=== PATIENT | male | born 1950 | race Caucasian/White ===

== ENCOUNTER → 2016-11-05 | Outpatient (CLI) | payer MEDICARE ==
[2016-11-05 09:48] LABS: Anion Gap 13 mmol/L; Blood Urea Nitrogen 26 mg/dL (9-20); Calcium 9.7 mg/dL (8.4-10.2); Carbon Dioxide 25 mmol/L (22-30); Chloride 103 mmol/L (98-107); Cholesterol 181 mg/dL (<200); Glucose 187 mg/dL (74-99); HDL Cholesterol 48 mg/dL (40-60); Non-African American GFR(MDRD) 51 (>60 ml/min/1.73 sqM); Potassium 5.1 mmol/L (3.5-5.1); Sodium 141 mmol/L (137-145); Triglycerides 317 mg/dL (<150)
[2016-11-05 10:09] LABS: Hemoglobin A1C 7.6 % (4.2-6.1)
== END | disposition home or self-care (01) ==
LOC: LABWHC1 08:25
PROVIDERS: ATTEND Internal Medicine
DX: E78.4 Other hyperlipidemia (principal); E87.8 Other disorders of electrolyte and fluid balance, not elsewhere classified
CPT/HCPCS: 36415; 80048; 80061; 83036

== ENCOUNTER 2016-12-02 13:14 | Observation (INO) | payer MEDICARE ==
[2016-12-02] MEDS ORDERED: ASPIRIN 81 MG CHEW PO STA (13:52)
[2016-12-02] MEDS ORDERED: NITROGLYCERIN OINT 1 INCH/GM PACKET TOPICAL STA (13:52)
--- NOTE | 2016-12-02 13:55 | ED ---
General Adult HPI - General Chief complaint: Chest Pain Stated complaint: Heavy Chest/SOB/Nausea Time Seen by Provider: 12/02/16 13:30 Source: patient, RN notes reviewed Mode of arrival: wheelchair Limitations: no limitations - History of Present Illness Initial comments: This is a 66-year-old male with past medical history significant for diabetes hypertension high cholesterol. Patient also has a strong family history for heart disease. Patient states about one hour ago he started having heaviness in the left side of his chest. Patient states the pain does not radiate anywhere. Patient states that she's got the oxygen the pain seems to have subsided a little. Patient denies any diaphoresis or nausea. Patient states she's mildly short of breath. Patient denies any headache patient denies numbness weakness. Patient denies any lightheadedness dizziness or near syncopal episode. Patient denies any abdominal pain patient denies any vomiting or diarrhea. Patient denies any recent fever but has had a cough for 7 days and just finished erythromycin this morning. - Related Data Home Medications Medication Instructions Recorded Confirmed Atenolol [Tenormin] 50 mg PO DAILY 06/17/14 12/02/16 Quinapril HCl [Accupril] 20 mg PO DAILY 06/17/14 12/02/16 Simvastatin [Zocor] 40 mg PO HS 06/17/14 12/02/16 glipiZIDE [Glucotrol] 10 tab PO BID 06/17/14 12/02/16 metFORMIN HCL [Glucophage] 850 tab PO BID@1200,2100 06/17/14 12/02/16 Liraglutide [Victoza 2-Misael] 1.2 mg SQ DAILY 12/02/16 12/02/16 Pioglitazone HCl [Actos] 30 mg PO DAILY 12/02/16 12/02/16 Allergies Allergy/AdvReac Type Severity Reaction Status Date / Time venom-honey bee Allergy Unknown Verified 12/02/16 14:39 aspirin AdvReac "gout Verified 12/02/16 14:39 flare up" codeine AdvReac "passed Verified 12/02/16 14:39 out" Penicillins AdvReac "passed Verified 12/02/16 14:39 out" Review of Systems ROS Statement: Those systems with pertinent positive or pertinent negative responses have been documented in the HPI. ROS Other: All systems not noted in ROS Statement are negative. Past Medical History Past Medical History: Diabetes Mellitus, Hypertension History of Any Multi-Drug Resistant Organisms: None Reported Past Surgical History: Orthopedic Surgery, Tonsillectomy Past Psychological History: No Psychological Hx Reported Smoking Status: Never smoker Past Alcohol Use History: None Reported Past Drug Use History: None Reported General Exam - General Exam Comments Initial Comments: GENERAL: Patient is well-developed and well-nourished. Patient is nontoxic and well- hydrated and is in mild distress. ENT: Neck is soft and supple. No significant lymphadenopathy is noted. Oropharynx is clear. Moist mucous membranes. Neck has full range of motion without eliciting any pain. EYES: The sclera were anicteric and conjunctiva were pink and moist. Extraocular movements were intact and pupils were equal round and reactive to light. Eyelids were unremarkable. PULMONARY: Unlabored respirations. Good breath sounds bilaterally. No audible rales rhonchi or wheezing was noted. CARDIOVASCULAR: There is a regular rate and rhythm without any murmurs gallops or rubs. ABDOMEN: Soft and nontender with normal bowel sounds. No palpable organomegaly was noted. There is no palpable pulsatile mass. SKIN: Skin is clear with no lesions or rashes and otherwise unremarkable. NEUROLOGIC: Patient is alert and oriented x3. Cranial nerves II through XII are grossly intact. Motor and sensory are also intact. Normal speech, volume and content. Symmetrical smile. MUSCULOSKELETAL: Normal extremities with adequate strength and full range of motion. No lower extremity swelling or edema. No calf tenderness. LYMPHATICS: No significant lymphadenopathy is noted PSYCHIATRIC: Normal psychiatric evaluation. Normal interpersonal interactions appears functionally intact in deals appropriately with others. No signs of depression. No signs of anxiety. Limitations: no limitations Course Vital Signs 12/02/16 12/02/16 12/02/16 13:27 13:38 14:00 Temperature 97.2 F L Pulse Rate 77 82 Respiratory 18 18 18 Rate Blood Pressure 150/75 124/76 O2 Sat by Pulse 100 99 Oximetry 12/02/16 15:00 Temperature Pulse Rate 80 Respiratory 18 Rate Blood Pressure 119/68 O2 Sat by Pulse 99 Oximetry Medical Decision Making - Medical Decision Making EKG shows a normal sinus rhythm at 77 bpm TN interval is 178 QRS is 94 QT interval 374 QTC is 423. Patient's EKG shows no ST segment elevation or depression or T-wave abnormalities are noted Chest x-ray shows no acute abnormality. Patient has no chest pain currently. Because of the patient's significant risk factors presentation family history I displaced the patient on heparin. I spoke with Dr. Lemon agreed to admit the patient about admitting orders I consult cardiology I continued the heparin Nitropaste aspirin on the floor. - Lab Data Result diagrams: 12/02/16 13:27 12/02/16 13:27 Lab Results 12/02/16 12/02/16 12/02/16 Range/Units 13:27 13:27 13:27 WBC 5.7 (3.8-10.6) k/uL RBC 4.48 (4.30-5.90) m/uL Hgb 13.7 (13.0-17.5) gm/dL Hct 40.5 (39.0-53.0) % MCV 90.5 (80.0-100.0) fL MCH 30.6 (25.0-35.0) pg MCHC 33.8 (31.0-37.0) g/dL RDW 13.1 (11.5-15.5) % Plt Count 237 (150-450) k/uL Neutrophils % 58 % Lymphocytes % 32 % Monocytes % 7 % Eosinophils % 1 % Basophils % 0 % Neutrophils # 3.3 (1.3-7.7) k/uL Lymphocytes # 1.8 (1.0-4.8) k/uL Monocytes # 0.4 (0-1.0) k/uL Eosinophils # 0.1 (0-0.7) k/uL Basophils # 0.0 (0-0.2) k/uL PT (9.0-12.0) sec INR (<1.1) APTT (22.0-30.0) sec Sodium 138 (137-145) mmol/L Potassium 5.2 H (3.5-5.1) mmol/L Chloride 102 (98-107) mmol/L Carbon Dioxide 22 (22-30) mmol/L Anion Gap 14 mmol/L BUN 25 H (9-20) mg/dL Creatinine 1.35 H (0.66-1.25) mg/dL Est GFR (MDRD) Af Amer >60 (>60 ml/min/1.73 sqM) Est GFR (MDRD) Non-Af 53 (>60 ml/min/1.73 sqM) Glucose 239 H (74-99) mg/dL Calcium 9.5 (8.4-10.2) mg/dL Magnesium 2.0 (1.6-2.3) mg/dL Total Bilirubin 1.2 (0.2-1.3) mg/dL AST 32 (17-59) U/L ALT 40 (21-72) U/L Alkaline Phosphatase 53 (38-126) U/L Total Creatine Kinase 152 (55-170) U/L CK-MB (CK-2) 0.7 (0.0-2.4) ng/mL CK-MB (CK-2) Rel Index 0.5 Troponin I <0.012 (0.000-0.034) ng/mL Total Protein 7.5 (6.3-8.2) g/dL Albumin 4.3 (3.5-5.0) g/dL 12/02/16 Range/Units 13:27 WBC (3.8-10.6) k/uL RBC (4.30-5.90) m/uL Hgb (13.0-17.5) gm/dL Hct (39.0-53.0) % MCV (80.0-100.0) fL MCH (25.0-35.0) pg MCHC (31.0-37.0) g/dL RDW (11.5-15.5) % Plt Count (150-450) k/uL Neutrophils % % Lymphocytes % % Monocytes % % Eosinophils % % Basophils % % Neutrophils # (1.3-7.7) k/uL Lymphocytes # (1.0-4.8) k/uL Monocytes # (0-1.0) k/uL Eosinophils # (0-0.7) k/uL Basophils # (0-0.2) k/uL PT 10.1 (9.0-12.0) sec INR 1.0 (<1.1) APTT 20.6 L (22.0-30.0) sec Sodium (137-145) mmol/L Potassium (3.5-5.1) mmol/L Chloride (98-107) mmol/L Carbon Dioxide (22-30) mmol/L Anion Gap mmol/L BUN (9-20) mg/dL Creatinine (0.66-1.25) mg/dL Est GFR (MDRD) Af Amer (>60 ml/min/1.73 sqM) Est GFR (MDRD) Non-Af (>60 ml/min/1.73 sqM) Glucose (74-99) mg/dL Calcium (8.4-10.2) mg/dL Magnesium (1.6-2.3) mg/dL Total Bilirubin (0.2-1.3) mg/dL AST (17-59) U/L ALT (21-72) U/L Alkaline Phosphatase (38-126) U/L Total Creatine Kinase (55-170) U/L CK-MB (CK-2) (0.0-2.4) ng/mL CK-MB (CK-2) Rel Index Troponin I (0.000-0.034) ng/mL Total Protein (6.3-8.2) g/dL Albumin (3.5-5.0) g/dL Critical Care Time Critical Care Time: Yes Total Critical Care Time: 35 Disposition Clinical Impression: Unstable angina pectoris Disposition: ADMITTED IP TO THIS [facility] Time of Disposition: 15:37
[2016-12-02 14:06] LABS: Basophils % (A) 0 %; CH 31.7; CHCM 35.2; Eosinophils # (A) 0.1 k/uL (0-0.7); Eosinophils % (A) 1 %; HCT 40.5 % (39.0-53.0); HDW 2.92; HGB 13.7 gm/dL (13.0-17.5); Luc # (Auto) 0.14; Luc % (Auto) 3; Lymphocytes # (A) 1.8 k/uL (1.0-4.8); Lymphocytes % (A) 32 %; MCH 30.6 pg (25.0-35.0); MCHC 33.8 g/dL (31.0-37.0); MCV 90.5 fL (80.0-100.0); Mean Platelet Volume 8.8; Monocytes # (A) 0.4 k/uL (0-1.0); Monocytes % (A) 7 %; Neutrophils # (A) 3.3 k/uL (1.3-7.7); Neutrophils % (A) 58 %; RBC 4.48 m/uL (4.30-5.90); RDW 13.1 % (11.5-15.5); WBC 5.7 k/uL (3.8-10.6)
[2016-12-02 14:20] LABS: ALT 40 U/L (21-72); AST 32 U/L (17-59); Alkaline Phosphatase 53 U/L (38-126); Anion Gap 14 mmol/L; Blood Urea Nitrogen 25 mg/dL (9-20); Calcium 9.5 mg/dL (8.4-10.2); Carbon Dioxide 22 mmol/L (22-30); Chloride 102 mmol/L (98-107); Glucose 239 mg/dL (74-99); Non-African American GFR(MDRD) 53 (>60 ml/min/1.73 sqM); Sodium 138 mmol/L (137-145); Total Bilirubin 1.2 mg/dL (0.2-1.3); Total Protein 7.5 g/dL (6.3-8.2)
[2016-12-02 14:26] LABS: Potassium 5.2 mmol/L (3.5-5.1)
[2016-12-02 14:29] LABS: Creatine Kinase 152 U/L (55-170)
[2016-12-02 14:41] LABS: Prothrombin Time 10.1 sec (9.0-12.0)
[2016-12-02 14:42] LABS: Creatine Kinase MB 0.7 ng/mL (0.0-2.4); Troponin I <0.012 ng/mL (0.000-0.034)
[2016-12-02 14:43] LABS: Partial Thromboplastin Time 20.6 sec (22.0-30.0)
--- NOTE | 2016-12-02 14:45 | XR ---
EXAMINATION TYPE: XR chest 2V DATE OF EXAM: 12/02/2016 2:27 PM HISTORY: Chest tightness. REFERENCE: NONE. FINDINGS: The lungs are clear. Pleural spaces are clear. Heart size is upper limits of normal. IMPRESSION: NO ACUTE INTRATHORACIC ABNORMALITY.
[2016-12-02] MEDS ORDERED: HEPARIN SODIUM,PORCINE 5,000 UNIT/ML 1 ML VIAL IV ONE (15:34)
[2016-12-02] MEDS ORDERED: NITROGLYCERIN SL TABS 0.4 MG TAB SUBLINGUAL PRN (15:37)
[2016-12-02] MEDS: HEPARIN SODIUM,PORCINE/D5W PMX 25,000 UNIT in DEXTROSE/WATER 1 500ML.BAG IV SCH (15:57)
--- NOTE | 2016-12-02 17:38 | P.HPIM ---
History of Present Illness Chief complaint: Chest pain History of present illness: The patient is a 66-year-old gentleman who earlier today was shopping with his . He developed a substernal chest pressure that did not radiate. 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 There when given oxygen and nitroglycerin there was improvement in his pain. Patient states he had some nausea associated with this and is somewhat short of breath. Apparently he has been recently getting over an upper respiratory infection for which she was on azithromycin. Past medical history: Patient does have underlying history of hypertension Hyperlipidemia Type 2 diabetes He is a former smoker. The patient also has history of colonic polyps along with history of renal stones. Also has stage III chronic kidney disease. Medications: Patient has had adverse reactions with passing out with codeine and penicillins. Apparently he has had a gout flareup while taking aspirin. And apparently has had reactions to bee stings. Home medications: Please refer to list but should include metformin 850 mg twice a day Actos 30 mg daily Victoza 1.2 mg subcu daily Glipizide 10 mg twice a day Zocor 40 mg at at bedtime Quinapril 20 mg daily Atenolol 50 mg daily. Previous surgeries include a tonsillectomy and left knee orthoscopic surgery. Review of systems: Basically is listed in the history of present illness. Patient denied any dizziness or headaches. No visual disturbances. States he did have some nausea. No fever or chills associated with his cough. No active phlegm production. No hemoptysis. No vomiting. No change in bowel movements. No hematochezia. Patient denies any urinary symptoms. No blood in his urine or dysuria. No unusual edema. No change in bowel movements. No blood in the stool. Family history: The patient apparently does have a strong family history of heart disease along with history of cirrhosis secondary to alcohol and prostate cancer. Social history: Patient is a former smoker. No history of any heavy alcohol usage. He does live locally in the area with his . He is retired. Physical examination: Patient is sitting up on the examination stretcher in the emergency room with his at his side. Does not appear to be in any acute distress and is alert and pleasant. Vital signs reveal temperature 90.8 with a pulse of 84 and respirations 18. Blood pressure is 108/67 and he is 98% saturated on 2 L nasal cannula. Chest wall does not reveal any tenderness. Head and neck exam unremarkable. No adenopathy or thyromegaly or carotid bruits detected. Lungs are clear to auscultation and percussion. Heart tones were regular without murmurs or rubs appreciated. Abdomen is mildly obese but soft and nontender without organomegaly or masses detected. Rectal and genitalia exam deferred. Extremities reveal no edema or calf tenderness. Neurologically he is intact and alert and oriented. Cranial nerves were intact. No focal weakness. Laboratory values: White count is 5.7 with a hemoglobin 11.7 and a platelet count of 237. INR is 1.0. Potassium mildly elevated at 5.2 with a normal sodium 138 and a CO2 content of 22. BUN is 25 with creatinine 1.35 given him a GFR of 53. Random blood sugar was 239. Liver function tests were unremarkable. Albumin 4.3. CK is 152. Troponin is less than 0.012. EKG reveals a normal sinus rhythm without acute ischemic changes noted. Some left axis is noted. Chest x-ray shows no acute abnormalities. Impressions: 1. Rather severe chest pain that lasted about an hour and finally relieved in the emergency room without change in and nitroglycerin. First set of enzymes were normal. No definite EKG changes. Further evaluation needed. Patient has multiple risk factors including strongly positive family history along with type 2 diabetes, hypertension, hyperlipidemia. 2. History of chronic kidney disease. Stage III. 3. History of colonic polyps. 4. History of renal stones. Plans: At this time patient has been started on heparin. We will hold his metformin. Glipizide also on hold for now. Continue with beta kaushik and DANN inhibitor. Further enzymes to be obtained. Consult cardiology and further workup as discussed with patient and at bedside in the emergency room.` Told patient he should not eat anything in the morning and be nothing by mouth in the morning until seen by cardiology. Past Medical History Past Medical History: Diabetes Mellitus, Hypertension History of Any Multi-Drug Resistant Organisms: None Reported Past Surgical History: Orthopedic Surgery, Tonsillectomy Past Psychological History: No Psychological Hx Reported Smoking Status: Never smoker Past Alcohol Use History: None Reported Past Drug Use History: None Reported Medications and Allergies Home Medications Medication Instructions Recorded Confirmed Type Atenolol [Tenormin] 50 mg PO DAILY 06/17/14 12/02/16 History Quinapril HCl [Accupril] 20 mg PO DAILY 06/17/14 12/02/16 History Simvastatin [Zocor] 40 mg PO HS 06/17/14 12/02/16 History glipiZIDE [Glucotrol] 10 tab PO BID 06/17/14 12/02/16 History metFORMIN HCL [Glucophage] 850 tab PO BID@1200,2100 06/17/14 12/02/16 History Liraglutide [Victoza 2-Misael] 1.2 mg SQ DAILY 12/02/16 12/02/16 History Pioglitazone HCl [Actos] 30 mg PO DAILY 12/02/16 12/02/16 History Allergies Allergy/AdvReac Type Severity Reaction Status Date / Time venom-honey bee Allergy Unknown Verified 12/02/16 14:39 aspirin AdvReac "gout Verified 12/02/16 14:39 flare up" codeine AdvReac "passed Verified 12/02/16 14:39 out" Penicillins AdvReac "passed Verified 12/02/16 14:39 out" Physical Exam Vitals: Vital Signs Temp Pulse Resp BP Pulse Ox 12/02/16 16:57 98.0 F 84 18 108/67 98 12/02/16 16:13 85 16 117/75 99 Results CBC & Chem 7: 12/02/16 13:27 12/02/16 13:27
[2016-12-02 17:55] LABS: Glucose,Whole Blood 210 mg/dL (75-99)
[2016-12-02 18:55] LABS: Hemoglobin A1C 8.3 % (4.2-6.1)
[2016-12-02] MEDS ORDERED: ACETAMINOPHEN TAB 325 MG TAB PO PRN (19:33)
[2016-12-02 20:22] LABS: Creatine Kinase 122 U/L (55-170)
[2016-12-02 20:34] LABS: Creatine Kinase MB 0.5 ng/mL (0.0-2.4); Troponin I <0.012 ng/mL (0.000-0.034)
[2016-12-02] MEDS: NITROGLYCERIN OINT 1 INCH/GM PACKET TOPICAL SCH (20:56)
[2016-12-02] MEDS ORDERED: ATORVASTATIN 20 MG TAB PO SCH (21:00)
[2016-12-02] MEDS: INSULIN LISPRO (humaLOG) 300 UNIT/3 ML VIAL SQ SCH (21:02)
[2016-12-02 21:03] LABS: Glucose,Whole Blood 145 mg/dL (75-99)
[2016-12-03] MEDS: NITROGLYCERIN OINT 1 INCH/GM PACKET TOPICAL SCH ×3 (00:12→14:36)
[2016-12-03 01:50] LABS: Creatine Kinase 126 U/L (55-170)
[2016-12-03] MEDS ORDERED: HEPARIN SODIUM,PORCINE 5,000 UNIT/ML 1 ML VIAL IV PRN (02:01)
[2016-12-03 02:03] LABS: Creatine Kinase MB 0.4 ng/mL (0.0-2.4); Troponin I <0.012 ng/mL (0.000-0.034)
[2016-12-03 07:03] LABS: Glucose,Whole Blood 165 mg/dL (75-99)
[2016-12-03] MEDS ORDERED: ALPRAZolam 0.25 MG TAB PO PRN (07:15)
[2016-12-03] MEDS ORDERED: ALPRAZolam 0.5 MG TAB PO PRN (07:15)
[2016-12-03] MEDS ORDERED: ASPIRIN 325 MG TAB PO STA (07:15)
[2016-12-03] MEDS ORDERED: ATORVASTATIN 80 MG TAB PO STA (07:15)
[2016-12-03] MEDS ORDERED: SODIUM CHLORIDE 0.9% 1,000 ML in EMPTY BAG 1 BAG IV ONE (07:15)
[2016-12-03] MEDS ORDERED: NITROGLYCERIN SL TABS 0.4 MG TAB SUBLINGUAL PRN ×2 (07:15→13:25)
--- NOTE | 2016-12-03 07:55 | CONS ---
DATE OF CONSULTATION: CHIEF COMPLAINT: Chest pain. Yazan is a 66-year-old gentleman with history of hypertension, dyslipidemia, and type 2 diabetes who presented to the hospital having had episodes of chest pain. He describes it as a substernal chest pressure that did not radiate anywhere, lasted for about half an hour. He went to our office and from there had apparently been sent to the emergency room. In the ER, he responded to sublingual nitroglycerin and oxygen and had remained chest pain-free. His chest pain was associated with some shortness of breath and nausea. EKG did not reveal significant changes. Patient had recently been diagnosed with upper respiratory tract infection but that has been getting better. Cardiac enzymes have been better. His BUN is 25. Creatinine is 1.35. Past medical history is significant for hypertension, diabetes, dyslipidemia. Medications include Glucophage 50 b.i.d., Actos 30 daily, Victoza, glipizide, Zocor, quinapril, atenolol. PATIENT IS ALLERGIC TO ASPIRIN, CODEINE AND PENICILLIN. FAMILY HISTORY: Significant for premature coronary artery disease. SOCIAL HISTORY: Negative for smoking, EtOH abuse, or drug abuse. REVIEW OF SYSTEMS: HEENT: Unremarkable. CARDIAC: As described above. RESPIRATORY: Negative. GI: Negative. GENITOURINARY: Negative. ALLERGY/IMMUNOLOGY: Negative. SKIN: Negative. MUSCULOSKELETAL: Negative. ENDOCRINE: Negative. DERMATOLOGY: Negative. CONSTITUTIONAL: Negative. ONCOLOGICAL: Negative. The rest of the system review is not relevant. On exam, heart rate is 80 beats per minute, blood pressure is 118/74, O2 sat is 97%. There is no jugular venous distention. Carotid upstroke is normal. There is no bruit. Chest exam reveals good air entry bilaterally. Heart exam reveals first and second heart sounds. No gallop. No murmur, no rub. Abdomen is soft, nontender. Exam of extremities did not reveal any edema. Peripheral pulses are felt. Labs show that tropes are negative. BUN is 25. Creatinine is 1.3. Potassium is 5.2. ASSESSMENT: 1. Unstable angina. 2. Hypertension. 3. Sxc-dbbzzwh-spizqzhki diabetes. 4. Chronic renal insufficiency. PLAN: I am concerned with patient's symptomatology. I think he will benefit from cardiac catheterization. There is a risk of contrast-induced nephropathy but I am going to hydrate him and he has elevated serum potassium, probably related to the DANN inhibitors. These should be held on discharge. He sees my associate, Dr. Hameed, and I am going to schedule it with him.
--- NOTE | 2016-12-03 08:13 | P.PN ---
Progress Note - Text The patient is a 66-year-old gentleman who presented last night with acute chest pain that was relieved in the emergency room with oxygen and nitroglycerin. Patient does have numerous risk factors including a positive family history, hypertension, hyperlipidemia, along with type 2 diabetes. Patient does have stage III chronic kidney disease. Patient denies any pain during the night. Vital signs reveal temperature 98.1 with a pulse of 83 and respirations 16. Blood pressure 118/74 and is 97% saturated on room air. Head and neck exam unremarkable. Lung and heart clear and regular. Abdomen nontender. No edema. No neurological changes. Patient's CK has remained low at 126 and troponins 2 less than 0.012. Glucose is 165. He is on heparin and PTT is 64. Impressions and plans: Patient has been seen by cardiology. Unstable angina. Anticipating likely catheterization later. This was discussed and explained to patient. He appears to understand reasons for further testing. Further recommendations pending those results and clinical response.
[2016-12-03 08:17] LABS: Cholesterol 144 mg/dL (<200); HDL Cholesterol 40 mg/dL (40-60); Triglycerides 254 mg/dL (<150)
[2016-12-03] MEDS ORDERED: ASPIRIN 325 MG TAB PO SCH (09:00)
[2016-12-03] MEDS ORDERED: NON-FORMULARY DRUG (Liraglutide [Victoza 2-Pak] 1.2 MG) SQ SCH (09:00)
--- NOTE | 2016-12-03 10:32 | ECHOF ---
Referral Reason:[place] MEASUREMENTS -------- HEIGHT: 177.8 cm WEIGHT: 95.7 kg BP: 118/74 RVIDd: 3.2 cm (< 3.3) IVSd: 1.2 cm (0.6 - 1.1) LVIDd: 4.4 cm (3.9 - 5.3) LVPWd: 1.2 cm (0.6 - 1.1) IVSs: 1.8 cm LVIDs: 3.0 cm LVPWs: 1.5 cm LA Diam: 3.6 cm (2.7 - 3.8) LAESV Index (A-L): 20.75 ml/m Ao Diam: 3.5 cm (2.0 - 3.7) AV Cusp: 2.2 cm (1.5 - 2.6) MV EXCURSION: 11.106 mm (> 18.000) MV EF SLOPE: 33 mm/s (70 - 150) EPSS: 0.8 cm MV E Eduardo: 0.88 m/s MV DecT: 302 ms MV A Eduardo: 1.02 m/s MV E/A Ratio: 0.86 FINDINGS -------- Sinus rhythm. This was a technically good study. The left ventricular size is normal. Left ventricular wall thickness is normal. Overall left ventricular systolic function is normal with, an EF between 60 - 65 %. The right ventricle is normal in size and function. Normal LA size by volume 22+/-6 ml/m2. The right atrium is normal in size. The aortic valve is trileaflet and appears structurally normal. Mild mitral annular calcification present. Trace tricuspid regurgitation present. Trace/mild (physiologic) pulmonic regurgitation. The aortic root size is normal. IVC Not well visulized. There is no pericardial effusion. CONCLUSIONS -------- 1. Sinus rhythm. 2. Mild mitral annular calcification present. 3. Trace tricuspid regurgitation present. 4. Trace/mild (physiologic) pulmonic regurgitation. 5. The aortic root size is normal. 6. IVC Not well visulized. 7. There is no pericardial effusion. 8. This was a technically good study. 9. The left ventricular size is normal. 10. Left ventricular wall thickness is normal. 11. Overall left ventricular systolic function is normal with, an EF between 60 - 65 %. 12. The right ventricle is normal in size and function. 13. Normal LA size by volume 22+/-6 ml/m2. 14. The right atrium is normal in size. 15. The aortic valve is trileaflet and appears structurally normal. INDUSTRIAL FURNACE FABRICATOR: Janice Beard RDCS
[2016-12-03] MEDS: INSULIN LISPRO (humaLOG) 300 UNIT/3 ML VIAL SQ SCH ×4 (10:44→21:16)
[2016-12-03] MEDS: LISINOPRIL 20 MG TAB PO SCH (10:46)
[2016-12-03] MEDS: PIOGLITAZONE 30 MG TAB PO SCH (10:46)
[2016-12-03] MEDS: ATENOLOL 50 MG TAB PO SCH (10:46)
[2016-12-03] MEDS ORDERED: SODIUM CHLORIDE 0.9% (PF) 10 ML VIAL ONE (11:57)
[2016-12-03] MEDS ORDERED: LIDOCAINE 2% INJ 20 MG/ML (20 ML MDV) ONE (11:57)
[2016-12-03] MEDS ORDERED: fentaNYL (PF) 50 MCG/ML 2 ML AMP ONE (11:58)
[2016-12-03] MEDS ORDERED: VERAPAMIL 2.5 MG/ML 2 ML AMP ONE (11:58)
[2016-12-03] MEDS ORDERED: IV FLUID CONTINUATION 600 ML IV ONE (12:15)
[2016-12-03] MEDS ORDERED: fentaNYL (PF) 50 MCG/ML 2 ML AMP IV ONE (12:30)
[2016-12-03] MEDS ORDERED: LIDOCAINE 2% INJ 20 MG/ML SQ ONE (12:32)
[2016-12-03] MEDS ORDERED: VERAPAMIL SYRINGE (5 MG/10 ML) INTRAARTER ONE (12:35)
[2016-12-03] MEDS ORDERED: ASPIRIN 325 MG TAB ONE (12:44)
[2016-12-03] MEDS ORDERED: PRASUGREL 10 MG TAB ONE (12:45)
[2016-12-03] MEDS ORDERED: ASPIRIN 325 MG TAB PO ONE (12:47)
[2016-12-03] MEDS ORDERED: BIVALIRUDIN BOLUS 250 MG/50 ML IV ONE (12:47)
[2016-12-03] MEDS ORDERED: PRASUGREL 10 MG TAB PO ONE (12:47)
[2016-12-03] MEDS ORDERED: BIVALIRUDIN 250 MG in SODIUM CHLORIDE 0.9% 50 ML IV ONE (12:48)
[2016-12-03] MEDS ORDERED: NITROGLYCERIN 1000MCG/10ML SYRINGE INTRACORON ONE (12:57)
[2016-12-03] MEDS ORDERED: IODIXANOL 320 MG/ML 100 ML INTRAARTER ONE (13:07)
[2016-12-03] MEDS ORDERED: ZOLPIDEM 5 MG TAB PO PRN (13:25)
[2016-12-03] MEDS ORDERED: RX INFO: IV CONTRAST WAS GIVEN 1 EACH MISC MISCELLANE PRN (13:25)
[2016-12-03] MEDS ORDERED: ATROPINE SULFATE 0.1 MG/ML 10ML SYRINGE IV PRN (13:25)
[2016-12-03] MEDS ORDERED: MAG HYDROX/AL HYDROX/SIMETH 30 ML CUP PO PRN (13:25)
[2016-12-03] MEDS ORDERED: SODIUM CHLORIDE 0.9% 1,000 ML IV SCH (13:30)
[2016-12-03] MEDS: HEPARIN SODIUM,PORCINE/D5W PMX 25,000 UNIT in DEXTROSE/WATER 1 500ML.BAG IV SCH (14:30)
[2016-12-03 17:37] LABS: Glucose,Whole Blood 116 mg/dL (75-99)
[2016-12-03] MEDS ORDERED: ATORVASTATIN 40 MG TAB PO SCH (21:00)
[2016-12-03 21:10] LABS: Glucose,Whole Blood 171 mg/dL (75-99)
--- NOTE | 2016-12-03 21:36 | CC ---
DATE OF SERVICE: Mr. Anne is a 66-year-old male with a known history of hypertension, hyperlipidemia who presented with new onset symptoms of chest discomfort without any enzymatic changes. He was evaluated by Dr. Chamorro and recommendation was made regarding cardiac catheterization. The procedure as well as the risks and complications were discussed with the patient who is in full understanding and agreement. PROCEDURE: Patient was brought to the laborer [place] in the fasting semisedated state after receiving fentanyl and Benadryl. He was draped and prepped in conventional fashion. Using Xylocaine anesthesia and Seldinger technique, a 6 Albanian sheath was introduced in right radial artery. Selective right and left coronary angiography were performed using 5 Albanian 3.5 bend right and left Leticia catheter. Multiple views of the coronary arteries including hemiaxial views were obtained. Following that, a 5 Albanian tight pigtail catheter was introduced into the left ventricle and pressures were calculated. Following that, catheter was removed. Images were reviewed. FINDINGS: Fluoroscopy: There is calcification involving the left main, and the proximal left anterior descending. LEFT MAIN: This is a short-sized vessel bifurcating into left circumflex, left anterior descending artery left main coronary artery has no evidence of high-grade stenosis. LEFT ANTERIOR DESCENDING: This is a large-size vessel reaching toward the apex with a wrap around the apex segment, giving rise to 2 small diagonal branches. The left anterior descending artery and its branches have no evidence of obstructive disease. LEFT CIRCUMFLEX: This is a large dominant vessel, giving rise to a very proximal obtuse marginal branch that has a 70% hazy plaque proximally and distally bifurcating into PDA and posterolateral segment and branches. The left circumflex distal to the first obtuse marginal branch has no evidence of high-grade stenosis. RIGHT CORONARY ARTERY: This is a small nondominant vessel that has no evidence of high-grade stenosis. LEFT VENTRICULOGRAM: Left ventriculogram was not performed. HEMODYNAMICS: There was no gradient across the aortic valve. The left ventricular end-diastolic was 12 mmHg. CONCLUSION: 1. Significant stenosis involving the first obtuse marginal branch. 2. Calcified left main and proximal left anterior descending coronary artery. RECOMMENDATION: In view of finding and anatomy, I have recommended proceeding with angioplasty and stenting of the first obtuse marginal branch. The procedure as well as the risks and complications were discussed with the patient, who is in full agreement to proceed.
--- NOTE | 2016-12-03 21:40 | PTCA ---
DATE OF SERVICE: Mr. Anne is a 66-year-old male with no prior documented history of coronary artery disease, who presented with symptoms of unstable angina, underwent cardiac catheterization, was found to have significant stenosis involving the first obtuse marginal branch. In view of that, recommendation made regarding coronary angioplasty and stenting. The procedure as well as risks and complications were discussed with the patient who is in full understanding and agreement. PROCEDURE: A 6 Belarusian 3-1/2 Bend left Leticai catheter was introduced into the system. It was unable to cannulate the left main. That catheter was removed and a 6 Belarusian 3.75 EBU guiding catheter was introduced into the system. After cannulating the left main, obtaining images a 0.014 balanced medium weight J-wire was advanced across the lesion, positioned distally. Then a 2.75 x 15 mm Xience Alpine stent was deployed and was dilated at 14 atmospheres. After the last inflation, after appropriate wait, the balloon and the guidewire were withdrawn back in the guiding catheter. Those images were obtained and repeated. Those images revealed stable successful stenting. At that point, the guiding catheter, the balloon and the guidewire were removed. The sheath was removed. Hemostasis was obtained with deployment of a TR band. There were no immediate complications. Patient is returned to his room in stable condition. Of note, the patient had no chest discomfort or significant EKG changes with the inflation. He received Angiomax per protocol as well as oral loading dose of Effient. He received intra-arterial verapamil at the start of the procedure. RESULT: Successful stenting of the first obtuse marginal branch with reduction in stenosis from 70% to 0%. RECOMMENDATION: Patient will be continued on aspirin, Effient and beta kaushik and statin. The importance of dual antiplatelet treatment was discussed with the patient and his family who is in full understanding and agreement.
--- NOTE | 2016-12-03 21:44 | LTR ---
December 03, 2016 RE: Omid Yazan Yudi Dear Dr. Lemon: I had the pleasure of performing cardiac catheterization and coronary angioplasty and stenting on Mr. Anne at [facility] on the november and a full copy of procedure note will be forwarded to you. In brief, he underwent successful stenting. He was found to have significant obstructive disease involving the first obtuse marginal branch and underwent successful stenting of that vessel. I am hopeful this procedure will stabilize his status. Thank you again for allowing me to participate in his care. Please feel to call for any questions. Sincerely yours, HOWARD FERRELL MD
[2016-12-04 04:15] VITALS: RESP 16
[2016-12-04] MEDS: INSULIN LISPRO (humaLOG) 300 UNIT/3 ML VIAL SQ SCH (06:46)
[2016-12-04 06:50] LABS: Glucose,Whole Blood 184 mg/dL (75-99)
[2016-12-04 07:02] LABS: Anion Gap 10 mmol/L; Blood Urea Nitrogen 17 mg/dL (9-20); Calcium 8.8 mg/dL (8.4-10.2); Carbon Dioxide 23 mmol/L (22-30); Chloride 107 mmol/L (98-107); Glucose 173 mg/dL (74-99); Non-African American GFR(MDRD) >60 (>60 ml/min/1.73 sqM); Potassium 4.4 mmol/L (3.5-5.1); Sodium 140 mmol/L (137-145)
[2016-12-04 07:51] VITALS: BP 111/68; PULSE 84; TEMP 97.5
[2016-12-04] MEDS: LISINOPRIL 20 MG TAB PO SCH (08:26)
[2016-12-04] MEDS: PIOGLITAZONE 30 MG TAB PO SCH (08:26)
[2016-12-04] MEDS: ATENOLOL 50 MG TAB PO SCH (08:26)
[2016-12-04] MEDS ORDERED: PRASUGREL 10 MG TAB PO SCH (09:00)
[2016-12-04] MEDS ORDERED: ASPIRIN 81 MG CHEW PO SCH (09:00)
--- NOTE | 2016-12-04 09:18 | PN ---
Mr. Anne is a 66-year-old man with known history of hypertension, hyperlipidemia, and diabetes mellitus, who presented with unstable angina, underwent cardiac catheterization, was found to have obstructive disease in the first obtuse marginal branch, underwent stenting of that vessel. He is doing well this morning, ambulating without difficulty. Denying any chest pain. No dizziness. No palpitation. No nausea. Continues to be on aspirin 81 mg daily, Effient 10 mg daily, Lipitor 40 mg daily, atenolol 50 mg daily, lisinopril 20 mg daily, Actos 30 mg daily in addition to metformin that has been on hold and insulin. PHYSICAL EXAMINATION: Blood pressure 111/60 with the heart rate in the 80s. LUNGS: Clear. HEART: Regular rate and rhythm. S1 and S2, no S3, no rub with systolic murmur. ABDOMEN: Soft, nontender. EXTREMITIES: No edema. Right radial pulse intact. EKG revealed no acute changes. Lab data revealed BUN, creatinine 17 and 1.12. Potassium 4.4. IMPRESSION: 1. Unstable angina and stenting of the first obtuse marginal branch. 2. Hypertension. 3. Hyperlipidemia. 4. Diabetes mellitus. RECOMMENDATIONS: Patient will be discharged home today and followed as an outpatient.
--- NOTE | 2016-12-04 10:02 | P.PN ---
Progress Note - Text The patient is a 66 gentleman who presented to the emergency room 2 nights ago with acute chest pain. Yesterday patient underwent cardiac catheterization and was found to have obstructive disease in the first obtuse marginal branch and underwent stenting by cardiology. This morning the patient is found up in bed. Alert and oriented. He denies any chest pain shortness of breath. He has been up ambulating without difficulty. Vital signs blood temperature 97.5 with a pulse of 84 and respirations 16. Blood pressure is 111/68 and he is 98% saturated on room air. Lungs and heart exam was clear and regular. No unusual edema. No neurological deficits. Laboratory values: Electrolytes were unremarkable with a potassium 4.4 and a sodium 140. His BUN is 17 with a creatinine 1.12 given him a GFR greater than 60. Blood sugar was 173 this morning. Impressions and plans: Patient has been seen by cardiology this morning and plans are for discharge to home. She has been placed on aspirin and will continue his diabetic medications at home along with his medication for cholesterol and blood pressure. Recommended follow-up with cardiology next week as family has plans for possibly traveling to [place] in one week. Gradual increase in activity was recommended but with no heavy lifting no is no shoveling. He is to call office if any concerns or problems and return to the emergency room if needed. Discussed with patient and at bedside.
--- NOTE | 2016-12-06 08:29 | P.DS ---
Providers Date of admission: 12/02/16 15:37 The patient is a 66-year-old gentleman who presented to the emergency room with acute chest pain and was eventually relieved with nitroglycerin and oxygen therapy in the emergency room. Please refer to history and physical. Patient did have multiple risk factors with history of hypertension, hyperlipidemia, type 2 diabetes, patient of former smoker. The patient was initially placed in observation and seen by cardiology. The patient did not have any subsequent chest pain. He was placed on heparin. Laboratory values revealed a total cholesterol 144 with an LDL cholesterol of 53 and an HDL cholesterol 40. Triglycerides were elevated to 54. Basic metabolic panel was unremarkable although blood sugars were in the 170 range. BUN was 17 with creatinine 1.12 given him a GFR greater than 60. Potassium is 4.4. Troponin values remain less than 0.012. EKG revealed a normal sinus rhythm with no acute changes. Chest x-ray did not show any acute disease. Echo Doppler revealed a ejection fraction of 60-65%. Normal left atrium and right atrium. Valvular structures appeared unremarkable. Patient underwent cardiac catheterization: There was significant stenosis involving the first obtuse marginal branch and some calcifications in the left main and proximal left anterior descending. Patient underwent angioplasty and stenting of the first obtuse marginal branch with a Xience Alpine stent. Home medications 1. Aspirin 81 mg daily 2. Atorvastatin 40 mg daily 3. Glycerin sublingual 0.4 mg when necessary chest pain 4. Effient 10 mg orally daily. 5. Metformin 850 mg twice a day. 6. Atenolol 50 mg daily 7. Victoza 1.2 mg subcu daily 8. Actos 30 mg daily 9. Accupril 20 mg daily 10. Glucotrol 10 mg twice daily Final discharge diagnoses 1. Unstable angina with first obtuse marginal branch blockage now status post angioplasty and stenting as described above. 2. Diabetes type 2 with lipidemia. 3. Hypertension 4. History of renal stones 5. Previous history of colonic polyps 6. Stage III chronic kidney disease Continue diabetic diet. Gradual increase in aerobic exercising. Follow-up with cardiology Dr. Hameed and myself over the next week. Call or return to ER if any recurrent chest pain. Attending physician: Rohit Lemon Consults: 12/03/16 13:25 Consult Physician Routine Consulting Provider: [facility] Consult Reason/Comments: Post Interventional patient Do you want consulting provider notified?: Already Contacted Primary care physician: Rohit Lemon Plan - Discharge Summary New Discharge Prescriptions: Atorvastatin [Lipitor] 40 mg PO HS #90 tab Nitroglycerin Sl Tabs [Nitrostat] 0.4 mg SUBLINGUAL Q5M PRN #25 tab PRN Reason: Chest Pain Prasugrel [Effient] 10 mg PO DAILY #90 tab Discharge Medication List Atenolol [Tenormin] 50 mg PO DAILY 06/17/14 [History] Quinapril HCl [Accupril] 20 mg PO DAILY 06/17/14 [History] glipiZIDE [Glucotrol] 10 tab PO BID 06/17/14 [History] Liraglutide [Victoza 2-Misael] 1.2 mg SQ DAILY 12/02/16 [History] Pioglitazone HCl [Actos] 30 mg PO DAILY 12/02/16 [History] Aspirin 81 mg PO DAILY chew 12/04/16 [Rx] Atorvastatin [Lipitor] 40 mg PO HS #90 tab 12/04/16 [Rx] Nitroglycerin Sl Tabs [Nitrostat] 0.4 mg SUBLINGUAL Q5M PRN #25 tab 12/04/16 [Rx ] Prasugrel [Effient] 10 mg PO DAILY #90 tab 12/04/16 [Rx] metFORMIN HCL [Glucophage] 850 tab PO BID@1200,2100 #0 12/04/16 [Rx] Follow up Appointment(s)/Referral(s): Katelyn Hameed MD [STAFF PHYSICIAN] - 1 Week (office will call on tuesday with follow up appointment) Rohit Lemon MD [Primary Care Provider] - 1-2 days (please call office when open to make follow up appointment) Patient Instructions/Handouts: After Heart Catheterization - [employer] Activity/Diet/Wound Care/Special Instructions: Hold metformin for 48 hours. Discharge Disposition: HOME SELF-CARE
== END 2016-12-04 11:22 | disposition home or self-care (01) ==
LOC: EC 13:14 → 3OBS 15:37 → 6SEL 12-03 13:29
PROVIDERS: ADMIT Internal Medicine; ATTEND Internal Medicine
DX: I25.110 Atherosclerotic heart disease of native coronary artery with unstable angina pectoris (principal); I25.84 Coronary atherosclerosis due to calcified coronary lesion; E11.22 Type 2 diabetes mellitus with diabetic chronic kidney disease; I12.9 Hypertensive chronic kidney disease with stage 1 through stage 4 chronic kidney disease, or unspecified chronic kidney disease; N18.3 Chronic kidney disease, stage 3 (moderate); E78.00 Pure hypercholesterolemia, unspecified; E78.5 Hyperlipidemia, unspecified; Z79.82 Long term (current) use of aspirin; Z87.891 Personal history of nicotine dependence; Z88.6 Allergy status to analgesic agent; Z88.5 Allergy status to narcotic agent; Z88.0 Allergy status to penicillin; Z79.899 Other long term (current) drug therapy; Z79.84 Long term (current) use of oral hypoglycemic drugs; J06.9 Acute upper respiratory infection, unspecified; R11.0 Nausea
CPT/HCPCS: 36415; 93005; 93306; 93458; 85347; 80061; 80053; 80048; 83036; 82550 ×2; 82553 ×2; 83735; 84484 ×2; 85025; 85610; 85730 ×2; 71020; 99291; 96365; 96376; G0378 ×3; C9600; C1769 ×2; C1887 ×2; C1894; C1874; J2001; J1644 ×3; Q9967; J3010; J0583

== ENCOUNTER → 2017-02-11 | Outpatient (CLI) | payer MEDICARE ==
[2017-02-11 09:37] LABS: CHCM 33.5; HCT 36.4 % (39.0-53.0); HDW 2.63; HGB 12.4 gm/dL (13.0-17.5); MCH 31.7 pg (25.0-35.0); MCV 93.2 fL (80.0-100.0); Mean Platelet Volume 8.1; RBC 3.91 m/uL (4.30-5.90); RDW 13.7 % (11.5-15.5); WBC 4.4 k/uL (3.8-10.6)
[2017-02-11 10:41] LABS: ALT 33 U/L (21-72); AST 25 U/L (17-59); Alkaline Phosphatase 51 U/L (38-126); Anion Gap 10 mmol/L; Blood Urea Nitrogen 24 mg/dL (9-20); Calcium 9.7 mg/dL (8.4-10.2); Carbon Dioxide 26 mmol/L (22-30); Chloride 104 mmol/L (98-107); Cholesterol 151 mg/dL (<200); Glucose 164 mg/dL (74-99); HDL Cholesterol 52 mg/dL (40-60); Non-African American GFR(MDRD) >60 (>60 ml/min/1.73 sqM); Potassium 4.3 mmol/L (3.5-5.1); Sodium 140 mmol/L (137-145); Total Bilirubin 1.6 mg/dL (0.2-1.3); Total Protein 7.2 g/dL (6.3-8.2); Triglycerides 190 mg/dL (<150)
[2017-02-11 11:10] LABS: Prostate Specific Antigen 0.46 ng/mL (0.00-4.00)
== END | disposition home or self-care (01) ==
LOC: LABWHC1 08:14
PROVIDERS: ATTEND Internal Medicine Interventional Cardiology
DX: E78.2 Mixed hyperlipidemia (principal); N40.0 Benign prostatic hyperplasia without lower urinary tract symptoms; R53.83 Other fatigue; E87.8 Other disorders of electrolyte and fluid balance, not elsewhere classified; E78.6 Lipoprotein deficiency
CPT/HCPCS: 36415; 80053; 80061; 83036; 84153; 85027

== ENCOUNTER → 2018-01-24 | Outpatient (CLI) | payer MEDICARE ==
[2018-01-24 11:05] LABS: Total Protein 7.2 g/dL (6.3-8.2)
[2018-01-24 18:58] LABS: Hemoglobin A1C 8.4 % (4.0-6.0)
== END | disposition home or self-care (01) ==
LOC: LABWHC1 09:15
PROVIDERS: ATTEND Internal Medicine Interventional Cardiology
DX: E78.2 Mixed hyperlipidemia (principal); E11.69 Type 2 diabetes mellitus with other specified complication; E87.8 Other disorders of electrolyte and fluid balance, not elsewhere classified
CPT/HCPCS: 36415; 80053; 80061; 83036

== ENCOUNTER → 2018-12-08 | Outpatient (CLI) | payer MEDICARE ==
[2018-12-08 10:31] LABS: HCT 42.5 % (39.0-53.0); HGB 13.9 gm/dL (13.0-17.5); MCH 30.3 pg (25.0-35.0); MCHC 32.6 g/dL (31.0-37.0); MCV 92.9 fL (80.0-100.0); Mean Platelet Volume 7.3; Platelet Count 227 k/uL (150-450); RBC 4.58 m/uL (4.30-5.90); RDW 13.3 % (11.5-15.5); WBC 5.1 k/uL (3.8-10.6)
[2018-12-08 17:36] LABS: Albumin 4.3 g/dL (3.80-4.90); Albumin/Globulin Ratio 1.87 (1.60-3.17); Anion Gap 11.4 mmol/L (4.00-12.00); Calcium 9.6 mg/dL (8.7-10.3); Carbon Dioxide 25.6 mmol/L (21.6-31.8); Globulin 2.3 g/dL (1.6-3.3); Potassium 5.2 mmol/L (3.5-5.5); Total Bilirubin 1.6 mg/dL (0.2-1.2); Total Protein 6.6 g/dL (6.2-8.2); Uric Acid 6.6 mg/dL (3.7-8.7)
[2018-12-08 18:07] LABS: Hemoglobin A1C 8.9 % (4.0-6.0)
== END | disposition home or self-care (01) ==
LOC: LABWHC1 09:20
PROVIDERS: ATTEND Internal Medicine Interventional Cardiology
DX: E78.2 Mixed hyperlipidemia (principal); E11.9 Type 2 diabetes mellitus without complications; M10.9 Gout, unspecified; E87.8 Other disorders of electrolyte and fluid balance, not elsewhere classified; N40.0 Benign prostatic hyperplasia without lower urinary tract symptoms
CPT/HCPCS: 36415; 80053; 80061; 82043; 82570; 83036; 84153; 84550; 85027

== ENCOUNTER → 2019-06-28 | Outpatient (CLI) | payer MEDICARE ==
[2019-06-28 10:10] LABS: HCT 44.2 % (39.0-53.0); HGB 14.3 gm/dL (13.0-17.5); MCH 29.7 pg (25.0-35.0); MCHC 32.3 g/dL (31.0-37.0); Mean Platelet Volume 7.8; Platelet Count 213 k/uL (150-450); RDW 13.6 % (11.5-15.5); WBC 5.3 k/uL (3.8-10.6)
[2019-06-28 10:26] LABS: Appearance,Urine Clear (Clear); Bilirubin,Urine Negative (Negative); Blood,Urine Negative (Negative); Color,Urine Light Yellow; Glucose,Urine (UA) 4+ (Negative); Ketones,Urine Negative (Negative); Leukocyte Esterase,Urine Negative (Negative); Nitrite,Urine Negative (Negative); Protein,Urine Negative (Negative); Specific Gravity,Urine 1.023 (1.001-1.035); Urobilinogen,Urine <2.0 mg/dL (<2.0)
[2019-06-28 16:43] LABS: African American GFR (CKD) 59.4 (60.0-200.0); Albumin 4.4 g/dL (3.80-4.90); Albumin/Globulin Ratio 2.32 (1.60-3.17); Anion Gap 8.8 mmol/L (4.00-12.00); BUN/Creat Ratio 16.43 Ratio (12.00-20.00); Calcium 9.5 mg/dL (8.7-10.3); Carbon Dioxide 26.2 mmol/L (21.6-31.8); Chol/HDL Ratio 3.22; Globulin 1.9 g/dL (1.6-3.3); LDL Cholesterol,Calculated 60.6 mg/dL (0.0-131.0); Potassium 5.1 mmol/L (3.5-5.5); Total Bilirubin 1.5 mg/dL (0.2-1.2); Total Protein 6.3 g/dL (6.2-8.2); VLDL Calculation 39.4 mg/dL (5.00-40.00)
== END | disposition home or self-care (01) ==
LOC: LABWHC1 09:22
PROVIDERS: ATTEND Nurse Practitioner Adult Health
DX: E78.2 Mixed hyperlipidemia (principal); E11.9 Type 2 diabetes mellitus without complications; I10 Essential (primary) hypertension; I25.10 Atherosclerotic heart disease of native coronary artery without angina pectoris; E55.9 Vitamin D deficiency, unspecified; Z12.5 Encounter for screening for malignant neoplasm of prostate; Z79.899 Other long term (current) drug therapy
CPT/HCPCS: 36415; 80053; 80061; 81003; 82306; 82550; 84153; 85027

== ENCOUNTER → 2019-08-03 | Outpatient (CLI) | payer MEDICARE ==
--- NOTE | 2019-08-03 12:09 | XR ---
EXAMINATION TYPE: XR cervical spine comp DATE OF EXAM: 08/03/2019 TECHNIQUE: Frontal, lateral, oblique, and open mouth view of the cervical spine are obtained. HISTORY: Neck pain M54.2 trauma injury last week. COMPARISON: None FINDINGS: The cervical spine is visualized in its entirety from C1 thru the top of T1 level, it is s atisfactory in alignment without evidence of acute fracture or dislocation. The pre-vertebral soft t issue appears within normal limits. The C1-C2 articulation is within normal limits on the open mouth view. Vertebral body heights are maintained. Mild disc space narrowing C6-C7 and C7-T1 levels. Mild anterior spurring. The oblique images are within normal limits. Overlying soft tissues are unremarka ble. IMPRESSION: As above.
== END | disposition home or self-care (01) ==
LOC: RADXRMAIN 11:37
PROVIDERS: ATTEND Family Medicine
DX: M99.71 Connective tissue and disc stenosis of intervertebral foramina of cervical region (principal)
CPT/HCPCS: 72050

== ENCOUNTER → 2019-11-01 | Outpatient (CLI) | payer MEDICARE ==
[2019-11-01 17:08] LABS: Anion Gap 11.4 mmol/L (4.00-12.00); BUN/Creat Ratio 17.69 Ratio (12.00-20.00); Calcium 10.2 mg/dL (8.7-10.3); Carbon Dioxide 25.6 mmol/L (21.6-31.8); Chol/HDL Ratio 3.13; LDL Cholesterol,Calculated 78.2 mg/dL (0.0-131.0); Non-African American GFR(CKD) 56.1 (60.0-200.0); Potassium 4.8 mmol/L (3.5-5.5); VLDL Calculation 32.8 mg/dL (5.00-40.00)
[2019-11-01 17:56] LABS: Urine Creatinine 78.3 mg/dL
[2019-11-01 18:37] LABS: Hemoglobin A1C 7.8 % (4.0-6.0)
== END ==
LOC: LABWHC1 10:02
PROVIDERS: ATTEND Nurse Practitioner Adult Health
DX: E11.65 Type 2 diabetes mellitus with hyperglycemia (principal); E78.2 Mixed hyperlipidemia
CPT/HCPCS: 36415; 80048; 80061; 82043; 82570; 83036; 84450; 84460

== ENCOUNTER → 2020-05-29 | Outpatient (CLI) | payer MEDICARE ==
[2020-05-29 17:15] LABS: Chol/HDL Ratio 3.27; LDL Cholesterol,Calculated 70.8 mg/dL (0.0-131.0); VLDL Calculation 40.2 mg/dL (5.00-40.00)
== END | disposition home or self-care (01) ==
LOC: LABWHC1 08:58
PROVIDERS: ATTEND Nurse Practitioner Adult Health
DX: E78.2 Mixed hyperlipidemia (principal)
CPT/HCPCS: 36415; 80061

== ENCOUNTER → 2020-08-20 | Outpatient (CLI) | payer MEDICARE ==
--- NOTE | 2020-08-20 21:37 | CT ---
EXAMINATION TYPE: CT abdomen pelvis wo con DATE OF EXAM: 08/20/2020 COMPARISON: 11/05/2013 INDICATION: Gross hematuria. DLP: 694.7 mGycm, Automated exposure control for dose reduction was used. CONTRAST: 0 mL of Isovue 300. Study performed without Oral Contrast TECHNIQUE: Axial images were obtained from above the diaphragm to the pubic rami in the axial plane a t 5 mm thick sections. Reconstructed images are reviewed on the computer in the coronal plane. FINDINGS: Limited CT sections are obtained the lung bases. The lung bases are clear. Coronary artery calcific ations present. CT ABDOMEN: Liver: Normal Spleen: Normal Pancreas: Normal Adrenal glands: The adrenal glands are normal. Gallbladder: Gallstones are present. Kidneys: No masses are evident. No hydronephrosis is present. No cysts are present. There is a 0.2 cm nonobstructing inferior left renal stone present. No additional renal stones are evident. Left u reter appears normal into the pelvis. Within the pelvis the ureter is dilated. The most dilated porti on there is a 0.7 cm calcification above the left ureterovesical junction. Note is made of phlebolith s more inferior within the pelvis Aorta: Normal Inferior vena cava: Normal. CT PELVIS: Loops of bowel within the abdomen and pelvis are normal. There are loops of bowel which are incom pletely distended or lack oral contrast limiting their evaluation. Appendix: Not visualized. No suspicious dilated tubular structures or inflammatory changes are eviden t. Urinary bladder: Normal. Genitourinary structures: Prostate is prominent. Osseous structures: No suspicious lytic or sclerotic lesions. IMPRESSIONS: 1. 0.7 cm distal left ureteral stone above the left ureterovesical junction with mild focal left ure teral dilatation at that level
== END | disposition home or self-care (01) ==
LOC: RADCTMAIN 17:10
PROVIDERS: ATTEND Urology
DX: N20.1 Calculus of ureter (principal); N28.82 Megaloureter; Z91.030 Bee allergy status
CPT/HCPCS: 74176

== ENCOUNTER → 2020-11-24 | Outpatient (CLI) | payer MEDICARE ==
[2020-11-24 15:42] LABS: African American GFR (CKD) 58.6 (60.0-200.0); Albumin 4.6 g/dL (3.80-4.90); Albumin/Globulin Ratio 2.56 (1.60-3.17); Anion Gap 7.8 mmol/L (4.00-12.00); BUN/Creat Ratio 20.71 Ratio (12.00-20.00); Calcium 9.6 mg/dL (8.7-10.3); Carbon Dioxide 26.2 mmol/L (21.6-31.8); Chol/HDL Ratio 3.16; Globulin 1.8 g/dL (1.6-3.3); LDL Cholesterol,Calculated 68.6 mg/dL (0.0-131.0); Non-African American GFR(CKD) 50.5 (60.0-200.0); Potassium 5.5 mmol/L (3.5-5.5); Total Bilirubin 1.6 mg/dL (0.2-1.2); Total Protein 6.4 g/dL (6.2-8.2); VLDL Calculation 41.4 mg/dL (5.00-40.00)
== END | disposition home or self-care (01) ==
LOC: LABWHC1 08:38
PROVIDERS: ATTEND Internal Medicine Interventional Cardiology
DX: E78.2 Mixed hyperlipidemia (principal)
CPT/HCPCS: 36415; 80053; 80061

== ENCOUNTER 2021-01-04 14:05 | Inpatient (IN) | payer MEDICARE ==
--- NOTE | 2021-01-04 14:47 | ED ---
SOB HPI - General Source: patient, family, RN notes reviewed Mode of arrival: wheelchair Limitations: no limitations - History of Present Illness MD Complaint: shortness of breath, cough -: days(s) (8) Improves With: nothing Worsens With: exertion, movement, coughing Known History Of: diabetes Context: recent illness (covid + 12/27, symptoms started 8 days ago) Associated Symptoms: fever, cough Treatments Prior to Arrival: none <Javi Laura - Last Filed: 01/04/21 18:10> <Artur Humphrey - Last Filed: 01/06/21 14:54> - General Chief Complaint: Shortness of Breath Stated Complaint: weakness, fever,COVID + Time Seen by Provider: 01/04/21 14:25 - History of Present Illness Initial Comments: 70-year-old white male patient in acute respiratory distress with oxygen saturations at 76% on room air, tachycardic at 123, respiratory rate of 30. Patient came to the emergency room with his both tested positive for Covid 19 on 313. States symptoms started 8 days ago with a dry cough shortness of breath patient denies nausea vomiting or diarrhea. Patient denies chest pain. States has had a decrease in appetite, has been trying to hydrate with water but states he still feels very dry with a dry sore throat. (Javi Laura) - Related Data Home Medications Medication Instructions Recorded Confirmed Quinapril HCl [Accupril] 20 mg PO DAILY 06/17/14 01/04/21 Liraglutide [Victoza 2-Misael] 1.8 mg SQ DAILY 12/02/16 01/04/21 Pioglitazone HCl [Actos] 30 mg PO DAILY 12/02/16 01/04/21 Ascorbic Acid [Vitamin C] 500 mg PO DAILY 01/04/21 01/04/21 Atorvastatin [Lipitor] 20 mg PO HS 01/04/21 01/04/21 Benzonatate [Tessalon Perles] 100 mg PO TID PRN 01/04/21 01/04/21 Cholecalciferol [Vitamin D3 (25 25 mcg PO DAILY 01/04/21 01/04/21 Mcg = 1000 Iu)] Empagliflozin [Jardiance] 25 mg PO DAILY 01/04/21 01/04/21 Insulin Glargine,Hum.rec.anlog 28 units SQ DAILY 01/04/21 01/04/21 [Touhussain Escoto Solostar] Metoprolol Tartrate [Lopressor] 25 mg PO BID 01/04/21 01/04/21 Sildenafil Citrate 50 mg PO DAILY PRN 01/04/21 01/04/21 Zinc 50 mg PO DAILY 01/04/21 01/04/21 metFORMIN HCL [Glucophage] 850 tab PO BID 01/04/21 01/04/21 Previous Rx's Medication Instructions Recorded Aspirin 81 mg PO DAILY chew 12/04/16 Nitroglycerin Sl Tabs [Nitrostat] 0.4 mg SUBLINGUAL Q5M PRN #25 tab 12/04/16 Allergies Allergy/AdvReac Type Severity Reaction Status Date / Time prasugrel [From Effient] Allergy Rash/Hives Verified 01/04/21 16:48 venom-honey bee Allergy Unknown Verified 01/04/21 16:48 aspirin AdvReac "gout Verified 01/04/21 16:48 flare up" codeine AdvReac "passed Verified 01/04/21 16:48 out" Penicillins AdvReac "passed Verified 01/04/21 16:48 out" Review of Systems ROS Other: All systems not noted in ROS Statement are negative. <Javi Laura - Last Filed: 01/04/21 18:10> ROS Other: All systems not noted in ROS Statement are negative. <Artur Humphrey - Last Filed: 01/06/21 14:54> ROS Statement: Those systems with pertinent positive or pertinent negative responses have been documented in the HPI. 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 Pt states that he has a mass on his left kidney. COVID History of Any Multi-Drug Resistant Organisms: None Reported Past Surgical History: Heart Catheterization, Orthopedic Surgery, Tonsillectomy Additional Past Surgical History / Comment(s): EGD/COLONOSCOPY, LT KNEE ARTHROSCOPY Past Anesthesia/Blood Transfusion Reactions: No Reported Reaction Past Psychological History: No Psychological Hx Reported Smoking Status: Never smoker Past Alcohol Use History: None Reported Past Drug Use History: None Reported - Past Family History Mother Family Medical History: Cancer, Myocardial Infarction ([place]) Additional Family Medical History / Comment(s): LYMPHOMA Father Family Medical History: Coronary Artery Disease (CAD) Additional Family Medical History / Comment(s): QUAD BYPASS, PROSTATE CANCER <Javi Laura - Last Filed: 01/04/21 18:10> General Exam Limitations: no limitations General appearance: alert, in no apparent distress, in distress Head exam: Present: atraumatic, normocephalic, normal inspection Eye exam: Present: normal appearance, PERRL, EOMI. Absent: scleral icterus, conjunctival injection, periorbital swelling Pupils: Absent: irregular, unequal ENT exam: Present: other (dry mucous membranes) Neck exam: Present: normal inspection, full ROM. Absent: tenderness, meningismus, lymphadenopathy Respiratory exam: Present: rales, decreased breath sounds (crackles b/l bases, diminished at apices) Cardiovascular Exam: Present: tachycardia (123), normal heart sounds. Absent: JVD GI/Abdominal exam: Present: soft, normal bowel sounds. Absent: distended, tenderness, guarding, rebound, rigid Neurological exam: Present: alert, oriented X3, CN II-XII intact Psychiatric exam: Present: normal affect, normal mood Skin exam: Present: warm, dry, intact, normal color. Absent: rash, cyanosis, diaphoretic, mottled <Javi Laura - Last Filed: 01/04/21 18:10> Course - Reevaluation(s) Time: 14:38 Time: 15:04 Time: 17:13 Time: 18:10 <Javi Laura - Last Filed: 01/04/21 18:10> Vital Signs 01/04/21 01/04/21 01/04/21 14:12 14:32 14:40 Temperature 98.4 F Pulse Rate 123 H 121 H 120 H Pulse Rate [ Screen Tender Helper ] Respiratory 26 H 50 H 39 H Rate Blood Pressure 156/87 163/89 Blood Pressure [Left Arm] O2 Sat by Pulse 82 L 77 L 86 L Oximetry 01/04/21 01/04/21 01/04/21 14:50 15:00 15:10 Temperature Pulse Rate 120 H 120 H 118 H Pulse Rate [ Screen Tender Helper ] Respiratory 39 H 43 H 31 H Rate Blood Pressure 163/89 163/89 163/89 Blood Pressure [Left Arm] O2 Sat by Pulse 90 L 85 L 88 L Oximetry 01/04/21 01/04/21 01/04/21 15:17 15:20 15:30 Temperature Pulse Rate 120 H 120 H 121 H Pulse Rate [ Screen Tender Helper ] Respiratory 24 42 H 42 H Rate Blood Pressure 133/84 133/80 133/80 Blood Pressure [Left Arm] O2 Sat by Pulse 88 L 90 L 91 L Oximetry 01/04/21 01/04/21 01/04/21 15:40 15:44 15:50 Temperature Pulse Rate 116 H 120 H 115 H Pulse Rate [ Screen Tender Helper ] Respiratory 30 H 24 51 H Rate Blood Pressure 133/80 133/80 Blood Pressure [Left Arm] O2 Sat by Pulse 92 L 94 L 94 L Oximetry 01/04/21 01/04/21 01/04/21 16:00 16:10 16:20 Temperature Pulse Rate 115 H 114 H 116 H Pulse Rate [ Screen Tender Helper ] Respiratory 35 H 44 H 27 H Rate Blood Pressure 133/80 Blood Pressure [Left Arm] O2 Sat by Pulse 93 L 93 L Oximetry 01/04/21 01/04/21 01/04/21 16:30 16:40 16:43 Temperature Pulse Rate 126 H 120 H 114 H Pulse Rate [ Screen Tender Helper ] Respiratory 40 H 52 H 32 H Rate Blood Pressure 161/87 Blood Pressure [Left Arm] O2 Sat by Pulse 85 L 93 L Oximetry 01/04/21 01/04/21 01/04/21 16:50 17:00 17:10 Temperature Pulse Rate 115 H 113 H 115 H Pulse Rate [ Screen Tender Helper ] Respiratory 53 H 40 H 30 H Rate Blood Pressure 161/87 161/87 134/77 Blood Pressure [Left Arm] O2 Sat by Pulse 80 L 84 L 89 L Oximetry 01/04/21 01/04/21 01/04/21 17:20 17:23 17:30 Temperature 98.2 F Pulse Rate 117 H 112 H Pulse Rate [ 95 Screen Tender Helper ] Respiratory 41 H 28 H 48 H Rate Blood Pressure 134/77 134/77 Blood Pressure 147/80 [Left Arm] O2 Sat by Pulse 83 L 97 87 L Oximetry 01/04/21 01/04/21 01/04/21 17:40 17:50 18:00 Temperature Pulse Rate 113 H 111 H 112 H Pulse Rate [ Screen Tender Helper ] Respiratory 57 H 20 20 Rate Blood Pressure 123/80 123/80 123/80 Blood Pressure [Left Arm] O2 Sat by Pulse 85 L 90 L 96 Oximetry 01/04/21 01/04/21 01/04/21 18:10 18:20 18:30 Temperature Pulse Rate 112 H 108 H 108 H Pulse Rate [ Screen Tender Helper ] Respiratory 20 33 H 39 H Rate Blood Pressure 137/90 137/90 137/90 Blood Pressure [Left Arm] O2 Sat by Pulse 96 95 95 Oximetry 01/04/21 01/04/21 01/04/21 18:40 18:45 18:50 Temperature Pulse Rate 105 H 105 H 103 H Pulse Rate [ Screen Tender Helper ] Respiratory 33 H 34 H 37 H Rate Blood Pressure 138/71 138/71 Blood Pressure [Left Arm] O2 Sat by Pulse 96 96 96 Oximetry 01/04/21 01/04/21 01/04/21 19:00 19:10 19:20 Temperature Pulse Rate 105 H 102 H 101 H Pulse Rate [ Screen Tender Helper ] Respiratory 10 L 37 H 39 H Rate Blood Pressure 138/71 130/83 130/83 Blood Pressure [Left Arm] O2 Sat by Pulse 94 L 94 L 94 L Oximetry 01/04/21 20:37 Temperature Pulse Rate 110 H Pulse Rate [ Screen Tender Helper ] Respiratory 32 H Rate Blood Pressure 137/88 Blood Pressure [Left Arm] O2 Sat by Pulse 96 Oximetry - Reevaluation(s) Reevaluation #1: 01/04/21 14:45 Dr. Avelar at bedside to evaluate patient. Patient placed on oxygen with minimal improvement only 82% on 2 L, patient placed on 6 L nasal cannula and will put on high flow oxygen and reassess (Javi Laura) Reevaluation #2: 01/04/21 15:04 Oxygen saturation 87% on high flow O2, patient in less respiratory distress (Javi Laura) Reevaluation #3: 01/04/21 17:13 RN states patient sats dropped back down to 82% on high flow, patient encouraged to set up a takes in deep breaths. We'll continue to monitor. (Javi Laura) Reevaluation #4: 01/04/21 17:56 Patient continues to be dyspneic, sats down to 85% on high flow, patient states feeling tired, he states he feels like he can't get the air out needing 3 exhalations to each inhalation. respiratory called Place patient on BiPAP and will reassess. (Javi Laura) Reevaluation #5: 01/04/21 18:10 Patient much improved with BiPAP, sats are up to 96% (Javi Laura) Medical Decision Making - Lab Data Result diagrams: 01/04/21 14:51 01/04/21 14:51 - EKG Data -: EKG Interpreted by Me Rate: tachycardia (Ventricular rate of 120, ND interval 0.14, QRS 0.88, QTc of 446,) <Javi Laura - Last Filed: 01/04/21 18:10> - Lab Data Result diagrams: 01/06/21 03:20 01/06/21 03:20 <Artur Humphrey - Last Filed: 01/06/21 14:54> - Medical Decision Making Case discussed with Dr. Humphrey. Patient heart rate of 123 respiratory rate 26 oxygen saturation of 76%, lactic acid 2.1 fluid bolus is initiated. Dr Humphrey states will contact ICU. CTA orderd for elevated d-dimer. . (Javi Laura) - Lab Data Lab Results 01/04/21 01/04/21 01/04/21 Range/Units 14:51 14:51 14:51 WBC 6.9 (3.8-10.6) k/uL RBC 5.34 (4.30-5.90) m/uL Hgb 16.5 (13.0-17.5) gm/dL Hct 47.5 (39.0-53.0) % MCV 88.9 (80.0-100.0) fL MCH 31.0 (25.0-35.0) pg MCHC 34.8 (31.0-37.0) g/dL RDW 13.2 (11.5-15.5) % Plt Count 141 L (150-450) k/uL MPV 9.0 Neutrophils % 86 % Lymphocytes % 8 % Monocytes % 5 % Eosinophils % 1 % Basophils % 0 % Neutrophils # 5.9 (1.3-7.7) k/uL Lymphocytes # 0.5 L (1.0-4.8) k/uL Monocytes # 0.3 (0-1.0) k/uL Eosinophils # 0.1 (0-0.7) k/uL Basophils # 0.0 (0-0.2) k/uL PT 10.4 (9.0-12.0) sec INR 1.0 (<1.2) APTT 24.6 (22.0-30.0) sec D-Dimer 1.17 H (<0.60) mg/L FEU Sample Site ABG pH (7.35-7.45) ABG pCO2 (35-45) mmHg ABG pO2 (83-108) mmHg ABG HCO3 (21-25) mmol/L ABG Total CO2 (19-24) mmol/L ABG O2 Saturation (94-97) % ABG Base Excess mmol/L Michael Test FiO2 % Sodium 130 L (137-145) mmol/L Potassium 4.6 (3.5-5.1) mmol/L Chloride 94 L (98-107) mmol/L Carbon Dioxide 18 L (22-30) mmol/L Anion Gap 18 mmol/L BUN 37 H (9-20) mg/dL Creatinine 1.75 H (0.66-1.25) mg/dL Est GFR (CKD-EPI)AfAm 45 (>60 ml/min/1.73 sqM) Est GFR (CKD-EPI)NonAf 39 (>60 ml/min/1.73 sqM) Glucose 208 H (74-99) mg/dL Lactic Ac Sepsis Rflx Plasma Lactic Acid Anderson (0.7-2.0) mmol/L Calcium 9.1 (8.4-10.2) mg/dL Magnesium 2.5 H (1.6-2.3) mg/dL Ferritin 1766.7 H (22.0-322.0) ng/mL Total Bilirubin 2.2 H (0.2-1.3) mg/dL AST 99 H (17-59) U/L ALT 45 (4-49) U/L Alkaline Phosphatase 72 (38-126) U/L Lactate Dehydrogenase 2287 H (313-618) U/L C-Reactive Protein 170.1 H (<10.0) mg/L Total Protein 7.3 (6.3-8.2) g/dL Albumin 4.2 (3.5-5.0) g/dL Procalcitonin (0.02-0.09) ng/mL 01/04/21 01/04/21 01/04/21 Range/Units 14:51 14:51 15:26 WBC (3.8-10.6) k/uL RBC (4.30-5.90) m/uL Hgb (13.0-17.5) gm/dL Hct (39.0-53.0) % MCV (80.0-100.0) fL MCH (25.0-35.0) pg MCHC (31.0-37.0) g/dL RDW (11.5-15.5) % Plt Count (150-450) k/uL MPV Neutrophils % % Lymphocytes % % Monocytes % % Eosinophils % % Basophils % % Neutrophils # (1.3-7.7) k/uL Lymphocytes # (1.0-4.8) k/uL Monocytes # (0-1.0) k/uL Eosinophils # (0-0.7) k/uL Basophils # (0-0.2) k/uL PT (9.0-12.0) sec INR (<1.2) APTT (22.0-30.0) sec D-Dimer (<0.60) mg/L FEU Sample Site ABG pH (7.35-7.45) ABG pCO2 (35-45) mmHg ABG pO2 (83-108) mmHg ABG HCO3 (21-25) mmol/L ABG Total CO2 (19-24) mmol/L ABG O2 Saturation (94-97) % ABG Base Excess mmol/L Michael Test FiO2 % Sodium (137-145) mmol/L Potassium (3.5-5.1) mmol/L Chloride (98-107) mmol/L Carbon Dioxide (22-30) mmol/L Anion Gap mmol/L BUN (9-20) mg/dL Creatinine (0.66-1.25) mg/dL Est GFR (CKD-EPI)AfAm (>60 ml/min/1.73 sqM) Est GFR (CKD-EPI)NonAf (>60 ml/min/1.73 sqM) Glucose (74-99) mg/dL Lactic Ac Sepsis Rflx Y Plasma Lactic Acid Anderson 2.4 H* (0.7-2.0) mmol/L Calcium (8.4-10.2) mg/dL Magnesium (1.6-2.3) mg/dL Ferritin (22.0-322.0) ng/mL Total Bilirubin (0.2-1.3) mg/dL AST (17-59) U/L ALT (4-49) U/L Alkaline Phosphatase (38-126) U/L Lactate Dehydrogenase (313-618) U/L C-Reactive Protein (<10.0) mg/L Total Protein (6.3-8.2) g/dL Albumin (3.5-5.0) g/dL Procalcitonin 0.30 H (0.02-0.09) ng/mL 01/04/21 Range/Units 16:00 WBC (3.8-10.6) k/uL RBC (4.30-5.90) m/uL Hgb (13.0-17.5) gm/dL Hct (39.0-53.0) % MCV (80.0-100.0) fL MCH (25.0-35.0) pg MCHC (31.0-37.0) g/dL RDW (11.5-15.5) % Plt Count (150-450) k/uL MPV Neutrophils % % Lymphocytes % % Monocytes % % Eosinophils % % Basophils % % Neutrophils # (1.3-7.7) k/uL Lymphocytes # (1.0-4.8) k/uL Monocytes # (0-1.0) k/uL Eosinophils # (0-0.7) k/uL Basophils # (0-0.2) k/uL PT (9.0-12.0) sec INR (<1.2) APTT (22.0-30.0) sec D-Dimer (<0.60) mg/L FEU Sample Site Right Radial ABG pH 7.40 (7.35-7.45) ABG pCO2 27 L (35-45) mmHg ABG pO2 62 L (83-108) mmHg ABG HCO3 17 L (21-25) mmol/L ABG Total CO2 17 L (19-24) mmol/L ABG O2 Saturation 91.1 L (94-97) % ABG Base Excess -8.4 mmol/L Michael Test Yes FiO2 100 % Sodium (137-145) mmol/L Potassium (3.5-5.1) mmol/L Chloride (98-107) mmol/L Carbon Dioxide (22-30) mmol/L Anion Gap mmol/L BUN (9-20) mg/dL Creatinine (0.66-1.25) mg/dL Est GFR (CKD-EPI)AfAm (>60 ml/min/1.73 sqM) Est GFR (CKD-EPI)NonAf (>60 ml/min/1.73 sqM) Glucose (74-99) mg/dL Lactic Ac Sepsis Rflx Plasma Lactic Acid Anderson (0.7-2.0) mmol/L Calcium (8.4-10.2) mg/dL Magnesium (1.6-2.3) mg/dL Ferritin (22.0-322.0) ng/mL Total Bilirubin (0.2-1.3) mg/dL AST (17-59) U/L ALT (4-49) U/L Alkaline Phosphatase (38-126) U/L Lactate Dehydrogenase (313-618) U/L C-Reactive Protein (<10.0) mg/L Total Protein (6.3-8.2) g/dL Albumin (3.5-5.0) g/dL Procalcitonin (0.02-0.09) ng/mL Critical Care Time Critical Care Time: Yes Total Critical Care Time: 45 <Artur Humphrey - Last Filed: 01/06/21 14:54> Critical Care Time: 45 minutes of critical care time were spent on this patient for respiratory failure. Time was spent obtaining history and examining the patient, ordering tests and lab work and following up on the results of those tests, reexamining the patient and intervene with multiple different therapies didn't improve his respiratory status and ultimately required BiPAP which had be managed as well. I spoke with consultants with regard the patient also the primary provider would be transitioning the patient's care to their service. (Artur Humphrey) Disposition <Javi Laura - Last Filed: 01/04/21 18:10> <Artur Humphrey - Last Filed: 01/06/21 14:54> Clinical Impression: Pneumonia due to COVID-19 virus Disposition: ADMITTED IP TO THIS HOSP Condition: Critical
--- NOTE | 2021-01-04 14:55 | XR ---
EXAMINATION TYPE: XR chest 1V portable DATE OF EXAM: 01/04/2021 COMPARISON: 12/02/2016 HISTORY: Fever and weakness. Short of breath. TECHNIQUE: Single view FINDINGS: There is diffuse interstitial infiltrates in both lungs. There is poor inspiration. There i s elevated right diaphragm. Heart size is normal. There are chest leads. IMPRESSION: There is new diffuse interstitial pulmonary infiltrates and atelectasis compared to old e xam.
[2021-01-04 15:00] LABS: Basophils % (A) 0 %; Eosinophils # (A) 0.1 k/uL (0-0.7); Eosinophils % (A) 1 %; HCT 47.5 % (39.0-53.0); HGB 16.5 gm/dL (13.0-17.5); Lymphocytes # (A) 0.5 k/uL (1.0-4.8); Lymphocytes % (A) 8 %; MCHC 34.8 g/dL (31.0-37.0); MCV 88.9 fL (80.0-100.0); Monocytes # (A) 0.3 k/uL (0-1.0); Monocytes % (A) 5 %; Neutrophils # (A) 5.9 k/uL (1.3-7.7); Neutrophils % (A) 86 %; Platelet Count 141 k/uL (150-450); RBC 5.34 m/uL (4.30-5.90); RDW 13.2 % (11.5-15.5); WBC 6.9 k/uL (3.8-10.6)
[2021-01-04 15:10] LABS: Albumin 4.2 g/dL (3.5-5.0); Calcium 9.1 mg/dL (8.4-10.2); Magnesium 2.5 mg/dL (1.6-2.3); Potassium 4.6 mmol/L (3.5-5.1); Total Bilirubin 2.2 mg/dL (0.2-1.3); Total Protein 7.3 g/dL (6.3-8.2)
[2021-01-04 15:15] LABS: Partial Thromboplastin Time 24.6 sec (22.0-30.0); Prothrombin Time 10.4 sec (9.0-12.0)
[2021-01-04 15:25] LABS: C Reactive Protein 170.1 mg/L (<10.0)
[2021-01-04] MEDS ORDERED: SODIUM CHLORIDE 0.9% 2,250 ML IV ONE (15:29)
[2021-01-04] MEDS ORDERED: DEXAMETHASONE SOD PHOSPHATE 10 MG/ML 1 ML VIAL IV STA (15:34)
[2021-01-04 15:47] LABS: D-Dimer 1.17 mg/L FEU (<0.60)
[2021-01-04] MEDS ORDERED: SODIUM CHLORIDE 0.9% 1,000 ML IV ONE (15:50)
[2021-01-04 16:06] LABS: ABG Base Excess -8.4 mmol/L; ABG HCO3 17 mmol/L (21-25); ABG Oxygen Saturation 91.1 % (94-97); ABG PCO2 27 mmHg (35-45); ABG PO2 62 mmHg (83-108); ABG TCO2 17 mmol/L (19-24); Allen Test Performed? Yes
[2021-01-04] MEDS ORDERED: NALOXONE 0.4 MG/ML 1 ML VIAL IV PRN (17:01)
[2021-01-04] MEDS ORDERED: ACETAMINOPHEN TAB 325 MG TAB PO PRN (17:01)
[2021-01-04] MEDS ORDERED: HYDROcodone/APAP 5-325MG 1 EACH TAB PO PRN (19:09)
[2021-01-04] MEDS ORDERED: ALBUTEROL HFA INHALER INHALATION PRN (19:09)
[2021-01-04] MEDS ORDERED: ONDANSETRON 4 MG/2 ML VIAL IVP PRN (19:09)
[2021-01-04] MEDS ORDERED: BENZONATATE 100 MG CAP PO PRN (19:15)
[2021-01-04] MEDS ORDERED: NITROGLYCERIN SL TABS 0.4 MG TAB SUBLINGUAL PRN (19:15)
--- NOTE | 2021-01-04 19:40 | P.HPIM ---
History of Present Illness H&P Date: 01/04/21 Chief Complaint: fatigue known COVID Patient is a 70 yo CM with a hx of DM2 well controlled on insulin and oral medications, HTN, HLD, and CAD with hx of PCI X 1 who presented to the ED due to extreme fatigue. He started having COVID symptoms of COVID 7 days ago and was tested and confirmed positive. On arrival to the ER he was profoundly hypoxic with room air pulse ox of 82%, pulse 123, respirations 26 with shallow breathing. He was initially started on high flow nasal cannula at 10 L and remained hypoxic. This was uptitrated to 15 L and he continued drain hypoxic at 88%. He was subsequently started on BiPAP with settings of 10/5 at 100%. Initial laboratory analysis showed a platelet count of 141, d-dimer 1.17, sodium 130, carbon dioxide 18, anion gap 18, BUN 37, creatinine 1.75 (baseline 1.4), glucose 208, lactic acid 2.4, total bilirubin 2.2, AST 99, LDH 2287, and CRP of 170. ABG demonstrated a pH of 7.4, pCO2 of 27, and PaO2 of 62 on 100%. Chest x-ray showed diffuse interstitial infiltrates. He was given a dose of 10 mg of Decadron IV and arrangements were made for admission. Dr. Mtz was contacted who agrees to admit the patient to the ICU. Patient seen and examined at bedside. He has a BiPAP in place. He is able to speak while on BiPAP. He reports that symptoms started approximately 7 days ago. He would not tested 3 days for his results. His also had symptoms that they have no known contact exposures outside her home. He reports that he started with body aches and feeling weak and tired everywhere. He reports that his that he has felt warm to the touch but he is unsure if he has had a fever. He states that he was significantly fatigued and unable to even do simple things like get up to forms of a cup of coffee. He reports decreased appetite, he has not lost his sense of taste or smell. He reports no significa nt cough, however his states he has been coughing significantly. He denies shortness of breath but says he appears very winded when up and walking. He denies any headache or nasal congestion. No nausea or vomiting. He was having some liquid stools earlier in the week which he attributed to not eating solids but those have resolved. Review of Systems Pertinent positives and negatives as discussed in HPI, a complete review of systems was performed and all other systems are negative. 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 Pt states that he has a mass on his left kidney. COVID History of Any Multi-Drug Resistant Organisms: None Reported Past Surgical History: Heart Catheterization, Orthopedic Surgery, Tonsillectomy Additional Past Surgical History / Comment(s): EGD/COLONOSCOPY, LT KNEE ARTHROSCOPY Past Anesthesia/Blood Transfusion Reactions: No Reported Reaction Past Psychological History: No Psychological Hx Reported Smoking Status: Never smoker Past Alcohol Use History: None Reported Past Drug Use History: None Reported - Past Family History Mother Family Medical History: Cancer, Myocardial Infarction ([place]) Additional Family Medical History / Comment(s): LYMPHOMA Father Family Medical History: Coronary Artery Disease (CAD) Additional Family Medical History / Comment(s): QUAD BYPASS, PROSTATE CANCER Medications and Allergies Home Medications Medication Instructions Recorded Confirmed Type Quinapril HCl [Accupril] 20 mg PO DAILY 06/17/14 01/04/21 History Liraglutide [Victoza 2-Misael] 1.8 mg SQ DAILY 12/02/16 01/04/21 History Pioglitazone HCl [Actos] 30 mg PO DAILY 12/02/16 01/04/21 History Aspirin 81 mg PO DAILY chew 12/04/16 01/04/21 Rx Nitroglycerin Sl Tabs [Nitrostat] 0.4 mg SUBLINGUAL Q5M PRN #25 tab 12/04/16 01/04/21 Rx Ascorbic Acid [Vitamin C] 500 mg PO DAILY 01/04/21 01/04/21 History Atorvastatin [Lipitor] 20 mg PO HS 01/04/21 01/04/21 History Benzonatate [Tessalon Perles] 100 mg PO TID PRN 01/04/21 01/04/21 History Cholecalciferol [Vitamin D3 (25 25 mcg PO DAILY 01/04/21 01/04/21 History Mcg = 1000 Iu)] Empagliflozin [Jardiance] 25 mg PO DAILY 01/04/21 01/04/21 History Insulin Glargine,Hum.rec.anlog 28 units SQ DAILY 01/04/21 01/04/21 History [Toujeo Max Solostar] Metoprolol Tartrate [Lopressor] 25 mg PO BID 01/04/21 01/04/21 History Sildenafil Citrate 50 mg PO DAILY PRN 01/04/21 01/04/21 History Zinc 50 mg PO DAILY 01/04/21 01/04/21 History metFORMIN HCL [Glucophage] 850 tab PO BID 01/04/21 01/04/21 History Allergies Allergy/AdvReac Type Severity Reaction Status Date / Time prasugrel [From Effient] Allergy Rash/Hives Verified 01/04/21 16:48 venom-honey bee Allergy Unknown Verified 01/04/21 16:48 aspirin AdvReac "gout Verified 01/04/21 16:48 flare up" codeine AdvReac "passed Verified 01/04/21 16:48 out" Penicillins AdvReac "passed Verified 01/04/21 16:48 out" Physical Exam Osteopathic Statement: *. No significant issues noted on an osteopathic structural exam other than those noted in the History and Physical/Consult. Vitals: Vital Signs Temp Pulse Resp BP Pulse Ox 01/04/21 18:45 105 H 34 H 96 01/04/21 17:40 113 H 32 H 121/83 86 L 01/04/21 16:43 114 H 32 H 161/87 93 L 01/04/21 15:44 120 H 24 94 L 01/04/21 15:17 120 H 24 133/84 88 L 01/04/21 14:12 98.4 F 123 H 26 H 156/87 82 L Intake and Output 01/04/21 01/04/21 01/04/21 06:59 14:59 22:59 Other: Weight 92.079 kg General: Ill appearing, moderate distress, appears at stated age, sunken and eyes Derm: warm, dry Head: atraumatic, normocephalic, symmetric Eyes: EOMI, no lid lag, anicteric sclera, pupils equal round reactive to light ENT: Nose and ears atraumatic, no thrush, no pharyngeal erythema Neck: No thyromegaly, no cervical lymphadenopathy, trachea midline, supple Mouth: no lip lesion, mucus membranes dry Cardiovascular: S1S2 tachycardic without murmur, positive posterior tibial pulse bilateral, no edema, capillary refill less than 2 seconds Lungs: Coarse and diminished breath sounds bilateral without significant w heezing, + sternal retractions, + increased respiratory rate, +5 word conversational dyspnea, on BiPAP Abdominal: soft, nontender to palpation, no guarding, no appreciable organomegaly, normal bowel sounds Ext: no gross muscle atrophy, muscle strength muscle strength 4 out of 5 in all 4 extremities, no contractures Neuro: CN II-XI grossly intact, light touch intact all 4 extremities, finger to nose within normal limits, Psych: Alert, oriented, appropriate affect Results CBC & Chem 7: 01/04/21 14:51 01/04/21 14:51 Labs: Abnormal Lab Results - Last 24 Hours (Table) 01/04/21 01/04/21 01/04/21 Range/Units 14:51 14:51 14:51 Plt Count 141 L (150-450) k/uL Lymphocytes # 0.5 L (1.0-4.8) k/uL D-Dimer 1.17 H (<0.60) mg/L FEU ABG pCO2 (35-45) mmHg ABG pO2 (83-108) mmHg ABG HCO3 (21-25) mmol/L ABG Total CO2 (19-24) mmol/L ABG O2 Saturation (94-97) % Sodium 130 L (137-145) mmol/L Chloride 94 L (98-107) mmol/L Carbon Dioxide 18 L (22-30) mmol/L BUN 37 H (9-20) mg/dL Creatinine 1.75 H (0.66-1.25) mg/dL Glucose 208 H (74-99) mg/dL Plasma Lactic Acid Anderson (0.7-2.0) mmol/L Magnesium 2.5 H (1.6-2.3) mg/dL Total Bilirubin 2.2 H (0.2-1.3) mg/dL AST 99 H (17-59) U/L Lactate Dehydrogenase 2287 H (313-618) U/L C-Reactive Protein 170.1 H (<10.0) mg/L 01/04/21 01/04/21 Range/Units 14:51 16:00 Plt Count (150-450) k/uL Lymphocytes # (1.0-4.8) k/uL D-Dimer (<0.60) mg/L FEU ABG pCO2 27 L (35-45) mmHg ABG pO2 62 L (83-108) mmHg ABG HCO3 17 L (21-25) mmol/L ABG Total CO2 17 L (19-24) mmol/L ABG O2 Saturation 91.1 L (94-97) % Sodium (137-145) mmol/L Chloride (98-107) mmol/L Carbon Dioxide (22-30) mmol/L BUN (9-20) mg/dL Creatinine (0.66-1.25) mg/dL Glucose (74-99) mg/dL Plasma Lactic Acid Anderson 2.4 H* (0.7-2.0) mmol/L Magnesium (1.6-2.3) mg/dL Total Bilirubin (0.2-1.3) mg/dL AST (17-59) U/L Lactate Dehydrogenase (313-618) U/L C-Reactive Protein (<10.0) mg/L Thrombosis Risk Factor Assmnt - DVT/VTE Prophylaxis DVT/VTE Prophylaxis: Pharmacologic Prophylaxis ordered Assessment and Plan Assessment: COVID 19 pneumonitis with acute hypoxic respiratory failure -Consult pulmonary: Discussed with Dr. Pinto and we'll initiate Remdesivir. Consider Toci in the morning if no improvement on steroids, agrees with admission to the intensive care unit -Decadron 6 mg IV push -BiPAP, wean O2 as able -Await pro-calcitonin -Zinc, vitamin C, vitamin D -Follow inflammatory markers Acute kidney injury on chronic kidney disease stage III, hyponatremia, metabolic acidosis, suspect secondary to dehydration -Hold DANN inhibitor -IV fluids -Avoid additional nephrotoxic agents -Consult nephrology if creatinine worsens in a.m. -Strict I's and O's -Insert Armando catheter -Check acetate level to ensure that patient does not have a component of euglycemic DKA secondary to SGLT 2 inhibitor DM 2, well controlled - hold oral medications - SSI, Levemir - Follow BS - Check A1C Hypertension, controlled -Continue with metoprolol -Follow blood pressures -DANN inhibitor on hold secondary to a cat I Dyslipidemia -Statin therapy GERD -H2 kaushik Lactic acidosis, resolved The patient is admitted with an anticipated greater than 2 midnight stay for evaluation of Covid 19 pneumonitis with acute hypoxic respiratory failure. Surrogate decision-maker: or eldest daughter Corie CODE STATUS:Full DVT prophylaxis: SCDs Discussed with: Patient, nursing, ED MANAGER PAYER, Dr. Pinto, Pharmacy (Toci in stock would qualify if no improvement in am after steroids) Anticipated discharge date: unknown Anticipated discharge place: unknown A total of 65 minutes was spent on the care of this complex patient more than 50% of the time was spent in counseling and care coordination.
[2021-01-04] MEDS ORDERED: REMDESIVIR 200 MG in SODIUM CHLORIDE 0.9% 250 ML IVPB ONE (20:00)
[2021-01-04] MEDS ORDERED: ALBUTEROL HFA INHALER INHALATION SCH (20:00)
--- NOTE | 2021-01-04 20:13 | P.PN ---
Progress Note - Text Progress Note Date: 01/04/21 Advanced Care Planning: Diagnoses: COVID 19 pneumonitis Discussion: Person(s) present and participating in discussion: patient, Summary: Patient has not previously discussed end of life care with family or spouse. He indicated that he would want CPR and Ventilation if there is a chance that he could recover and be able to return to his prior level of function. He understands that survival in COVID if placed on the ventilator is low. He would want everything done, but if no hope of meaningful recovery he would not want his suffering prolonged and he would not intermediate card tender vent support. was hospital in another room when we discussed this and she was made aware of his wishes and was in agreement. Both were assured that we would do our best to keep him off the vent and doing well. A total of 18 minutes of face to face time was spent discussing advanced care planning.
[2021-01-04] MEDS: SODIUM CHLORIDE 0.9% 1,000 ML IV SCH (20:36)
[2021-01-04] MEDS ORDERED: FAMOTIDINE 20 MG/2 ML VIAL IV SCH (21:00)
[2021-01-04] MEDS ORDERED: INSULIN DETEMIR (LEVEMIR) 100 UNIT/ML SYR SQ SCH (21:00)
[2021-01-04 21:20] LABS: Glucose,Whole Blood 251 mg/dL (75-99)
[2021-01-04] MEDS: ATORVASTATIN 20 MG TAB PO SCH (21:44)
[2021-01-04] MEDS: METOPROLOL TARTRATE 25 MG TAB PO SCH (21:44)
[2021-01-04] MEDS: INSULIN ASPART (NovoLOG) 100 UNIT/ML VIAL SQ SCH (21:45)
[2021-01-04 23:11] LABS: Ferritin 1766.7 ng/mL (22.0-322.0)
[2021-01-05 04:15] LABS: Basophils % (A) 0 %; Eosinophils % (A) 0 %; HCT 42.7 % (39.0-53.0); HGB 14.6 gm/dL (13.0-17.5); Lymphocytes # (A) 0.3 k/uL (1.0-4.8); Lymphocytes % (A) 7 %; MCH 30.4 pg (25.0-35.0); MCHC 34.1 g/dL (31.0-37.0); MCV 89.1 fL (80.0-100.0); Monocytes # (A) 0.2 k/uL (0-1.0); Monocytes % (A) 5 %; Neutrophils # (A) 3.9 k/uL (1.3-7.7); Neutrophils % (A) 88 %; Platelet Count 140 k/uL (150-450); RDW 13.1 % (11.5-15.5); WBC 4.5 k/uL (3.8-10.6)
[2021-01-05 04:38] LABS: Albumin 3.1 g/dL (3.5-5.0); Calcium 8.2 mg/dL (8.4-10.2); Magnesium 2.5 mg/dL (1.6-2.3); Total Bilirubin 1.1 mg/dL (0.2-1.3); Total Protein 5.8 g/dL (6.3-8.2)
[2021-01-05 05:05] LABS: C Reactive Protein 158.5 mg/L (<10.0)
[2021-01-05 06:59] LABS: Glucose,Whole Blood 164 mg/dL (75-99)
[2021-01-05] MEDS: INSULIN ASPART (NovoLOG) 100 UNIT/ML VIAL SQ SCH ×4 (07:01→21:28)
[2021-01-05] MEDS: ALBUTEROL HFA INHALER INHALATION SCH ×4 (07:35→20:47)
[2021-01-05] MEDS: ASCORBIC ACID 500 MG TAB PO SCH (08:06)
[2021-01-05] MEDS: CHOLECALCIFEROL 25 MCG (1000 IU) TABLET PO SCH (08:07)
[2021-01-05] MEDS: ASPIRIN 81 MG PO SCH (08:07)
[2021-01-05] MEDS: DEXAMETHASONE SOD PHOSPHATE 10 MG/ML 1 ML VIAL IV SCH (08:07)
[2021-01-05] MEDS: ZINC SULFATE 220 MG CAP PO SCH (08:07)
[2021-01-05] MEDS: ENOXAPARIN 40 MG/0.4 ML SYRINGE SQ SCH (08:07)
[2021-01-05] MEDS: METOPROLOL TARTRATE 25 MG TAB PO SCH ×2 (08:07→21:28)
[2021-01-05] MEDS ORDERED: BENZOCAINE/MENTHOL LOZENG 1 EACH LOZENGE MUCOUS MEM PRN (08:51)
--- NOTE | 2021-01-05 08:52 | P.CNPUL ---
History of Present Illness Consult date: 01/05/21 Reason for consult: pneumonia History of present illness: 70-year-old male patient, known history of diabetes mellitus maintained on insulin in addition to history of hypertension, hyperlipidemia, coronary artery disease and previous history of PCI, presented to the emergency department because of increased fatigue and tiredness. The patient was infected with Covid 19 and the testing by PCR came back positive. The patient started having symptoms of infection approximately 7 days ago and his tests confirmed positive. The test was positive on 12/27/2020. The patient's complaints were essentially those of body aches, feeling weak and tired and he was warm and he was probably having fevers. He was significantly fatigued and he was unable to do even simple stuff at home. He reported poor appetite. No loss in the taste or smell. He had no significant cough. He denies having any significant shortness of breath. No headaches. No nasal congestion. No nausea or vomiting. Upon arrival to the emergency department, the patient was profoundly hypoxic and the pulse ox was around 82% and the patient was also tachypneic and tachycardic. He was initially started on oxygen at 10 L per minute nasal cannula and subsequently the oxygen flow was brought up to 15 L and he continued to be hypoxic. At that point, the patient was switched to BiPAP at a pressure of 10/5 and FiO2 of 100%. The patient had further blood work that showed an LDH level of 2287, CRP of 170, lactic acid level of 2.4, serum bicarb of 18, the BUN was 37 with a creatinine of 1.7. The blood gas on 100% FiO2 showed a pH of 7.4 with a pCO2 of 27 and pO2 of 62. The chest x-ray showed diffuse but the pulmonary infiltrates. At that point, the patient was admitted to the intensive care unit and the patient was supported with BiPAP. The patient is currently on IV Decadron. The patient was also started on Remdesivir per protocol. The patient is on Lovenox 40 mg subcu every 24 hours for a d-dimer of 1.17 and the time of admission. The patient this morning was transitioned to oxygen at 15 L high flow and he is able to maintain a saturation above 90%. He remains in normal sinus rhythm. He is awake and alert. His chest x-ray showing bilateral pul monary infiltrates was in the lung bases bilaterally. He is off the BiPAP for now. D-dimer is at 1.88 from today. His LDH is down to 1952 and the pro- calcitonin level was 0.3, LFTs were minimally elevated secondary to Covid 19. CRP is down to 158. He is currently on the same treatment including Decadron and Remdesivir day #2 Review of Systems Constitutional: Reports fatigue, Reports lethargy, Reports poor appetite, Reports weakness Eyes: denies as per HPI, denies blurred vision, denies bulging eye, denies decreased vision, denies diplopia, denies discharge, denies dry eye, denies irritation, denies itching, denies pain, denies photophobia, denies loss of peripheral vision, denies loss of vision, denies tunnel vision/blind spots Ears: deny: decreased hearing, ear discharge, earache, tinnitus Ears, nose, mouth and throat: Reports as per HPI Breasts: absent: as per HPI, gynecomastia Cardiovascular: Reports dyspnea on exertion Respiratory: Reports dyspnea Gastrointestinal: Reports as per HPI, Reports loss of appetite Genitourinary: Reports as per HPI Musculoskeletal: Reports muscle weakness Musculoskeletal: absent: ankle pain, ankle stiffness, ankle swelling Integumentary: Reports as per HPI Neurological: Reports weakness Psychiatric: Reports as per HPI Endocrine: Reports as per HPI, Reports fatigue Hematologic/Lymphatic: Reports as per HPI Allergic/Immunologic: Reports as per HPI Past Medical History Past Medical History: Diabetes Mellitus, Hyperlipidemia, Hypertension, Osteoarthritis (OA) Additional Past Medical History / Comment(s): Hemorrhoids, cataracts, acid reflux, history of kidney stones, questionable mass in left kidney, skin cancer 2002 on the face, gout History of Any Multi-Drug Resistant Organisms: None Reported Past Surgical History: Heart Catheterization, Orthopedic Surgery, Tonsillectomy Additional Past Surgical History / Comment(s): EGD/COLONOSCOPY, LT KNEE ARTHROSCOPY Past Anesthesia/Blood Transfusion Reactions: No Reported Reaction Past Psychological History: No Psychological Hx Reported Smoking Status: Never smoker Past Alcohol Use History: None Reported Past Drug Use History: None Reported - Past Family History Mother Family Medical History: Cancer, Myocardial Infarction ([place]) Additional Family Medical History / Comment(s): LYMPHOMA Father Family Medical History: Coronary Artery Disease (CAD) Additional Family Medical History / Comment(s): QUAD BYPASS, PROSTATE CANCER Medications and Allergies Home Medications Medication Instructions Recorded Confirmed Type Quinapril HCl [Accupril] 20 mg PO DAILY 06/17/14 01/04/21 History Liraglutide [Victoza 2-Misael] 1.8 mg SQ DAILY 12/02/16 01/04/21 History Pioglitazone HCl [Actos] 30 mg PO DAILY 12/02/16 01/04/21 History Aspirin 81 mg PO DAILY chew 12/04/16 01/04/21 Rx Nitroglycerin Sl Tabs [Nitrostat] 0.4 mg SUBLINGUAL Q5M PRN #25 tab 12/04/16 01/04/21 Rx Ascorbic Acid [Vitamin C] 500 mg PO DAILY 01/04/21 01/04/21 History Atorvastatin [Lipitor] 20 mg PO HS 01/04/21 01/04/21 History Benzonatate [Tessalon Perles] 100 mg PO TID PRN 01/04/21 01/04/21 History Cholecalciferol [Vitamin D3 (25 25 mcg PO DAILY 01/04/21 01/04/21 History Mcg = 1000 Iu)] Empagliflozin [Jardiance] 25 mg PO DAILY 01/04/21 01/04/21 History Insulin Glargine,Hum.rec.anlog 28 units SQ DAILY 01/04/21 01/04/21 History [Bridgette Escoto Solostar] Metoprolol Tartrate [Lopressor] 25 mg PO BID 01/04/21 01/04/21 History Sildenafil Citrate 50 mg PO DAILY PRN 01/04/21 01/04/21 History Zinc 50 mg PO DAILY 01/04/21 01/04/21 History metFORMIN HCL [Glucophage] 850 tab PO BID 01/04/21 01/04/21 History Allergies Allergy/AdvReac Type Severity Reaction Status Date / Time prasugrel [From Effient] Allergy Rash/Hives Verified 01/04/21 16:48 venom-honey bee Allergy Unknown Verified 01/04/21 16:48 aspirin AdvReac "gout Verified 01/04/21 16:48 flare up" codeine AdvReac "passed Verified 01/04/21 16:48 out" Penicillins AdvReac "passed Verified 01/04/21 16:48 out" Physical Exam Vitals: Vital Signs Temp Pulse Pulse Resp BP BP Pulse Ox 01/05/21 07:00 92 26 H 143/90 90 L 01/05/21 06:00 85 28 H 132/93 93 L 01/05/21 05:00 83 13 126/78 92 L 01/05/21 04:00 98.5 F 78 24 130/84 90 L 01/05/21 03:00 77 20 129/80 99 01/05/21 02:00 76 26 H 95 01/05/21 01:00 84 26 H 105/70 95 01/05/21 00:00 79 29 H 126/87 90 L 01/04/21 23:05 98.2 F 85 31 H 147/80 96 01/04/21 21:07 98.4 F 110 H 32 H 137/88 96 01/04/21 20:37 110 H 32 H 137/88 96 01/04/21 19:20 101 H 39 H 130/83 94 L 01/04/21 19:10 102 H 37 H 130/83 94 L 01/04/21 19:00 105 H 10 L 138/71 94 L 01/04/21 18:50 103 H 37 H 138/71 96 01/04/21 18:45 105 H 34 H 96 01/04/21 18:40 105 H 33 H 138/71 96 01/04/21 18:30 108 H 39 H 137/90 95 01/04/21 18:20 108 H 33 H 137/90 95 01/04/21 18:10 112 H 20 137/90 96 01/04/21 18:00 112 H 20 123/80 96 01/04/21 17:50 111 H 20 123/80 90 L 01/04/21 17:40 113 H 57 H 123/80 85 L 01/04/21 17:30 112 H 48 H 134/77 87 L 01/04/21 17:23 98.2 F 95 28 H 147/80 97 01/04/21 17:20 117 H 41 H 134/77 83 L 01/04/21 17:10 115 H 30 H 134/77 89 L 01/04/21 17:00 113 H 40 H 161/87 84 L 01/04/21 16:50 115 H 53 H 161/87 80 L 01/04/21 16:43 114 H 32 H 161/87 93 L 01/04/21 16:40 120 H 52 H 85 L 01/04/21 16:30 126 H 40 H 01/04/21 16:20 116 H 27 H 01/04/21 16:10 114 H 44 H 93 L 01/04/21 16:00 115 H 35 H 133/80 93 L 01/04/21 15:50 115 H 51 H 133/80 94 L 01/04/21 15:44 120 H 24 94 L 01/04/21 15:40 116 H 30 H 133/80 92 L 01/04/21 15:30 121 H 42 H 133/80 91 L 01/04/21 15:20 120 H 42 H 133/80 90 L 01/04/21 15:17 120 H 24 133/84 88 L 01/04/21 15:10 118 H 31 H 163/89 88 L 01/04/21 15:00 120 H 43 H 163/89 85 L 01/04/21 14:50 120 H 39 H 163/89 90 L 01/04/21 14:40 120 H 39 H 163/89 86 L 01/04/21 14:32 121 H 50 H 77 L 01/04/21 14:12 98.4 F 123 H 26 H 156/87 82 L Intake and Output 01/04/21 01/05/21 01/05/21 22:59 06:59 14:59 Intake Total 120 1690 120 Output Total 1150 Balance 120 540 120 Intake: IV 120 1210 120 Remdesivir 200 mg In 250 Sodium Chloride 0.9% 250 ml @ 250 mls/hr IVPB ONCE ONE Rx#:[id number] Sodium Chloride 0.9% 1, 120 960 120 000 ml @ 120 mls/hr IV . [facility] Rx#:[id number] Oral 480 Output: Urine 1150 Other: Voiding Method Urinal # Voids 0 1 0 Weight 92.079 kg 89.2 kg General: Ill appearing, moderate distress, appears at stated age, sunken and eyes, the patient is currently on a BiPAP with an FiO2 of 70 patient is currently on BiPAP pressures of 10/5 cm of water. Utilizing a full face mask. Quite symptoms of the noninvasive positive pressure ventilator. Examination of the skin revealed no evidence of significant rashes, suspicious appearing nevi or other concerning lesions. Head: atraumatic, normocephalic, symmetric Eyes: EOMI, no lid lag, anicteric sclera, pupils equal round reactive to light ENT: Nose and ears atraumatic, no thrush, no pharyngeal erythema Neck: No thyromegaly, no cervical lymphadenopathy, trachea midline, supple Mouth: no lip lesion, mucus membranes dry Cardiovascular: S1S2 tachycardic without murmur, positive posterior tibial pulse bilateral, no edema, capillary refill less than 2 seconds Lungs: Coarse and diminished breath sounds bilateral without significant wheezing, + sternal retractions, + increased respiratory rate, +5 word conversational dyspnea, on BiPAP Abdominal: soft, nontender to palpation, no guarding, no appreciable organomegaly, normal bowel sounds Ext: no gross muscle atrophy, muscle strength muscle strength 4 out of 5 in all 4 extremities, no contractures Neuro: CN II-XI grossly intact, light touch intact all 4 extremities, finger to nose within normal limits, Psych: Alert, oriented, appropriate affect Results - Laboratory Findings CBC and BMP: 01/05/21 03:33 01/05/21 03:33 ABG ABG pH 7.40 (7.35-7.45) 01/04/21 16:00 ABG pCO2 27 mmHg (35-45) L 01/04/21 16:00 ABG pO2 62 mmHg (83-108) L 01/04/21 16:00 ABG O2 Saturation 91.1 % (94-97) L 01/04/21 16:00 PT/INR, D-dimer PT 10.4 sec (9.0-12.0) 01/04/21 14:51 INR 1.0 (<1.2) 01/04/21 14:51 D-Dimer 1.88 mg/L FEU (<0.60) H 01/05/21 03:33 Abnormal lab findings: Abnormal Labs 01/04/21 01/04/21 01/04/21 14:51 14:51 14:51 Plt Count 141 L Lymphocytes # 0.5 L D-Dimer 1.17 H ABG pCO2 ABG pO2 ABG HCO3 ABG Total CO2 ABG O2 Saturation Sodium 130 L Chloride 94 L Carbon Dioxide 18 L BUN 37 H Creatinine 1.75 H Glucose 208 H POC Glucose (mg/dL) Plasma Lactic Acid Anderson Calcium Magnesium 2.5 H Ferritin 1766.7 H Total Bilirubin 2.2 H AST 99 H Lactate Dehydrogenase 2287 H C-Reactive Protein 170.1 H Total Protein Albumin Procalcitonin 01/04/21 01/04/21 01/04/21 14:51 14:51 16:00 Plt Count Lymphocytes # D-Dimer ABG pCO2 27 L ABG pO2 62 L ABG HCO3 17 L ABG Total CO2 17 L ABG O2 Saturation 91.1 L Sodium Chloride Carbon Dioxide BUN Creatinine Glucose POC Glucose (mg/dL) Plasma Lactic Acid Anderson 2.4 H* Calcium Magnesium Ferritin Total Bilirubin AST Lactate Dehydrogenase C-Reactive Protein Total Protein Albumin Procalcitonin 0.30 H 01/04/21 01/05/21 01/05/21 21:19 03:33 03:33 Plt Count 140 L Lymphocytes # 0.3 L D-Dimer 1.88 H ABG pCO2 ABG pO2 ABG HCO3 ABG Total CO2 ABG O2 Saturation Sodium Chloride Carbon Dioxide BUN Creatinine Glucose POC Glucose (mg/dL) 251 H Plasma Lactic Acid Anderson Calcium Magnesium Ferritin Total Bilirubin AST Lactate Dehydrogenase C-Reactive Protein Total Protein Albumin Procalcitonin 01/05/21 01/05/21 03:33 06:58 Plt Count Lymphocytes # D-Dimer ABG pCO2 ABG pO2 ABG HCO3 ABG Total CO2 ABG O2 Saturation Sodium 133 L Chloride Carbon Dioxide 21 L BUN 39 H Creatinine Glucose 190 H POC Glucose (mg/dL) 164 H Plasma Lactic Acid Anderson Calcium 8.2 L Magnesium 2.5 H Ferritin Total Bilirubin AST 78 H Lactate Dehydrogenase 1952 H C-Reactive Protein 158.5 H Total Protein 5.8 L Albumin 3.1 L Procalcitonin - Diagnostic Findings Chest x-ray: image reviewed Assessment and Plan Plan: 1 acute hypoxic respiratory failure secondary to COVID 19 related pneumonia, currently the patient is a BiPAP at a pressure of 10/5 cm of water with an FiO2 of 100%. The patient has been transitioned to high flow oxygen at 15 liters per minute nasal cannula. 2 acute COVID 19 related pneumonia with secondary acute hypoxic respiratory failure. Symptoms started approximately a week ago prior to his hospital admission. The patient is currently being treated with a combination of Decadron and Remdesivir. Inflammatory markers remain quite elevated and the patient is also on Lovenox for DVT prophylaxis for a mildly elevated d-dimer. Patient is also receiving the various supplements utilized for the stop of infection including zinc and vitamin C and vitamin D. 3 acute kidney injury with underlying chronic stage III kidney disease, renal function improved and the creatinine was 1.7 and is down to 1.1. 4 diabetes mellitus type 2, maintained on Levemir insulin outpatient basis, then 20 units of Levemir on a daily basis plus a sliding scale coverage. 5 hypertension history of 6 hyperlipidemia 7 mild lactic acidosis 8 acid reflux 9 osteoarthritis 10 Gout 11 history of nephrolithiasis 12 generalized motor weakness and debility seconds above-mentioned infection. Plan Continue the same treatment of Decadron and Remdesivir day #2 Wean down the FiO2 currently on 15 L and discontinue the BiPAP Monitor inflammatory markers Lovenox 40 mg subcu for DVT prophylaxis Renal function is improving and the patient's creatinine is down to 1.1 and the patient is currently on IV fluids at the rate of 1 20 mL's an hour. Reduced IV fluids to 75 mL an hour Repeat chest x-ray in a.m. Provide the patient incentive spirometer Blood sugar management Keep in ICU for another 24 hours. Time with Patient: Greater than 30
[2021-01-05 11:55] LABS: Glucose,Whole Blood 219 mg/dL (75-99)
[2021-01-05] MEDS: SODIUM CHLORIDE 0.9% 1,000 ML IV SCH ×2 (11:58→17:36)
[2021-01-05] MEDS: MAG HYDROX/AL HYDROX/SIMETH 30 ML, diphenhydrAMINE ELIXIR 75 MG, LIDOCAINE VISCOUS 30 ML PO SCH ×9 (11:58→21:29)
[2021-01-05] MEDS: FAMOTIDINE 20 MG/2 ML VIAL IV SCH ×2 (11:59→21:29)
[2021-01-05 14:08] LABS: Hemoglobin A1C 7.8 % (4.0-6.0)
--- NOTE | 2021-01-05 15:22 | P.PN ---
Subjective Progress Note Date: 01/05/21 (delayed charting seen at 0945) Principal diagnosis: fatigue Patient is a 70 yo CM with a hx of DM2 well controlled on insulin and oral medications, HTN, HLD, and CAD with hx of PCI X 1 who presented to the ED due to extreme fatigue. He started having COVID symptoms of COVID 7 days ago and was tested and confirmed positive. On arrival to the ER he was profoundly hypoxic with room air pulse ox of 82%, pulse 123, respirations 26 with shallow breathing. He was initially started on high flow nasal cannula at 10 L and remained hypoxic. This was uptitrated to 15 L and he continued drain hypoxic at 88%. He was subsequently started on BiPAP with settings of 10/5 at 100%. Init ial laboratory analysis showed a platelet count of 141, d-dimer 1.17, sodium 130, carbon dioxide 18, anion gap 18, BUN 37, creatinine 1.75 (baseline 1.4), glucose 208, lactic acid 2.4, total bilirubin 2.2, AST 99, LDH 2287, and CRP of 170. ABG demonstrated a pH of 7.4, pCO2 of 27, and PaO2 of 62 on 100%. Chest x-ray showed diffuse interstitial infiltrates. He was given a dose of 10 mg of Decadron IV and arrangements were made for admission. Dr. Pinto was contacted who agreed to admit the patient to the ICU and start remdesivir. He was able to been weaned down to 15L NC by the morning of 01/05. Patient seen and examined at bedside. Feeling better today. No chest pain. Reports that he is still somewhat winded but much improved from yesterday. His appetite is slowly coming back. He feels as though he has more energy. He is asking about when he can be discharged home. General: Ill-appearing, no distress, appears at stated age Derm: warm, dry Head: atraumatic, normocephalic, symmetric Eyes: EOMI, no lid lag, anicteric sclera Mouth: no lip lesion, mucus membranes moist Cardiovascular: S1S2 reg, no murmur, positive posterior tibial pulse bilateral, Lungs: Rhonchi bilateral bases, no conversational dyspnea , no accessory muscle use Abdominal: soft, nontender to palpation, no guarding, no appreciable organomegaly Ext: no gross muscle atrophy, no edema, no contractures Neuro: CN II-XI grossly intact, no focal neuro deficits Psych: Alert, oriented, appropriate affect COVID 19 pneumonitis with acute hypoxic respiratory failure -Pulmonary recs: Remdesivir, Decadron - wean O2 as able -Zinc, vitamin C, vitamin D -Follow inflammatory markers Chronic kidney disease stage III, hyponatremia, metabolic acidosis, suspect secondary to dehydration -Hold DANN inhibitor -IV fluids -Avoid additional nephrotoxic agents -Strict I's and O's - Armando catheter DM 2, well controlled -Suspect mild euglycemic DKA secondary to SGLT 2 inhibitor as yesterday carbon dioxide was 18 with an anion gap of 18. Appears improved today with closed anion gap. - hold oral medications - SSI, Levemir - Follow BS - A1C 7.8 Hypertension, controlled -Continue with metoprolol -Follow blood pressures -DANN inhibitor on hold secondary to ISIDRO Dyslipidemia -Statin therapy GERD -H2 kaushik Lactic acidosis, resolved PK eyes, resolved DVT prophylaxis: Lovenox Discussed with: Patient, nursing, Anticipated discharge date: 3-[address]: home A total of 35 minutes was spent on the care of this complex patient more than 50% of the time was spent in counseling and care coordination. Objective - Vital Signs Vital signs: Vital Signs Temp 98.5 F 01/05/21 04:00 Pulse 98 01/05/21 12:00 Resp 14 01/05/21 12:00 BP 124/80 01/05/21 12:00 Pulse Ox 94 L 01/05/21 12:00 Intake & Output 01/04/21 01/05/21 01/05/21 18:59 06:59 18:59 Intake Total 1810 540 Output Total 1150 400 Balance 660 140 Weight 92.079 kg 89.2 kg Intake: IV 1330 540 Remdesivir 200 mg In 250 Sodium Chloride 0.9% 250 ml @ 250 mls/hr IVPB ONCE ONE Rx#:[id number] Sodium Chloride 0.9% 1, 1080 540 000 ml @ 75 mls/hr IV . [id number] [facility] Rx#:[id number] Oral 480 Output: Urine 1150 400 Other: Voiding Method Urinal Urinal # Voids 1 0 - Labs CBC & Chem 7: 01/05/21 03:33 01/05/21 03:33 Labs: Abnormal Lab Results - Last 24 Hours (Table) 01/04/21 01/04/21 01/04/21 Range/Units 14:51 14:51 14:51 Plt Count 141 L (150-450) k/uL Lymphocytes # 0.5 L (1.0-4.8) k/uL D-Dimer 1.17 H (<0.60) mg/L FEU ABG pCO2 (35-45) mmHg ABG pO2 (83-108) mmHg ABG HCO3 (21-25) mmol/L ABG Total CO2 (19-24) mmol/L ABG O2 Saturation (94-97) % Sodium 130 L (137-145) mmol/L Chloride 94 L (98-107) mmol/L Carbon Dioxide 18 L (22-30) mmol/L BUN 37 H (9-20) mg/dL Creatinine 1.75 H (0.66-1.25) mg/dL Glucose 208 H (74-99) mg/dL POC Glucose (mg/dL) (75-99) mg/dL Plasma Lactic Acid Anderson (0.7-2.0) mmol/L Calcium (8.4-10.2) mg/dL Magnesium 2.5 H (1.6-2.3) mg/dL Ferritin 1766.7 H (22.0-322.0) ng/mL Total Bilirubin 2.2 H (0.2-1.3) mg/dL AST 99 H (17-59) U/L Lactate Dehydrogenase 2287 H (313-618) U/L C-Reactive Protein 170.1 H (<10.0) mg/L Total Protein (6.3-8.2) g/dL Albumin (3.5-5.0) g/dL Procalcitonin (0.02-0.09) ng/mL 01/04/21 01/04/21 01/04/21 Range/Units 14:51 14:51 16:00 Plt Count (150-450) k/uL Lymphocytes # (1.0-4.8) k/uL D-Dimer (<0.60) mg/L FEU ABG pCO2 27 L (35-45) mmHg ABG pO2 62 L (83-108) mmHg ABG HCO3 17 L (21-25) mmol/L ABG Total CO2 17 L (19-24) mmol/L ABG O2 Saturation 91.1 L (94-97) % Sodium (137-145) mmol/L Chloride (98-107) mmol/L Carbon Dioxide (22-30) mmol/L BUN (9-20) mg/dL Creatinine (0.66-1.25) mg/dL Glucose (74-99) mg/dL POC Glucose (mg/dL) (75-99) mg/dL Plasma Lactic Acid Anderson 2.4 H* (0.7-2.0) mmol/L Calcium (8.4-10.2) mg/dL Magnesium (1.6-2.3) mg/dL Ferritin (22.0-322.0) ng/mL Total Bilirubin (0.2-1.3) mg/dL AST (17-59) U/L Lactate Dehydrogenase (313-618) U/L C-Reactive Protein (<10.0) mg/L Total Protein (6.3-8.2) g/dL Albumin (3.5-5.0) g/dL Procalcitonin 0.30 H (0.02-0.09) ng/mL 01/04/21 01/05/21 01/05/21 Range/Units 21:19 03:33 03:33 Plt Count 140 L (150-450) k/uL Lymphocytes # 0.3 L (1.0-4.8) k/uL D-Dimer 1.88 H (<0.60) mg/L FEU ABG pCO2 (35-45) mmHg ABG pO2 (83-108) mmHg ABG HCO3 (21-25) mmol/L ABG Total CO2 (19-24) mmol/L ABG O2 Saturation (94-97) % Sodium (137-145) mmol/L Chloride (98-107) mmol/L Carbon Dioxide (22-30) mmol/L BUN (9-20) mg/dL Creatinine (0.66-1.25) mg/dL Glucose (74-99) mg/dL POC Glucose (mg/dL) 251 H (75-99) mg/dL Plasma Lactic Acid Anderson (0.7-2.0) mmol/L Calcium (8.4-10.2) mg/dL Magnesium (1.6-2.3) mg/dL Ferritin (22.0-322.0) ng/mL Total Bilirubin (0.2-1.3) mg/dL AST (17-59) U/L Lactate Dehydrogenase (313-618) U/L C-Reactive Protein (<10.0) mg/L Total Protein (6.3-8.2) g/dL Albumin (3.5-5.0) g/dL Procalcitonin (0.02-0.09) ng/mL 01/05/21 01/05/21 01/05/21 Range/Units 03:33 06:58 11:54 Plt Count (150-450) k/uL Lymphocytes # (1.0-4.8) k/uL D-Dimer (<0.60) mg/L FEU ABG pCO2 (35-45) mmHg ABG pO2 (83-108) mmHg ABG HCO3 (21-25) mmol/L ABG Total CO2 (19-24) mmol/L ABG O2 Saturation (94-97) % Sodium 133 L (137-145) mmol/L Chloride (98-107) mmol/L Carbon Dioxide 21 L (22-30) mmol/L BUN 39 H (9-20) mg/dL Creatinine (0.66-1.25) mg/dL Glucose 190 H (74-99) mg/dL POC Glucose (mg/dL) 164 H 219 H (75-99) mg/dL Plasma Lactic Acid Anderson (0.7-2.0) mmol/L Calcium 8.2 L (8.4-10.2) mg/dL Magnesium 2.5 H (1.6-2.3) mg/dL Ferritin (22.0-322.0) ng/mL Total Bilirubin (0.2-1.3) mg/dL AST 78 H (17-59) U/L Lactate Dehydrogenase 1952 H (313-618) U/L C-Reactive Protein 158.5 H (<10.0) mg/L Total Protein 5.8 L (6.3-8.2) g/dL Albumin 3.1 L (3.5-5.0) g/dL Procalcitonin (0.02-0.09) ng/mL
[2021-01-05 16:52] LABS: Glucose,Whole Blood 213 mg/dL (75-99)
[2021-01-05 20:56] LABS: Glucose,Whole Blood 272 mg/dL (75-99)
[2021-01-05] MEDS: ATORVASTATIN 20 MG TAB PO SCH (21:28)
[2021-01-05] MEDS: REMDESIVIR 100 MG in SODIUM CHLORIDE 0.9% 250 ML IVPB SCH (21:28)
[2021-01-05] MEDS: INSULIN DETEMIR (LEVEMIR) 100 UNIT/ML SYR SQ SCH (21:28)
[2021-01-06 04:04] LABS: C Reactive Protein 69.9 mg/L (<10.0); Calcium 8.5 mg/dL (8.4-10.2); Magnesium 2.5 mg/dL (1.6-2.3); Potassium 4.3 mmol/L (3.5-5.1); Total Bilirubin 1.1 mg/dL (0.2-1.3); Total Protein 5.8 g/dL (6.3-8.2)
[2021-01-06 04:12] LABS: Basophils # (A) 0.1 k/uL (0-0.2); Basophils % (A) 1 %; Eosinophils % (A) 0 %; HCT 43.6 % (39.0-53.0); HGB 14.9 gm/dL (13.0-17.5); Lymphocytes # (A) 0.2 k/uL (1.0-4.8); Lymphocytes % (A) 2 %; MCH 30.4 pg (25.0-35.0); MCHC 34.2 g/dL (31.0-37.0); MCV 88.9 fL (80.0-100.0); Mean Platelet Volume 8.9; Monocytes # (A) 0.8 k/uL (0-1.0); Monocytes % (A) 7 %; Neutrophils # (A) 10.3 k/uL (1.3-7.7); Neutrophils % (A) 90 %; Platelet Count 220 k/uL (150-450); RDW 13.1 % (11.5-15.5); WBC 11.4 k/uL (3.8-10.6)
--- NOTE | 2021-01-06 06:40 | XR ---
EXAMINATION TYPE: XR chest 1V portable DATE OF EXAM: 01/06/2021 CLINICAL HISTORY: Difficulty breathing and covid progress study. TECHNIQUE: Single AP portable upright view of the chest is obtained. COMPARISON: Chest x-ray from 2 days earlier FINDINGS: Background low lung volumes and multifocal opacities redemonstrated. Cardiac silhouette si ze is stable and within normal limits. Retrocardiac consolidation with air bronchograms redemonstrate d. Osseous structures remain intact. Overlying EKG leads again seen. IMPRESSION: Low lung volumes with bilateral multifocal opacities consistent with covid-19 infection, no significant change from most recent x-ray.
[2021-01-06 07:03] LABS: Glucose,Whole Blood 195 mg/dL (75-99)
[2021-01-06] MEDS: INSULIN ASPART (NovoLOG) 100 UNIT/ML VIAL SQ SCH ×4 (07:10→20:22)
[2021-01-06] MEDS: SODIUM CHLORIDE 0.9% 1,000 ML IV SCH ×2 (07:51→11:50)
[2021-01-06] MEDS: ALBUTEROL HFA INHALER INHALATION SCH ×4 (08:00→20:54)
[2021-01-06] MEDS: ENOXAPARIN 40 MG/0.4 ML SYRINGE SQ SCH (08:10)
[2021-01-06] MEDS: DEXAMETHASONE SOD PHOSPHATE 10 MG/ML 1 ML VIAL IV SCH (08:10)
[2021-01-06] MEDS: CHOLECALCIFEROL 25 MCG (1000 IU) TABLET PO SCH (08:10)
[2021-01-06] MEDS: ASPIRIN 81 MG PO SCH (08:10)
[2021-01-06] MEDS: ASCORBIC ACID 500 MG TAB PO SCH (08:10)
[2021-01-06] MEDS: ZINC SULFATE 220 MG CAP PO SCH (08:11)
[2021-01-06] MEDS: METOPROLOL TARTRATE 25 MG TAB PO SCH ×2 (08:11→20:22)
[2021-01-06] MEDS: MAG HYDROX/AL HYDROX/SIMETH 30 ML, diphenhydrAMINE ELIXIR 75 MG, LIDOCAINE VISCOUS 30 ML PO SCH ×9 (08:11→20:24)
[2021-01-06] MEDS: FAMOTIDINE 20 MG/2 ML VIAL IV SCH ×2 (08:11→20:24)
--- NOTE | 2021-01-06 09:01 | P.PN ---
Subjective Progress Note Date: 01/06/21 70-year-old male patient, known history of diabetes mellitus maintained on ins ulin in addition to history of hypertension, hyperlipidemia, coronary artery disease and previous history of PCI, presented to the emergency department because of increased fatigue and tiredness. The patient was infected with Covid 19 and the testing by PCR came back positive. The patient started having symptoms of infection approximately 7 days ago and his tests confirmed positive. The test was positive on 12/27/2020. The patient's complaints were essentially those of body aches, feeling weak and tired and he was warm and he was probably having fevers. He was significantly fatigued and he was unable to do even simple stuff at home. He reported poor appetite. No loss in the taste or smell. He had no significant cough. He denies having any significant shortness of breath. No headaches. No nasal congestion. No nausea or vomiting. Upon arrival to the emergency department, the patient was profoundly hypoxic and the pulse ox was around 82% and the patient was also tachypneic and tachycardic. He was initially started on oxygen at 10 L per minute nasal cannula and subsequentl y the oxygen flow was brought up to 15 L and he continued to be hypoxic. At that point, the patient was switched to BiPAP at a pressure of 10/5 and FiO2 of 100%. The patient had further blood work that showed an LDH level of 2287, CRP of 170, lactic acid level of 2.4, serum bicarb of 18, the BUN was 37 with a creatinine of 1.7. The blood gas on 100% FiO2 showed a pH of 7.4 with a pCO2 of 27 and pO2 of 62. The chest x-ray showed diffuse but the pulmonary infiltrates. At that point, the patient was admitted to the intensive care unit and the patient was supported with BiPAP. The patient is currently on IV Decadron. The patient was also started on Remdesivir per protocol. The patient is on Lovenox 40 mg subcu every 24 hours for a d-dimer of 1.17 and the time of admission. The patient this morning was transitioned to oxygen at 15 L high flow and he is able to maintain a saturation above 90%. He remains in normal sinus rhythm. He is awake and alert. His chest x-ray showing bilateral pulmonary infiltrates was in the lung bases bilaterally. He is off the BiPAP for now. D-dimer is at 1.88 from today. His LDH is down to 1952 and the pro-calcitonin level was 0.3, LFTs were minimally elevated secondary to Covid 19. CRP is down to 158. He is currently on the same treatment including Decadron and Remdesivir day #2 On today's evaluation of 01/06/2021 the patient is being seen for a follow-up. Unfortunately, the patient is somewhat that he isn't encephalopathic and this is probably related to his underlying Covid 19 infection. His neurologic exam is nonfocal and there is no focal neurological deficit at this point in time. The patient is currently in the ICU and currently is on high flow oxygen at 60 L with an FiO2 of 80%. Pulse ox is around 96%. In terms of his treatment, the patient is receiving Remdesivir day 3 and Decadron 6 mg daily. The patient is also on Lovenox 40 mg daily basis. He is sitting up on a chair.. The patient has no significant agitation. LDH level is at 1778 and CRP level is down to 69. His d-dimer currently is at 2.2. Rest of the blood work shows a hemoglobin of 14.9 and white blood count of 11.4. The patient is very much comfortable and hypoactive.. Objective - Vital Signs Vital signs: Vital Signs Temp 98.2 F 01/06/21 04:00 Pulse 100 01/06/21 08:00 Resp 30 H 01/06/21 08:00 BP 147/91 01/06/21 08:00 Pulse Ox 96 01/06/21 08:00 Intake & Output 01/05/21 01/06/21 01/06/21 18:59 06:59 18:59 Intake Total 990 1555 150 Output Total 1000 1100 Balance -10 455 150 Weight 90.3 kg Intake: IV 990 1075 150 Remdesivir 100 mg In 250 Sodium Chloride 0.9% 250 ml @ 250 mls/hr IVPB DAILY@2000 [facility] Rx#: [id number] Sodium Chloride 0.9% 1, 990 825 150 000 ml @ 75 mls/hr IV . [id number] [facility] Rx#:[id number] Oral 480 Output: Urine 1000 1100 Other: Voiding Method Urinal Urinal # Voids 0 0 0 # Bowel Movements 1 1 - Exam General: Ill appearing, moderate distress, appears at stated age, sunken and eyes, she. At 60 L per minute nasal cannula, no signs of any respiratory distress or use of accessory muscles of breathing. Examination of the skin revealed no evidence of significant rashes, suspicious appearing nevi or other concerning lesions. Head: atraumatic, normocephalic, symmetric Eyes: EOMI, no lid lag, anicteric sclera, pupils equal round reactive to light ENT: Nose and ears atraumatic, no thrush, no pharyngeal erythema Neck: No thyromegaly, no cervical lymphadenopathy, trachea midline, supple Mouth: no lip lesion, mucus membranes dry Cardiovascular: S1S2 tachycardic without murmur, positive posterior tibial pulse bilateral, no edema, capillary refill less than 2 seconds Lungs: Coarse and diminished breath sounds bilateral without significant wheezing, + sternal retractions, + increased respiratory rate, +5 word conversational dyspnea, Abdominal: soft, nontender to palpation, no guarding, no appreciable organomegaly, normal bowel sounds Ext: no gross muscle atrophy, muscle strength muscle strength 4 out of 5 in all 4 extremities, no contractures Neuro: CN II-XI grossly intact, light touch intact all 4 extremities, finger to nose within normal limits, Psych: Alert, oriented, appropriate affect - Labs CBC & Chem 7: 01/06/21 03:20 01/06/21 03:20 Labs: Abnormal Lab Results - Last 24 Hours (Table) 01/05/21 01/05/21 01/05/21 Range/Units 03:33 11:54 16:50 WBC (3.8-10.6) k/uL Neutrophils # (1.3-7.7) k/uL Lymphocytes # (1.0-4.8) k/uL D-Dimer (<0.60) mg/L FEU Sodium (137-145) mmol/L Carbon Dioxide (22-30) mmol/L BUN (9-20) mg/dL Glucose (74-99) mg/dL POC Glucose (mg/dL) 219 H 213 H (75-99) mg/dL Hemoglobin A1c 7.8 H (4.0-6.0) % Magnesium (1.6-2.3) mg/dL AST (17-59) U/L Lactate Dehydrogenase (313-618) U/L C-Reactive Protein (<10.0) mg/L Total Protein (6.3-8.2) g/dL Albumin (3.5-5.0) g/dL 01/05/21 01/06/21 01/06/21 Range/Units 20:55 03:20 03:20 WBC 11.4 H (3.8-10.6) k/uL Neutrophils # 10.3 H (1.3-7.7) k/uL Lymphocytes # 0.2 L (1.0-4.8) k/uL D-Dimer 2.21 H (<0.60) mg/L FEU Sodium (137-145) mmol/L Carbon Dioxide (22-30) mmol/L BUN (9-20) mg/dL Glucose (74-99) mg/dL POC Glucose (mg/dL) 272 H (75-99) mg/dL Hemoglobin A1c (4.0-6.0) % Magnesium (1.6-2.3) mg/dL AST (17-59) U/L Lactate Dehydrogenase (313-618) U/L C-Reactive Protein (<10.0) mg/L Total Protein (6.3-8.2) g/dL Albumin (3.5-5.0) g/dL 01/06/21 01/06/21 Range/Units 03:20 07:01 WBC (3.8-10.6) k/uL Neutrophils # (1.3-7.7) k/uL Lymphocytes # (1.0-4.8) k/uL D-Dimer (<0.60) mg/L FEU Sodium 133 L (137-145) mmol/L Carbon Dioxide 20 L (22-30) mmol/L BUN 35 H (9-20) mg/dL Glucose 159 H (74-99) mg/dL POC Glucose (mg/dL) 195 H (75-99) mg/dL Hemoglobin A1c (4.0-6.0) % Magnesium 2.5 H (1.6-2.3) mg/dL AST 73 H (17-59) U/L Lactate Dehydrogenase 1778 H (313-618) U/L C-Reactive Protein 69.9 H (<10.0) mg/L Total Protein 5.8 L (6.3-8.2) g/dL Albumin 3.0 L (3.5-5.0) g/dL Microbiology - Last 24 Hours (Table) 01/04/21 16:15 Blood Culture - Preliminary Blood No Growth after 24 hours 01/04/21 16:08 Blood Culture - Preliminary Blood No Growth after 24 hours Assessment and Plan Plan: 1 acute hypoxic respiratory failure secondary to COVID 19 related pneumonia, currently on face. There are active by nasal cannula. Chest x-ray is stable with diffuse bilateral pulmonary infiltrates and the patient to telemetry markers have slightly improved compared to yesterday.. 2 acute COVID 19 related pneumonia with secondary acute hypoxic respiratory failure. Symptoms started approximately a week ago prior to his hospital admission. The patient is currently being treated with a combination of Decadr on and Remdesivir, day #3 . Inflammatory markers remain quite elevated and the patient is also on Lovenox for DVT prophylaxis for a mildly elevated d-dimer. Patient is also receiving the various supplements including zinc and vitamin C and vitamin D. 3 acute kidney injury with underlying chronic stage III kidney disease, renal function improved and the creatinine was 1.7 and is down to 1.1. 4 diabetes mellitus type 2, maintained on Levemir insulin outpatient basis, then 25 units of Levemir on a daily basis plus a sliding scale coverage. 5 hypertension history of 6 hyperlipidemia 7 mild lactic acidosis 8 acid reflux 9 osteoarthritis 10 Gout 11 history of nephrolithiasis 12 generalized motor weakness and debility seconds above-mentioned infection. Plan Continue the same treatment of Decadron and Remdesivir day #3 Wean down the FiO2 currently on 60 liters Monitor inflammatory markers Lovenox 40 mg subcu for DVT prophylaxis Renal function is improving and the patient's creatinine is down to 1.1 on IV fluids at the rate of 50 mL an hour Repeat chest x-ray in a.m. Provide the patient incentive spirometer Blood sugar management, currently on Levemir insulin 25 units along with a sliding scale coverage Keep in ICU for another 24 hours.
[2021-01-06 11:50] LABS: Glucose,Whole Blood 214 mg/dL (75-99)
--- NOTE | 2021-01-06 15:19 | P.PN ---
Subjective Progress Note Date: 01/06/21 Patient is awake and alert. He was eating lunch when I saw him. He denies any specific concerns or complaints. He appears confused and was planning that he saw his this morning when she was laying next to him in a separate bed. Nursing staff also noticed that patient was confused. He is currently on 15 L/80% FiO2 via Airvo device. Objective - Vital Signs Vital signs: Vital Signs Temp 98.2 F 01/06/21 04:00 Pulse 85 01/06/21 13:00 Resp 31 H 01/06/21 13:00 BP 140/82 01/06/21 13:00 Pulse Ox 94 L 01/06/21 13:00 Intake & Output 01/05/21 01/06/21 01/06/21 18:59 06:59 18:59 Intake Total 990 1555 200 Output Total 1000 1100 660 Balance -10 455 -460 Weight 90.3 kg Intake: IV 990 1075 200 Remdesivir 100 mg In 250 Sodium Chloride 0.9% 250 ml @ 250 mls/hr IVPB DAILY@2000 [facility] Rx#: [id number] Sodium Chloride 0.9% 1, 990 825 200 000 ml @ 75 mls/hr IV . [id number] [facility] Rx#:[id number] Oral 480 Output: Urine 1000 1100 660 Other: Voiding Method Urinal Urinal Urinal # Voids 0 0 0 # Bowel Movements 1 1 - Exam General: The patient is awake and alert, in no distress Eye: there is normal conjunctiva bilaterally. Neck: The neck is supple, there is no JVD. Cardiovascular: Normal S1-S2, no S3-S4, no murmurs. Respiratory: Lungs clear to auscultation bilaterally Gastrointestinal: Abdomen is soft, nontender Musculoskeletal: There is no pedal edema. Neurological:. Speech is normal. Skin: Skin is warm and dry - Labs CBC & Chem 7: 01/06/21 03:20 01/06/21 03:20 Labs: Abnormal Lab Results - Last 24 Hours (Table) 01/05/21 01/05/21 01/06/21 Range/Units 16:50 20:55 03:20 WBC 11.4 H (3.8-10.6) k/uL Neutrophils # 10.3 H (1.3-7.7) k/uL Lymphocytes # 0.2 L (1.0-4.8) k/uL D-Dimer (<0.60) mg/L FEU Sodium (137-145) mmol/L Carbon Dioxide (22-30) mmol/L BUN (9-20) mg/dL Glucose (74-99) mg/dL POC Glucose (mg/dL) 213 H 272 H (75-99) mg/dL Magnesium (1.6-2.3) mg/dL AST (17-59) U/L Lactate Dehydrogenase (313-618) U/L C-Reactive Protein (<10.0) mg/L Total Protein (6.3-8.2) g/dL Albumin (3.5-5.0) g/dL 01/06/21 01/06/21 01/06/21 Range/Units 03:20 03:20 07:01 WBC (3.8-10.6) k/uL Neutrophils # (1.3-7.7) k/uL Lymphocytes # (1.0-4.8) k/uL D-Dimer 2.21 H (<0.60) mg/L FEU Sodium 133 L (137-145) mmol/L Carbon Dioxide 20 L (22-30) mmol/L BUN 35 H (9-20) mg/dL Glucose 159 H (74-99) mg/dL POC Glucose (mg/dL) 195 H (75-99) mg/dL Magnesium 2.5 H (1.6-2.3) mg/dL AST 73 H (17-59) U/L Lactate Dehydrogenase 1778 H (313-618) U/L C-Reactive Protein 69.9 H (<10.0) mg/L Total Protein 5.8 L (6.3-8.2) g/dL Albumin 3.0 L (3.5-5.0) g/dL 01/06/21 Range/Units 11:48 WBC (3.8-10.6) k/uL Neutrophils # (1.3-7.7) k/uL Lymphocytes # (1.0-4.8) k/uL D-Dimer (<0.60) mg/L FEU Sodium (137-145) mmol/L Carbon Dioxide (22-30) mmol/L BUN (9-20) mg/dL Glucose (74-99) mg/dL POC Glucose (mg/dL) 214 H (75-99) mg/dL Magnesium (1.6-2.3) mg/dL AST (17-59) U/L Lactate Dehydrogenase (313-618) U/L C-Reactive Protein (<10.0) mg/L Total Protein (6.3-8.2) g/dL Albumin (3.5-5.0) g/dL Microbiology - Last 24 Hours (Table) 01/04/21 16:15 Blood Culture - Preliminary Blood No Growth after 24 hours 01/04/21 16:08 Blood Culture - Preliminary Blood No Growth after 24 hours Assessment and Plan Assessment: Patient is a 70 yo CM with a hx of DM2 well controlled on insulin and oral medications, HTN, HLD, and CAD with hx of PCI X 1 who presented to the ED due to extreme fatigue. He started having COVID symptoms of COVID 7 days ago and was tested and confirmed positive. Chest x-ray showed diffuse interstitial infiltrates. Patient was admitted to the hospital for the ongoing management of his medical problems noted below COVID 19 pneumonitis with acute hypoxic respiratory failure -Pulmonary recs: Remdesivir, Decadron day #3 - wean O2 as able -Zinc, vitamin C, vitamin D -Follow inflammatory markers Hospital-acquired delirium, probably steroid induced. We will continue reorientation Chronic kidney disease stage III, hyponatremia, metabolic acidosis, suspect secondary to dehydration -Resolved with IV fluid hydration. DM 2, well controlled - hold oral medications - SSI, Levemir - Follow BS - A1C 7.8 Hypertension, controlled -Continue with metoprolol -Follow blood pressures -DANN inhibitor will be resumed tomorrow Dyslipidemia -Statin therapy GERD -H2 kaushik Lactic acidosis, resolved PK eyes, resolved DVT prophylaxis: Lovenox Discussed with: Patient, nursing, Anticipated discharge date: 3-[address]: home A total of 35 minutes was spent on the care of this complex patient more than 50% of the time was spent in counseling and care coordination.
[2021-01-06 16:33] LABS: Glucose,Whole Blood 249 mg/dL (75-99)
[2021-01-06 20:07] LABS: Glucose,Whole Blood 209 mg/dL (75-99)
[2021-01-06] MEDS: REMDESIVIR 100 MG in SODIUM CHLORIDE 0.9% 250 ML IVPB SCH (20:20)
[2021-01-06] MEDS: QUEtiapine 25 MG TAB PO SCH (20:21)
[2021-01-06] MEDS: ATORVASTATIN 20 MG TAB PO SCH (20:22)
[2021-01-06] MEDS: INSULIN DETEMIR (LEVEMIR) 100 UNIT/ML SYR SQ SCH (20:22)
[2021-01-07 04:19] LABS: Basophils # (A) 0.1 k/uL (0-0.2); Basophils % (A) 1 %; Eosinophils % (A) 0 %; HCT 43.1 % (39.0-53.0); HGB 14.9 gm/dL (13.0-17.5); Lymphocytes # (A) 0.3 k/uL (1.0-4.8); Lymphocytes % (A) 3 %; MCH 30.5 pg (25.0-35.0); MCHC 34.6 g/dL (31.0-37.0); MCV 88.2 fL (80.0-100.0); Mean Platelet Volume 8.7; Monocytes # (A) 0.8 k/uL (0-1.0); Monocytes % (A) 7 %; Neutrophils # (A) 10.8 k/uL (1.3-7.7); Neutrophils % (A) 89 %; Platelet Count 267 k/uL (150-450); RBC 4.89 m/uL (4.30-5.90); RDW 13.1 % (11.5-15.5); WBC 12.2 k/uL (3.8-10.6)
[2021-01-07] MEDS ORDERED: HALOPERIDOL LACTATE 5 MG/ML 1 ML VIAL IVP PRN (04:36)
[2021-01-07 04:42] LABS: Albumin 3.1 g/dL (3.5-5.0); C Reactive Protein 50.1 mg/L (<10.0); Calcium 8.7 mg/dL (8.4-10.2); Magnesium 2.2 mg/dL (1.6-2.3); Potassium 4.3 mmol/L (3.5-5.1); Total Bilirubin 1.3 mg/dL (0.2-1.3); Total Protein 5.8 g/dL (6.3-8.2)
[2021-01-07] MEDS: HALOPERIDOL LACTATE 5 MG/ML 1 ML VIAL IVP PRN ×3 (06:33→09:15)
[2021-01-07 07:06] LABS: Glucose,Whole Blood 134 mg/dL (75-99)
--- NOTE | 2021-01-07 07:36 | XR ---
EXAMINATION TYPE: XR chest 1V portable DATE OF EXAM: 01/07/2021 HISTORY: Shortness of breath. COMPARISON: 01/06/2021 TECHNIQUE: Single view of the chest is submitted. FINDINGS: Demonstrated are scattered senescent parenchymal change. Patchy basilar infiltrates persist although there is interval improvement suggested. Continued follow -up advised. The heart is stable. Hilar and mediastinal structures are within normal limits. Degenerative changes are seen of the dorsal spine. IMPRESSION: 1. Patchy basilar infiltrates persist although there is interval improvement suggested. Continued fo llow-up advised.
[2021-01-07] MEDS: DEXMEDETOMIDINE/0.9% NACL(PMX) 400 MCG in EMPTY BAG 1 BAG IV SCH ×4 (08:02→21:48)
[2021-01-07] MEDS: SODIUM CHLORIDE 0.9% 1,000 ML IV SCH (08:03)
--- NOTE | 2021-01-07 08:03 | P.PN ---
Subjective Progress Note Date: 01/07/21 70-year-old male patient, known history of diabetes mellitus maintained on ins ulin in addition to history of hypertension, hyperlipidemia, coronary artery disease and previous history of PCI, presented to the emergency department because of increased fatigue and tiredness. The patient was infected with Covid 19 and the testing by PCR came back positive. The patient started having symptoms of infection approximately 7 days ago and his tests confirmed positive. The test was positive on 12/27/2020. The patient's complaints were essentially those of body aches, feeling weak and tired and he was warm and he was probably having fevers. He was significantly fatigued and he was unable to do even simple stuff at home. He reported poor appetite. No loss in the taste or smell. He had no significant cough. He denies having any significant shortness of breath. No headaches. No nasal congestion. No nausea or vomiting. Upon arrival to the emergency department, the patient was profoundly hypoxic and the pulse ox was around 82% and the patient was also tachypneic and tachycardic. He was initially started on oxygen at 10 L per minute nasal cannula and subsequentl y the oxygen flow was brought up to 15 L and he continued to be hypoxic. At that point, the patient was switched to BiPAP at a pressure of 10/5 and FiO2 of 100%. The patient had further blood work that showed an LDH level of 2287, CRP of 170, lactic acid level of 2.4, serum bicarb of 18, the BUN was 37 with a creatinine of 1.7. The blood gas on 100% FiO2 showed a pH of 7.4 with a pCO2 of 27 and pO2 of 62. The chest x-ray showed diffuse but the pulmonary infiltrates. At that point, the patient was admitted to the intensive care unit and the patient was supported with BiPAP. The patient is currently on IV Decadron. The patient was also started on Remdesivir per protocol. The patient is on Lovenox 40 mg subcu every 24 hours for a d-dimer of 1.17 and the time of admission. The patient this morning was transitioned to oxygen at 15 L high flow and he is able to maintain a saturation above 90%. He remains in normal sinus rhythm. He is awake and alert. His chest x-ray showing bilateral pulmonary infiltrates was in the lung bases bilaterally. He is off the BiPAP for now. D-dimer is at 1.88 from today. His LDH is down to 1952 and the pro-calcitonin level was 0.3, LFTs were minimally elevated secondary to Covid 19. CRP is down to 158. He is currently on the same treatment including Decadron and Remdesivir day #2 On today's evaluation of 01/06/2021 the patient is being seen for a follow-up. Unfortunately, the patient is somewhat that he isn't encephalopathic and this is probably related to his underlying Covid 19 infection. His neurologic exam is nonfocal and there is no focal neurological deficit at this point in time. The patient is currently in the ICU and currently is on high flow oxygen at 60 L with an FiO2 of 80%. Pulse ox is around 96%. In terms of his treatment, the patient is receiving Remdesivir day 3 and Decadron 6 mg daily. The patient is also on Lovenox 40 mg daily basis. He is sitting up on a chair.. The patient has no significant agitation. LDH level is at 1778 and CRP level is down to 69. His d-dimer currently is at 2.2. Rest of the blood work shows a hemoglobin of 14.9 and white blood count of 11.4. The patient is very much comfortable and hypoactive.. On 01/07/2021 the patient is being seen in follow-up. The patient over the past 24 hours. Progressively became more confused and altered and encephalopathic. At times he was getting more agitated. Earlier this morning, he started also having worsening shortness of breath, tachypnea and hypoxemia. He was on high flow oxygen at 6 L per minute with an FiO2 of 80%. Subsequently, he was placed on BiPAP and currently bicarb is running at a pressure of 12/5 cm of water with an FiO2 of 100%. His pulse ox is 86% on this ventilator setting. He is quite tachypneic. Is a fluoridated in the mid 40s. The patient's in generating a tidal volume of 800 and the patient's minute ventilation is in the high 20s low 30 range. The patient is sent and was quite agitated and restless and he was started on Precedex which is currently running at 25 mcg/kg per minute. He was also given a bolus of 0.5 mg IV.. The white cell count on today's 12.2 with a hemoglobin of 14.4. D-dimer is up to 8.6 from a baseline of 2.2. Electrolytes are within normal limits. Creatinine is at 1.27. LDH level is up to 2030. CRP level is 50.1. Chest x-ray from today showing diffuse breath and pulmonary infiltrates consistent with Covid 19 related pneumonia. The patient obviously is in acute hypoxic respiratory failure and he would need intubation mechanical ventilation. Family will be informed that we'll going to proceed with mechanical ventilation probably within next 20-30 minutes/especially if there is no stabilization or improvement while on the BiPAP. Objective - Vital Signs Vital signs: Vital Signs Temp 98.3 F 01/07/21 04:00 Pulse 117 H 01/07/21 07:00 Resp 34 H 01/07/21 07:00 BP 165/110 01/07/21 07:00 Pulse Ox 88 L 01/07/21 07:00 Intake & Output 01/06/21 01/07/21 01/07/21 18:59 06:59 18:59 Intake Total 230 730 Output Total 760 950 Balance -530 -220 Weight 91.1 kg Intake: IV 230 250 Remdesivir 100 mg In 250 Sodium Chloride 0.9% 250 ml @ 250 mls/hr IVPB DAILY@2000 [facility] Rx#: [id number] Sodium Chloride 0.9% 1, 230 000 ml @ 75 mls/hr IV . [id number] [facility] Rx#:[id number] Oral 480 Output: Urine 760 950 Other: Voiding Method Urinal Urinal # Voids 0 0 0 # Bowel Movements 1 - Exam General: Ill appearing, moderate distress, appears at stated age, sunken and eyes, the patient is utilizing extremities and muscles of breathing. The patient was quite. A BiPAP at a pressure of 12/7 cm of water with an FiO2 of 100%. Examination of the skin revealed no evidence of significant rashes, suspicious appearing nevi or other concerning lesions. Head: atraumatic, normocephalic, symmetric Eyes: EOMI, no lid lag, anicteric sclera, pupils equal round reactive to light ENT: Nose and ears atraumatic, no thrush, no pharyngeal erythema Neck: No thyromegaly, no cervical lymphadenopathy, trachea midline, supple Mouth: no lip lesion, mucus membranes dry Cardiovascular: S1S2 tachycardic without murmur, positive posterior tibial pulse bilateral, no edema, capillary refill less than 2 seconds Lungs: Coarse and diminished breath sounds bilateral without significant wheezing, + sternal retractions, she has diffuse crackles bilaterally. The patient using accessory muscles of breathing. The patient is sensitive. He is currently on a BiPAP with a full face mask. Abdominal: soft, nontender to palpation, no guarding, no appreciable organomegaly, normal bowel sounds Ext: no gross muscle atrophy, muscle strength muscle strength 4 out of 5 in all 4 extremities, no contractures Neuro: CN II-XI grossly intact, light touch intact all 4 extremities, finger to nose within normal limits, nevertheless the patient had to be sedated as the patient became progressively more encephalopathic and agitated. Currently the patient is running on Precedex at 0.5 mcg/kg per minute. - Labs CBC & Chem 7: 01/07/21 03:43 01/07/21 03:43 Labs: Abnormal Lab Results - Last 24 Hours (Table) 01/06/21 01/06/21 01/06/21 Range/Units 11:48 16:31 20:05 WBC (3.8-10.6) k/uL Neutrophils # (1.3-7.7) k/uL Lymphocytes # (1.0-4.8) k/uL D-Dimer (<0.60) mg/L FEU Sodium (137-145) mmol/L BUN (9-20) mg/dL Creatinine (0.66-1.25) mg/dL Glucose (74-99) mg/dL POC Glucose (mg/dL) 214 H 249 H 209 H (75-99) mg/dL AST (17-59) U/L Lactate Dehydrogenase (313-618) U/L C-Reactive Protein (<10.0) mg/L Total Protein (6.3-8.2) g/dL Albumin (3.5-5.0) g/dL 01/07/21 01/07/21 01/07/21 Range/Units 03:43 03:43 03:43 WBC 12.2 H (3.8-10.6) k/uL Neutrophils # 10.8 H (1.3-7.7) k/uL Lymphocytes # 0.3 L (1.0-4.8) k/uL D-Dimer 8.69 H (<0.60) mg/L FEU Sodium 136 L (137-145) mmol/L BUN 37 H (9-20) mg/dL Creatinine 1.27 H (0.66-1.25) mg/dL Glucose 141 H (74-99) mg/dL POC Glucose (mg/dL) (75-99) mg/dL AST 73 H (17-59) U/L Lactate Dehydrogenase 2031 H (313-618) U/L C-Reactive Protein 50.1 H (<10.0) mg/L Total Protein 5.8 L (6.3-8.2) g/dL Albumin 3.1 L (3.5-5.0) g/dL 01/07/21 Range/Units 07:05 WBC (3.8-10.6) k/uL Neutrophils # (1.3-7.7) k/uL Lymphocytes # (1.0-4.8) k/uL D-Dimer (<0.60) mg/L FEU Sodium (137-145) mmol/L BUN (9-20) mg/dL Creatinine (0.66-1.25) mg/dL Glucose (74-99) mg/dL POC Glucose (mg/dL) 134 H (75-99) mg/dL AST (17-59) U/L Lactate Dehydrogenase (313-618) U/L C-Reactive Protein (<10.0) mg/L Total Protein (6.3-8.2) g/dL Albumin (3.5-5.0) g/dL Microbiology - Last 24 Hours (Table) 01/04/21 16:15 Blood Culture - Preliminary Blood No Growth after 48 hours 01/04/21 16:08 Blood Culture - Preliminary Blood No Growth after 48 hours Assessment and Plan Plan: 1 acute hypoxic respiratory failure secondary to COVID 19 related pneumonia, , the patient developed hypoxic respiratory failure and the patient had progressive worsening in his oxygenation, he transitioned to high flow oxygen and currently is on a BiPAP and despite that the patient is still hypoxic and he is struggling with his breathing and using excessive muscle breathing and he has a very high minute ventilation. As such, the patient will require intubation mechanical ventilation. Family will be informed. I'm going to observe this patient for another 20-30 minutes and following that proceed with intubation mechanical ventilation no improvement or control of his symptoms while being on BiPAP. Blood gases is to follow. 2 acute COVID 19 related pneumonia with secondary acute hypoxic respiratory failure. Symptoms started approximately a week ago prior to his hospital admission. The patient is currently being treated with a combination of Decadron and Remdesivir, day #4 . Inflammatory markers remain quite elevated and the patient is also on Lovenox the dose will be adjusted to 45 grams subcutaneous every 12 hours, half a therapeutic dose based on the elevated d- dimer. Note that the d-dimer is significantly elevated at this point in time. 3 acute kidney injury with underlying chronic stage III kidney disease, renal function improved 4 diabetes mellitus type 2, maintained on Levemir insulin outpatient basis, then 25 units of Levemir on a daily basis plus a sliding scale coverage. 5 hypertension history of 6 hyperlipidemia 7 mild lactic acidosis 8 acid reflux 9 osteoarthritis 10 Gout 11 history of nephrolithiasis 12 generalized motor weakness and debility seconds above-mentioned infection. Plan Continue the same treatment of Decadron and Remdesivir day #4 She is a Decadron up to 20 mg IV every 24 hours Transitioned this patient to a BiPAP and likely would need intubation mechanical ventilation. I have decided to monitor him for another 30 minutes to an hour and if no progress, the patient will need intubation mechanical ventilation. Meanwhile we'll keep him on Precedex. We'll monitor the blood gases. The patient is currently on Precedex for agitation or restlessness. Will order Tocilizumab would proceed with treatment if the medication is available to us here in the hospital. Monitor inflammatory markers Lovenox 40 mg subcu for DVT prophylaxis Renal function is improving Repeat chest x-ray in a.m. Provide the patient incentive spirometer Blood sugar management, currently on Levemir insulin 25 units along with a sliding scale coverage Keep in ICU, critically care evaluation was done and more than 30 minutes. Time with Patient: Greater than 30
[2021-01-07] MEDS: INSULIN ASPART (NovoLOG) 100 UNIT/ML VIAL SQ SCH ×4 (08:05→20:39)
[2021-01-07] MEDS: ASPIRIN 81 MG PO SCH (08:05)
[2021-01-07] MEDS: ASCORBIC ACID 500 MG TAB PO SCH (08:05)
[2021-01-07] MEDS: CHOLECALCIFEROL 25 MCG (1000 IU) TABLET PO SCH (08:05)
[2021-01-07] MEDS: METOPROLOL TARTRATE 25 MG TAB PO SCH ×2 (08:06→20:13)
[2021-01-07] MEDS: lisinopriL 20 MG TAB PO SCH (08:06)
[2021-01-07] MEDS: ZINC SULFATE 220 MG CAP PO SCH (08:06)
[2021-01-07] MEDS: MAG HYDROX/AL HYDROX/SIMETH 30 ML, diphenhydrAMINE ELIXIR 75 MG, LIDOCAINE VISCOUS 30 ML PO SCH ×9 (08:06→20:13)
[2021-01-07] MEDS: FAMOTIDINE 20 MG/2 ML VIAL IV SCH ×2 (08:16→20:38)
[2021-01-07] MEDS: ENOXAPARIN 60 MG/0.6 ML SYRINGE SQ SCH ×2 (08:40→20:38)
[2021-01-07] MEDS ORDERED: ENOXAPARIN 40 MG/0.4 ML SYRINGE SQ SCH (09:00)
[2021-01-07] MEDS ORDERED: DEXAMETHASONE SOD PHOSPHATE 10 MG/ML 1 ML VIAL IV SCH (09:00)
[2021-01-07] MEDS ORDERED: TOCILIZUMAB 400 MG in SODIUM CHLORIDE 0.9% 80 ML IV ONE ×2 (09:00→21:00)
[2021-01-07] MEDS: DEXAMETHASONE SOD PHOSPHATE 20 MG in DEXTROSE 5% IN WATER 50 ML IV SCH ×2 (09:03)
[2021-01-07 09:07] LABS: ABG Base Excess -3.5 mmol/L; ABG HCO3 21 mmol/L (21-25); ABG Oxygen Saturation 93.6 % (94-97); ABG PCO2 34 mmHg (35-45); ABG PO2 69 mmHg (83-108); ABG TCO2 22 mmol/L (19-24)
--- NOTE | 2021-01-07 09:07 | P.PCN ---
Date of Procedure: 01/07/21 Preoperative Diagnosis: Acute hypoxic respiratory failure/pneumonia Postoperative Diagnosis: Acute hypoxic respiratory failure/pneumonia Procedure(s) Performed: Arterial line insertion Anesthesia: local Surgeon: Arnold Santacruz Estimated Blood Loss (ml): 0 Pathology: none sent Condition: critical Disposition: ICU Operative Findings: Indication: Hemodynamic monitoring. A time-out was completed verifying correct patient, procedure, site, positioning, and implant(s) or special equipment if applicable. Allens test was performed to ensure adequate perfusion. The patients right wrist groin was prepped and draped in sterile fashion. 1% Lidocaine was used to anesthetize the area. An 18G Arrow arterial line was introduced into the r adial artery. The catheter was threaded over the guide wire and the needle was removed with appropriate pulsatile blood return. Blood loss was minimal. The catheter was then sutured in place to the skin and a sterile dressing applied. Perfusion to the extremity distal to the point of catheter insertion was checked and found to be adequate. The patient tolerated the procedure well and there were no complications.
[2021-01-07] MEDS: ALBUTEROL HFA INHALER INHALATION SCH ×4 (09:21→19:18)
--- NOTE | 2021-01-07 11:09 | P.PN ---
Subjective Progress Note Date: 01/07/21 Patient's overall condition is been worsening over the last 24 hours. He was more confused and agitated. His O2 sats was dropping as well as blood pressure being elevated during agitation episodes. He eventually was started on Precedex and Haldol. He is currently on BiPAP with 100% FiO2. Sitter at bedside. Patient is resting. Objective - Vital Signs Vital signs: Vital Signs Temp 98.3 F 01/07/21 04:00 Pulse 81 01/07/21 10:00 Resp 27 H 01/07/21 10:00 BP 121/76 01/07/21 08:30 Pulse Ox 97 01/07/21 10:00 Intake & Output 01/06/21 01/07/21 01/07/21 18:59 06:59 18:59 Intake Total 230 730 162.278 Output Total 760 950 250 Balance -530 -220 -87.722 Weight 91.1 kg Intake: IV 230 250 160 Dexamethasone Sod 50 Phosphate 20 mg In Dextrose 5% in Water 50 ml @ 100 mls/hr IV DAILY [facility] Rx#:[id number] Remdesivir 100 mg In 250 Sodium Chloride 0.9% 250 ml @ 250 mls/hr IVPB DAILY@2000 [facility] Rx#: [id number] Sodium Chloride 0.9% 1, 30 000 ml @ 10 mls/hr IV . Q24H [facility] Rx#:[id number] Sodium Chloride 0.9% 1, 230 000 ml @ 75 mls/hr IV . [id number] [facility] Rx#:[id number] Tocilizumab 400 mg In 80 Sodium Chloride 0.9% 80 ml @ 100 mls/hr IV ONCE ONE Rx#:[id number] Intake, IV Titration 2.278 Amount Dexmedetomidine/0.9% NaCl 2.278 (Pmx) 400 mcg In Empty Bag 1 bag @ Titrate IV . Q0M [facility] Rx#:[id number] Oral 480 Output: Urine 760 950 250 Other: Voiding Method Urinal Urinal Indwelling Catheter # Voids 0 0 0 # Bowel Movements 1 ABP, PAP, CO, CI - Last Documented Arterial Blood Pressure 147/75 - Exam General: The patient is sedated. Eye: there is normal conjunctiva bilaterally. Neck: The neck is supple, there is no JVD. Cardiovascular: Normal S1-S2, no S3-S4, no murmurs. Respiratory: Lungs with BiPAP sounds to anterior chest auscultation Gastrointestinal: Abdomen is soft, nontender Musculoskeletal: There is no pedal edema. Skin: Skin is warm and dry - Labs CBC & Chem 7: 01/07/21 03:43 01/07/21 03:43 Labs: Abnormal Lab Results - Last 24 Hours (Table) 01/06/21 01/06/21 01/06/21 Range/Units 11:48 16:31 20:05 WBC (3.8-10.6) k/uL Neutrophils # (1.3-7.7) k/uL Lymphocytes # (1.0-4.8) k/uL D-Dimer (<0.60) mg/L FEU ABG pCO2 (35-45) mmHg ABG pO2 (83-108) mmHg ABG O2 Saturation (94-97) % Sodium (137-145) mmol/L BUN (9-20) mg/dL Creatinine (0.66-1.25) mg/dL Glucose (74-99) mg/dL POC Glucose (mg/dL) 214 H 249 H 209 H (75-99) mg/dL AST (17-59) U/L Lactate Dehydrogenase (313-618) U/L C-Reactive Protein (<10.0) mg/L Total Protein (6.3-8.2) g/dL Albumin (3.5-5.0) g/dL 01/07/21 01/07/21 01/07/21 Range/Units 03:43 03:43 03:43 WBC 12.2 H (3.8-10.6) k/uL Neutrophils # 10.8 H (1.3-7.7) k/uL Lymphocytes # 0.3 L (1.0-4.8) k/uL D-Dimer 8.69 H (<0.60) mg/L FEU ABG pCO2 (35-45) mmHg ABG pO2 (83-108) mmHg ABG O2 Saturation (94-97) % Sodium 136 L (137-145) mmol/L BUN 37 H (9-20) mg/dL Creatinine 1.27 H (0.66-1.25) mg/dL Glucose 141 H (74-99) mg/dL POC Glucose (mg/dL) (75-99) mg/dL AST 73 H (17-59) U/L Lactate Dehydrogenase 2031 H (313-618) U/L C-Reactive Protein 50.1 H (<10.0) mg/L Total Protein 5.8 L (6.3-8.2) g/dL Albumin 3.1 L (3.5-5.0) g/dL 01/07/21 01/07/21 Range/Units 07:05 09:02 WBC (3.8-10.6) k/uL Neutrophils # (1.3-7.7) k/uL Lymphocytes # (1.0-4.8) k/uL D-Dimer (<0.60) mg/L FEU ABG pCO2 34 L (35-45) mmHg ABG pO2 69 L (83-108) mmHg ABG O2 Saturation 93.6 L (94-97) % Sodium (137-145) mmol/L BUN (9-20) mg/dL Creatinine (0.66-1.25) mg/dL Glucose (74-99) mg/dL POC Glucose (mg/dL) 134 H (75-99) mg/dL AST (17-59) U/L Lactate Dehydrogenase (313-618) U/L C-Reactive Protein (<10.0) mg/L Total Protein (6.3-8.2) g/dL Albumin (3.5-5.0) g/dL Microbiology - Last 24 Hours (Table) 01/04/21 16:15 Blood Culture - Preliminary Blood No Growth after 48 hours 01/04/21 16:08 Blood Culture - Preliminary Blood No Growth after 48 hours Assessment and Plan Assessment: Patient is a 70 yo CM with a hx of DM2 well controlled on insulin and oral medications, HTN, HLD, and CAD with hx of PCI X 1 who presented to the ED due to extreme fatigue. He started having COVID symptoms of COVID 7 days ago and was tested and confirmed positive. Chest x-ray showed diffuse interstitial infiltrates. Patient was admitted to the hospital for the ongoing management of his medical problems noted below COVID 19 pneumonitis with acute hypoxic respiratory failure -Pulmonary recs: Remdesivir, Decadron day #4 dose increased to 20 mg daily on 01/07 by pulmonology - Actemra ordered today - Currently on BiPAP with 100% FiO2 -Zinc, vitamin C, vitamin D -Follow inflammatory markers Hospital-acquired delirium, probably steroid induced. We will continue reorientation. May use Advil as needed. Chronic kidney disease stage III, hyponatremia, metabolic acidosis, suspect secondary to dehydration -Resolved with IV fluid hydration. DM 2, well controlled - hold oral medications - SSI, Levemir - Follow BS - A1C 7.8 Hypertension, controlled -Continue with metoprolol -Follow blood pressures -DANN inhibitor will be resumed tomorrow Dyslipidemia -Statin therapy GERD -H2 kaushik Lactic acidosis, resolved PK eyes, resolved DVT prophylaxis: Lovenox Discussed with: Patient, nursing, Anticipated discharge date: 3-[address]: home A total of 35 minutes was spent on the care of this complex patient more than 50% of the time was spent in counseling and care coordination.
[2021-01-07 11:26] LABS: Glucose,Whole Blood 106 mg/dL (75-99)
[2021-01-07 16:47] LABS: Glucose,Whole Blood 222 mg/dL (75-99)
[2021-01-07] MEDS: QUEtiapine 25 MG TAB PO SCH (20:13)
[2021-01-07] MEDS: ATORVASTATIN 20 MG TAB PO SCH (20:14)
[2021-01-07 20:21] LABS: Glucose,Whole Blood 164 mg/dL (75-99)
[2021-01-07] MEDS: REMDESIVIR 100 MG in SODIUM CHLORIDE 0.9% 250 ML IVPB SCH (20:38)
[2021-01-07] MEDS: INSULIN DETEMIR (LEVEMIR) 100 UNIT/ML SYR SQ SCH (20:38)
[2021-01-08 04:42] LABS: Basophils % (A) 0 %; Eosinophils % (A) 0 %; HCT 41.9 % (39.0-53.0); HGB 13.9 gm/dL (13.0-17.5); Lymphocytes # (A) 0.3 k/uL (1.0-4.8); Lymphocytes % (A) 3 %; MCH 29.1 pg (25.0-35.0); MCHC 33.2 g/dL (31.0-37.0); MCV 87.6 fL (80.0-100.0); Mean Platelet Volume 8.1; Monocytes # (A) 0.4 k/uL (0-1.0); Monocytes % (A) 5 %; Neutrophils % (A) 90 %; Platelet Count 264 k/uL (150-450); RBC 4.79 m/uL (4.30-5.90); RDW 13.6 % (11.5-15.5); WBC 8.9 k/uL (3.8-10.6)
[2021-01-08 05:01] LABS: Albumin 2.5 g/dL (3.5-5.0); Calcium 8.5 mg/dL (8.4-10.2); Potassium 4.5 mmol/L (3.5-5.1); Total Bilirubin 1.1 mg/dL (0.2-1.3)
[2021-01-08] MEDS: INSULIN ASPART (NovoLOG) 100 UNIT/ML VIAL SQ SCH ×3 (05:31→17:27)
[2021-01-08] MEDS: DEXMEDETOMIDINE/0.9% NACL(PMX) 400 MCG in EMPTY BAG 1 BAG IV SCH ×3 (07:41→20:47)
[2021-01-08] MEDS: ALBUTEROL HFA INHALER INHALATION SCH ×4 (07:53→19:09)
--- NOTE | 2021-01-08 07:58 | XR ---
EXAMINATION TYPE: XR chest 1V portable DATE OF EXAM: 01/08/2021 COMPARISON: 01/07/2021 INDICATION: COVID Pneumonia TECHNIQUE: Single frontal view of the chest is obtained. FINDINGS: The heart size is normal. The pulmonary vasculature is normal. Scattered nonspecific infiltrates are present bilaterally. IMPRESSION: 1. Mild scattered subsegmental infiltrates are nonspecific. Correlate for atypical pneumonia
--- NOTE | 2021-01-08 08:30 | P.PN ---
Subjective Progress Note Date: 01/08/21 Principal diagnosis: CoVID 19 infection 70-year-old male patient, known history of diabetes mellitus maintained on insulin in addition to history of hypertension, hyperlipidemia, coronary artery disease and previous history of PCI, presented to the emergency department because of increased fatigue and tiredness. The patient was infected with Covid 19 and the testing by PCR came back positive. The patient started having symptoms of infection approximately 7 days ago and his tests confirmed positive. The test was positive on 12/27/2020. The patient's complaints were essentially those of body aches, feeling weak and tired and he was warm and he was probably having fevers. He was significantly fatigued and he was unable to do even simple stuff at home. He reported poor appetite. No loss in the taste or smell. He had no significant cough. He denies having any significant shortness of breath. No headaches. No nasal congestion. No nausea or vomiting. Upon ar rival to the emergency department, the patient was profoundly hypoxic and the pulse ox was around 82% and the patient was also tachypneic and tachycardic. He was initially started on oxygen at 10 L per minute nasal cannula and subsequently the oxygen flow was brought up to 15 L and he continued to be hypoxic. At that point, the patient was switched to BiPAP at a pressure of 10/5 and FiO2 of 100%. The patient had further blood work that showed an LDH level of 2287, CRP of 170, lactic acid level of 2.4, serum bicarb of 18, the BUN was 37 with a creatinine of 1.7. The blood gas on 100% FiO2 showed a pH of 7.4 with a pCO2 of 27 and pO2 of 62. The chest x-ray showed diffuse but the pulmonary infiltrates. At that point, the patient was admitted to the intensive care unit and the patient was supported with BiPAP. The patient is currently on IV Decadron. The patient was also started on Remdesivir per protocol. The patient is on Lovenox 40 mg subcu every 24 hours for a d-dimer of 1.17 and the time of admission. The patient this morning was transitioned to oxygen at 15 L high flow and he is able to maintain a saturation above 90%. He remains in normal sinus rhythm. He is awake and alert. His chest x-ray showing bilateral pulmonary infiltrates was in the lung bases bilaterally. He is off the BiPAP for now. D-dimer is at 1.88 from today. His LDH is down to 1952 and the pro- calcitonin level was 0.3, LFTs were minimally elevated secondary to Covid 19. CRP is down to 158. He is currently on the same treatment including Decadron and Remdesivir day #2 On today's evaluation of 01/06/2021 the patient is being seen for a follow-up. Unfortunately, the patient is somewhat that he isn't encephalopathic and this is probably related to his underlying Covid 19 infection. His neurologic exam is nonfocal and there is no focal neurological deficit at this point in time. The patient is currently in the ICU and currently is on high flow oxygen at 60 L with an FiO2 of 80%. Pulse ox is around 96%. In terms of his treatment, the patient is receiving Remdesivir day 3 and Decadron 6 mg daily. The patient is also on Lovenox 40 mg daily basis. He is sitting up on a chair.. The patient has no significant agitation. LDH level is at 1778 and CRP level is down to 69. His d-dimer currently is at 2.2. Rest of the blood work shows a hemoglobin of 14.9 and white blood count of 11.4. The patient is very much comfortable and hypoactive.. On 01/07/2021 the patient is being seen in follow-up. The patient over the past 24 hours. Progressively became more confused and altered and encephalopathic. At times he was getting more agitated. Earlier this morning, he started also having worsening shortness of breath, tachypnea and hypoxemia. He was on high flow oxygen at 6 L per minute with an FiO2 of 80%. Subsequently, he was placed on BiPAP and currently bicarb is running at a pressure of 12/5 cm of water with an FiO2 of 100%. His pulse ox is 86% on this ventilator setting. He is quite tachypneic. Is a fluoridated in the mid 40s. The patient's in generating a tidal volume of 800 and the patient's minute ventilation is in the high 20s low 30 range. The patient is sent and was quite agitated and restless and he was started on Precedex which is currently running at 25 mcg/kg per minute. He was also given a bolus of 0.5 mg IV.. The white cell count on today's 12.2 with a hemoglobin of 14.4. D-dimer is up to 8.6 from a baseline of 2.2. Electrolytes are within normal limits. Creatinine is at 1.27. LDH level is up to 2030. CRP level is 50.1. Chest x-ray from today showing diffuse breath and pulmonary infiltrates consistent with Covid 19 related pneumonia. The patient obviously is in acute hypoxic respiratory failure and he would need intubation mechanical ventilation. Family will be informed that we'll going to proceed with mechanical ventilation probably within next 20-30 minutes/especially if there is no stabilization or improvement while on the BiPAP. The patient is seen today 01/08/2021 in follow-up in the intensive care unit. Morenita cruz remains on BiPAP 09/22 and 65% FiO2 to maintain O2 saturation in the 90s. He is currently awake and alert. He is taking sips of water briefly. He is on Precedex at 0.06 grams per kilogram per hour. This is day #5 of Remdesivir. He did receive tocilizumab. He remains on Lovenox 45 mg subcutaneous twice a day. Dexamethasone at 20 mg IV daily. Vitamin supplements. Chest x-ray continues to show mild scattered subsegmental infiltrates bilaterally. Blood cultures reveal no growth. White count 8.9. Hemoglobin 13.9. Sodium 138. Potassium 4.5. Creatinine 1.07. Remains in a negative balance. Inflammatory markers pending. Objective - Vital Signs Vital signs: Vital Signs Temp 98.4 F 01/08/21 04:00 Pulse 67 01/08/21 07:00 Resp 24 01/08/21 07:00 BP 132/85 01/08/21 06:00 Pulse Ox 94 L 01/08/21 07:00 Intake & Output 01/07/21 01/08/21 01/08/21 18:59 06:59 18:59 Intake Total 353.465 800.720 44.352 Output Total 690 740 30 Balance -336.535 60.720 14.352 Weight 93.4 kg Intake: IV 220 640 40 Dexamethasone Sod 50 Phosphate 20 mg In Dextrose 5% in Water 50 ml @ 100 mls/hr IV DAILY [facility] Rx#:[id number] Remdesivir 100 mg In 250 Sodium Chloride 0.9% 250 ml @ 250 mls/hr IVPB DAILY@1999 [facility] Rx#: [id number] Sodium Chloride 0.9% 1, 90 310 40 000 ml @ 10 mls/hr IV . Q24H [facility] Rx#:[id number] Tocilizumab 400 mg In 80 80 Sodium Chloride 0.9% 80 ml @ 100 mls/hr IV ONCE ONE Rx#:[id number] Intake, IV Titration 133.465 160.720 4.352 Amount Dexmedetomidine/0.9% NaCl 133.465 160.720 4.352 (Pmx) 400 mcg In Empty Bag 1 bag @ Titrate IV . Q0M [facility] Rx#:[id number] Output: Urine 690 740 30 Other: Voiding Method Indwelling Catheter Indwelling Catheter # Voids 0 ABP, PAP, CO, CI - Last Documented Arterial Blood Pressure 166/75 - Exam General: Ill Pleasant 70-year-old gentleman, currently in mild respiratory distress. Maintaining O2 saturations in the 90s on 65% FiO2 on the BiPAP 09/22. Examination of the skin revealed no evidence of significant rashes, suspicious appearing nevi or other concerning lesions. Head: atraumatic, normocephalic, symmetric Eyes: EOMI, no lid lag, anicteric sclera, pupils equal round reactive to light ENT: Nose and ears atraumatic, no thrush, no pharyngeal erythema Neck: No thyromegaly, no cervical lymphadenopathy, trachea midline, supple Mouth: no lip lesion, mucus membranes dry Cardiovascular: S1S2 tachycardic without murmur, positive posterior tibial pulse bilateral, no edema, capillary refill less than 2 seconds Lungs: Coarse and diminished breath sounds bilateral without significant wheezing, + sternal retractions, he has diffuse crackles bilaterally. The patient using accessory muscles of breathing. He is currently on a BiPAP with a full face mask. Abdominal: soft, nontender to palpation, no guarding, no appreciable organ omegaly, normal bowel sounds Ext: no gross muscle atrophy, muscle strength muscle strength 4 out of 5 in all 4 extremities, no contractures Neuro: CN II-XI grossly intact, light touch intact all 4 extremities, finger to nose within normal limits, nevertheless the patient had to be sedated as the patient became progressively more encephalopathic and agitated. Currently the patient is running on Precedex at 0.6 mcg/kg per minute. - Labs CBC & Chem 7: 01/08/21 04:25 01/08/21 04:25 Labs: Abnormal Lab Results - Last 24 Hours (Table) 01/07/21 01/07/21 01/07/21 Range/Units 09:02 11:25 16:46 Neutrophils # (1.3-7.7) k/uL Lymphocytes # (1.0-4.8) k/uL ABG pCO2 34 L (35-45) mmHg ABG pO2 69 L (83-108) mmHg ABG O2 Saturation 93.6 L (94-97) % Chloride (98-107) mmol/L Carbon Dioxide (22-30) mmol/L BUN (9-20) mg/dL Glucose (74-99) mg/dL POC Glucose (mg/dL) 106 H 222 H (75-99) mg/dL Total Protein (6.3-8.2) g/dL Albumin (3.5-5.0) g/dL 01/07/21 01/08/21 01/08/21 Range/Units 20:20 04:25 04:25 Neutrophils # 8.0 H (1.3-7.7) k/uL Lymphocytes # 0.3 L (1.0-4.8) k/uL ABG pCO2 (35-45) mmHg ABG pO2 (83-108) mmHg ABG O2 Saturation (94-97) % Chloride 112 H (98-107) mmol/L Carbon Dioxide 21 L (22-30) mmol/L BUN 38 H (9-20) mg/dL Glucose 153 H (74-99) mg/dL POC Glucose (mg/dL) 164 H (75-99) mg/dL Total Protein 5.0 L (6.3-8.2) g/dL Albumin 2.5 L (3.5-5.0) g/dL Microbiology - Last 24 Hours (Table) 01/04/21 16:15 Blood Culture - Preliminary Blood No Growth after 72 hours 01/04/21 16:08 Blood Culture - Preliminary Blood No Growth after 72 hours Assessment and Plan Assessment: 1 acute hypoxic respiratory failure secondary to COVID 19 related pneumonia, , the patient developed hypoxic respiratory failure and the patient had progressive worsening in his oxygenation, he transitioned to high flow oxygen and currently is on a BiPAP and wean O2 saturations in the 90s on BiPAP 12/7 and 65% O2. 2 acute COVID 19 related pneumonia with secondary acute hypoxic respiratory failure. Symptoms started approximately a week ago prior to his hospital admission. The patient is currently being treated with a combination of Decadron and Remdesivir, day #5 . Inflammatory markers remain quite elevated and the patient is also on Lovenox is adjusted to 45 grams subcutaneous every 12 hours, half a therapeutic dose based on the elevated d-dimer. Note that the d- dimer is significantly elevated at this point in time. The patient did receive tocilizumab as well 3 acute kidney injury with underlying chronic stage III kidney disease, renal function improved 4 diabetes mellitus type 2, maintained on Levemir insulin outpatient basis, then 25 units of Levemir on a daily basis plus a sliding scale coverage. 5 hypertension history of 6 hyperlipidemia 7 mild lactic acidosis 8 acid reflux 9 osteoarthritis 10 Gout 11 history of nephrolithiasis 12 generalized motor weakness and debility seconds above-mentioned infection. Plan The patient was seen and evaluated by Dr. Santacruz Day #5 of Remdesivir. Continued on 20 mg of dexamethasone Continued on therapeutic doses of Lovenox Received Tocilizumab Currently maintaining O2 saturations in the 90s on BiPAP at 65% FiO2 We'll continue to monitor him closely here in the ICU Follow-up inflammatory markers are pending I, the cosigning physician, performed a history & physical examination of the patient. Lungs sounds with bibasilar crackles. Maintaining good O2 saturations in the 90s on BiPAP 12/7 is 65% FiO2. I discussed the assessment and plan of care with my nurse practitioner, Ruby Solis. I attest to the above note as dictated by her. Time with Patient: Greater than 30
[2021-01-08] MEDS: ASPIRIN 81 MG PO SCH (09:57)
[2021-01-08] MEDS: CHOLECALCIFEROL 25 MCG (1000 IU) TABLET PO SCH (09:57)
[2021-01-08] MEDS: METOPROLOL TARTRATE 25 MG TAB PO SCH ×2 (09:57→20:04)
[2021-01-08] MEDS: lisinopriL 20 MG TAB PO SCH (09:57)
[2021-01-08] MEDS: ASCORBIC ACID 500 MG TAB PO SCH (09:57)
[2021-01-08] MEDS: MAG HYDROX/AL HYDROX/SIMETH 30 ML, diphenhydrAMINE ELIXIR 75 MG, LIDOCAINE VISCOUS 30 ML PO SCH ×9 (09:58→20:55)
[2021-01-08] MEDS: ZINC SULFATE 220 MG CAP PO SCH (09:58)
[2021-01-08 09:59] LABS: Glucose,Whole Blood 128 mg/dL (75-99)
[2021-01-08] MEDS: ENOXAPARIN 60 MG/0.6 ML SYRINGE SQ SCH ×2 (10:00→20:47)
[2021-01-08] MEDS: DEXAMETHASONE SOD PHOSPHATE 20 MG in DEXTROSE 5% IN WATER 50 ML IV SCH ×2 (10:01)
[2021-01-08] MEDS: FAMOTIDINE 20 MG/2 ML VIAL IV SCH ×2 (10:01→20:04)
[2021-01-08 12:04] LABS: Glucose,Whole Blood 126 mg/dL (75-99)
[2021-01-08] MEDS: SODIUM CHLORIDE 0.9% 1,000 ML IV SCH (14:25)
--- NOTE | 2021-01-08 14:52 | P.PN ---
Subjective Progress Note Date: 01/08/21 Patient is still on BiPAP this morning when I saw him. He is awake and alert. He was answering some of my questions appropriately. His agitation is improved compared to yesterday. No acute events overnight reported by nursing staff. Objective - Vital Signs Vital signs: Vital Signs Temp 97.1 F L 01/08/21 10:00 Pulse 60 01/08/21 14:00 Resp 22 01/08/21 14:00 BP 151/88 01/08/21 14:00 Pulse Ox 92 L 01/08/21 14:00 Intake & Output 01/07/21 01/08/21 01/08/21 18:59 06:59 18:59 Intake Total 353.465 800.720 194.352 Output Total 690 740 280 Balance -336.535 60.720 -85.648 Weight 93.4 kg Intake: IV 220 640 190 Dexamethasone Sod 50 50 Phosphate 20 mg In Dextrose 5% in Water 50 ml @ 100 mls/hr IV DAILY [facility] Rx#:[id number] Remdesivir 100 mg In 250 Sodium Chloride 0.9% 250 ml @ 250 mls/hr IVPB DAILY@2000 [facility] Rx#: [id number] Sodium Chloride 0.9% 1, 90 310 140 000 ml @ 10 mls/hr IV . Q24H [facility] Rx#:[id number] Tocilizumab 400 mg In 80 80 Sodium Chloride 0.9% 80 ml @ 100 mls/hr IV ONCE ONE Rx#:[id number] Intake, IV Titration 133.465 160.720 4.352 Amount Dexmedetomidine/0.9% NaCl 133.465 160.720 4.352 (Pmx) 400 mcg In Empty Bag 1 bag @ Titrate IV . Q0M [facility] Rx#:[id number] Output: Urine 690 740 280 Other: Voiding Method Indwelling Catheter Indwelling Catheter Indwelling Catheter # Voids 0 ABP, PAP, CO, CI - Last Documented Arterial Blood Pressure 168/77 - Exam General: The patient is awake and alert. BiPAP in place. Eye: there is normal conjunctiva bilaterally. Neck: The neck is supple, there is no JVD. Cardiovascular: Normal S1-S2, no S3-S4, no murmurs. Respiratory: Lungs with BiPAP sounds to anterior chest auscultation Gastrointestinal: Abdomen is soft, nontender Musculoskeletal: There is no pedal edema. Skin: Skin is warm and dry - Labs CBC & Chem 7: 01/08/21 04:25 01/08/21 04:25 Labs: Abnormal Lab Results - Last 24 Hours (Table) 01/07/21 01/07/21 01/08/21 Range/Units 16:46 20:20 04:25 Neutrophils # 8.0 H (1.3-7.7) k/uL Lymphocytes # 0.3 L (1.0-4.8) k/uL Chloride (98-107) mmol/L Carbon Dioxide (22-30) mmol/L BUN (9-20) mg/dL Glucose (74-99) mg/dL POC Glucose (mg/dL) 222 H 164 H (75-99) mg/dL Total Protein (6.3-8.2) g/dL Albumin (3.5-5.0) g/dL 01/08/21 01/08/21 01/08/21 Range/Units 04:25 09:57 12:03 Neutrophils # (1.3-7.7) k/uL Lymphocytes # (1.0-4.8) k/uL Chloride 112 H (98-107) mmol/L Carbon Dioxide 21 L (22-30) mmol/L BUN 38 H (9-20) mg/dL Glucose 153 H (74-99) mg/dL POC Glucose (mg/dL) 128 H 126 H (75-99) mg/dL Total Protein 5.0 L (6.3-8.2) g/dL Albumin 2.5 L (3.5-5.0) g/dL Microbiology - Last 24 Hours (Table) 01/04/21 16:15 Blood Culture - Preliminary Blood No Growth after 72 hours 01/04/21 16:08 Blood Culture - Preliminary Blood No Growth after 72 hours Assessment and Plan Assessment: Patient is a 70 yo CM with a hx of DM2 well controlled on insulin and oral medications, HTN, HLD, and CAD with hx of PCI X 1 who presented to the ED due to extreme fatigue. He started having COVID symptoms of COVID 7 days ago and was tested and confirmed positive. Chest x-ray showed diffuse interstitial infiltr ates. Patient was admitted to the hospital for the ongoing management of his medical problems noted below COVID 19 pneumonitis with acute hypoxic respiratory failure -Pulmonary recs: Remdesivir, Decadron day #5 dose increased to 20 mg daily on 01/07 by pulmonology - Actemra ordered today - Currently on BiPAP with 100% FiO2 -Zinc, vitamin C, vitamin D -Follow inflammatory markers Hospital-acquired delirium, probably steroid induced. We will continue reorientation. May use Advil as needed. Chronic kidney disease stage III, hyponatremia, metabolic acidosis, suspect secondary to dehydration -Resolved with IV fluid hydration. DM 2, well controlled - hold oral medications - SSI, Levemir - Follow BS - A1C 7.8 Hypertension, controlled -Continue with metoprolol -Follow blood pressures -DANN inhibitor will be resumed tomorrow Dyslipidemia -Statin therapy GERD -H2 kaushik Lactic acidosis, resolved PK eyes, resolved DVT prophylaxis: Lovenox Discussed with: Patient, nursing, Anticipated discharge date: 3-[address]: home A total of 35 minutes was spent on the care of this complex patient more than 50% of the time was spent in counseling and care coordination.
--- NOTE | 2021-01-08 15:24 | CDI ---
Documentation Clarification Form Date: 01/08/2021 02:57:55 PM From: Dulce Maria Ceja RN CCDS Admit Date: 01/04/2021 05:06:00 PM Patient Name: Yazan Anne Visit Number: [id number] Discharge Date: ATTENTION: The Clinical Documentation Specialists (CDI) and [facility] Coding Staff appreciate your assistance in clarifying documentation. Please respond to the clarification below the line at the bottom and electronically sign. The CDI & [facility] Coding staff will review the response and follow-up if needed. Please note: Queries are made part of the Legal Health Record. If you have any questions, please contact the author of this message via ITS. Dr. Arnold Santacruz, Encephalopathic is documented in the Pulmonology progress note 01/07. History/Risk Factors: 70-year-old male presents to the ED with weakness and extreme fatigue, tested positive seven days prior with COVID 19. Medical History: DM; HLD; HTN. H&P 01/04. Clinical Indicators: The patient over the past 24 hours. Progressively became more confused and altered and encephalopathic. Pulmonary progress note 01/07. Respiratory VSS 01/07 00:00: B/P 135/77; HR 97; Temp 97.7 F Oral; RR 15; SpO2 81% High Flow FiO2 81 VSS 01/07 0600: B/P 163/104; HR 114; RR 38; SpO2 98% FiO2 BiPAP. Labs 01/07: Wbc 12.2; Neutrophils 10.8; D-dimer 8.69; LDH 2031; CRP 50.1. CXR 01/07: Patchy basilar infiltrates persist although there is interval improvement suggested. Treatment: 01/05 Ventolin Hfa Inhaler 2 puff Inhalation RT QID [facility] to current; 01/07 Dexamethasone 20mg IV Daily to current; 01/07 Haldol 1mg IVP Q30M PRN current; 01/07 Tocilizumab 400mg IV x1. 01/07 01:00 BiPAP to current. In your professional opinion, can you please clarify the specific type of Encephalopathy, if known? Metabolic Encephalopathy Other, please specify Unable to determine (Last Revision: January 2018) COVID related encephalopathy MTDD
[2021-01-08 17:05] LABS: Glucose,Whole Blood 154 mg/dL (75-99)
[2021-01-08] MEDS: hydrALAZINE HCL 20 MG/ML 1 ML VIAL IVP PRN (18:23)
[2021-01-08] MEDS: REMDESIVIR 100 MG in SODIUM CHLORIDE 0.9% 250 ML IVPB SCH (20:04)
[2021-01-08] MEDS: ATORVASTATIN 20 MG TAB PO SCH (20:04)
[2021-01-08] MEDS: INSULIN DETEMIR (LEVEMIR) 100 UNIT/ML SYR SQ SCH (20:46)
[2021-01-08] MEDS: QUEtiapine 25 MG TAB PO SCH (20:54)
[2021-01-09 05:37] LABS: Glucose,Whole Blood 123 mg/dL (75-99)
[2021-01-09 06:04] LABS: Glucose,Whole Blood 99 mg/dL (75-99)
[2021-01-09 06:04] LABS: Basophils % (A) 0 %; Eosinophils % (A) 0 %; HCT 37.7 % (39.0-53.0); HGB 12.8 gm/dL (13.0-17.5); Lymphocytes # (A) 0.3 k/uL (1.0-4.8); Lymphocytes % (A) 4 %; MCHC 33.8 g/dL (31.0-37.0); MCV 88.6 fL (80.0-100.0); Mean Platelet Volume 8.5; Monocytes # (A) 0.5 k/uL (0-1.0); Monocytes % (A) 7 %; Neutrophils # (A) 6.1 k/uL (1.3-7.7); Neutrophils % (A) 87 %; Platelet Count 269 k/uL (150-450); RBC 4.26 m/uL (4.30-5.90); RDW 13.7 % (11.5-15.5)
[2021-01-09 06:15] LABS: Albumin 2.6 g/dL (3.5-5.0); Calcium 8.4 mg/dL (8.4-10.2); Potassium 4.5 mmol/L (3.5-5.1); Total Bilirubin 1.3 mg/dL (0.2-1.3); Total Protein 5.1 g/dL (6.3-8.2)
[2021-01-09 06:17] LABS: C Reactive Protein 51.1 mg/L (<10.0)
[2021-01-09] MEDS: INSULIN ASPART (NovoLOG) 100 UNIT/ML VIAL SQ SCH ×4 (06:38→18:50)
[2021-01-09] MEDS: SODIUM CHLORIDE 0.9% 1,000 ML IV SCH (06:39)
[2021-01-09] MEDS: hydrALAZINE HCL 20 MG/ML 1 ML VIAL IVP PRN (06:54)
--- NOTE | 2021-01-09 07:55 | XR ---
EXAMINATION TYPE: XR chest 1V portable DATE OF EXAM: 01/09/2021 HISTORY: Shortness of breath. COMPARISON: 01/08/2021 TECHNIQUE: Single view of the chest is submitted. FINDINGS: Demonstrated are scattered senescent parenchymal change. Patchy basilar infiltrates persist without significant change. The heart is stable. Hilar and mediastinal structures are within normal limits. Degenerative changes are seen of the dorsal spine. IMPRESSION: 1. Patchy basilar infiltrates persist without significant change.
[2021-01-09] MEDS: ALBUTEROL HFA INHALER INHALATION SCH ×4 (08:01→20:16)
--- NOTE | 2021-01-09 08:17 | P.PN ---
<Ruby Solis - Last Filed: 01/09/21 08:08> Subjective Progress Note Date: 01/09/21 Principal diagnosis: CoVID 19 infection 70-year-old male patient, known history of diabetes mellitus maintained on insulin in addition to history of hypertension, hyperlipidemia, coronary artery disease and previous history of PCI, presented to the emergency department because of increased fatigue and tiredness. The patient was infected with Covid 19 and the testing by PCR came back positive. The patient started having symptoms of infection approximately 7 days ago and his tests confirmed positive. The test was positive on 12/27/2020. The patient's complaints were essentially those of body aches, feeling weak and tired and he was warm and he was probably having fevers. He was significantly fatigued and he was unable to do even simple stuff at home. He reported poor appetite. No loss in the taste or smell. He had no significant cough. He denies having any significant shortness of breath. No headaches. No nasal congestion. No nausea or vomiting. Upon arrival to the emergency department, the patient was profoundly hypoxic and the pulse ox was around 82% and the patient was also tachypneic and tachycardic. He was initially started on oxygen at 10 L per minute nasal cannula and subs equently the oxygen flow was brought up to 15 L and he continued to be hypoxic. At that point, the patient was switched to BiPAP at a pressure of 10/5 and FiO2 of 100%. The patient had further blood work that showed an LDH level of 2287, CRP of 170, lactic acid level of 2.4, serum bicarb of 18, the BUN was 37 with a creatinine of 1.7. The blood gas on 100% FiO2 showed a pH of 7.4 with a pCO2 of 27 and pO2 of 62. The chest x-ray showed diffuse but the pulmonary infiltrates. At that point, the patient was admitted to the intensive care unit and the patient was supported with BiPAP. The patient is currently on IV Decadron. The patient was also started on Remdesivir per protocol. The patient is on Lovenox 40 mg subcu every 24 hours for a d-dimer of 1.17 and the time of admission. The patient this morning was transitioned to oxygen at 15 L high flow and he is able to maintain a saturation above 90%. He remains in normal sinus rhythm. He is awake and alert. His chest x-ray showing bilateral pulmonary infiltrates was in the lung bases bilaterally. He is off the BiPAP for now. D-dimer is at 1.88 from today. His LDH is down to 1952 and the pro-calcitonin level was 0.3, LFTs were minimally elevated secondary to Covid 19. CRP is down to 158. He is currently on the same treatment including Decadron and Remdesivir day #2 On today's evaluation of 01/06/2021 the patient is being seen for a follow-up. Unfortunately, the patient is somewhat that he isn't encephalopathic and this is probably related to his underlying Covid 19 infection. His neurologic exam is nonfocal and there is no focal neurological deficit at this point in time. The patient is currently in the ICU and currently is on high flow oxygen at 60 L with an FiO2 of 80%. Pulse ox is around 96%. In terms of his treatment, the patient is receiving Remdesivir day 3 and Decadron 6 mg daily. The patient is also on Lovenox 40 mg daily basis. He is sitting up on a chair.. The patient has no significant agitation. LDH level is at 1778 and CRP level is down to 69. His d-dimer currently is at 2.2. Rest of the blood work shows a hemoglobin of 14.9 and white blood count of 11.4. The patient is very much comfortable and hypoactive.. On 01/07/2021 the patient is being seen in follow-up. The patient over the past 24 hours. Progressively became more confused and altered and encephalopathic. At times he was getting more agitated. Earlier this morning, he started also having worsening shortness of breath, tachypnea and hypoxemia. He was on high flow oxygen at 6 L per minute with an FiO2 of 80%. Subsequently, he was placed on BiPAP and currently bicarb is running at a pressure of 12/5 cm of water with an FiO2 of 100%. His pulse ox is 86% on this ventilator setting. He is quite tachypneic. Is a fluoridated in the mid 40s. The patient's in generating a tidal volume of 800 and the patient's minute ventilation is in the high 20s low 30 range. The patient is sent and was quite agitated and restless and he was started on Precedex which is currently running at 25 mcg/kg per minute. He was also given a bolus of 0.5 mg IV.. The white cell count on today's 12.2 with a hemoglobin of 14.4. D-dimer is up to 8.6 from a baseline of 2.2. Electrolytes are within normal limits. Creatinine is at 1.27. LDH level is up to 2030. CRP level is 50.1. Chest x-ray from today showing diffuse breath and pulmonary infiltrates consistent with Covid 19 related pneumonia. The patient obviously is in acute hypoxic respiratory failure and he would need intubation mechanical ventilation. Family will be informed that we'll going to proceed with mechanical ventilation probably within next 20-30 minutes/especially if there is no stabilization or improvement while on the BiPAP. The patient is seen today 01/08/2021 in follow-up in the intensive care unit. He remains on BiPAP 12/7 and 65% FiO2 to maintain O2 saturation in the 90s. He is currently awake and alert. He is taking sips of water briefly. He is on Precedex at 0.06 grams per kilogram per hour. This is day #5 of Remdesivir. He did receive tocilizumab. He remains on Lovenox 45 mg subcutaneous twice a day. Dexamethasone at 20 mg IV daily. Vitamin supplements. Chest x-ray continues to show mild scattered subsegmental infiltrates bilaterally. Blood cultures reveal no growth. White count 8.9. Hemoglobin 13.9. Sodium 138. Potassium 4.5. Creatinine 1.07. Remains in a negative balance. Inflammatory markers pending. The patient is seen today 01/09/2021 in follow-up in the intensive care unit. He continues to require BiPAP 12/7 and 65% FiO2 to maintain O2 saturations in the 90s. He has been quite BiPAP dependent. He remains on Precedex 0.6 mcg/kg/h. 0.9 normal saline at 40 ML's per hour. Sinus bradycardia in the 40s and 50s. Somewhat hypertensive requiring hydralazine. Chest x-ray continues to revealed patchy basilar infiltrates without any significant change. He completed his course of Remdesivir yesterday. white count 7.0. Hemoglobin 12.8. D-dimer 22.47. Sodium 141. Potassium 4.5. Creatinine 1.03. LDH 2001. C- reactive protein 51. He is currently on Lovenox at 45 mg subcutaneous twice missy ly. IV Pepcid. IV Decadron at 20 milligrams daily Objective - Vital Signs Vital signs: Vital Signs Temp 96.6 F L 01/09/21 04:00 Pulse 54 L 01/09/21 07:00 Resp 23 01/09/21 07:00 BP 162/88 01/09/21 07:00 Pulse Ox 93 L 01/09/21 07:00 Intake & Output 01/08/21 01/09/21 01/09/21 18:59 06:59 18:59 Intake Total 354.352 423.359 20 Output Total 880 805 100 Balance -525.648 -381.641 -80 Weight 89.1 kg Intake: IV 350 340 20 Dexamethasone Sod 50 Phosphate 20 mg In Dextrose 5% in Water 50 ml @ 100 mls/hr IV DAILY [facility] Rx#:[id number] Remdesivir 100 mg In 100 Sodium Chloride 0.9% 250 ml @ 250 mls/hr IVPB DAILY@2000 [facility] Rx#: [id number] Sodium Chloride 0.9% 1, 300 240 20 000 ml @ 10 mls/hr IV . Q24H [facility] Rx#:[id number] Intake, IV Titration 4.352 83.359 Amount Dexmedetomidine/0.9% NaCl 4.352 (Pmx) 400 mcg In Empty Bag 1 bag @ Titrate IV . Q0M [facility] Rx#:[id number] Dexmedetomidine/0.9% NaCl 83.359 (Pmx) 400 mcg In Empty Bag 1 bag @ Titrate IV . Q0M [facility] Rx#:[id number] Output: Urine 880 805 100 Other: Voiding Method Indwelling Catheter Indwelling Catheter ABP, PAP, CO, CI - Last Documented Arterial Blood Pressure 165/76 - Exam General: Pleasant 70-year-old gentleman, currently in mild respiratory distress. Maintaining O2 saturations in the 90s on 65% FiO2 on the BiPAP 09/22. Examination of the skin revealed no evidence of significant rashes, suspicious appearing nevi or other concerning lesions. Head: There is breakdown over the bridge of his nose secondary to the BiPAP mas k. Atraumatic, normocephalic, symmetric Eyes: EOMI, no lid lag, anicteric sclera, pupils equal round reactive to light ENT: Nose and ears atraumatic, no thrush, no pharyngeal erythema Neck: No thyromegaly, no cervical lymphadenopathy, trachea midline, supple Mouth: no lip lesion, mucus membranes dry Cardiovascular: S1S2 tachycardic without murmur, positive posterior tibial pulse bilateral, no edema, capillary refill less than 2 seconds Lungs: Coarse and diminished breath sounds bilateral without significant wheezing, + sternal retractions, he has diffuse crackles bilaterally. The patient using accessory muscles of breathing. He is currently on a BiPAP with a full face mask. Abdominal: soft, nontender to palpation, no guarding, no appreciable organomegaly, normal bowel sounds Ext: no gross muscle atrophy, muscle strength muscle strength 4 out of 5 in all 4 extremities, no contractures Neuro: CN II-XI grossly intact, light touch intact all 4 extremities, finger to nose within normal limits, nevertheless the patient had to be sedated as the patient became progressively more encephalopathic and agitated. Currently the patient is running on Precedex at 0.6 mcg/kg per minute. - Labs CBC & Chem 7: 01/09/21 04:35 01/09/21 04:35 Labs: Abnormal Lab Results - Last 24 Hours (Table) 01/08/21 01/08/21 01/08/21 Range/Units 09:57 12:03 17:04 RBC (4.30-5.90) m/uL Hgb (13.0-17.5) gm/dL Hct (39.0-53.0) % Lymphocytes # (1.0-4.8) k/uL D-Dimer (<0.60) mg/L FEU Chloride (98-107) mmol/L Carbon Dioxide (22-30) mmol/L BUN (9-20) mg/dL Glucose (74-99) mg/dL POC Glucose (mg/dL) 128 H 126 H 154 H (75-99) mg/dL AST (17-59) U/L Lactate Dehydrogenase (313-618) U/L C-Reactive Protein (<10.0) mg/L Total Protein (6.3-8.2) g/dL Albumin (3.5-5.0) g/dL 01/08/21 01/09/21 01/09/21 Range/Units 23:54 04:35 04:35 RBC (4.30-5.90) m/uL Hgb (13.0-17.5) gm/dL Hct (39.0-53.0) % Lymphocytes # (1.0-4.8) k/uL D-Dimer 22.47 H (<0.60) mg/L FEU Chloride (98-107) mmol/L Carbon Dioxide (22-30) mmol/L BUN (9-20) mg/dL Glucose (74-99) mg/dL POC Glucose (mg/dL) 123 H (75-99) mg/dL AST (17-59) U/L Lactate Dehydrogenase 2002 H (313-618) U/L C-Reactive Protein 51.1 H (<10.0) mg/L Total Protein (6.3-8.2) g/dL Albumin (3.5-5.0) g/dL 01/09/21 01/09/21 Range/Units 04:35 04:35 RBC 4.26 L (4.30-5.90) m/uL Hgb 12.8 L (13.0-17.5) gm/dL Hct 37.7 L (39.0-53.0) % Lymphocytes # 0.3 L (1.0-4.8) k/uL D-Dimer (<0.60) mg/L FEU Chloride 114 H (98-107) mmol/L Carbon Dioxide 21 L (22-30) mmol/L BUN 42 H (9-20) mg/dL Glucose 107 H (74-99) mg/dL POC Glucose (mg/dL) (75-99) mg/dL AST 63 H (17-59) U/L Lactate Dehydrogenase (313-618) U/L C-Reactive Protein (<10.0) mg/L Total Protein 5.1 L (6.3-8.2) g/dL Albumin 2.6 L (3.5-5.0) g/dL Microbiology - Last 24 Hours (Table) 01/04/21 16:15 Blood Culture - Preliminary Blood No Growth after 96 hours 01/04/21 16:08 Blood Culture - Preliminary Blood No Growth after 96 hours Assessment and Plan Assessment: 1 acute hypoxic respiratory failure secondary to COVID 19 related pneumonia, , the patient developed hypoxic respiratory failure and the patient had progressive worsening in his oxygenation, he transitioned to high flow oxygen and currently is on a BiPAP and wean O2 saturations in the 90s on BiPAP 12/7 and 65% O2. 2 acute COVID 19 related pneumonia with secondary acute hypoxic respiratory failure. Symptoms started approximately a week prior to his hospital admission. The patient is currently being treated with a combination of Decadron and completed Remdesivir. Inflammatory markers remain quite elevated and the patient is also on Lovenox is adjusted to 45 grams subcutaneous every 12 hours, half a therapeutic dose based on the elevated d-dimer. Note that the d-dimer is significantly elevated at this point in time. The patient did receive tocilizumab as well 3 acute kidney injury with underlying chronic stage III kidney disease, renal function improved 4 diabetes mellitus type 2, maintained on Levemir insulin outpatient basis, then 25 units of Levemir on a daily basis plus a sliding scale coverage. 5 hypertension history of 6 hyperlipidemia 7 mild lactic acidosis 8 acid reflux 9 osteoarthritis 10 Gout 11 history of nephrolithiasis 12 generalized motor weakness and debility seconds above-mentioned infection. Plan The patient was seen and evaluated by Dr. Santacruz Chest x-ray and labs reviewed Completed Remdesivir. Continued on 20 mg of dexamethasone Continued on therapeutic doses of Lovenox Received Tocilizumab Currently maintaining O2 saturations in the 90s on BiPAP at 65% FiO2 We'll continue to monitor him closely here in the ICU Prognosis remains guarded I, the cosigning physician, performed a history & physical examination of the patient. Lungs sounds with bibasilar crackles. Maintaining good O2 saturations in the 90s on BiPAP 12/7 is 65% FiO2. I discussed the assessment and plan of care with my nurse practitioner, Ruby Solis. I attest to the above note as dictated by her. <Arnold Santacruz - Last Filed: 01/09/21 09:10> Objective - Vital Signs Vital signs: Vital Signs Temp 96.6 F L 01/09/21 04:00 Pulse 78 01/09/21 08:00 Resp 26 H 01/09/21 08:00 BP 154/92 01/09/21 08:00 Pulse Ox 90 L 01/09/21 08:26 Intake & Output 01/08/21 01/09/21 01/09/21 18:59 06:59 18:59 Intake Total 354.352 423.359 20 Output Total 880 805 100 Balance -525.648 -381.641 -80 Weight 89.1 kg Intake: IV 350 340 20 Dexamethasone Sod 50 Phosphate 20 mg In Dextrose 5% in Water 50 ml @ 100 mls/hr IV DAILY [facility] Rx#:[id number] Remdesivir 100 mg In 100 Sodium Chloride 0.9% 250 ml @ 250 mls/hr IVPB DAILY@2000 [facility] Rx#: [id number] Sodium Chloride 0.9% 1, 300 240 20 000 ml @ 10 mls/hr IV . Q24H [facility] Rx#:[id number] Intake, IV Titration 4.352 83.359 Amount Dexmedetomidine/0.9% NaCl 4.352 (Pmx) 400 mcg In Empty Bag 1 bag @ Titrate IV . Q0M [facility] Rx#:[id number] Dexmedetomidine/0.9% NaCl 83.359 (Pmx) 400 mcg In Empty Bag 1 bag @ Titrate IV . Q0M [facility] Rx#:[id number] Output: Urine 880 805 100 Other: Voiding Method Indwelling Catheter Indwelling Catheter ABP, PAP, CO, CI - Last Documented Arterial Blood Pressure 165/76 - Labs CBC & Chem 7: 01/09/21 04:35 01/09/21 04:35 Labs: Abnormal Lab Results - Last 24 Hours (Table) 01/08/21 01/08/21 01/08/21 Range/Units 09:57 12:03 17:04 RBC (4.30-5.90) m/uL Hgb (13.0-17.5) gm/dL Hct (39.0-53.0) % Lymphocytes # (1.0-4.8) k/uL D-Dimer (<0.60) mg/L FEU Chloride (98-107) mmol/L Carbon Dioxide (22-30) mmol/L BUN (9-20) mg/dL Glucose (74-99) mg/dL POC Glucose (mg/dL) 128 H 126 H 154 H (75-99) mg/dL AST (17-59) U/L Lactate Dehydrogenase (313-618) U/L C-Reactive Protein (<10.0) mg/L Total Protein (6.3-8.2) g/dL Albumin (3.5-5.0) g/dL 01/08/21 01/09/21 01/09/21 Range/Units 23:54 04:35 04:35 RBC (4.30-5.90) m/uL Hgb (13.0-17.5) gm/dL Hct (39.0-53.0) % Lymphocytes # (1.0-4.8) k/uL D-Dimer 22.47 H (<0.60) mg/L FEU Chloride (98-107) mmol/L Carbon Dioxide (22-30) mmol/L BUN (9-20) mg/dL Glucose (74-99) mg/dL POC Glucose (mg/dL) 123 H (75-99) mg/dL AST (17-59) U/L Lactate Dehydrogenase 2002 H (313-618) U/L C-Reactive Protein 51.1 H (<10.0) mg/L Total Protein (6.3-8.2) g/dL Albumin (3.5-5.0) g/dL 01/09/21 01/09/21 Range/Units 04:35 04:35 RBC 4.26 L (4.30-5.90) m/uL Hgb 12.8 L (13.0-17.5) gm/dL Hct 37.7 L (39.0-53.0) % Lymphocytes # 0.3 L (1.0-4.8) k/uL D-Dimer (<0.60) mg/L FEU Chloride 114 H (98-107) mmol/L Carbon Dioxide 21 L (22-30) mmol/L BUN 42 H (9-20) mg/dL Glucose 107 H (74-99) mg/dL POC Glucose (mg/dL) (75-99) mg/dL AST 63 H (17-59) U/L Lactate Dehydrogenase (313-618) U/L C-Reactive Protein (<10.0) mg/L Total Protein 5.1 L (6.3-8.2) g/dL Albumin 2.6 L (3.5-5.0) g/dL Microbiology - Last 24 Hours (Table) 01/04/21 16:15 Blood Culture - Preliminary Blood No Growth after 96 hours 01/04/21 16:08 Blood Culture - Preliminary Blood No Growth after 96 hours Assessment and Plan Assessment: This is a joint evaluation that was done with nurse practitioner. The patient remains on Decadron high-dose. The patient completed form. The patient was on BiPAP and he was transitioned to high flow oxygen along with 100% nonrebreather facemask. Currently is on high flow oxygen 6 L with an FiO2 of 90%. Still struggling with his breathing. He is lacking behind on his condition. He is quite debilitated. He still having some encephalopathy and agitation and he is also on Precedex for now. Long-term prognosis poor. We'll continue to follow. Condition is critical. I contacted the daughter and informed her of the condition.
[2021-01-09] MEDS: CHOLECALCIFEROL 25 MCG (1000 IU) TABLET PO SCH (09:03)
[2021-01-09] MEDS: ASPIRIN 81 MG PO SCH (09:03)
[2021-01-09] MEDS: ASCORBIC ACID 500 MG TAB PO SCH (09:03)
[2021-01-09] MEDS: lisinopriL 20 MG TAB PO SCH (09:03)
[2021-01-09] MEDS: METOPROLOL TARTRATE 25 MG TAB PO SCH ×2 (09:04→20:40)
[2021-01-09] MEDS: ZINC SULFATE 220 MG CAP PO SCH (09:38)
[2021-01-09] MEDS: ENOXAPARIN 60 MG/0.6 ML SYRINGE SQ SCH ×2 (10:17→20:40)
[2021-01-09] MEDS: DEXAMETHASONE SOD PHOSPHATE 20 MG in DEXTROSE 5% IN WATER 50 ML IV SCH ×2 (10:17)
[2021-01-09] MEDS: MAG HYDROX/AL HYDROX/SIMETH 30 ML, diphenhydrAMINE ELIXIR 75 MG, LIDOCAINE VISCOUS 30 ML PO SCH ×3 (10:17)
[2021-01-09] MEDS: FAMOTIDINE 20 MG/2 ML VIAL IV SCH ×2 (10:19→20:40)
--- NOTE | 2021-01-09 11:44 | P.PN ---
Subjective Progress Note Date: 01/09/21 Patient remained on BiPAP today. Earlier today he was placed on a nonrebreather but was D satting at having difficulty breathing. He has been nothing by mouth for the last 2 days. He is awake and alert. Nursing staff informed me that he is having some nose of breakdown secondary to pressure from BiPAP mask. Blood pressure is been not well controlled as patient is unable to take his oral medications and required multiple doses of IV hydralazine. Objective - Vital Signs Vital signs: Vital Signs Temp 96.6 F L 01/09/21 04:00 Pulse 78 01/09/21 08:00 Resp 26 H 01/09/21 08:00 BP 154/92 01/09/21 08:00 Pulse Ox 90 L 01/09/21 08:26 Intake & Output 01/08/21 01/09/21 01/09/21 18:59 06:59 18:59 Intake Total 354.352 423.359 20 Output Total 880 805 100 Balance -525.648 -381.641 -80 Weight 89.1 kg 89.1 kg Intake: IV 350 340 20 Dexamethasone Sod 50 Phosphate 20 mg In Dextrose 5% in Water 50 ml @ 100 mls/hr IV DAILY [facility] Rx#:[id number] Remdesivir 100 mg In 100 Sodium Chloride 0.9% 250 ml @ 250 mls/hr IVPB DAILY@2000 [facility] Rx#: [id number] Sodium Chloride 0.9% 1, 300 240 20 000 ml @ 10 mls/hr IV . Q24H [facility] Rx#:[id number] Intake, IV Titration 4.352 83.359 Amount Dexmedetomidine/0.9% NaCl 4.352 (Pmx) 400 mcg In Empty Bag 1 bag @ Titrate IV . Q0M [facility] Rx#:[id number] Dexmedetomidine/0.9% NaCl 83.359 (Pmx) 400 mcg In Empty Bag 1 bag @ Titrate IV . Q0M [facility] Rx#:[id number] Output: Urine 880 805 100 Other: Voiding Method Indwelling Catheter Indwelling Catheter ABP, PAP, CO, CI - Last Documented Arterial Blood Pressure 165/76 - Exam General: The patient is awake and alert. BiPAP in place. Eye: there is normal conjunctiva bilaterally. Neck: The neck is supple, there is no JVD. Cardiovascular: Normal S1-S2, no S3-S4, no murmurs. Respiratory: Lungs with BiPAP sounds to anterior chest auscultation Gastrointestinal: Abdomen is soft, nontender Musculoskeletal: There is no pedal edema. Skin: Skin is warm and dry - Labs CBC & Chem 7: 01/09/21 04:35 01/09/21 04:35 Labs: Abnormal Lab Results - Last 24 Hours (Table) 01/08/21 01/08/21 01/08/21 Range/Units 12:03 17:04 23:54 RBC (4.30-5.90) m/uL Hgb (13.0-17.5) gm/dL Hct (39.0-53.0) % Lymphocytes # (1.0-4.8) k/uL D-Dimer (<0.60) mg/L FEU Chloride (98-107) mmol/L Carbon Dioxide (22-30) mmol/L BUN (9-20) mg/dL Glucose (74-99) mg/dL POC Glucose (mg/dL) 126 H 154 H 123 H (75-99) mg/dL AST (17-59) U/L Lactate Dehydrogenase (313-618) U/L C-Reactive Protein (<10.0) mg/L Total Protein (6.3-8.2) g/dL Albumin (3.5-5.0) g/dL 01/09/21 01/09/21 01/09/21 Range/Units 04:35 04:35 04:35 RBC 4.26 L (4.30-5.90) m/uL Hgb 12.8 L (13.0-17.5) gm/dL Hct 37.7 L (39.0-53.0) % Lymphocytes # 0.3 L (1.0-4.8) k/uL D-Dimer 22.47 H (<0.60) mg/L FEU Chloride (98-107) mmol/L Carbon Dioxide (22-30) mmol/L BUN (9-20) mg/dL Glucose (74-99) mg/dL POC Glucose (mg/dL) (75-99) mg/dL AST (17-59) U/L Lactate Dehydrogenase 2002 H (313-618) U/L C-Reactive Protein 51.1 H (<10.0) mg/L Total Protein (6.3-8.2) g/dL Albumin (3.5-5.0) g/dL 01/09/21 Range/Units 04:35 RBC (4.30-5.90) m/uL Hgb (13.0-17.5) gm/dL Hct (39.0-53.0) % Lymphocytes # (1.0-4.8) k/uL D-Dimer (<0.60) mg/L FEU Chloride 114 H (98-107) mmol/L Carbon Dioxide 21 L (22-30) mmol/L BUN 42 H (9-20) mg/dL Glucose 107 H (74-99) mg/dL POC Glucose (mg/dL) (75-99) mg/dL AST 63 H (17-59) U/L Lactate Dehydrogenase (313-618) U/L C-Reactive Protein (<10.0) mg/L Total Protein 5.1 L (6.3-8.2) g/dL Albumin 2.6 L (3.5-5.0) g/dL Microbiology - Last 24 Hours (Table) 01/04/21 16:15 Blood Culture - Preliminary Blood No Growth after 96 hours 01/04/21 16:08 Blood Culture - Preliminary Blood No Growth after 96 hours Assessment and Plan Assessment: Patient is a 70 yo CM with a hx of DM2 well controlled on insulin and oral medications, HTN, HLD, and CAD with hx of PCI X 1 who presented to the ED due to extreme fatigue. He started having COVID symptoms of COVID 7 days ago and was tested and confirmed positive. Chest x-ray showed diffuse interstitial infiltrates. Patient was admitted to the hospital for the ongoing management of his medical problems noted below COVID 19 pneumonitis with acute hypoxic respiratory failure -Pulmonary recs: Remdesivir, Decadron day #6 dose increased to 20 mg daily on 01/07 by pulmonology - Actemra ordered today - Currently on BiPAP with 100% FiO2 -Zinc, vitamin C, vitamin D -Follow inflammatory markers Hospital-acquired delirium, appears to be improving. probably steroid induced. We will continue reorientation. May use Haldol as needed. Chronic kidney disease stage III, hyponatremia, metabolic acidosis, suspect secondary to dehydration -Resolved with IV fluid hydration. DM 2, well controlled - hold oral medications - SSI, Levemir - Follow BS - A1C 7.8 Hypertension, controlled -Blood pressure not well controlled as patient has been unable to take his oral blood pressure medication currently on BiPAP -I would start the clonidine patch 0.1 mg daily and continue with IV hydralazine 5 mg every 6 hours as needed for uncontrolled blood pressure Dyslipidemia -Statin therapy GERD -H2 kaushik Lactic acidosis, resolved PK eyes, resolved DVT prophylaxis: Lovenox Discussed with: Patient, nursing, Anticipated discharge date: 3-[address]: home A total of 35 minutes was spent on the care of this complex patient more than 50% of the time was spent in counseling and care coordination.
[2021-01-09] MEDS ORDERED: DEXTROSE 5%-0.45% NACL 1,000 ML IV SCH (11:45)
[2021-01-09 11:52] LABS: Glucose,Whole Blood 117 mg/dL (75-99)
[2021-01-09] MEDS ORDERED: cloNIDine 0.1 MG/24HR PATCH TRANSDERM SCH (12:00)
[2021-01-09] MEDS ORDERED: propofoL 100 ML IV ONE (13:02)
[2021-01-09] MEDS ORDERED: CHLORHEXIDINE GLUCONATE 15 ML CUP MUCOUS MEM ONE (13:36)
[2021-01-09] MEDS ORDERED: HYDROmorphone 1 MG/ML 1 ML SYRINGE IVP STA (13:51)
--- NOTE | 2021-01-09 14:00 | XR ---
EXAMINATION TYPE: XR chest 1V portable DATE OF EXAM: 01/09/2021 HISTORY: Shortness of breath. COMPARISON: 01/09/2021 TECHNIQUE: Single view of the chest is submitted. FINDINGS: Endotracheal tube is 4.9 cm from the carly. NG tube is seen coursing into the stomach. Scattered in bilateral airspace and interstitial infiltrates persist with slight interval progression suggested. The heart is stable. Hilar and mediastinal structures are within normal limits. Degenerative changes are seen of the dorsal spine. IMPRESSION: 1. Indwelling tubes and catheters as noted. 2. Mildly progressive bilateral pneumonia.
[2021-01-09] MEDS ORDERED: SODIUM CHLORIDE 0.9% 2,000 ML IV ONE (14:05)
[2021-01-09] MEDS ORDERED: HYDROmorphone 2 MG/ML 1 ML SYRINGE IVP PRN (14:14)
--- NOTE | 2021-01-09 15:14 | XR ---
EXAMINATION TYPE: XR chest 1V portable DATE OF EXAM: 01/09/2021 COMPARISON: 01/09/2021 HISTORY: Line placement TECHNIQUE: Single frontal view of the chest is obtained. FINDINGS: Left-sided central line seen with tip overlying the SVC. Diffuse interstitial pattern with bilateral infiltrate and pleural effusion. No pneumothorax. Biapical pleural thickening. ET and NG t ube stable. Limited inspiration. IMPRESSION: 1. Diffuse bilateral infiltrates correlate for diffuse pneumonia, ARDS or pulmonary edema.
[2021-01-09] MEDS ORDERED: CISATRACURIUM 2 MG/ML 5 ML VIAL IV ONE ×2 (16:02→19:25)
--- NOTE | 2021-01-09 16:39 | XR ---
EXAMINATION TYPE: XR chest 1V portable DATE OF EXAM: 01/09/2021 COMPARISON: Earlier same day. HISTORY: Respiratory distress. TECHNIQUE: Single frontal view of the chest is obtained. FINDINGS: Stable lines and tubes. There are persistent mild to moderate left greater than right biba silar opacities. No significant pleural effusion or pneumothorax. The cardiac silhouette size is stab le. The osseous structures are intact. IMPRESSION: No significant interval change, given differences in technique.
[2021-01-09] MEDS: NOREPINEPHRINE 4 MG in SODIUM CHLORIDE 0.9% 250 ML IV SCH (17:15)
[2021-01-09] MEDS: fentaNYL (PF) 1,000 MCG in SODIUM CHLORIDE 0.9% 80 ML IV SCH (18:35)
[2021-01-09 18:55] LABS: Glucose,Whole Blood 176 mg/dL (75-99)
[2021-01-09 19:12] LABS: Ferritin 1311.7 ng/mL (22.0-322.0)
[2021-01-09] MEDS: CISATRACURIUM 200 MG in SODIUM CHLORIDE 0.9% 180 ML IV SCH (20:04)
[2021-01-09] MEDS: ARTIFICIAL TEARS-HYPROMELLOSE DROPS 15 ML BTL BOTH EYES SCH (20:39)
[2021-01-09] MEDS: CHLORHEXIDINE GLUCONATE 15 ML CUP MUCOUS MEM SCH (20:39)
[2021-01-09] MEDS: QUEtiapine 25 MG TAB PO SCH ×2 (20:40→20:47)
[2021-01-09] MEDS: INSULIN DETEMIR (LEVEMIR) 100 UNIT/ML SYR SQ SCH (20:40)
[2021-01-09] MEDS: ATORVASTATIN 20 MG TAB PO SCH (20:40)
[2021-01-09 21:39] LABS: Allen Test Performed? Yes
[2021-01-09 21:40] LABS: ABG HCO3 20 mmol/L (21-25); ABG Oxygen Saturation 86.2 % (94-97); ABG PCO2 51 mmHg (35-45); ABG PO2 67 mmHg (83-108); ABG TCO2 22 mmol/L (19-24)
[2021-01-09 21:49] LABS: Allen Test Performed? Yes
[2021-01-09 21:50] LABS: ABG Base Excess -4.6 mmol/L; ABG HCO3 21 mmol/L (21-25); ABG PCO2 36 mmHg (35-45); ABG PH 7.37 (7.35-7.45); ABG PO2 74 mmHg (83-108); ABG TCO2 22 mmol/L (19-24)
[2021-01-09 22:34] LABS: Allen Test Performed? Yes
[2021-01-09 22:35] LABS: ABG Base Excess -9.3 mmol/L; ABG HCO3 19 mmol/L (21-25); ABG PCO2 51 mmHg (35-45); ABG PH 7.18 (7.35-7.45); ABG PO2 86 mmHg (83-108); ABG TCO2 21 mmol/L (19-24)
[2021-01-10 00:12] LABS: Glucose,Whole Blood 187 mg/dL (75-99)
[2021-01-10] MEDS: ARTIFICIAL TEARS-HYPROMELLOSE DROPS 15 ML BTL BOTH EYES SCH ×6 (00:13→21:02)
[2021-01-10] MEDS: INSULIN ASPART (NovoLOG) 100 UNIT/ML VIAL SQ SCH ×4 (00:14→18:13)
[2021-01-10 04:29] LABS: Basophils % (A) 0 %; Eosinophils # (A) 0.1 k/uL (0-0.7); Eosinophils % (A) 1 %; HCT 46.3 % (39.0-53.0); HGB 15.3 gm/dL (13.0-17.5); Lymphocytes # (A) 0.4 k/uL (1.0-4.8); Lymphocytes % (A) 2 %; MCH 30.3 pg (25.0-35.0); MCHC 33.2 g/dL (31.0-37.0); MCV 91.4 fL (80.0-100.0); Mean Platelet Volume 7.7; Monocytes # (A) 0.5 k/uL (0-1.0); Monocytes % (A) 3 %; Neutrophils # (A) 14.2 k/uL (1.3-7.7); Neutrophils % (A) 93 %; Platelet Count 413 k/uL (150-450); RBC 5.06 m/uL (4.30-5.90); RDW 13.8 % (11.5-15.5); WBC 15.2 k/uL (3.8-10.6)
[2021-01-10 04:40] LABS: ALT 42 U/L (4-49); AST 55 U/L (17-59); African American GFR (CKD) >90 (>60 ml/min/1.73 sqM); Albumin 2.6 g/dL (3.5-5.0); Alkaline Phosphatase 73 U/L (38-126); Anion Gap 7 mmol/L; Blood Urea Nitrogen 41 mg/dL (9-20); C Reactive Protein 34.7 mg/L (<10.0); Calcium 8.4 mg/dL (8.4-10.2); Carbon Dioxide 21 mmol/L (22-30); Chloride 114 mmol/L (98-107); Creatine Kinase 39 U/L (55-170); Glucose 206 mg/dL (74-99); Non-African American GFR(CKD) 80 (>60 ml/min/1.73 sqM); Potassium 5.3 mmol/L (3.5-5.1); Sodium 142 mmol/L (137-145); Total Bilirubin 1.1 mg/dL (0.2-1.3); Total Protein 5.3 g/dL (6.3-8.2)
[2021-01-10 04:48] LABS: LDH 1985 U/L (313-618)
[2021-01-10 05:07] LABS: Allen Test Performed? Yes
[2021-01-10 05:09] LABS: ABG HCO3 22 mmol/L (21-25); ABG PCO2 58 mmHg (35-45); ABG PH 7.18 (7.35-7.45); ABG PO2 75 mmHg (83-108); ABG TCO2 24 mmol/L (19-24)
[2021-01-10 05:10] LABS: ABG Base Excess -6.6 mmol/L
[2021-01-10 05:25] LABS: Glucose,Whole Blood 247 mg/dL (75-99)
[2021-01-10] MEDS: NOREPINEPHRINE 4 MG in SODIUM CHLORIDE 0.9% 250 ML IV SCH ×2 (05:28→20:09)
[2021-01-10] MEDS: SODIUM CHLORIDE 0.9% 1,000 ML IV SCH (05:59)
--- NOTE | 2021-01-10 07:13 | XR ---
EXAMINATION TYPE: XR chest 1V portable DATE OF EXAM: 01/10/2021 COMPARISON: 01/09/2021 HISTORY: Shortness of breath TECHNIQUE: Single frontal view of the chest is obtained. FINDINGS: ET tube and NG tube are unchanged in position. There has been interval development of marked subcutan eous emphysema. The central venous catheter tip is in the SVC/RA junction. There is a partially consolidative opacity in the left lung base unchanged. Smaller partially consoli dative opacity is seen in the right infrahilar region. There is persistent prominence of the interstitial markings. There is interval development of a small right apical pneumothorax. IMPRESSION: 1. Development of a small right apical pneumothorax. 2. Development of marked subcutaneous emphysema. 3. No change in the by basilar lung infiltrates and prominent interstitial markings.
[2021-01-10] MEDS: ALBUTEROL HFA INHALER INHALATION SCH ×4 (08:26→19:50)
[2021-01-10] MEDS: CHOLECALCIFEROL 25 MCG (1000 IU) TABLET PO SCH (08:45)
[2021-01-10] MEDS: ENOXAPARIN 60 MG/0.6 ML SYRINGE SQ SCH ×2 (08:46→21:02)
[2021-01-10] MEDS: lisinopriL 20 MG TAB PO SCH (08:46)
[2021-01-10] MEDS: METOPROLOL TARTRATE 25 MG TAB PO SCH ×2 (08:46→21:02)
[2021-01-10] MEDS: CHLORHEXIDINE GLUCONATE 15 ML CUP MUCOUS MEM SCH ×2 (08:46→21:02)
[2021-01-10] MEDS: ASPIRIN 81 MG PO SCH (08:46)
[2021-01-10] MEDS: FAMOTIDINE 20 MG/2 ML VIAL IV SCH ×2 (08:46→21:02)
[2021-01-10] MEDS: ZINC SULFATE 220 MG CAP PO SCH (08:47)
[2021-01-10] MEDS: ASCORBIC ACID 500 MG TAB PO SCH (08:47)
[2021-01-10] MEDS: DEXAMETHASONE SOD PHOSPHATE 20 MG in DEXTROSE 5% IN WATER 50 ML IV SCH ×2 (08:51)
[2021-01-10 09:28] LABS: Ferritin 1215.9 ng/mL (22.0-322.0)
--- NOTE | 2021-01-10 09:42 | P.PN ---
Subjective Progress Note Date: 01/10/21 CoVID 19 infection 70-year-old male patient, known history of diabetes mellitus maintained on insulin in addition to history of hypertension, hyperlipidemia, coronary artery disease and previous history of PCI, presented to the emergency department because of increased fatigue and tiredness. The patient was infected with Covid 19 and the testing by PCR came back positive. The patient started having symptoms of infection approximately 7 days ago and his tests confirmed positive. The test was positive on 12/27/2020. The patient's complaints were essentially those of body aches, feeling weak and tired and he was warm and he was probably having fevers. He was significantly fatigued and he was unable to do even simple stuff at home. He reported poor appetite. No loss in the taste or smell. He had no significant cough. He denies having any significant shortness of breath. No headaches. No nasal congestion. No nausea or vomiting. Upon arrival to the emergency department, the patient was profoundly hypoxic and the pulse ox was around 82% and the patient was also tachypneic and tachycardic. He was initially started on oxygen at 10 L per minute nasal cannula and subsequently the oxygen flow was brought up to 15 L and he continued to be hypoxic. At that point, the patient was switched to BiPAP at a pressure of 10/5 and FiO2 of 100%. The patient had further blood work that showed an LDH level of 2287, CRP of 170, lactic acid level of 2.4, serum bicarb of 18, the BUN was 37 with a creatinine of 1.7. The blood gas on 100% FiO2 showed a pH of 7.4 with a pCO2 of 27 and pO2 of 62. The chest x-ray showed diffuse but the pulmonary infiltrates. At that point, the patient was admitted to the intensive care unit and the patient was supported with BiPAP. The patient is currently on IV Decadron. The patient was also started on Remdesivir per protocol. The patient is on Lovenox 40 mg subcu every 24 hours for a d-dimer of 1.17 and the time of admission. The patient this morning was transitioned to oxygen at 15 L high flow and he is able to maintain a saturation above 90%. He remains in normal sinus rhythm. He is awake and alert. His chest x-ray showing bilateral pu lmonary infiltrates was in the lung bases bilaterally. He is off the BiPAP for now. D-dimer is at 1.88 from today. His LDH is down to 1952 and the pro- calcitonin level was 0.3, LFTs were minimally elevated secondary to Covid 19. CRP is down to 158. He is currently on the same treatment including Decadron and Remdesivir day #2 On today's evaluation of 01/06/2021 the patient is being seen for a follow-up. Unfortunately, the patient is somewhat that he isn't encephalopathic and this is probably related to his underlying Covid 19 infection. His neurologic exam is nonfocal and there is no focal neurological deficit at this point in time. The patient is currently in the ICU and currently is on high flow oxygen at 60 L with an FiO2 of 80%. Pulse ox is around 96%. In terms of his treatment, the patient is receiving Remdesivir day 3 and Decadron 6 mg daily. The patient is also on Lovenox 40 mg daily basis. He is sitting up on a chair.. The patient has no significant agitation. LDH level is at 1778 and CRP level is down to 69. His d-dimer currently is at 2.2. Rest of the blood work shows a hemoglobin of 14.9 and white blood count of 11.4. The patient is very much comfortable and hypoactive.. On 01/07/2021 the patient is being seen in follow-up. The patient over the past 24 hours. Progressively became more confused and altered and encephalopathic. At times he was getting more agitated. Earlier this morning, he started also having worsening shortness of breath, tachypnea and hypoxemia. He was on high flow oxygen at 6 L per minute with an FiO2 of 80%. Subsequently, he was placed on BiPAP and currently bicarb is running at a pressure of 12/5 cm of water with an FiO2 of 100%. His pulse ox is 86% on this ventilator setting. He is quite tachypneic. Is a fluoridated in the mid 40s. The patient's in generating a tidal volume of 800 and the patient's minute ventilation is in the high 20s low 30 range. The patient is sent and was quite agitated and restless and he was started on Precedex which is currently running at 25 mcg/kg per minute. He was also given a bolus of 0.5 mg IV.. The white cell count on today's 12.2 with a hemoglobin of 14.4. D-dimer is up to 8.6 from a baseline of 2.2. Electrolytes are within normal limits. Creatinine is at 1.27. LDH level is up to 2030. CRP level is 50.1. Chest x-ray from today showing diffuse breath and pulmonary infiltrates consistent with Covid 19 related pneumonia. The patient obviously is in acute hypoxic respiratory failure and he would need intubation mechanical ventilation. Family will be informed that we'll going to proceed with mechanical ventilation probably within next 20-30 minutes/especially if there is no stabilization or improvement while on the BiPAP. The patient is seen today 01/08/2021 in follow-up in the intensive care unit. He remains on BiPAP 12/7 and 65% FiO2 to maintain O2 saturation in the 90s. He is currently awake and alert. He is taking sips of water briefly. He is on Precedex at 0.06 grams per kilogram per hour. This is day #5 of Remdesivir. He did receive tocilizumab. He remains on Lovenox 45 mg subcutaneous twice a day. Dexamethasone at 20 mg IV daily. Vitamin supplements. Chest x-ray continues to show mild scattered subsegmental infiltrates bilaterally. Blood cultures reveal no growth. White count 8.9. Hemoglobin 13.9. Sodium 138. Potassium 4.5. Creatinine 1.07. Remains in a negative balance. Inflammatory markers pending. The patient is seen today 01/09/2021 in follow-up in the intensive care unit. He continues to require BiPAP 12/7 and 65% FiO2 to maintain O2 saturations in the 90s. He has been quite BiPAP dependent. He remains on Precedex 0.6 mcg/kg/h. 0.9 normal saline at 40 ML's per hour. Sinus bradycardia in the 40s a nd 50s. Somewhat hypertensive requiring hydralazine. Chest x-ray continues to revealed patchy basilar infiltrates without any significant change. He completed his course of Remdesivir yesterday. white count 7.0. Hemoglobin 12.8. D-dimer 22.47. Sodium 141. Potassium 4.5. Creatinine 1.03. LDH 2002. C- reactive protein 51. He is currently on Lovenox at 45 mg subcutaneous twice daily. IV Pepcid. IV Decadron at 20 milligrams daily 01/10/2021, the patient is intubated. After keeping him on a BiPAP for quite some time, the patient failed and he desaturated and he became more progressively more hypoxic and at that point I intubated the patient here in the intensive care unit. Post intubation, the patient did well. Later on, there was some issues and not regarding his volumes and peak pressuring. He was paralyzed. I think he may have had some mucous plugs. A rapid bronchoscopy was done at the bedside and she was patent and a main bilateral stems bronchi were also patent. The patient was repositioned. There were pressures subsequently improved. On today's evaluation, he remains on a mechanical ventilator on assist control mode at the rate of 28 with a tidal volume of 400 and FiO2 of 80% with a PEEP of 10. His pH is at 7.18 with a pCO2 of 58 and pO2 of 75. His peak airway pressure currently is 30. The chest x-ray unfortunately shows a deep sulcus sign, right apical pneumothorax, he has developed pneumomediastinum and bilateral subcutaneous emphysema. The patient has inflammatory markers that are showing an LDH of 1985, CRP is at 34, he remains on Decadron 20 mg IV every 24 hours. He is on Lovenox 45 mg subcutaneous every 12 hours. He is also on Pepcid. He is on no pressors. He is sedated with propofol and fentanyl combination. Propofol is at 60 mcg/kg per minute and fentanyl is at 0.5 mcg/kg/h and he is also on the backside 0.7 mcg/kg per minute. Blood sugar control is with Levemir insulin 25 units along with a sliding scale coverage. He is receiving enteral feeding for nutritional support and currently is on 10 mL an hour of vital high protein. That is making all this adjustments. Determination, the patient has indeed developed extensive subcutaneous emphysema neck and chest bilaterally. The breath sounds are are equal and symmetrical.. The patient has a peak airway pressure of 30 and the plateau pressure is 24. Objective - Vital Signs Vital signs: Vital Signs Temp 97.6 F 01/10/21 08:00 Pulse 100 01/10/21 09:00 Resp 26 H 01/10/21 09:00 BP 122/70 01/10/21 09:00 Pulse Ox 95 01/10/21 09:00 Intake & Output 01/09/21 01/10/21 01/10/21 18:59 06:59 18:59 Intake Total 610.000 941.567 260 Output Total 985 905 400 Balance -375.000 36.567 -140 Weight 89.1 kg Intake: IV 510 480 120 Dexamethasone Sod 50 Phosphate 20 mg In Dextrose 5% in Water 50 ml @ 100 mls/hr IV DAILY [facility] Rx#:[id number] Sodium Chloride 0.9% 1, 460 480 120 000 ml @ 10 mls/hr IV . Q24H [facility] Rx#:[id number] Intake, IV Titration 100.000 331.567 100 Amount Cisatracurium 200 mg In 52.801 Sodium Chloride 0.9% 180 ml @ 1 MCG/KG/MIN 5.346 mls/hr IV .Q24H [facility] Rx#: [id number] Norepinephrine 4 mg In 44.581 Sodium Chloride 0.9% 250 ml @ 0.05 MCG/KG/MIN 16. 974 mls/hr IV .[id number] [facility] Rx#:[id number] propofoL 1,000 mg In 100.000 234.185 100 Empty Bag 1 bag @ Titrate IV .Q0M [facility] Rx#: [id number] Tube Feeding 70 40 Other 60 Output: Urine 985 905 400 Other: Voiding Method Indwelling Catheter Indwelling Catheter Indwelling Catheter ABP, PAP, CO, CI - Last Documented Arterial Blood Pressure 149/62 - Exam General: Ill appearing, sedated, paralyzed, subcutaneous emphysema involving the chest, neck, face, the orogastric and orotracheal tube are both in place. Examination of the skin revealed no evidence of significant rashes, suspicious appearing nevi or other concerning lesions. Head: atraumatic, normocephalic, symmetric Eyes: EOMI, no lid lag, anicteric sclera, pupils equal round reactive to light ENT: Nose and ears atraumatic, no thrush, no pharyngeal erythema Neck: No thyromegaly, no cervical lymphadenopathy, trachea midline, supple Mouth: no lip lesion, mucus membranes dry Cardiovascular: S1S2 tachycardic without murmur, positive posterior tibial pulse bilateral, no edema, capillary refill less than 2 seconds Lungs: Coarse and diminished breath sounds bilateral without significant wheezing, + sternal retractions, she has diffuse crackles bilaterally. Patient has subcutaneous emphysema bilaterally over the chest. Abdominal: soft, nontender to palpation, no guarding, no appreciable organomegaly, normal bowel sounds Examination of the extremities revealed easily palpable radial, femoral and pedal pulses. There was no cyanosis, clubbing or edema. Neuro: The patient is sedated and paralyzed for now. Motor function cannot be assessed. - Labs CBC & Chem 7: 01/10/21 04:25 01/10/21 04:25 Labs: Abnormal Lab Results - Last 24 Hours (Table) 01/09/21 01/09/21 01/09/21 Range/Units 04:35 11:51 14:17 WBC (3.8-10.6) k/uL Neutrophils # (1.3-7.7) k/uL Lymphocytes # (1.0-4.8) k/uL D-Dimer (<0.60) mg/L FEU ABG pH (7.35-7.45) ABG pCO2 (35-45) mmHg ABG pO2 74 L (83-108) mmHg ABG HCO3 (21-25) mmol/L ABG O2 Saturation 93.0 L (94-97) % Potassium (3.5-5.1) mmol/L Chloride (98-107) mmol/L Carbon Dioxide (22-30) mmol/L BUN (9-20) mg/dL Glucose (74-99) mg/dL POC Glucose (mg/dL) 117 H (75-99) mg/dL Ferritin 1311.7 H (22.0-322.0) ng/mL Lactate Dehydrogenase (313-618) U/L Creatine Kinase (55-170) U/L C-Reactive Protein (<10.0) mg/L Total Protein (6.3-8.2) g/dL Albumin (3.5-5.0) g/dL 01/09/21 01/09/21 01/09/21 Range/Units 17:27 18:53 22:04 WBC (3.8-10.6) k/uL Neutrophils # (1.3-7.7) k/uL Lymphocytes # (1.0-4.8) k/uL D-Dimer (<0.60) mg/L FEU ABG pH 7.20 L 7.18 L* (7.35-7.45) ABG pCO2 51 H 51 H (35-45) mmHg ABG pO2 67 L (83-108) mmHg ABG HCO3 20 L 19 L (21-25) mmol/L ABG O2 Saturation 86.2 L 93.0 L (94-97) % Potassium (3.5-5.1) mmol/L Chloride (98-107) mmol/L Carbon Dioxide (22-30) mmol/L BUN (9-20) mg/dL Glucose (74-99) mg/dL POC Glucose (mg/dL) 176 H (75-99) mg/dL Ferritin (22.0-322.0) ng/mL Lactate Dehydrogenase (313-618) U/L Creatine Kinase (55-170) U/L C-Reactive Protein (<10.0) mg/L Total Protein (6.3-8.2) g/dL Albumin (3.5-5.0) g/dL 01/10/21 01/10/21 01/10/21 Range/Units 00:10 04:25 04:25 WBC (3.8-10.6) k/uL Neutrophils # (1.3-7.7) k/uL Lymphocytes # (1.0-4.8) k/uL D-Dimer 14.74 H (<0.60) mg/L FEU ABG pH (7.35-7.45) ABG pCO2 (35-45) mmHg ABG pO2 (83-108) mmHg ABG HCO3 (21-25) mmol/L ABG O2 Saturation (94-97) % Potassium 5.3 H (3.5-5.1) mmol/L Chloride 114 H (98-107) mmol/L Carbon Dioxide 21 L (22-30) mmol/L BUN 41 H (9-20) mg/dL Glucose 206 H (74-99) mg/dL POC Glucose (mg/dL) 187 H (75-99) mg/dL Ferritin (22.0-322.0) ng/mL Lactate Dehydrogenase 1985 H (313-618) U/L Creatine Kinase 39 L (55-170) U/L C-Reactive Protein 34.7 H (<10.0) mg/L Total Protein 5.3 L (6.3-8.2) g/dL Albumin 2.6 L (3.5-5.0) g/dL 01/10/21 01/10/21 01/10/21 Range/Units 04:25 04:58 05:23 WBC 15.2 H (3.8-10.6) k/uL Neutrophils # 14.2 H (1.3-7.7) k/uL Lymphocytes # 0.4 L (1.0-4.8) k/uL D-Dimer (<0.60) mg/L FEU ABG pH 7.18 L* (7.35-7.45) ABG pCO2 58 H (35-45) mmHg ABG pO2 75 L (83-108) mmHg ABG HCO3 (21-25) mmol/L ABG O2 Saturation 92.0 L (94-97) % Potassium (3.5-5.1) mmol/L Chloride (98-107) mmol/L Carbon Dioxide (22-30) mmol/L BUN (9-20) mg/dL Glucose (74-99) mg/dL POC Glucose (mg/dL) 247 H (75-99) mg/dL Ferritin (22.0-322.0) ng/mL Lactate Dehydrogenase (313-618) U/L Creatine Kinase (55-170) U/L C-Reactive Protein (<10.0) mg/L Total Protein (6.3-8.2) g/dL Albumin (3.5-5.0) g/dL Microbiology - Last 24 Hours (Table) 01/09/21 15:45 Sputum Culture - Preliminary Sputum 01/04/21 16:15 Blood Culture - Preliminary Blood No Growth after 120 hours 01/04/21 16:08 Blood Culture - Preliminary Blood No Growth after 120 hours Assessment and Plan Plan: 1 acute hypoxic respiratory failure secondary to COVID 19 related pneumonia, /ARDS and the patient is currently intubated on a mechanical ventilator. Post intubation, the patient peak pressure extensively and the patient developed bilateral subcutaneous emphysema and pneumomediastinum and the patient also has a small right apical pneumothorax. Blood gas shows hypercapnic respiratory failure and some degree of respiratory acidosis. Oxidation is stable. Since yesterday, the peak and static pressures have dropped considerably. A chest tube will be needed regarding this right-sided pneumothorax. 2 acute COVID 19 related pneumonia with secondary acute hypoxic respiratory failure. Symptoms started approximately a week ago prior to his hospital admission. The patient is currently being treated with a combination of Decadron and Remdesivir, day #4 . Inflammatory markers remain quite elevated and the patient is also on Lovenox the dose will be adjusted to 45 grams subcutaneous every 12 hours, half a therapeutic dose based on the elevated d- dimer. Suggest stopping the Decadron putting the patient IV Solu-Medrol 60 mg every 6 hours. The patient was receiving 20 mg of IV Decadron 3 acute kidney injury with underlying chronic stage III kidney disease, renal function improved 4 diabetes mellitus type 2, maintained on Levemir insulin outpatient basis, then 25 units of Levemir on a daily basis plus a sliding scale coverage. 5 hypertension history of 6 hyperlipidemia 7 mild lactic acidosis 8 acid reflux 9 osteoarthritis 10 Gout 11 history of nephrolithiasis 12 acute small right-sided pneumothorax with development of bilateral subc utaneous emphysema most likely secondary to barotrauma induced by high airway pressure/mechanical ventilation in a patient with pneumonia/ARDS. Evidence of any tension. The patient is hemodynamically stable. Oxygenation is appropriate for now. Plan Continue the same treatment steroids and switch patient to IV solumedrol 60mg Q 6 and Remdesivir day #5 today continue vent support at the same vent setting and allow permissive hypercapnia. The airway pressures of dropped considerably Keep the patient sedated, paralyzed for now Will need a right-sided chest tube insertion Continue IV Solu-Medrol Tocilizumab was ordered and provided to this patient Monitor inflammatory markers Lovenox 45 mg subcu every 12 hours Renal function is stable Repeat chest x-ray in a.m. Enteral feeding for nutritional support Blood sugar management, currently on Levemir insulin 25 units along with a sliding scale coverage Keep in ICU, critically care evaluation was done and more than 30 minutes. Time with Patient: Greater than 30
[2021-01-10] MEDS: fentaNYL (PF) 1,000 MCG in SODIUM CHLORIDE 0.9% 80 ML IV SCH (10:50)
[2021-01-10 11:35] LABS: Glucose,Whole Blood 132 mg/dL (75-99)
--- NOTE | 2021-01-10 12:20 | XR ---
EXAMINATION TYPE: XR chest 1V portable DATE OF EXAM: 01/10/2021 COMPARISON: 01/10/2021 HISTORY: SOB, Follow Up FINDINGS: Persistent right apical pneumothorax unchanged in size. Previously noted tiny left apical pneumothora x is poorly demonstrated on today's study. NG tube is seen coursing into the stomach. Endotracheal tu be is unchanged in position. Left subclavian central venous line unchanged in position as well. There is increasing subcutaneous emphysema. Persistent scattered patchy airspace and interstitial infiltra katheryn are noted. Stable appearance of the cardio-mediastinal structures at this time. IMPRESSION: 1. Persistent right apical pneumothorax unchanged in size. Previously noted tiny left apical pneumot horax is poorly demonstrated on today's study. 2. Scattered infiltrates are unchanged.
--- NOTE | 2021-01-10 13:14 | P.PN ---
Subjective Progress Note Date: 01/10/21 Patient is sedated and intubated this morning. His respiratory status declined yesterday with worsening hypoxia and increased work of breathing requiring sedation and mechanical ventilation. Chest x-ray showed right apical pneumothorax. This is being monitored closely by pulmonology. Patient was started on tube feeds currently at 10 mL per hour. He remained hemodynamically stable. Actually blood pressure on the higher side. Objective - Vital Signs Vital signs: Vital Signs Temp 97.6 F 01/10/21 12:00 Pulse 90 01/10/21 13:00 Resp 26 H 01/10/21 13:00 BP 109/63 01/10/21 13:00 Pulse Ox 95 01/10/21 13:00 Intake & Output 01/09/21 01/10/21 01/10/21 18:59 06:59 18:59 Intake Total 610.000 941.567 509.439 Output Total 985 905 685 Balance -375.000 36.567 -175.561 Weight 89.1 kg Intake: IV 510 480 200 Dexamethasone Sod 50 Phosphate 20 mg In Dextrose 5% in Water 50 ml @ 100 mls/hr IV DAILY [facility] Rx#:[id number] Sodium Chloride 0.9% 1, 460 480 200 000 ml @ 10 mls/hr IV . Q24H [facility] Rx#:[id number] Intake, IV Titration 100.000 331.567 219.439 Amount Cisatracurium 200 mg In 52.801 Sodium Chloride 0.9% 180 ml @ 1 MCG/KG/MIN 5.346 mls/hr IV .Q24H [facility] Rx#: [id number] Norepinephrine 4 mg In 44.581 Sodium Chloride 0.9% 250 ml @ 0.05 MCG/KG/MIN 16. 974 mls/hr IV .[id number] [facility] Rx#:[id number] fentaNYL (PF) 1,000 mcg 72.394 In Sodium Chloride 0.9% 80 ml @ Per Protocol IV . Q0M [facility] Rx#:[id number] propofoL 1,000 mg In 100.000 234.185 147.045 Empty Bag 1 bag @ Titrate IV .Q0M [facility] Rx#: [id number] Tube Feeding 70 90 Other 60 Output: Urine 985 905 685 Other: Voiding Method Indwelling Catheter Indwelling Catheter Indwelling Catheter ABP, PAP, CO, CI - Last Documented Arterial Blood Pressure 151/60 - Exam General: The patient is sedated and intubated Eye: there is normal conjunctiva bilaterally. Neck: The neck is supple, there is no JVD. Cardiovascular: Normal S1-S2, no S3-S4, no murmurs. Respiratory: Lungs clear to auscultation bilaterally Gastrointestinal: Abdomen is soft, nontender Musculoskeletal: There is no pedal edema. Skin: Skin is warm and dry - Labs CBC & Chem 7: 01/10/21 04:25 01/10/21 04:25 Labs: Abnormal Lab Results - Last 24 Hours (Table) 01/09/21 01/09/21 01/09/21 Range/Units 04:35 14:17 17:27 WBC (3.8-10.6) k/uL Neutrophils # (1.3-7.7) k/uL Lymphocytes # (1.0-4.8) k/uL D-Dimer (<0.60) mg/L FEU ABG pH 7.20 L (7.35-7.45) ABG pCO2 51 H (35-45) mmHg ABG pO2 74 L 67 L (83-108) mmHg ABG HCO3 20 L (21-25) mmol/L ABG O2 Saturation 93.0 L 86.2 L (94-97) % Potassium (3.5-5.1) mmol/L Chloride (98-107) mmol/L Carbon Dioxide (22-30) mmol/L BUN (9-20) mg/dL Glucose (74-99) mg/dL POC Glucose (mg/dL) (75-99) mg/dL Ferritin 1311.7 H (22.0-322.0) ng/mL Lactate Dehydrogenase (313-618) U/L Creatine Kinase (55-170) U/L C-Reactive Protein (<10.0) mg/L Total Protein (6.3-8.2) g/dL Albumin (3.5-5.0) g/dL 01/09/21 01/09/21 01/10/21 Range/Units 18:53 22:04 00:10 WBC (3.8-10.6) k/uL Neutrophils # (1.3-7.7) k/uL Lymphocytes # (1.0-4.8) k/uL D-Dimer (<0.60) mg/L FEU ABG pH 7.18 L* (7.35-7.45) ABG pCO2 51 H (35-45) mmHg ABG pO2 (83-108) mmHg ABG HCO3 19 L (21-25) mmol/L ABG O2 Saturation 93.0 L (94-97) % Potassium (3.5-5.1) mmol/L Chloride (98-107) mmol/L Carbon Dioxide (22-30) mmol/L BUN (9-20) mg/dL Glucose (74-99) mg/dL POC Glucose (mg/dL) 176 H 187 H (75-99) mg/dL Ferritin (22.0-322.0) ng/mL Lactate Dehydrogenase (313-618) U/L Creatine Kinase (55-170) U/L C-Reactive Protein (<10.0) mg/L Total Protein (6.3-8.2) g/dL Albumin (3.5-5.0) g/dL 01/10/21 01/10/21 01/10/21 Range/Units 04:25 04:25 04:25 WBC 15.2 H (3.8-10.6) k/uL Neutrophils # 14.2 H (1.3-7.7) k/uL Lymphocytes # 0.4 L (1.0-4.8) k/uL D-Dimer 14.74 H (<0.60) mg/L FEU ABG pH (7.35-7.45) ABG pCO2 (35-45) mmHg ABG pO2 (83-108) mmHg ABG HCO3 (21-25) mmol/L ABG O2 Saturation (94-97) % Potassium 5.3 H (3.5-5.1) mmol/L Chloride 114 H (98-107) mmol/L Carbon Dioxide 21 L (22-30) mmol/L BUN 41 H (9-20) mg/dL Glucose 206 H (74-99) mg/dL POC Glucose (mg/dL) (75-99) mg/dL Ferritin 1215.9 H (22.0-322.0) ng/mL Lactate Dehydrogenase 1985 H (313-618) U/L Creatine Kinase 39 L (55-170) U/L C-Reactive Protein 34.7 H (<10.0) mg/L Total Protein 5.3 L (6.3-8.2) g/dL Albumin 2.6 L (3.5-5.0) g/dL 01/10/21 01/10/21 01/10/21 Range/Units 04:58 05:23 11:33 WBC (3.8-10.6) k/uL Neutrophils # (1.3-7.7) k/uL Lymphocytes # (1.0-4.8) k/uL D-Dimer (<0.60) mg/L FEU ABG pH 7.18 L* (7.35-7.45) ABG pCO2 58 H (35-45) mmHg ABG pO2 75 L (83-108) mmHg ABG HCO3 (21-25) mmol/L ABG O2 Saturation 92.0 L (94-97) % Potassium (3.5-5.1) mmol/L Chloride (98-107) mmol/L Carbon Dioxide (22-30) mmol/L BUN (9-20) mg/dL Glucose (74-99) mg/dL POC Glucose (mg/dL) 247 H 132 H (75-99) mg/dL Ferritin (22.0-322.0) ng/mL Lactate Dehydrogenase (313-618) U/L Creatine Kinase (55-170) U/L C-Reactive Protein (<10.0) mg/L Total Protein (6.3-8.2) g/dL Albumin (3.5-5.0) g/dL Microbiology - Last 24 Hours (Table) 01/09/21 15:45 Gram Stain - Preliminary Sputum Sputum Culture - Preliminary 01/04/21 16:15 Blood Culture - Preliminary Blood No Growth after 120 hours 01/04/21 16:08 Blood Culture - Preliminary Blood No Growth after 120 hours Assessment and Plan Assessment: Patient is a 70 yo CM with a hx of DM2 well controlled on insulin and oral medications, HTN, HLD, and CAD with hx of PCI X 1 who presented to the ED due to extreme fatigue. He started having COVID symptoms of COVID 7 days ago and was tested and confirmed positive. Chest x-ray on presentation showed diffuse interstitial infiltrates. Patient was admitted to the hospital for the ongoing management of his medical problems noted below COVID 19 pneumonitis with acute hypoxic respiratory failure -Pulmonary recs: Remdesivir, Decadron day #7 switched to IV Solu-Medrol by pulmonology - Actemra administered during this admission - Patient respiratory status declined and required intubation and mechanical intubation on 01/09. Vent management by ICU team. -Zinc, vitamin C, vitamin D -Follow inflammatory markers Right apical pneumothorax with some subcutaneous emphysema -Plan for chest tube insertion by pulmonology Acute kidney injury on Chronic kidney disease stage III, hyponatremia, metabolic acidosis, suspect secondary to dehydration -Resolved with IV fluid hydration. DM 2, well controlled - SSI, Levemir - A1C 7.8 Hypertension, controlled -Blood pressure not well controlled as patient has been unable to take his oral blood pressure medication while on BiPAP -I started clonidine patch 0.1 mg daily and continue with IV hydralazine 5 mg every 6 hours as needed for uncontrolled blood pressure Dyslipidemia -Statin therapy GERD -H2 kaushik Lactic acidosis, resolved PK eyes, resolved Today, I discussed nutrition with nursing staff. They advised increased tube feeding rate to 20 mL per hour awaiting registered dietitian evaluation Vent management and sedation management by ICU team repeat lab work in the morning Patient remained in critical condition Family members updated this morning DVT prophylaxis: Lovenox Discussed with: Patient, nursing, Anticipated discharge date: 3-[address]: To be determined A total of 35 minutes was spent on the care of this complex patient more than 50% of the time was spent in counseling and care coordination.
--- NOTE | 2021-01-10 16:57 | P.PCN ---
Date of Procedure: 01/10/21 Preoperative Diagnosis: Right pneumothorax, pneumomediastinum, subcutaneous emphysema Postoperative Diagnosis: same Procedure(s) Performed: chest tube insertion Anesthesia: local Surgeon: Arnold Santacruz Estimated Blood Loss (ml): 0 Pathology: other Condition: critical Disposition: ICU Indications for Procedure: Acute hypoxic respiratory failure, Covid 19 related pneumonia, pneumothorax, pneumomediastinum, subcutaneous emphysema Operative Findings: A time-out was completed verifying correct patient, procedure, site, positioning, and special equipment if applicable. The patient was positioned appropriately for chest tube placement. The patientright chest was prepped and draped in sterile fashion. 1% Lidocaine was used to anesthetize the surrounding skin area. A 2 cm skin incision was made in the mid-axillary line at the inframammarycrease. Utilizing blunt dissection a subcutaneous tunnel was created cephalad just adjacent to the superior rib. The pleural space was entered bluntly and gush of <air/blood> was observed. A finger was inserted into the pleural space to check for anatomy and guide tube insertion. A 28 F thoracostomy tube was inserted using a Sofia clamp and positioned appropriately. The chest tube was sutured securely to the skin and a sterile dressing applied. A pleurevac was attached to the chest tube and a chest x-ray obtained. I personally performed this procedure and I was was present for the entire procedure. Estimated Blood Loss: 0 The patient tolerated the procedure well and there were no complications.
[2021-01-10 17:25] LABS: Glucose,Whole Blood 189 mg/dL (75-99)
--- NOTE | 2021-01-10 17:41 | XR ---
EXAMINATION TYPE: XR chest 1V portable DATE OF EXAM: 01/10/2021 COMPARISON: Earlier same day. HISTORY: Follow-up pneumothorax. TECHNIQUE: Single frontal view of the chest is obtained. FINDINGS: There is interval placement of right lower chest tube. There is residual small right apica l pneumothorax. There is unchanged diffuse subcutaneous emphysema about the bilateral chest wall/neck . There is probable component of pneumomediastinum. The endotracheal tube, nasogastric tube and left IJ catheter remain in place. There is unchanged diffuse mild hazy opacities. IMPRESSION: Residual small right apical pneumothorax status post right chest tube. Chronic findings as above.
[2021-01-10] MEDS: methylPREDNISolone SOD SUCCI 125 MG/2 ML VIAL IV SCH (18:13)
[2021-01-10] MEDS: CISATRACURIUM 200 MG in SODIUM CHLORIDE 0.9% 180 ML IV SCH (20:07)
[2021-01-10] MEDS: ATORVASTATIN 20 MG TAB PO SCH (21:02)
[2021-01-10] MEDS: INSULIN DETEMIR (LEVEMIR) 100 UNIT/ML SYR SQ SCH (21:03)
[2021-01-10] MEDS: QUEtiapine 25 MG TAB PO SCH (21:04)
[2021-01-10 23:55] LABS: Glucose,Whole Blood 207 mg/dL (75-99)
[2021-01-11] MEDS: ARTIFICIAL TEARS-HYPROMELLOSE DROPS 15 ML BTL BOTH EYES SCH ×6 (00:09→20:29)
[2021-01-11] MEDS: methylPREDNISolone SOD SUCCI 125 MG/2 ML VIAL IV SCH ×4 (00:09→18:22)
[2021-01-11] MEDS: INSULIN ASPART (NovoLOG) 100 UNIT/ML VIAL SQ SCH ×4 (00:10→18:22)
[2021-01-11] MEDS: SODIUM CHLORIDE 0.9% 1,000 ML IV SCH (04:30)
[2021-01-11 04:39] LABS: Basophils % (A) 0 %; Eosinophils % (A) 0 %; HCT 34.6 % (39.0-53.0); Lymphocytes # (A) 0.1 k/uL (1.0-4.8); Lymphocytes % (A) 1 %; MCH 30.9 pg (25.0-35.0); MCHC 33.2 g/dL (31.0-37.0); MCV 93.1 fL (80.0-100.0); Mean Platelet Volume 7.9; Monocytes # (A) 0.9 k/uL (0-1.0); Monocytes % (A) 9 %; Neutrophils # (A) 8.1 k/uL (1.3-7.7); Neutrophils % (A) 89 %; Platelet Count 227 k/uL (150-450); RBC 3.72 m/uL (4.30-5.90); RDW 14.2 % (11.5-15.5); WBC 9.2 k/uL (3.8-10.6)
[2021-01-11 04:40] LABS: HGB 11.5 gm/dL (13.0-17.5)
[2021-01-11 05:35] LABS: Ionized Calcium 5.6 mg/dL (4.5-5.3)
[2021-01-11 05:40] LABS: ABG Base Excess -2.6 mmol/L; ABG HCO3 25 mmol/L (21-25); ABG PCO2 63 mmHg (35-45); ABG PH 7.21 (7.35-7.45); ABG PO2 82 mmHg (83-108); ABG TCO2 27 mmol/L (19-24); Allen Test Performed? Yes
[2021-01-11 05:48] LABS: Albumin 2.7 g/dL (3.5-5.0); C Reactive Protein 20.2 mg/L (<10.0); Calcium 8.8 mg/dL (8.4-10.2); Potassium 5.8 mmol/L (3.5-5.1); Total Bilirubin 0.7 mg/dL (0.2-1.3); Total Protein 5.4 g/dL (6.3-8.2)
[2021-01-11 05:52] LABS: Glucose,Whole Blood 226 mg/dL (75-99)
[2021-01-11] MEDS ORDERED: SODIUM POLYSTYRENE SULFONATE 15 GM/60 ML BOTTLE PO STA (07:22)
--- NOTE | 2021-01-11 07:33 | XR ---
EXAMINATION TYPE: XR chest 1V portable DATE OF EXAM: 01/11/2021 COMPARISON: 01/10/2021 HISTORY: SOB, Follow Up FINDINGS: Right basilar chest tube is unchanged in position. Left subclavian central venous line, endotracheal tube and NG tube are all unchanged as well. There is extensive subcutaneous emphysema throughout the chest and extending into the neck. This does limit evaluation for pneumothorax. Sizable pneumothorax however is not visualized. Scattered infiltr ates persist. Stable appearance of the cardio-mediastinal structures at this time. IMPRESSION: 1. Stable portable chest. Clinical correlation and follow up until resolution is recommended.
[2021-01-11] MEDS: CHOLECALCIFEROL 25 MCG (1000 IU) TABLET PO SCH (07:45)
[2021-01-11] MEDS: ASCORBIC ACID 500 MG TAB PO SCH (07:45)
[2021-01-11] MEDS: METOPROLOL TARTRATE 25 MG TAB PO SCH ×2 (07:45→20:28)
[2021-01-11] MEDS: ZINC SULFATE 220 MG CAP PO SCH (07:45)
[2021-01-11] MEDS: ASPIRIN 81 MG PO SCH (07:45)
[2021-01-11] MEDS: FAMOTIDINE 20 MG/2 ML VIAL IV SCH ×2 (07:46→20:28)
[2021-01-11] MEDS: ENOXAPARIN 60 MG/0.6 ML SYRINGE SQ SCH ×2 (07:46→20:29)
[2021-01-11] MEDS: CHLORHEXIDINE GLUCONATE 15 ML CUP MUCOUS MEM SCH ×2 (07:46→20:28)
[2021-01-11] MEDS: ALBUTEROL HFA INHALER INHALATION SCH ×4 (08:11→20:38)
[2021-01-11] MEDS: fentaNYL (PF) 1,000 MCG in SODIUM CHLORIDE 0.9% 80 ML IV SCH (08:15)
[2021-01-11] MEDS: CISATRACURIUM 200 MG in SODIUM CHLORIDE 0.9% 180 ML IV SCH (08:15)
[2021-01-11 09:17] LABS: Ferritin 1185.4 ng/mL (22.0-322.0)
--- NOTE | 2021-01-11 09:21 | P.PN ---
Subjective Progress Note Date: 01/11/21 CoVID 19 infection 70-year-old male patient, known history of diabetes mellitus maintained on insulin in addition to history of hypertension, hyperlipidemia, coronary artery disease and previous history of PCI, presented to the emergency department because of increased fatigue and tiredness. The patient was infected with Covid 19 and the testing by PCR came back positive. The patient started having symptoms of infection approximately 7 days ago and his tests confirmed positive. The test was positive on 12/27/2020. The patient's complaints were essentially those of body aches, feeling weak and tired and he was warm and he was probably having fevers. He was significantly fatigued and he was unable to do even simple stuff at home. He reported poor appetite. No loss in the taste or smell. He had no significant cough. He denies having any significant shortness of breath. No headaches. No nasal congestion. No nausea or vomiting. Upon arrival to the emergency department, the patient was profoundly hypoxic and the pulse ox was around 82% and the patient was also tachypneic and tachycardic. He was initially started on oxygen at 10 L per minute nasal cannula and subsequently the oxygen flow was brought up to 15 L and he continued to be hypoxic. At that point, the patient was switched to BiPAP at a pressure of 10/5 and FiO2 of 100%. The patient had further blood work that showed an LDH level of 2287, CRP of 170, lactic acid level of 2.4, serum bicarb of 18, the BUN was 37 with a creatinine of 1.7. The blood gas on 100% FiO2 showed a pH of 7.4 with a pCO2 of 27 and pO2 of 62. The chest x-ray showed diffuse but the pulmonary infiltrates. At that point, the patient was admitted to the intensive care unit and the patient was supported with BiPAP. The patient is currently on IV Decadron. The patient was also started on Remdesivir per protocol. The patient is on Lovenox 40 mg subcu every 24 hours for a d-dimer of 1.17 and the time of admission. The patient this morning was transitioned to oxygen at 15 L high flow and he is able to maintain a saturation above 90%. He remains in normal sinus rhythm. He is awake and alert. His chest x-ray showing bilateral pu lmonary infiltrates was in the lung bases bilaterally. He is off the BiPAP for now. D-dimer is at 1.88 from today. His LDH is down to 1952 and the pro- calcitonin level was 0.3, LFTs were minimally elevated secondary to Covid 19. CRP is down to 158. He is currently on the same treatment including Decadron and Remdesivir day #2 On today's evaluation of 01/06/2021 the patient is being seen for a follow-up. Unfortunately, the patient is somewhat that he isn't encephalopathic and this is probably related to his underlying Covid 19 infection. His neurologic exam is nonfocal and there is no focal neurological deficit at this point in time. The patient is currently in the ICU and currently is on high flow oxygen at 60 L with an FiO2 of 80%. Pulse ox is around 96%. In terms of his treatment, the patient is receiving Remdesivir day 3 and Decadron 6 mg daily. The patient is also on Lovenox 40 mg daily basis. He is sitting up on a chair.. The patient has no significant agitation. LDH level is at 1778 and CRP level is down to 69. His d-dimer currently is at 2.2. Rest of the blood work shows a hemoglobin of 14.9 and white blood count of 11.4. The patient is very much comfortable and hypoactive.. On 01/07/2021 the patient is being seen in follow-up. The patient over the past 24 hours. Progressively became more confused and altered and encephalopathic. At times he was getting more agitated. Earlier this morning, he started also having worsening shortness of breath, tachypnea and hypoxemia. He was on high flow oxygen at 6 L per minute with an FiO2 of 80%. Subsequently, he was placed on BiPAP and currently bicarb is running at a pressure of 12/5 cm of water with an FiO2 of 100%. His pulse ox is 86% on this ventilator setting. He is quite tachypneic. Is a fluoridated in the mid 40s. The patient's in generating a tidal volume of 800 and the patient's minute ventilation is in the high 20s low 30 range. The patient is sent and was quite agitated and restless and he was started on Precedex which is currently running at 25 mcg/kg per minute. He was also given a bolus of 0.5 mg IV.. The white cell count on today's 12.2 with a hemoglobin of 14.4. D-dimer is up to 8.6 from a baseline of 2.2. Electrolytes are within normal limits. Creatinine is at 1.27. LDH level is up to 2030. CRP level is 50.1. Chest x-ray from today showing diffuse breath and pulmonary infiltrates consistent with Covid 19 related pneumonia. The patient obviously is in acute hypoxic respiratory failure and he would need intubation mechanical ventilation. Family will be informed that we'll going to proceed with mechanical ventilation probably within next 20-30 minutes/especially if there is no stabilization or improvement while on the BiPAP. The patient is seen today 01/08/2021 in follow-up in the intensive care unit. He remains on BiPAP 12/7 and 65% FiO2 to maintain O2 saturation in the 90s. He is currently awake and alert. He is taking sips of water briefly. He is on Precedex at 0.06 grams per kilogram per hour. This is day #5 of Remdesivir. He did receive tocilizumab. He remains on Lovenox 45 mg subcutaneous twice a day. Dexamethasone at 20 mg IV daily. Vitamin supplements. Chest x-ray continues to show mild scattered subsegmental infiltrates bilaterally. Blood cultures reveal no growth. White count 8.9. Hemoglobin 13.9. Sodium 138. Potassium 4.5. Creatinine 1.07. Remains in a negative balance. Inflammatory markers pending. The patient is seen today 01/09/2021 in follow-up in the intensive care unit. He continues to require BiPAP 12/7 and 65% FiO2 to maintain O2 saturations in the 90s. He has been quite BiPAP dependent. He remains on Precedex 0.6 mcg/kg/h. 0.9 normal saline at 40 ML's per hour. Sinus bradycardia in the 40s a nd 50s. Somewhat hypertensive requiring hydralazine. Chest x-ray continues to revealed patchy basilar infiltrates without any significant change. He completed his course of Remdesivir yesterday. white count 7.0. Hemoglobin 12.8. D-dimer 22.47. Sodium 141. Potassium 4.5. Creatinine 1.03. LDH 2002. C- reactive protein 51. He is currently on Lovenox at 45 mg subcutaneous twice daily. IV Pepcid. IV Decadron at 20 milligrams daily 01/10/2021, the patient is intubated. After keeping him on a BiPAP for quite some time, the patient failed and he desaturated and he became more progressively more hypoxic and at that point I intubated the patient here in the intensive care unit. Post intubation, the patient did well. Later on, there was some issues and not regarding his volumes and peak pressuring. He was paralyzed. I think he may have had some mucous plugs. A rapid bronchoscopy was done at the bedside and she was patent and a main bilateral stems bronchi were also patent. The patient was repositioned. There were pressures subsequently improved. On today's evaluation, he remains on a mechanical ventilator on assist control mode at the rate of 28 with a tidal volume of 400 and FiO2 of 80% with a PEEP of 10. His pH is at 7.18 with a pCO2 of 58 and pO2 of 75. His peak airway pressure currently is 30. The chest x-ray unfortunately shows a deep sulcus sign, right apical pneumothorax, he has developed pneumomediastinum and bilateral subcutaneous emphysema. The patient has inflammatory markers that are showing an LDH of 1985, CRP is at 34, he remains on Decadron 20 mg IV every 24 hours. He is on Lovenox 45 mg subcutaneous every 12 hours. He is also on Pepcid. He is on no pressors. He is sedated with propofol and fentanyl combination. Propofol is at 60 mcg/kg per minute and fentanyl is at 0.5 mcg/kg/h and he is also on the backside 0.7 mcg/kg per minute. Blood sugar control is with Levemir insulin 25 units along with a sliding scale coverage. He is receiving enteral feeding for nutritional support and currently is on 10 mL an hour of vital high protein. That is making all this adjustments. Determination, the patient has indeed developed extensive subcutaneous emphysema neck and chest bilaterally. The breath sounds are are equal and symmetrical.. The patient has a peak airway pressure of 30 and the plateau pressure is 24. 01/11/2021 the patient is being seen in follow-up. The patient is currently intubated on a mechanical ventilator. The patient is a case of Covid associated pneumonia with secondary respiratory failure. Note that because of stiff lungs and elevated airway pressures, the patient developed barotrauma and subsequently he developed a small right-sided pneumothorax and he was developing extensive subcutaneous emphysema as the patient was developing increased swelling in his face neck and chest throughout the day yesterday. As such, I inserted a chest tube on him yesterday and a 28-[place] chest tube was inserted into the right lung without any complications. The patient's currently is sedated with propofol which is running at 35 mcg/kg per minute. The patient is also on Nimbex running at 0.8 mcg/kg per minute and the patient is also on fentanyl are running at 0.8 Arnie respiratory kilogram per hour. As such, the patient has been adequately sedated and adequately paralyzed and the patient is quite synchronous with the mechanical ventilator. The patient is currently on a assist-control mode of ventilation, volume cycle with a rate of 26 and a tidal volume of 400 and FiO2 of 80% with a PEEP of 8. The blood periods from today shows a pH of 7.21 with a pCO2 of 63 and pO2 of 82. The patient's peak airway pressure is 28 with a static pressure of 28. Overnight, his subcutaneous emphysema has gotten significantly worse. Nevertheless, he doesn't have any pneumothorax. The right-sided chest tube is still in place. The patient has developed extensive subcutaneous emphysema bilaterally extending to his neck and the face and upper extremities in the chest. Orotracheal tube is in a good location. NG tube is also in a good location. The patient is on IV Solu-Medrol at 60 mg every 6 hours. In terms of his Covid 19 related pneumonia, his air d- dimer is at 6.91, his LDH currently is down to 1434 and his CRP level is down to 20.2. Rest of the blood work and electrodes are all within normal limits. His white cell count currently is at 9.2 with hemoglobin of 11.5. The patient is receiving enteral feeding for nutritional support and is currently on vital high protein at 20 mL an hour and is able to tolerate the diet and he has had regular bowel movements. No abdominal distention. No emesis. No other significant events overnight. Active issues for now is unwilling respiratory failure and extensive subcutaneous emphysema that is involved as a complication of Covid 19 related pneumonia and respiratory failure. Objective - Vital Signs Vital signs: Vital Signs Temp 98.6 F 01/11/21 08:00 Pulse 95 01/11/21 08:00 Resp 26 H 01/11/21 08:00 BP 115/66 01/11/21 08:00 Pulse Ox 95 01/11/21 08:00 Intake & Output 01/10/21 01/11/21 01/11/21 18:59 06:59 18:59 Intake Total 949.715 897.401 166.025 Output Total 1605 1110 450 Balance -655.285 -212.599 -283.975 Weight 92.7 kg 93.2 kg Intake: IV 320 220 40 Sodium Chloride 0.9% 1, 320 220 40 000 ml @ 10 mls/hr IV . Q24H [facility] Rx#:[id number] Intake, IV Titration 449.715 437.401 36.025 Amount Cisatracurium 200 mg In 27.753 59.236 19.244 Sodium Chloride 0.9% 180 ml @ 1 MCG/KG/MIN 5.346 mls/hr IV .Q24H [facility] Rx#: [id number] Norepinephrine 4 mg In 69.140 Sodium Chloride 0.9% 250 ml @ 0.05 MCG/KG/MIN 16. 974 mls/hr IV .[id number] [facility] Rx#:[id number] fentaNYL (PF) 1,000 mcg 105.346 50.267 16.781 In Sodium Chloride 0.9% 80 ml @ Per Protocol IV . Q0M [facility] Rx#:[id number] propofoL 1,000 mg In 316.616 258.758 Empty Bag 1 bag @ Titrate IV .Q0M [facility] Rx#: [id number] Tube Feeding 180 180 60 Other 60 30 Output: Chest Tube Drainage 20 15 Chest Tube Right 20 15 Urine 1585 1095 450 Other: Voiding Method Indwelling Catheter Indwelling Catheter Indwelling Catheter ABP, PAP, CO, CI - Last Documented Arterial Blood Pressure 124/55 - Exam General: Ill appearing, sedated, paralyzed, subcutaneous emphysema involving the chest, neck, face, the orogastric and orotracheal tube are both in place. The emphysema is slightly getting worse in the patient's extending his subcutaneous emphysema to the face and the neck and the chest and arms. Remains intubated on mechanical ventilator. He remains paralyzed. The patient is a triple-lumen catheter in his left subclavian. Examination of the skin revealed no evidence of significant rashes, suspicious appearing nevi or other concerning lesions. Head: atraumatic, normocephalic, symmetric Eyes: EOMI, no lid lag, anicteric sclera, pupils equal round reactive to light ENT: Nose and ears atraumatic, no thrush, no pharyngeal erythema Neck: No thyromegaly, no cervical lymphadenopathy, trachea midline, supple Mouth: no lip lesion, mucus membranes dry Cardiovascular: S1S2 tachycardic without murmur, positive posterior tibial pulse bilateral, no edema, capillary refill less than 2 seconds Lungs: Coarse and diminished breath sounds bilateral without significant wheezing, + sternal retractions, she has diffuse crackles bilaterally. Patient has subcutaneous emphysema bilaterally over the chest. The patient also has a right-sided chest tube in place and exit site is dry clean and intact. Abdominal: soft, nontender to palpation, no guarding, no appreciable organomega ly, normal bowel sounds Examination of the extremities revealed easily palpable radial, femoral and pedal pulses. There was no cyanosis, clubbing or edema. Neuro: The patient is sedated and paralyzed for now. Motor function cannot be assessed. - Labs CBC & Chem 7: 01/11/21 04:05 01/11/21 05:07 Labs: Abnormal Lab Results - Last 24 Hours (Table) 01/10/21 01/10/21 01/10/21 Range/Units 04:25 11:33 17:23 RBC (4.30-5.90) m/uL Hgb (13.0-17.5) gm/dL Hct (39.0-53.0) % Neutrophils # (1.3-7.7) k/uL Lymphocytes # (1.0-4.8) k/uL D-Dimer (<0.60) mg/L FEU ABG pH (7.35-7.45) ABG pCO2 (35-45) mmHg ABG pO2 (83-108) mmHg ABG Total CO2 (19-24) mmol/L Potassium (3.5-5.1) mmol/L Chloride (98-107) mmol/L BUN (9-20) mg/dL Glucose (74-99) mg/dL POC Glucose (mg/dL) 132 H 189 H (75-99) mg/dL Ionized Calcium Trevor (4.5-5.3) mg/dL Ferritin 1215.9 H (22.0-322.0) ng/mL Lactate Dehydrogenase (313-618) U/L Creatine Kinase (55-170) U/L C-Reactive Protein (<10.0) mg/L Total Protein (6.3-8.2) g/dL Albumin (3.5-5.0) g/dL 01/10/21 01/11/21 01/11/21 Range/Units 23:53 04:05 04:05 RBC 3.72 L (4.30-5.90) m/uL Hgb 11.5 L D (13.0-17.5) gm/dL Hct 34.6 L (39.0-53.0) % Neutrophils # 8.1 H (1.3-7.7) k/uL Lymphocytes # 0.1 L (1.0-4.8) k/uL D-Dimer 6.91 H (<0.60) mg/L FEU ABG pH (7.35-7.45) ABG pCO2 (35-45) mmHg ABG pO2 (83-108) mmHg ABG Total CO2 (19-24) mmol/L Potassium (3.5-5.1) mmol/L Chloride (98-107) mmol/L BUN (9-20) mg/dL Glucose (74-99) mg/dL POC Glucose (mg/dL) 207 H (75-99) mg/dL Ionized Calcium Trevor (4.5-5.3) mg/dL Ferritin (22.0-322.0) ng/mL Lactate Dehydrogenase (313-618) U/L Creatine Kinase (55-170) U/L C-Reactive Protein (<10.0) mg/L Total Protein (6.3-8.2) g/dL Albumin (3.5-5.0) g/dL 01/11/21 01/11/21 01/11/21 Range/Units 05:07 05:29 05:51 RBC (4.30-5.90) m/uL Hgb (13.0-17.5) gm/dL Hct (39.0-53.0) % Neutrophils # (1.3-7.7) k/uL Lymphocytes # (1.0-4.8) k/uL D-Dimer (<0.60) mg/L FEU ABG pH 7.21 L (7.35-7.45) ABG pCO2 63 H (35-45) mmHg ABG pO2 82 L (83-108) mmHg ABG Total CO2 27 H (19-24) mmol/L Potassium 5.8 H (3.5-5.1) mmol/L Chloride 112 H (98-107) mmol/L BUN 47 H (9-20) mg/dL Glucose 264 H (74-99) mg/dL POC Glucose (mg/dL) 226 H (75-99) mg/dL Ionized Calcium Trevor 5.6 H (4.5-5.3) mg/dL Ferritin (22.0-322.0) ng/mL Lactate Dehydrogenase 1434 H (313-618) U/L Creatine Kinase 33 L (55-170) U/L C-Reactive Protein 20.2 H (<10.0) mg/L Total Protein 5.4 L (6.3-8.2) g/dL Albumin 2.7 L (3.5-5.0) g/dL Microbiology - Last 24 Hours (Table) 01/04/21 16:08 Blood Culture - Final Blood No Growth after 144 hours 01/04/21 16:15 Blood Culture - Final Blood No Growth after 144 hours 01/09/21 15:45 Gram Stain - Preliminary Sputum Sputum Culture - Preliminary Assessment and Plan Plan: 1 acute hypoxic respiratory failure secondary to COVID 19 related pneumonia, /ARDS and the patient is currently intubated on a mechanical ventilator. Post i ntubation, the patient peak pressure extensively and the patient developed bilateral subcutaneous emphysema and pneumomediastinum and the patient also has a small right apical pneumothorax. The patient was sedated. The patient was paralyzed. The right-sided chest tube was inserted. The air leak is intermittent in the right-sided chest tube. The patient developed subcutaneous emphysema which is quite extensive yet it has not affected hour ability to ventilate and oxygenate the patient. The patient on low tidal volume ventilation and we are allowing permissive hypercapnia and a pH of 7.21 with a pCO2 of 63. Airway pressures of improved considerably and the peak airway pressures around 28 with a static pressure of around 25 for now. 2 acute COVID 19 related pneumonia with secondary acute hypoxic respiratory failure. Symptoms started approximately a week ago prior to his hospital a dmission. The patient is currently being treated with a combination of Solu- Medrol and Remdesivir, day #5 and the patient also completed a course of Tocilizumab. Inflammatory markers remain quite elevated and the patient is also on Lovenox the dose will be adjusted to 45 grams subcutaneous every 12 hours 3 acute kidney injury with underlying chronic stage III kidney disease, renal function improved a renal function is improving and creatinine is down to 1.06 4 diabetes mellitus type 2, maintained on Levemir insulin outpatient basis, then 25 units of Levemir on a daily basis plus a sliding scale coverage. 5 hypertension history of 6 hyperlipidemia 7 mild lactic acidosis 8 acid reflux 9 osteoarthritis 10 Gout 11 history of nephrolithiasis 12 acute small right-sided pneumothorax with development of bilateral subcutaneous emphysema most likely secondary to barotrauma induced by high airway pressure/mechanical ventilation in a patient with pneumonia/ARDS. No Evidence of any tension. The patient is hemodynamically stable. Oxygenation is appropriate for now. There is extensive subcutaneous emphysema and intermittent air leak and the right-sided chest tube. No pneumothorax. Plan Keep sedation with a combination of propofol and fentanyl Attempt to wean off the paralytics and discontinue Wean down the FiO2 down to 60% and work the way down to maintain a saturation ab ove 90% Continue the same treatment steroids and switch patient to IV solumedrol 60mg Q 6 and Remdesivir has been completed continue vent support at the same vent setting and allow permissive hypercapnia. The airway pressures of dropped considerably Deep the right-sided chest tube Tocilizumab was also given regarding his acute hypoxic respiratory failure Monitor inflammatory markers Lovenox 45 mg subcu every 12 hours Renal function is stable Repeat chest x-ray in a.m. Enteral feeding for nutritional support Blood sugar management, currently on Levemir insulin 25 units along with a sliding scale coverage Keep in ICU, critically care evaluation was done and more than 30 minutes. Time with Patient: Greater than 30
[2021-01-11] MEDS: lisinopriL 20 MG TAB PO SCH (10:20)
--- NOTE | 2021-01-11 10:25 | P.PN ---
Subjective Progress Note Date: 01/11/21 Patient is sedated and intubated. He developed extensive subcutaneous emphysema extending from the right chest and shoulder to his face. Patient has a chest tube in place. ICU team following closely. Vent management ICU team. Nursing staff informed me that patient does not have the clonidine patch as ordered. Blood pressure within acceptable range. Objective - Vital Signs Vital signs: Vital Signs Temp 98.6 F 01/11/21 08:00 Pulse 89 01/11/21 10:00 Resp 26 H 01/11/21 10:00 BP 117/66 01/11/21 10:00 Pulse Ox 97 01/11/21 10:00 Intake & Output 01/10/21 01/11/21 01/11/21 18:59 06:59 18:59 Intake Total 949.715 897.401 166.025 Output Total 1605 1110 450 Balance -655.285 -212.599 -283.975 Weight 92.7 kg 93.2 kg Intake: IV 320 220 40 Sodium Chloride 0.9% 1, 320 220 40 000 ml @ 10 mls/hr IV . Q24H [facility] Rx#:[id number] Intake, IV Titration 449.715 437.401 36.025 Amount Cisatracurium 200 mg In 27.753 59.236 19.244 Sodium Chloride 0.9% 180 ml @ 1 MCG/KG/MIN 5.346 mls/hr IV .Q24H [facility] Rx#: [id number] Norepinephrine 4 mg In 69.140 Sodium Chloride 0.9% 250 ml @ 0.05 MCG/KG/MIN 16. 974 mls/hr IV .[id number] [facility] Rx#:[id number] fentaNYL (PF) 1,000 mcg 105.346 50.267 16.781 In Sodium Chloride 0.9% 80 ml @ Per Protocol IV . Q0M [facility] Rx#:[id number] propofoL 1,000 mg In 316.616 258.758 Empty Bag 1 bag @ Titrate IV .Q0M [facility] Rx#: [id number] Tube Feeding 180 180 60 Other 60 30 Output: Chest Tube Drainage 20 15 Chest Tube Right 20 15 Urine 1585 1095 450 Other: Voiding Method Indwelling Catheter Indwelling Catheter Indwelling Catheter ABP, PAP, CO, CI - Last Documented Arterial Blood Pressure 127/58 - Exam General: The patient is sedated and intubated. There is extensive subcutaneous emphysema extending from the right shoulder/chest up to the face and periorbital area Eye: there is normal conjunctiva bilaterally. Neck: The neck is supple, there is no JVD. Cardiovascular: Normal S1-S2, no S3-S4, no murmurs. Respiratory: Lungs with mechanical ventilator sounds Gastrointestinal: Abdomen is soft, nontender Musculoskeletal: There is no pedal edema. Skin: Skin is warm and dry - Labs CBC & Chem 7: 01/11/21 04:05 01/11/21 05:07 Labs: Abnormal Lab Results - Last 24 Hours (Table) 01/10/21 01/10/21 01/10/21 Range/Units 11:33 17:23 23:53 RBC (4.30-5.90) m/uL Hgb (13.0-17.5) gm/dL Hct (39.0-53.0) % Neutrophils # (1.3-7.7) k/uL Lymphocytes # (1.0-4.8) k/uL D-Dimer (<0.60) mg/L FEU ABG pH (7.35-7.45) ABG pCO2 (35-45) mmHg ABG pO2 (83-108) mmHg ABG Total CO2 (19-24) mmol/L Potassium (3.5-5.1) mmol/L Chloride (98-107) mmol/L BUN (9-20) mg/dL Glucose (74-99) mg/dL POC Glucose (mg/dL) 132 H 189 H 207 H (75-99) mg/dL Ionized Calcium Trevor (4.5-5.3) mg/dL Ferritin (22.0-322.0) ng/mL Lactate Dehydrogenase (313-618) U/L Creatine Kinase (55-170) U/L C-Reactive Protein (<10.0) mg/L Total Protein (6.3-8.2) g/dL Albumin (3.5-5.0) g/dL 01/11/21 01/11/21 01/11/21 Range/Units 04:05 04:05 05:07 RBC 3.72 L (4.30-5.90) m/uL Hgb 11.5 L D (13.0-17.5) gm/dL Hct 34.6 L (39.0-53.0) % Neutrophils # 8.1 H (1.3-7.7) k/uL Lymphocytes # 0.1 L (1.0-4.8) k/uL D-Dimer 6.91 H (<0.60) mg/L FEU ABG pH (7.35-7.45) ABG pCO2 (35-45) mmHg ABG pO2 (83-108) mmHg ABG Total CO2 (19-24) mmol/L Potassium 5.8 H (3.5-5.1) mmol/L Chloride 112 H (98-107) mmol/L BUN 47 H (9-20) mg/dL Glucose 264 H (74-99) mg/dL POC Glucose (mg/dL) (75-99) mg/dL Ionized Calcium Trevor 5.6 H (4.5-5.3) mg/dL Ferritin 1185.4 H (22.0-322.0) ng/mL Lactate Dehydrogenase 1434 H (313-618) U/L Creatine Kinase 33 L (55-170) U/L C-Reactive Protein 20.2 H (<10.0) mg/L Total Protein 5.4 L (6.3-8.2) g/dL Albumin 2.7 L (3.5-5.0) g/dL 01/11/21 01/11/21 Range/Units 05:29 05:51 RBC (4.30-5.90) m/uL Hgb (13.0-17.5) gm/dL Hct (39.0-53.0) % Neutrophils # (1.3-7.7) k/uL Lymphocytes # (1.0-4.8) k/uL D-Dimer (<0.60) mg/L FEU ABG pH 7.21 L (7.35-7.45) ABG pCO2 63 H (35-45) mmHg ABG pO2 82 L (83-108) mmHg ABG Total CO2 27 H (19-24) mmol/L Potassium (3.5-5.1) mmol/L Chloride (98-107) mmol/L BUN (9-20) mg/dL Glucose (74-99) mg/dL POC Glucose (mg/dL) 226 H (75-99) mg/dL Ionized Calcium Trevor (4.5-5.3) mg/dL Ferritin (22.0-322.0) ng/mL Lactate Dehydrogenase (313-618) U/L Creatine Kinase (55-170) U/L C-Reactive Protein (<10.0) mg/L Total Protein (6.3-8.2) g/dL Albumin (3.5-5.0) g/dL Microbiology - Last 24 Hours (Table) 01/04/21 16:08 Blood Culture - Final Blood No Growth after 144 hours 01/04/21 16:15 Blood Culture - Final Blood No Growth after 144 hours 01/09/21 15:45 Gram Stain - Preliminary Sputum Sputum Culture - Preliminary Assessment and Plan Assessment: Patient is a 70 yo CM with a hx of DM2 well controlled on insulin and oral medications, HTN, HLD, and CAD with hx of PCI X 1 who presented to the ED due to extreme fatigue. He started having COVID symptoms of COVID 7 days ago and was tested and confirmed positive. Chest x-ray on presentation showed diffuse interstitial infiltrates. Patient was admitted to the hospital for the ongoing management of his medical problems noted below COVID 19 pneumonitis with acute hypoxic respiratory failure -Pulmonary recs: Remdesivir, Decadron day #7 switched to IV Solu-Medrol by pulmonology - Actemra administered during this admission - Patient respiratory status declined and required intubation and mechanical intubation on 01/09. Vent management by ICU team. -Zinc, vitamin C, vitamin D -Follow inflammatory markers Right apical pneumothorax with extensive subcutaneous emphysema -Status post chest tube insertion. Managed by ICU team Acute kidney injury on Chronic kidney disease stage III, hyponatremia, metabolic acidosis, suspect secondary to dehydration -Resolved with IV fluid hydration. DM 2, well controlled - SSI, Levemir - A1C 7.8 Hypertension, controlled -Blood pressure within acceptable range Hyperkalemia -Kayexalate ordered Dyslipidemia -Statin therapy GERD -H2 kaushik Lactic acidosis, resolved PK eyes, resolved Today, I reviewed his medication list and lab work results Vent and chest tube management and sedation management by ICU team Increased tube feeding rate 10 mL per hour every 6 hours for a goal of 40 mL per hour repeat lab work in the morning Patient remained in critical condition Family members updated on a regular basis DVT prophylaxis: Lovenox Discussed with: Patient, nursing, Anticipated discharge date: Pending clinical course Anticipated discharge place: To be determined A total of 35 minutes was spent on the care of this complex patient more than 50% of the time was spent in counseling and care coordination.
[2021-01-11] MEDS: NOREPINEPHRINE 4 MG in SODIUM CHLORIDE 0.9% 250 ML IV SCH (11:18)
[2021-01-11 12:21] LABS: Glucose,Whole Blood 231 mg/dL (75-99)
[2021-01-11 17:16] LABS: Glucose,Whole Blood 241 mg/dL (75-99)
[2021-01-11] MEDS: ATORVASTATIN 20 MG TAB PO SCH (20:28)
[2021-01-11] MEDS: INSULIN DETEMIR (LEVEMIR) 100 UNIT/ML SYR SQ SCH (20:32)
[2021-01-11 23:50] LABS: Glucose,Whole Blood 292 mg/dL (75-99)
[2021-01-12] MEDS: INSULIN ASPART (NovoLOG) 100 UNIT/ML VIAL SQ SCH ×4 (00:08→18:16)
[2021-01-12] MEDS: methylPREDNISolone SOD SUCCI 125 MG/2 ML VIAL IV SCH ×4 (00:08→18:16)
[2021-01-12] MEDS: ARTIFICIAL TEARS-HYPROMELLOSE DROPS 15 ML BTL BOTH EYES SCH ×6 (00:08→20:20)
[2021-01-12] MEDS: fentaNYL (PF) 1,000 MCG in SODIUM CHLORIDE 0.9% 80 ML IV SCH (02:37)
[2021-01-12 04:00] LABS: ABG PCO2 51 mmHg (35-45); ABG PH 7.34 (7.35-7.45); Allen Test Performed? Yes
[2021-01-12 04:01] LABS: ABG HCO3 28 mmol/L (21-25); ABG PO2 59 mmHg (83-108); ABG TCO2 29 mmol/L (19-24); Basophils % (A) 0 %; Eosinophils # (A) 0.1 k/uL (0-0.7); Eosinophils % (A) 1 %; HCT 44.8 % (39.0-53.0); Lymphocytes # (A) 0.2 k/uL (1.0-4.8); Lymphocytes % (A) 3 %; MCH 30.6 pg (25.0-35.0); MCHC 33.3 g/dL (31.0-37.0); MCV 91.9 fL (80.0-100.0); Mean Platelet Volume 7.6; Monocytes # (A) 0.2 k/uL (0-1.0); Monocytes % (A) 3 %; Neutrophils # (A) 5.7 k/uL (1.3-7.7); Neutrophils % (A) 93 %; Platelet Count 296 k/uL (150-450); RBC 4.87 m/uL (4.30-5.90); RDW 13.9 % (11.5-15.5); WBC 6.2 k/uL (3.8-10.6)
[2021-01-12 04:02] LABS: ABG Base Excess 1.9 mmol/L
[2021-01-12 04:18] LABS: Albumin 2.5 g/dL (3.5-5.0); C Reactive Protein 11.3 mg/L (<10.0); Calcium 8.9 mg/dL (8.4-10.2); Potassium 5.3 mmol/L (3.5-5.1); Total Bilirubin 0.7 mg/dL (0.2-1.3)
[2021-01-12] MEDS: NOREPINEPHRINE 4 MG in SODIUM CHLORIDE 0.9% 250 ML IV SCH ×2 (04:24→19:57)
[2021-01-12 04:30] LABS: HGB 14.9 gm/dL (13.0-17.5)
[2021-01-12 05:47] LABS: Glucose,Whole Blood 246 mg/dL (75-99)
[2021-01-12] MEDS: SODIUM CHLORIDE 0.9% 1,000 ML IV SCH (05:50)
[2021-01-12] MEDS: ALBUTEROL HFA INHALER INHALATION SCH ×4 (07:06→21:40)
[2021-01-12] MEDS: HYDROmorphone 1 MG/ML 1 ML SYRINGE IVP PRN (08:00)
--- NOTE | 2021-01-12 08:23 | XR ---
EXAMINATION TYPE: XR chest 1V portable DATE OF EXAM: 01/12/2021 COMPARISON: 01/11/2021 HISTORY: SOB, Follow Up FINDINGS: Indwelling tubes and catheters are unchanged. Right basilar chest tube is in place. Suspect tiny right apical pneumothorax. Extensive subcutaneous emphysema noted unchanged from prior study. Stable appearance of the cardio-mediastinal structures at this time. Pleural effusion unchanged. IMPRESSION: 1. Stable portable chest. Clinical correlation and follow up until resolution is recommended.
[2021-01-12] MEDS: CHLORHEXIDINE GLUCONATE 15 ML CUP MUCOUS MEM SCH ×2 (09:08→19:55)
[2021-01-12] MEDS: lisinopriL 20 MG TAB PO SCH (09:35)
[2021-01-12] MEDS: FAMOTIDINE 20 MG/2 ML VIAL IV SCH ×2 (09:35→19:55)
[2021-01-12] MEDS: ASCORBIC ACID 500 MG TAB PO SCH (09:36)
[2021-01-12] MEDS: CHOLECALCIFEROL 25 MCG (1000 IU) TABLET PO SCH (09:36)
[2021-01-12] MEDS: METOPROLOL TARTRATE 25 MG TAB PO SCH ×2 (09:36→19:55)
[2021-01-12] MEDS: ZINC SULFATE 220 MG CAP PO SCH (09:36)
[2021-01-12] MEDS: ENOXAPARIN 60 MG/0.6 ML SYRINGE SQ SCH ×2 (09:37→19:55)
[2021-01-12] MEDS: ASPIRIN 81 MG PO SCH (09:39)
[2021-01-12 10:01] LABS: Ferritin 1101.8 ng/mL (22.0-322.0)
--- NOTE | 2021-01-12 11:28 | P.PN ---
Subjective Progress Note Date: 01/12/21 Principal diagnosis: Acute hypoxic respiratory failure secondary to acute covid 19 pneumonitis. 70-year-old male patient, known history of diabetes mellitus maintained on insulin in addition to history of hypertension, hyperlipidemia, coronary artery disease and previous history of PCI, presented to the emergency department because of increased fatigue and tiredness. The patient was infected with Covid 19 and the testing by PCR came back positive. The patient started having symptoms of infection approximately 7 days ago and his tests confirmed positive. The test was positive on 12/27/2020. The patient's complaints were essentially those of body aches, feeling weak and tired and he was warm and he was probably having fevers. He was significantly fatigued and he was unable to do even simple stuff at home. He reported poor appetite. No loss in the taste or smell . He had no significant cough. He denies having any significant shortness of breath. No headaches. No nasal congestion. No nausea or vomiting. Upon arrival to the emergency department, the patient was profoundly hypoxic and the pulse ox was around 82% and the patient was also tachypneic and tachycardic. He was initially started on oxygen at 10 L per minute nasal cannula and subsequently the oxygen flow was brought up to 15 L and he continued to be hypoxic. At that point, the patient was switched to BiPAP at a pressure of 10/5 and FiO2 of 100%. The patient had further blood work that showed an LDH level of 2287, CRP of 170, lactic acid level of 2.4, serum bicarb of 18, the BUN was 37 with a creatinine of 1.7. The blood gas on 100% FiO2 showed a pH of 7.4 with a pCO2 of 27 and pO2 of 62. The chest x-ray showed diffuse but the pulmonary infiltrates. At that point, the patient was admitted to the intensive care unit and the patient was supported with BiPAP. The patient is currently on IV Decadron. The patient was also started on Remdesivir per protocol. The patient is on Lovenox 40 mg subcu every 24 hours for a d-dimer of 1.17 and the time of admission. The patient this morning was transitioned to oxygen at 15 L high flow and he is able to maintain a saturation above 90%. He remains in normal sinus rhythm. He is awake and alert. His chest x-ray showing bilateral pulmonary infiltrates was in the lung bases bilaterally. He is off the BiPAP for now. D-dimer is at 1.88 from today. His LDH is down to 1952 and the pro- calcitonin level was 0.3, LFTs were minimally elevated secondary to Covid 19. CRP is down to 158. He is currently on the same treatment including Decadron and Remdesivir day #2 01/11/2021 the patient is being seen in follow-up. The patient is currently intubated on a mechanical ventilator. The patient is a case of Covid associated pneumonia with secondary respiratory failure. Note that because of stiff lungs and elevated airway pressures, the patient developed barotrauma and subsequently he developed a small right-sided pneumothorax and he was developing extensive subcutaneous emphysema as the patient was developing increased swelling in his face neck and chest throughout the day yesterday. As such, I inserted a chest tube on him yesterday and a 28-Maltese chest tube was inserted into the right lung without any complications. The patient's currently is sedated with propofol which is running at 35 mcg/kg per minute. The patient is also on Nimbex running at 0.8 mcg/kg per minute and the patient is also on fentanyl are running at 0.8 Arnie respiratory kilogram per hour. As such, the patient has been adequately sedated and adequately paralyzed and the patient is quite synchronous with the mechanical ventilator. The patient is currently on a assist-control mode of ventilation, volume cycle with a rate of 26 and a tidal volume of 400 and FiO2 of 80% with a PEEP of 8. The blood periods from today shows a pH of 7.21 with a pCO2 of 63 and pO2 of 82. The patient's peak airway pressure is 28 with a static pressure of 28. Overnight, his subcutaneous emphysema has gotten significantly worse. Nevertheless, he doesn't have any pneumothorax. The right-sided chest tube is still in place. The patient has developed extensive subcutaneous emphysema bilaterally extending to his neck and the face and upper extremities in the chest. Orotracheal tube is in a good location. NG tube is also in a good location. The patient is on IV Solu-Medrol at 60 mg every 6 hours. In terms of his Covid 19 related pneumonia, his air d- dimer is at 6.91, his LDH currently is down to 1434 and his CRP level is down to 20.2. Rest of the blood work and electrodes are all within normal limits. His white cell count currently is at 9.2 with hemoglobin of 11.5. The patient is receiving enteral feeding for nutritional support and is currently on vital high protein at 20 mL an hour and is able to tolerate the diet and he has had regular bowel movements. No abdominal distention. No emesis. No other significant events overnight. Active issues for now is unwilling respiratory failure and extensive subcutaneous emphysema that is involved as a complication of Covid 19 related pneumonia and respiratory failure. Reevaluated today on 01/12/2021, patient remains in the ICU, patient is on mechanical ventilation, assist control rate of 26, tidal volume is 400, FiO2 is 70%, and PEEP is 10. Patient is on propofol at 20 mcg/kg/m, norepinephrine at 0.02 mcg/kg/m. On Nimbex at 0.2 mcg/kg/m. And he is also on fentanyl. FiO2 w as decreased down to 65%, chest x-ray showed bilateral infiltrates cannot significant subcutaneous emphysema. Right-sided chest tube is noted to have some air leak, remains on suction. Very minimal right apical pneumothorax suspected, however chest tube remains in place. The cecum and is 6.2 hemoglobin 14.9. ABG today showed a pO2 of 59 pCO2 of 51 pH of 7.34 d-dimer is 3.51 BUN is 57 creatinine 1.14. LDH is 1158 and C-reactive protein is 11.3. Patient is on enteral feeding. Remains on Solu-Medrol 60 mg IV push every 6 hours. Objective - Vital Signs Vital signs: Vital Signs Temp 97.1 F L 01/12/21 08:00 Pulse 81 01/12/21 11:00 Resp 26 H 01/12/21 11:00 BP 94/57 01/12/21 11:00 Pulse Ox 93 L 01/12/21 11:00 Intake & Output 01/11/21 01/12/21 01/12/21 18:59 06:59 18:59 Intake Total 0605.980 5958.641 428.625 Output Total 1700 850 365 Balance -557.819 157.641 63.625 Weight 93.2 kg Intake: IV 442 220 80 Sodium Chloride 0.9% 1, 442 220 80 000 ml @ 10 mls/hr IV . Q24H ON LICENSE OF [facility] Rx#:[id number] Intake, IV Titration 350.181 317.641 118.625 Amount Cisatracurium 200 mg In 45.260 9.143 9.799 Sodium Chloride 0.9% 180 ml @ 1 MCG/KG/MIN 5.346 mls/hr IV .Q24H [facility] Rx#: [id number] Norepinephrine 4 mg In 8.826 Sodium Chloride 0.9% 250 ml @ 0.05 MCG/KG/MIN 16. 974 mls/hr IV .[id number] [facility] Rx#:[id number] fentaNYL (PF) 1,000 mcg 36.974 30.16 In Sodium Chloride 0.9% 80 ml @ Per Protocol IV . Q0M [facility] Rx#:[id number] propofoL 1,000 mg In 267.947 278.338 100.000 Empty Bag 1 bag @ Titrate IV .Q0M [facility] Rx#: [id number] Tube Feeding 320 380 200 Other 30 90 30 Output: Chest Tube Drainage 25 Chest Tube Right 25 Urine 1700 825 365 Other: Voiding Method Indwelling Catheter Indwelling Catheter ABP, PAP, CO, CI - Last Documented Arterial Blood Pressure 103/53 - Exam General: Revealed a 70-year-old white male on mechanical ventilation, on multiple drips as noted above. Patient is noted to have subcutaneous emphysema in the chest wall area and in the neck area. Head: atraumatic, normocephalic, symmetric Eyes: EOMI, anicteric sclera, pupils equal round reactive to light and orogastric tube and endotracheal tube are intact. ENT: Nose and ears atraumatic, no thrush, no pharyngeal erythema Neck: No neck masses no JVD no stridor but there is evidence of subcutaneous e mphysema Mouth: Moist mucous membranes. Cardiovascular: Normal S1 and S2, no S3 gallop. Lungs: Fine crackles at the bases bilaterally, subcutaneous emphysema is palpable. And crepitation noted. Abdominal: Soft nontender no megaly no rebound. extremities no clubbing edema or cyanosis. Neuro: Cannot fully assess patient is sedated and paralyzed Psychiatric: Could not assess - Labs CBC & Chem 7: 01/12/21 03:50 01/12/21 03:50 Labs: Abnormal Lab Results - Last 24 Hours (Table) 01/11/21 01/11/21 01/11/21 Range/Units 12:20 17:15 23:49 Lymphocytes # (1.0-4.8) k/uL D-Dimer (<0.60) mg/L FEU ABG pH (7.35-7.45) ABG pCO2 (35-45) mmHg ABG pO2 (83-108) mmHg ABG HCO3 (21-25) mmol/L ABG Total CO2 (19-24) mmol/L ABG O2 Saturation (94-97) % Potassium (3.5-5.1) mmol/L Chloride (98-107) mmol/L BUN (9-20) mg/dL Glucose (74-99) mg/dL POC Glucose (mg/dL) 231 H 241 H 292 H (75-99) mg/dL Ferritin (22.0-322.0) ng/mL Lactate Dehydrogenase (313-618) U/L C-Reactive Protein (<10.0) mg/L Total Protein (6.3-8.2) g/dL Albumin (3.5-5.0) g/dL 01/12/21 01/12/21 01/12/21 Range/Units 03:50 03:50 03:50 Lymphocytes # 0.2 L (1.0-4.8) k/uL D-Dimer (<0.60) mg/L FEU ABG pH 7.34 L (7.35-7.45) ABG pCO2 51 H (35-45) mmHg ABG pO2 59 L* (83-108) mmHg ABG HCO3 28 H (21-25) mmol/L ABG Total CO2 29 H (19-24) mmol/L ABG O2 Saturation 90.0 L (94-97) % Potassium 5.3 H (3.5-5.1) mmol/L Chloride 111 H (98-107) mmol/L BUN 57 H (9-20) mg/dL Glucose 276 H (74-99) mg/dL POC Glucose (mg/dL) (75-99) mg/dL Ferritin 1101.8 H (22.0-322.0) ng/mL Lactate Dehydrogenase 1158 H (313-618) U/L C-Reactive Protein 11.3 H (<10.0) mg/L Total Protein 5.0 L (6.3-8.2) g/dL Albumin 2.5 L (3.5-5.0) g/dL 03/29/21 03/29/21 Range/Units 03:50 05:45 Lymphocytes # (1.0-4.8) k/uL D-Dimer 3.51 H (<0.60) mg/L FEU ABG pH (7.35-7.45) ABG pCO2 (35-45) mmHg ABG pO2 (83-108) mmHg ABG HCO3 (21-25) mmol/L ABG Total CO2 (19-24) mmol/L ABG O2 Saturation (94-97) % Potassium (3.5-5.1) mmol/L Chloride (98-107) mmol/L BUN (9-20) mg/dL Glucose (74-99) mg/dL POC Glucose (mg/dL) 246 H (75-99) mg/dL Ferritin (22.0-322.0) ng/mL Lactate Dehydrogenase (313-618) U/L C-Reactive Protein (<10.0) mg/L Total Protein (6.3-8.2) g/dL Albumin (3.5-5.0) g/dL Microbiology - Last 24 Hours (Table) 01/09/21 15:45 Gram Stain - Final Sputum Sputum Culture - Preliminary Assessment and Plan Assessment: Impression: Acute hypoxic respiratory failure with ARDS secondary to acute covid 19 pneumonitis. Remains intubated and mechanically ventilated. Acute right sided pneumothorax, most likely secondary to barotrauma secondary to mechanical ventilation. Required the right-sided chest tube placement, continues to have some pneumothorax and air leak. Acute kidney injury with history of chronic kidney disease stage III, improving. Type 2 diabetes on insulin Benign essential hypertension. Dyslipidemia. Degenerative joint disease. Degenerative joint disease. Recommendation: Continue ventilatory support. Continue sedation, keep off paralytics if possible. Continue enteral feeding. Continue chest tube to suction. Received actemra Continue Lovenox 45 mg subcu every 12 hours. Monitor daily x-rays of the chest. Continue GI and DVT prophylaxis. Continue to monitor sugars and treat accordingly. No plans to address weaning at this point since the patient remains quite ill and requiring significant FiO2 based on the ventilator settings and ABG at present. Prognosis remains extremely poor and guarded, Critical care time is over 30 minutes. Time with Patient: Greater than 30
[2021-01-12 11:56] LABS: Glucose,Whole Blood 258 mg/dL (75-99)
--- NOTE | 2021-01-12 15:03 | P.PN ---
Subjective Progress Note Date: 01/12/21 Patient is sedated and intubated. Patient has a chest tube in place. ICU team following closely. Vent management ICU team. Blood glucose not well controlled. Objective - Vital Signs Vital signs: Vital Signs Temp 98.3 F 01/12/21 12:00 Pulse 86 01/12/21 14:00 Resp 30 H 01/12/21 14:00 BP 116/73 01/12/21 14:00 Pulse Ox 93 L 01/12/21 14:00 Intake & Output 01/11/21 01/12/21 01/12/21 18:59 06:59 18:59 Intake Total 6469.001 2238.641 786.521 Output Total 1700 850 586 Balance -557.819 157.641 200.521 Weight 93.2 kg Intake: IV 442 220 110 Sodium Chloride 0.9% 1, 442 220 110 000 ml @ 10 mls/hr IV . Q24H [facility] Rx#:[id number] Intake, IV Titration 350.181 317.641 296.521 Amount Cisatracurium 200 mg In 45.260 9.143 16.009 Sodium Chloride 0.9% 180 ml @ 1 MCG/KG/MIN 5.346 mls/hr IV .Q24H [facility] Rx#: [id number] Norepinephrine 4 mg In 80.512 Sodium Chloride 0.9% 250 ml @ 0.05 MCG/KG/MIN 16. 974 mls/hr IV .[id number] [facility] Rx#:[id number] fentaNYL (PF) 1,000 mcg 36.974 30.16 In Sodium Chloride 0.9% 80 ml @ Per Protocol IV . Q0M [facility] Rx#:[id number] propofoL 1,000 mg In 267.947 278.338 200.000 Empty Bag 1 bag @ Titrate IV .Q0M [facility] Rx#: [id number] Tube Feeding 320 380 320 Other 30 90 60 Output: Chest Tube Drainage 25 51 Chest Tube Right 25 51 Urine 1700 825 535 Other: Voiding Method Indwelling Catheter Indwelling Catheter Indwelling Catheter ABP, PAP, CO, CI - Last Documented Arterial Blood Pressure 122/59 - Exam General: The patient is sedated and intubated. There is extensive subcutaneous emphysema extending from the right shoulder/chest up to the face and periorbital area Eye: there is normal conjunctiva bilaterally. Neck: The neck is supple, there is no JVD. Cardiovascular: Normal S1-S2, no S3-S4, no murmurs. Respiratory: Lungs with mechanical ventilator sounds Gastrointestinal: Abdomen is soft, nontender Musculoskeletal: There is no pedal edema. Skin: Skin is warm and dry - Labs CBC & Chem 7: 01/12/21 03:50 01/12/21 03:50 Labs: Abnormal Lab Results - Last 24 Hours (Table) 01/11/21 01/11/21 01/12/21 Range/Units 17:15 23:49 03:50 Lymphocytes # 0.2 L (1.0-4.8) k/uL D-Dimer (<0.60) mg/L FEU ABG pH (7.35-7.45) ABG pCO2 (35-45) mmHg ABG pO2 (83-108) mmHg ABG HCO3 (21-25) mmol/L ABG Total CO2 (19-24) mmol/L ABG O2 Saturation (94-97) % Potassium (3.5-5.1) mmol/L Chloride (98-107) mmol/L BUN (9-20) mg/dL Glucose (74-99) mg/dL POC Glucose (mg/dL) 241 H 292 H (75-99) mg/dL Ferritin (22.0-322.0) ng/mL Lactate Dehydrogenase (313-618) U/L C-Reactive Protein (<10.0) mg/L Total Protein (6.3-8.2) g/dL Albumin (3.5-5.0) g/dL 01/12/21 01/12/21 01/12/21 Range/Units 03:50 03:50 03:50 Lymphocytes # (1.0-4.8) k/uL D-Dimer 3.51 H (<0.60) mg/L FEU ABG pH 7.34 L (7.35-7.45) ABG pCO2 51 H (35-45) mmHg ABG pO2 59 L* (83-108) mmHg ABG HCO3 28 H (21-25) mmol/L ABG Total CO2 29 H (19-24) mmol/L ABG O2 Saturation 90.0 L (94-97) % Potassium 5.3 H (3.5-5.1) mmol/L Chloride 111 H (98-107) mmol/L BUN 57 H (9-20) mg/dL Glucose 276 H (74-99) mg/dL POC Glucose (mg/dL) (75-99) mg/dL Ferritin 1101.8 H (22.0-322.0) ng/mL Lactate Dehydrogenase 1158 H (313-618) U/L C-Reactive Protein 11.3 H (<10.0) mg/L Total Protein 5.0 L (6.3-8.2) g/dL Albumin 2.5 L (3.5-5.0) g/dL 01/12/21 01/12/21 Range/Units 05:45 11:55 Lymphocytes # (1.0-4.8) k/uL D-Dimer (<0.60) mg/L FEU ABG pH (7.35-7.45) ABG pCO2 (35-45) mmHg ABG pO2 (83-108) mmHg ABG HCO3 (21-25) mmol/L ABG Total CO2 (19-24) mmol/L ABG O2 Saturation (94-97) % Potassium (3.5-5.1) mmol/L Chloride (98-107) mmol/L BUN (9-20) mg/dL Glucose (74-99) mg/dL POC Glucose (mg/dL) 246 H 258 H (75-99) mg/dL Ferritin (22.0-322.0) ng/mL Lactate Dehydrogenase (313-618) U/L C-Reactive Protein (<10.0) mg/L Total Protein (6.3-8.2) g/dL Albumin (3.5-5.0) g/dL Microbiology - Last 24 Hours (Table) 01/09/21 15:45 Gram Stain - Final Sputum Sputum Culture - Preliminary Assessment and Plan Assessment: Patient is a 70 yo CM with a hx of DM2 well controlled on insulin and oral medications, HTN, HLD, and CAD with hx of PCI X 1 who presented to the ED due to extreme fatigue. He started having COVID symptoms of COVID 7 days ago and was tested and confirmed positive. Chest x-ray on presentation showed diffuse interstitial infiltrates. Patient was admitted to the hospital for the ongoing management of his medical problems noted below COVID 19 pneumonitis with acute hypoxic respiratory failure -Requiring intubation and mechanical ventilation -Pulmonary recs: Remdesivir, started on Decadron then switched to IV Solu-Medrol by pulmonology - Actemra administered during this admission - Patient respiratory status declined and required intubation and mechanical i ntubation on 01/09. Vent management by ICU team. -Zinc, vitamin C, vitamin D -Follow inflammatory markers Right apical pneumothorax with extensive subcutaneous emphysema -Status post chest tube insertion. Managed by ICU team Acute kidney injury on Chronic kidney disease stage III, hyponatremia, metabolic acidosis, suspect secondary to dehydration -Resolved with IV fluid hydration. DM 2, well controlled - SSI, Levemir dose adjusted - A1C 7.8 Hypertension, controlled -Blood pressure within acceptable range Hyperkalemia -Kayexalate ordered Dyslipidemia -Statin therapy GERD -H2 kaushik Lactic acidosis, resolved PK eyes, resolved Today, I reviewed his medication list and lab work results Vent and chest tube management and sedation management by ICU team Tube feeding rates managed by registered dietitian Patient remained in critical condition Family members updated on a regular basis DVT prophylaxis: Lovenox Discussed with: Patient, nursing, Anticipated discharge date: Pending clinical course Anticipated discharge place: To be determined A total of 35 minutes was spent on the care of this complex patient more than 50% of the time was spent in counseling and care coordination.
[2021-01-12 17:31] LABS: Glucose,Whole Blood 295 mg/dL (75-99)
[2021-01-12] MEDS: ATORVASTATIN 20 MG TAB PO SCH (19:55)
[2021-01-12] MEDS: INSULIN DETEMIR (LEVEMIR) 100 UNIT/ML SYR SQ SCH (19:57)
[2021-01-12] MEDS: CISATRACURIUM 200 MG in SODIUM CHLORIDE 0.9% 180 ML IV SCH (19:57)
[2021-01-12 23:58] LABS: Glucose,Whole Blood 308 mg/dL (75-99)
[2021-01-13] MEDS: ARTIFICIAL TEARS-HYPROMELLOSE DROPS 15 ML BTL BOTH EYES SCH ×7 (00:06→23:39)
[2021-01-13] MEDS: methylPREDNISolone SOD SUCCI 125 MG/2 ML VIAL IV SCH ×5 (00:06→23:38)
[2021-01-13] MEDS ORDERED: INSULIN ASPART (NovoLOG) 100 UNIT/ML VIAL SQ ONE (00:08)
[2021-01-13] MEDS: INSULIN ASPART (NovoLOG) 100 UNIT/ML VIAL SQ SCH (00:12)
[2021-01-13] MEDS: SODIUM CHLORIDE 0.9% 1,000 ML IV SCH (03:49)
[2021-01-13 04:37] LABS: Basophils % (A) 0 %; Eosinophils % (A) 0 %; HCT 48.8 % (39.0-53.0); HGB 15.1 gm/dL (13.0-17.5); Lymphocytes # (A) 0.4 k/uL (1.0-4.8); Lymphocytes % (A) 6 %; MCH 29.1 pg (25.0-35.0); MCHC 30.9 g/dL (31.0-37.0); MCV 94.3 fL (80.0-100.0); Mean Platelet Volume 8.1; Monocytes # (A) 0.4 k/uL (0-1.0); Monocytes % (A) 6 %; Neutrophils # (A) 5.4 k/uL (1.3-7.7); Neutrophils % (A) 86 %; Platelet Count 289 k/uL (150-450); RBC 5.17 m/uL (4.30-5.90); RDW 14.3 % (11.5-15.5); WBC 6.3 k/uL (3.8-10.6)
[2021-01-13 05:05] LABS: Albumin 2.7 g/dL (3.5-5.0); C Reactive Protein 7.6 mg/L (<10.0); Calcium 8.9 mg/dL (8.4-10.2); Total Bilirubin 0.7 mg/dL (0.2-1.3); Total Protein 5.2 g/dL (6.3-8.2)
[2021-01-13 05:27] LABS: ABG HCO3 29 mmol/L (21-25); ABG PCO2 70 mmHg (35-45); ABG PH 7.23 (7.35-7.45); ABG PO2 88 mmHg (83-108); ABG TCO2 32 mmol/L (19-24); Allen Test Performed? Yes
[2021-01-13 05:28] LABS: ABG Base Excess 1.7 mmol/L
[2021-01-13 05:48] LABS: Potassium 6.1 mmol/L (3.5-5.1)
[2021-01-13] MEDS ORDERED: SODIUM BICARB 8.4% 50 ML SYR (1 MEQ/ML) IV STA (05:57)
[2021-01-13] MEDS ORDERED: SODIUM POLYSTYRENE SULFONATE 15 GM/60 ML BOTTLE PO STA (05:57)
[2021-01-13] MEDS ORDERED: INSULIN REGULAR 100 UNIT/ML VIAL SQ ONE (05:58)
[2021-01-13] MEDS ORDERED: DEXTROSE 50% SYRINGE 50 ML IVP STA (06:00)
[2021-01-13] MEDS ORDERED: CALCIUM GLUCONATE 1 GM in SODIUM CHLORIDE 0.9% 100 ML IVPB ONE (06:00)
[2021-01-13 06:10] LABS: Glucose,Whole Blood 283 mg/dL (75-99)
[2021-01-13] MEDS ORDERED: INSULIN REGULAR 100 UNIT/ML VIAL IV ONE (06:10)
[2021-01-13 06:42] LABS: Glucose,Whole Blood 310 mg/dL (75-99)
[2021-01-13 06:47] LABS: Glucose,Whole Blood 297 mg/dL (75-99)
[2021-01-13] MEDS ORDERED: INSULIN DETEMIR (LEVEMIR) 100 UNIT/ML SYR SQ SCH (07:00)
[2021-01-13] MEDS ORDERED: INSULIN REGULAR BOLUS (FROM DRIP BAG) IV PRN (07:04)
[2021-01-13] MEDS: ALBUTEROL HFA INHALER INHALATION SCH ×4 (07:40→20:08)
[2021-01-13] MEDS: INSULIN REGULAR 100 UNIT in SODIUM CHLORIDE 0.9% 100 ML IV SCH ×2 (07:57→17:36)
[2021-01-13] MEDS: NOREPINEPHRINE 4 MG in SODIUM CHLORIDE 0.9% 250 ML IV SCH ×2 (08:14→10:09)
--- NOTE | 2021-01-13 08:46 | XR ---
EXAMINATION TYPE: XR chest 1V portable DATE OF EXAM: 01/13/2021 COMPARISON: 01/12/2021 INDICATION: Intubated TECHNIQUE: Single frontal view of the chest is obtained. FINDINGS: The heart size is normal. The pulmonary vasculature is normal. There appears to be a large right-sided pneumothorax. This is difficult to delineate given significan t subcutaneous emphysema present. This appears to been interval change. Report was called to the ICU, Dr. Petty by Dr. Gamez by telephone , 0840 hours at the time of interpretation. The case was discu ssed. Lung markings could be related to anatomy. Subcutaneous emphysema may confound interpretation. Right-sided chest tube is at the right lung base. Patient has a nasogastric tube tip within the epiga stric region. Endotracheal tube tip is above the carly. Left-sided central venous catheter tip is in the region of the superior vena cava. IMPRESSION: 1. Possible Interval development of a large right-sided pneumothorax. Correlate with the patient cond ition. 2. Lines and catheters discussed above.
[2021-01-13] MEDS: METOPROLOL TARTRATE 25 MG TAB PO SCH ×2 (08:54→20:37)
[2021-01-13] MEDS: ASPIRIN 81 MG PO SCH (08:54)
[2021-01-13] MEDS: FAMOTIDINE 20 MG/2 ML VIAL IV SCH ×2 (08:54→20:37)
[2021-01-13] MEDS: CHOLECALCIFEROL 25 MCG (1000 IU) TABLET PO SCH (08:54)
[2021-01-13] MEDS: ASCORBIC ACID 500 MG TAB PO SCH (08:54)
[2021-01-13] MEDS: ZINC SULFATE 220 MG CAP PO SCH (08:55)
[2021-01-13] MEDS: CHLORHEXIDINE GLUCONATE 15 ML CUP MUCOUS MEM SCH ×2 (08:55→20:36)
[2021-01-13] MEDS: lisinopriL 20 MG TAB PO SCH (08:55)
[2021-01-13] MEDS: ENOXAPARIN 60 MG/0.6 ML SYRINGE SQ SCH ×2 (08:55→20:37)
[2021-01-13 09:06] LABS: Glucose,Whole Blood 289 mg/dL (75-99)
--- NOTE | 2021-01-13 09:47 | P.GSCN ---
<Tanvi Arenas - Last Filed: 01/13/21 09:33> History of Present Illness Consult date: 01/13/21 Reason for Consult: Extensive subcutaneous emphysema status post chest tube placement Requesting physician: Elvin Kamara History of present illness: This is a 7-year-old gentleman who follows on an outpatient basis with Dr. Hook for primary care. He has a previous medical history of CAD with stent placement, hypertension, hyperlipidemia, diabetes, osteoarthritis, never smoker. He presented to [facility] emergency room on January 04 with symptoms consistent with Covid 19 infection. He was hypoxic and placed on BiPAP. All Covid markers were elevated, and his Covid PCR was positive. He was admitted for evaluation treatment which included Remdesivir, zinc, vitamin C, and IV steroids. On January 09 he required intubation. On January 10 a right-sided chest tube was placed by Dr. Santacruz for pneumothorax. Subsequently the patient dev eloped significant subcutaneous emphysema and Dr. Little from cardiothoracic surgery was consulted for recommendations for treatment. Review of Systems Review of systems was obtained from the chart as the patient is currently intubated, sedated, with paralytic infusing - Constitutional Reports as per HPI, Reports chills, Reports fatigue, Reports fever, Reports malaise, Reports weakness Past Medical History Past Medical History: Coronary Artery Disease (CAD), Diabetes Mellitus, Hyperlipidemia, Hypertension, Osteoarthritis (OA) Additional Past Medical History / Comment(s): Hemorrhoids, cataracts, acid reflux, history of kidney stones, questionable mass in left kidney, skin cancer 2002 on the face, gout History of Any Multi-Drug Resistant Organisms: None Reported Past Surgical History: Heart Catheterization, Orthopedic Surgery, Tonsillectomy Additional Past Surgical History / Comment(s): EGD/COLONOSCOPY, LT KNEE ARTHROSCOPY Past Anesthesia/Blood Transfusion Reactions: No Reported Reaction Past Psychological History: No Psychological Hx Reported Smoking Status: Never smoker Past Alcohol Use History: None Reported Past Drug Use History: None Reported - Past Family History Mother Family Medical History: Cancer, Myocardial Infarction (PR) Additional Family Medical History / Comment(s): LYMPHOMA Father Family Medical History: Coronary Artery Disease (CAD) Additional Family Medical History / Comment(s): QUAD BYPASS, PROSTATE CANCER Medications and Allergies Home Medications Medication Instructions Recorded Confirmed Type Quinapril HCl [Accupril] 20 mg PO DAILY 06/17/14 01/04/21 History Liraglutide [Victoza 2-Misael] 1.8 mg SQ DAILY 12/02/16 01/04/21 History Pioglitazone HCl [Actos] 30 mg PO DAILY 12/02/16 01/04/21 History Aspirin 81 mg PO DAILY chew 12/04/16 01/04/21 Rx Nitroglycerin Sl Tabs [Nitrostat] 0.4 mg SUBLINGUAL Q5M PRN #25 tab 12/04/16 01/04/21 Rx Ascorbic Acid [Vitamin C] 500 mg PO DAILY 01/04/21 01/04/21 History Atorvastatin [Lipitor] 20 mg PO HS 01/04/21 01/04/21 History Benzonatate [Tessalon Perles] 100 mg PO TID PRN 01/04/21 01/04/21 History Cholecalciferol [Vitamin D3 (25 25 mcg PO DAILY 01/04/21 01/04/21 History Mcg = 1000 Iu)] Empagliflozin [Jardiance] 25 mg PO DAILY 01/04/21 01/04/21 History Insulin Glargine,Hum.rec.anlog 28 units SQ DAILY 01/04/21 01/04/21 History [Toujeo Max Solostar] Metoprolol Tartrate [Lopressor] 25 mg PO BID 01/04/21 01/04/21 History Sildenafil Citrate 50 mg PO DAILY PRN 01/04/21 01/04/21 History Zinc 50 mg PO DAILY 01/04/21 01/04/21 History metFORMIN HCL [Glucophage] 850 tab PO BID 01/04/21 01/04/21 History Allergies Allergy/AdvReac Type Severity Reaction Status Date / Time prasugrel [From Effient] Allergy Rash/Hives Verified 01/04/21 16:48 venom-honey bee Allergy Unknown Verified 01/04/21 16:48 aspirin AdvReac "gout Verified 01/04/21 16:48 flare up" codeine AdvReac "passed Verified 01/04/21 16:48 out" Penicillins AdvReac "passed Verified 01/04/21 16:48 out" Surgical - Exam Vital Signs Temp Pulse Resp BP Pulse Ox 98.4 F 123 H 26 H 156/87 82 L 01/04/21 14:12 01/04/21 14:12 01/04/21 14:12 01/04/21 14:12 01/04/21 14:12 CONSTITUTIONAL: Obese, mechanically ventilated with sedation and paralytic EYES: Pupils equal, round, reactive to light, normal ocular movement ENT: Moist mucous membranes without oral lesions present NECK: No masses, no bruits, trachea midline RESPIRATORY: Lungs sounds diminished and course to auscultation bilaterally. Respirations even, nonlabored on mechanical ventilation. Currently ventilator settings assist control mode, FiO2 65%, tidal volume 400, respiratory rate 26, PEEP 10. 8.0 ET tube present, 24 the lip. Right-sided pleural chest tube present to continuous wall suction, 300 mL bloody drainage present, no visible air leak at this time. Subcutaneous air present to face, neck, chest, upper extremities CARDIOVASCULAR: S1, S2 present. Tachycardic but regular rate and rhythm, sinus tach on telemetry. Palpable peripheral pulses bilaterally. Generalized edema present. SCDs present GASTROINTESTINAL: Abdomen soft, nontender, nondistended without masses or organomegaly noted. Active bowel sounds present 4 quadrants. Tube feeds infusing a 40 mL per hour GENITOURINARY: Armando present during clear, yellow urine INTEGUMENTARY: Skin is warm and dry NEUROLOGIC: Unable to be assessed as patient is sedated and paralyzed on mechanical ventilation Results - Labs 01/13/21 04:00 01/13/21 04:00 Abnormal Lab Results - Last 24 Hours (Table) 01/12/21 01/12/21 01/12/21 Range/Units 03:50 11:55 17:29 MCHC (31.0-37.0) g/dL Lymphocytes # (1.0-4.8) k/uL D-Dimer (<0.60) mg/L FEU ABG pH (7.35-7.45) ABG pCO2 (35-45) mmHg ABG HCO3 (21-25) mmol/L ABG Total CO2 (19-24) mmol/L Potassium (3.5-5.1) mmol/L Chloride (98-107) mmol/L BUN (9-20) mg/dL Creatinine (0.66-1.25) mg/dL Glucose (74-99) mg/dL POC Glucose (mg/dL) 258 H 295 H (75-99) mg/dL Ferritin 1101.8 H (22.0-322.0) ng/mL ALT (4-49) U/L Lactate Dehydrogenase (313-618) U/L Total Protein (6.3-8.2) g/dL Albumin (3.5-5.0) g/dL 01/12/21 01/13/21 01/13/21 Range/Units 23:57 04:00 04:00 MCHC 30.9 L (31.0-37.0) g/dL Lymphocytes # 0.4 L (1.0-4.8) k/uL D-Dimer (<0.60) mg/L FEU ABG pH (7.35-7.45) ABG pCO2 (35-45) mmHg ABG HCO3 (21-25) mmol/L ABG Total CO2 (19-24) mmol/L Potassium 6.1 H* (3.5-5.1) mmol/L Chloride 109 H (98-107) mmol/L BUN 80 H (9-20) mg/dL Creatinine 1.47 H (0.66-1.25) mg/dL Glucose 360 H (74-99) mg/dL POC Glucose (mg/dL) 308 H (75-99) mg/dL Ferritin (22.0-322.0) ng/mL ALT 56 H (4-49) U/L Lactate Dehydrogenase 1151 H (313-618) U/L Total Protein 5.2 L (6.3-8.2) g/dL Albumin 2.7 L (3.5-5.0) g/dL 01/13/21 01/13/21 01/13/21 Range/Units 04:35 05:18 06:08 MCHC (31.0-37.0) g/dL Lymphocytes # (1.0-4.8) k/uL D-Dimer 2.42 H (<0.60) mg/L FEU ABG pH 7.23 L (7.35-7.45) ABG pCO2 70 H (35-45) mmHg ABG HCO3 29 H (21-25) mmol/L ABG Total CO2 32 H (19-24) mmol/L Potassium (3.5-5.1) mmol/L Chloride (98-107) mmol/L BUN (9-20) mg/dL Creatinine (0.66-1.25) mg/dL Glucose (74-99) mg/dL POC Glucose (mg/dL) 283 H (75-99) mg/dL Ferritin (22.0-322.0) ng/mL ALT (4-49) U/L Lactate Dehydrogenase (313-618) U/L Total Protein (6.3-8.2) g/dL Albumin (3.5-5.0) g/dL 01/13/21 01/13/21 01/13/21 Range/Units 06:40 06:45 09:05 MCHC (31.0-37.0) g/dL Lymphocytes # (1.0-4.8) k/uL D-Dimer (<0.60) mg/L FEU ABG pH (7.35-7.45) ABG pCO2 (35-45) mmHg ABG HCO3 (21-25) mmol/L ABG Total CO2 (19-24) mmol/L Potassium (3.5-5.1) mmol/L Chloride (98-107) mmol/L BUN (9-20) mg/dL Creatinine (0.66-1.25) mg/dL Glucose (74-99) mg/dL POC Glucose (mg/dL) 310 H 297 H 289 H (75-99) mg/dL Ferritin (22.0-322.0) ng/mL ALT (4-49) U/L Lactate Dehydrogenase (313-618) U/L Total Protein (6.3-8.2) g/dL Albumin (3.5-5.0) g/dL Microbiology - Last 24 Hours (Table) 01/09/21 15:45 Gram Stain - Final Sputum Sputum Culture - Preliminary Diabetes panel 01/13/21 Range/Units 04:00 Sodium 143 (137-145) mmol/L Potassium 6.1 H* (3.5-5.1) mmol/L Chloride 109 H (98-107) mmol/L Carbon Dioxide 29 (22-30) mmol/L BUN 80 H (9-20) mg/dL Creatinine 1.47 H (0.66-1.25) mg/dL Glucose 360 H (74-99) mg/dL Calcium 8.9 (8.4-10.2) mg/dL AST 59 (17-59) U/L ALT 56 H (4-49) U/L Alkaline Phosphatase 69 (38-126) U/L Total Protein 5.2 L (6.3-8.2) g/dL Albumin 2.7 L (3.5-5.0) g/dL Calcium panel 01/13/21 Range/Units 04:00 Calcium 8.9 (8.4-10.2) mg/dL Albumin 2.7 L (3.5-5.0) g/dL Pituitary panel 01/13/21 Range/Units 04:00 Sodium 143 (137-145) mmol/L Potassium 6.1 H* (3.5-5.1) mmol/L Chloride 109 H (98-107) mmol/L Carbon Dioxide 29 (22-30) mmol/L BUN 80 H (9-20) mg/dL Creatinine 1.47 H (0.66-1.25) mg/dL Glucose 360 H (74-99) mg/dL Calcium 8.9 (8.4-10.2) mg/dL Adrenal panel 01/13/21 Range/Units 04:00 Sodium 143 (137-145) mmol/L Potassium 6.1 H* (3.5-5.1) mmol/L Chloride 109 H (98-107) mmol/L Carbon Dioxide 29 (22-30) mmol/L BUN 80 H (9-20) mg/dL Creatinine 1.47 H (0.66-1.25) mg/dL Glucose 360 H (74-99) mg/dL Calcium 8.9 (8.4-10.2) mg/dL Total Bilirubin 0.7 (0.2-1.3) mg/dL AST 59 (17-59) U/L ALT 56 H (4-49) U/L Alkaline Phosphatase 69 (38-126) U/L Total Protein 5.2 L (6.3-8.2) g/dL Albumin 2.7 L (3.5-5.0) g/dL - Imaging Chest x-ray: report reviewed, image reviewed Assessment and Plan Assessment: 1. Covid 19 infection 2. Acute hypoxic respiratory failure, ARDS requiring chemical ventilation, secondary to above 3. Right-sided small pneumothorax, status post placement of a pleural chest tube with subsequent extensive subcutaneous emphysema 4. Acute kidney injury 5. History of CAD with stent placement 6. History of hypertension, currently hypotensive on levo 7. History of hyperlipidemia 8. History of diabetes 9. Never smoker Plan: The patient was seen and examined at the bedside. Chart/diagnostics were reviewed. The case was discussed with Dr. Little. We recommend decreasing PEEP to 8. Vaseline dressing removed, chest tube covered with nonocclusive dressing taped on 3 sides. No other surgical management necessary at this time. 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 We will continue to follow and make further recommendations. Thank you Dr. Kamara for this consult Time with Patient: Greater than 30 <Justin Little - Last Filed: 01/13/21 11:00> Surgical - Exam Vital Signs Temp Pulse Resp BP Pulse Ox 98.4 F 123 H 26 H 156/87 82 L 01/04/21 14:12 01/04/21 14:12 01/04/21 14:12 01/04/21 14:12 01/04/21 14:12 Results - Labs 01/13/21 04:00 01/13/21 04:00 Abnormal Lab Results - Last 24 Hours (Table) 01/12/21 01/12/21 01/12/21 Range/Units 11:55 17:29 23:57 MCHC (31.0-37.0) g/dL Lymphocytes # (1.0-4.8) k/uL D-Dimer (<0.60) mg/L FEU ABG pH (7.35-7.45) ABG pCO2 (35-45) mmHg ABG HCO3 (21-25) mmol/L ABG Total CO2 (19-24) mmol/L Potassium (3.5-5.1) mmol/L Chloride (98-107) mmol/L BUN (9-20) mg/dL Creatinine (0.66-1.25) mg/dL Glucose (74-99) mg/dL POC Glucose (mg/dL) 258 H 295 H 308 H (75-99) mg/dL Ferritin (22.0-322.0) ng/mL ALT (4-49) U/L Lactate Dehydrogenase (313-618) U/L Total Protein (6.3-8.2) g/dL Albumin (3.5-5.0) g/dL 01/13/21 01/13/21 01/13/21 Range/Units 04:00 04:00 04:35 MCHC 30.9 L (31.0-37.0) g/dL Lymphocytes # 0.4 L (1.0-4.8) k/uL D-Dimer 2.42 H (<0.60) mg/L FEU ABG pH (7.35-7.45) ABG pCO2 (35-45) mmHg ABG HCO3 (21-25) mmol/L ABG Total CO2 (19-24) mmol/L Potassium 6.1 H* (3.5-5.1) mmol/L Chloride 109 H (98-107) mmol/L BUN 80 H (9-20) mg/dL Creatinine 1.47 H (0.66-1.25) mg/dL Glucose 360 H (74-99) mg/dL POC Glucose (mg/dL) (75-99) mg/dL Ferritin 1153.0 H (22.0-322.0) ng/mL ALT 56 H (4-49) U/L Lactate Dehydrogenase 1151 H (313-618) U/L Total Protein 5.2 L (6.3-8.2) g/dL Albumin 2.7 L (3.5-5.0) g/dL 01/13/21 01/13/21 01/13/21 Range/Units 05:18 06:08 06:40 MCHC (31.0-37.0) g/dL Lymphocytes # (1.0-4.8) k/uL D-Dimer (<0.60) mg/L FEU ABG pH 7.23 L (7.35-7.45) ABG pCO2 70 H (35-45) mmHg ABG HCO3 29 H (21-25) mmol/L ABG Total CO2 32 H (19-24) mmol/L Potassium (3.5-5.1) mmol/L Chloride (98-107) mmol/L BUN (9-20) mg/dL Creatinine (0.66-1.25) mg/dL Glucose (74-99) mg/dL POC Glucose (mg/dL) 283 H 310 H (75-99) mg/dL Ferritin (22.0-322.0) ng/mL ALT (4-49) U/L Lactate Dehydrogenase (313-618) U/L Total Protein (6.3-8.2) g/dL Albumin (3.5-5.0) g/dL 01/13/21 01/13/21 01/13/21 Range/Units 06:45 09:05 09:59 MCHC (31.0-37.0) g/dL Lymphocytes # (1.0-4.8) k/uL D-Dimer (<0.60) mg/L FEU ABG pH (7.35-7.45) ABG pCO2 (35-45) mmHg ABG HCO3 (21-25) mmol/L ABG Total CO2 (19-24) mmol/L Potassium (3.5-5.1) mmol/L Chloride (98-107) mmol/L BUN (9-20) mg/dL Creatinine (0.66-1.25) mg/dL Glucose (74-99) mg/dL POC Glucose (mg/dL) 297 H 289 H 184 H (75-99) mg/dL Ferritin (22.0-322.0) ng/mL ALT (4-49) U/L Lactate Dehydrogenase (313-618) U/L Total Protein (6.3-8.2) g/dL Albumin (3.5-5.0) g/dL 01/13/21 Range/Units 10:53 MCHC (31.0-37.0) g/dL Lymphocytes # (1.0-4.8) k/uL D-Dimer (<0.60) mg/L FEU ABG pH (7.35-7.45) ABG pCO2 (35-45) mmHg ABG HCO3 (21-25) mmol/L ABG Total CO2 (19-24) mmol/L Potassium (3.5-5.1) mmol/L Chloride (98-107) mmol/L BUN (9-20) mg/dL Creatinine (0.66-1.25) mg/dL Glucose (74-99) mg/dL POC Glucose (mg/dL) 205 H (75-99) mg/dL Ferritin (22.0-322.0) ng/mL ALT (4-49) U/L Lactate Dehydrogenase (313-618) U/L Total Protein (6.3-8.2) g/dL Albumin (3.5-5.0) g/dL Microbiology - Last 24 Hours (Table) 01/09/21 15:45 Gram Stain - Final Sputum Sputum Culture - Preliminary Diabetes panel 01/13/21 Range/Units 04:00 Sodium 143 (137-145) mmol/L Potassium 6.1 H* (3.5-5.1) mmol/L Chloride 109 H (98-107) mmol/L Carbon Dioxide 29 (22-30) mmol/L BUN 80 H (9-20) mg/dL Creatinine 1.47 H (0.66-1.25) mg/dL Glucose 360 H (74-99) mg/dL Calcium 8.9 (8.4-10.2) mg/dL AST 59 (17-59) U/L ALT 56 H (4-49) U/L Alkaline Phosphatase 69 (38-126) U/L Total Protein 5.2 L (6.3-8.2) g/dL Albumin 2.7 L (3.5-5.0) g/dL Calcium panel 01/13/21 Range/Units 04:00 Calcium 8.9 (8.4-10.2) mg/dL Albumin 2.7 L (3.5-5.0) g/dL Pituitary panel 01/13/21 Range/Units 04:00 Sodium 143 (137-145) mmol/L Potassium 6.1 H* (3.5-5.1) mmol/L Chloride 109 H (98-107) mmol/L Carbon Dioxide 29 (22-30) mmol/L BUN 80 H (9-20) mg/dL Creatinine 1.47 H (0.66-1.25) mg/dL Glucose 360 H (74-99) mg/dL Calcium 8.9 (8.4-10.2) mg/dL Adrenal panel 01/13/21 Range/Units 04:00 Sodium 143 (137-145) mmol/L Potassium 6.1 H* (3.5-5.1) mmol/L Chloride 109 H (98-107) mmol/L Carbon Dioxide 29 (22-30) mmol/L BUN 80 H (9-20) mg/dL Creatinine 1.47 H (0.66-1.25) mg/dL Glucose 360 H (74-99) mg/dL Calcium 8.9 (8.4-10.2) mg/dL Total Bilirubin 0.7 (0.2-1.3) mg/dL AST 59 (17-59) U/L ALT 56 H (4-49) U/L Alkaline Phosphatase 69 (38-126) U/L Total Protein 5.2 L (6.3-8.2) g/dL Albumin 2.7 L (3.5-5.0) g/dL Assessment and Plan Assessment: Subq emphysema is extensive but not clinically relevant in intubated patient. Plan: Conservative management. Noocclusive dressing on CT site to allow venting of subq emphysema. Wean PEEP.
[2021-01-13 10:00] LABS: Glucose,Whole Blood 184 mg/dL (75-99)
[2021-01-13] MEDS: fentaNYL (PF) 1,000 MCG in SODIUM CHLORIDE 0.9% 80 ML IV SCH (10:29)
[2021-01-13 10:54] LABS: Glucose,Whole Blood 205 mg/dL (75-99)
[2021-01-13 11:44] LABS: Glucose,Whole Blood 243 mg/dL (75-99)
--- NOTE | 2021-01-13 11:49 | P.PN ---
Subjective Progress Note Date: 01/13/21 Principal diagnosis: Acute hypoxic respiratory failure secondary to acute covid 19 pneumonitis. 70-year-old male patient, known history of diabetes mellitus maintained on insulin in addition to history of hypertension, hyperlipidemia, coronary artery disease and previous history of PCI, presented to the emergency department because of increased fatigue and tiredness. The patient was infected with Covid 19 and the testing by PCR came back positive. The patient started having symptoms of infection approximately 7 days ago and his tests confirmed positive. The test was positive on 12/27/2020. The patient's complaints were essentially those of body aches, feeling weak and tired and he was warm and he was probably having fevers. He was significantly fatigued and he was unable to do even simple stuff at home. He reported poor appetite. No loss in the taste or smell . He had no significant cough. He denies having any significant shortness of breath. No headaches. No nasal congestion. No nausea or vomiting. Upon arrival to the emergency department, the patient was profoundly hypoxic and the pulse ox was around 82% and the patient was also tachypneic and tachycardic. He was initially started on oxygen at 10 L per minute nasal cannula and subsequently the oxygen flow was brought up to 15 L and he continued to be hypoxic. At that point, the patient was switched to BiPAP at a pressure of 10/5 and FiO2 of 100%. The patient had further blood work that showed an LDH level of 2287, CRP of 170, lactic acid level of 2.4, serum bicarb of 18, the BUN was 37 with a creatinine of 1.7. The blood gas on 100% FiO2 showed a pH of 7.4 with a pCO2 of 27 and pO2 of 62. The chest x-ray showed diffuse but the pulmonary infiltrates. At that point, the patient was admitted to the intensive care unit and the patient was supported with BiPAP. The patient is currently on IV Decadron. The patient was also started on Remdesivir per protocol. The patient is on Lovenox 40 mg subcu every 24 hours for a d-dimer of 1.17 and the time of admission. The patient this morning was transitioned to oxygen at 15 L high flow and he is able to maintain a saturation above 90%. He remains in normal sinus rhythm. He is awake and alert. His chest x-ray showing bilateral pulmonary infiltrates was in the lung bases bilaterally. He is off the BiPAP for now. D-dimer is at 1.88 from today. His LDH is down to 1952 and the pro- calcitonin level was 0.3, LFTs were minimally elevated secondary to Covid 19. CRP is down to 158. He is currently on the same treatment including Decadron and Remdesivir day #2 01/11/2021 the patient is being seen in follow-up. The patient is currently intubated on a mechanical ventilator. The patient is a case of Covid associated pneumonia with secondary respiratory failure. Note that because of stiff lungs and elevated airway pressures, the patient developed barotrauma and subsequently he developed a small right-sided pneumothorax and he was developing extensive subcutaneous emphysema as the patient was developing increased swelling in his face neck and chest throughout the day yesterday. As such, I inserted a chest tube on him yesterday and a 28-Irish chest tube was inserted into the right lung without any complications. The patient's currently is sedated with propofol which is running at 35 mcg/kg per minute. The patient is also on Nimbex running at 0.8 mcg/kg per minute and the patient is also on fentanyl are running at 0.8 Arnie respiratory kilogram per hour. As such, the patient has been adequately sedated and adequately paralyzed and the patient is quite synchronous with the mechanical ventilator. The patient is currently on a assist-control mode of ventilation, volume cycle with a rate of 26 and a tidal volume of 400 and FiO2 of 80% with a PEEP of 8. The blood periods from today shows a pH of 7.21 with a pCO2 of 63 and pO2 of 82. The patient's peak airway pressure is 28 with a static pressure of 28. Overnight, his subcutaneous emphysema has gotten significantly worse. Nevertheless, he doesn't have any pneumothorax. The right-sided chest tube is still in place. The patient has developed extensive subcutaneous emphysema bilaterally extending to his neck and the face and upper extremities in the chest. Orotracheal tube is in a good location. NG tube is also in a good location. The patient is on IV Solu-Medrol at 60 mg every 6 hours. In terms of his Covid 19 related pneumonia, his air d- dimer is at 6.91, his LDH currently is down to 1434 and his CRP level is down to 20.2. Rest of the blood work and electrodes are all within normal limits. His white cell count currently is at 9.2 with hemoglobin of 11.5. The patient is receiving enteral feeding for nutritional support and is currently on vital high protein at 20 mL an hour and is able to tolerate the diet and he has had regular bowel movements. No abdominal distention. No emesis. No other significant events overnight. Active issues for now is unwilling respiratory failure and extensive subcutaneous emphysema that is involved as a complication of Covid 19 related pneumonia and respiratory failure. Reevaluated today on 01/12/2021, patient remains in the ICU, patient is on mechanical ventilation, assist control rate of 26, tidal volume is 400, FiO2 is 70%, and PEEP is 10. Patient is on propofol at 20 mcg/kg/m, norepinephrine at 0.02 mcg/kg/m. On Nimbex at 0.2 mcg/kg/m. And he is also on fentanyl. FiO2 w as decreased down to 65%, chest x-ray showed bilateral infiltrates cannot significant subcutaneous emphysema. Right-sided chest tube is noted to have some air leak, remains on suction. Very minimal right apical pneumothorax suspected, however chest tube remains in place. The cecum and is 6.2 hemoglobin 14.9. ABG today showed a pO2 of 59 pCO2 of 51 pH of 7.34 d-dimer is 3.51 BUN is 57 creatinine 1.14. LDH is 1158 and C-reactive protein is 11.3. Patient is on enteral feeding. Remains on Solu-Medrol 60 mg IV push every 6 hours. Reevaluated today on 01/13/2021, patient remains in the ICU, remains on mechanical ventilation, his chest x-ray is showing significant subcutaneous emphysema, and small right-sided pneumothorax in spite of the chest tube in place. Hence thoracic surgery was consulted, and at this point not planning any chest tube placement or any surgical intervention. Patient remains on assist control rate of 26 tidal volume is 400 FiO2 of 65% on a cardiac down to 60 PEEP is at 10 I cut it down to 8. ABG showed a pO2 of 88 pCO2 of 70 pH of 7.23. Patient remains on Nimbex, insulin drip, propofol, and fentanyl. He remains off norepinephrine. Nephrology was consulted to the patient regarding his worsening renal status, BUN is 80 creatinine is 1.47. Patient remains on enteral feeding. He remains on Solu-Medrol. I will go ahead and cut down the dose of Solu-Medr ol. Patient did receive actemra and remdesivir Objective - Vital Signs Vital signs: Vital Signs Temp 98 F 01/13/21 08:00 Pulse 94 01/13/21 11:00 Resp 26 H 01/13/21 11:00 BP 101/63 01/13/21 11:00 Pulse Ox 92 L 01/13/21 11:00 Intake & Output 01/12/21 01/13/21 01/13/21 18:59 06:59 18:59 Intake Total 0537.744 4872.271 306.430 Output Total 938 1236 305 Balance 174.907 -177.729 1.430 Weight 93.2 kg Intake: IV 150 120 50 Sodium Chloride 0.9% 1, 150 120 50 000 ml @ 10 mls/hr IV . Q24H [facility] Rx#:[id number] Intake, IV Titration 392.907 368.271 216.430 Amount Cisatracurium 200 mg In 16.009 30.561 Sodium Chloride 0.9% 180 ml @ 1 MCG/KG/MIN 5.346 mls/hr IV .Q24H [facility] Rx#: [id number] Insulin Regular 100 unit 28.987 In Sodium Chloride 0.9% 100 ml @ Per Protocol IV .Q0M [facility] Rx#:[id number] Norepinephrine 4 mg In 82.719 2.263 Sodium Chloride 0.9% 250 ml @ 0.05 MCG/KG/MIN 16. 974 mls/hr IV .[id number] [facility] Rx#:[id number] fentaNYL (PF) 1,000 mcg 85.18 In Sodium Chloride 0.9% 80 ml @ Per Protocol IV . Q0M [facility] Rx#:[id number] propofoL 1,000 mg In 294.179 337.710 100 Empty Bag 1 bag @ Titrate IV .Q0M [facility] Rx#: [id number] Tube Feeding 480 480 40 Other 90 90 Output: Chest Tube Drainage 63 246 Chest Tube Right 63 246 Urine 875 990 305 Other: Voiding Method Indwelling Catheter Indwelling Catheter Indwelling Catheter ABP, PAP, CO, CI - Last Documented Arterial Blood Pressure 97/49 - Exam General: Revealed a 70-year-old white male on mechanical ventilation, on multiple drips as noted above. Patient is noted to have subcutaneous emphysema in the chest wall area and in the neck area. And in the face area. Head: atraumatic, normocephalic, symmetric Eyes: EOMI, anicteric sclera, pupils equal round reactive to light and orogastric tube and endotracheal tube are intact. ENT: Nose and ears atraumatic, no thrush, no pharyngeal erythema Neck: No neck masses no JVD no stridor but there is evidence of subcutaneous emphysema Mouth: Moist mucous membranes. Cardiovascular: Normal S1 and S2, no S3 gallop. Lungs: Fine crackles at the bases bilaterally, subcutaneous emphysema is palpable. And crepitation noted. Sided chest tube is noted. Abdominal: Soft nontender no megaly no rebound. extremities no clubbing edema or cyanosis. Neuro: Cannot fully assess patient is sedated and paralyzed Psychiatric: Could not assess - Labs CBC & Chem 7: 01/13/21 04:00 01/13/21 11:05 Labs: Abnormal Lab Results - Last 24 Hours (Table) 01/12/21 01/12/21 01/12/21 Range/Units 11:55 17:29 23:57 MCHC (31.0-37.0) g/dL Lymphocytes # (1.0-4.8) k/uL D-Dimer (<0.60) mg/L FEU ABG pH (7.35-7.45) ABG pCO2 (35-45) mmHg ABG HCO3 (21-25) mmol/L ABG Total CO2 (19-24) mmol/L Potassium (3.5-5.1) mmol/L Chloride (98-107) mmol/L BUN (9-20) mg/dL Creatinine (0.66-1.25) mg/dL Glucose (74-99) mg/dL POC Glucose (mg/dL) 258 H 295 H 308 H (75-99) mg/dL Ferritin (22.0-322.0) ng/mL ALT (4-49) U/L Lactate Dehydrogenase (313-618) U/L Total Protein (6.3-8.2) g/dL Albumin (3.5-5.0) g/dL 01/13/21 01/13/21 01/13/21 Range/Units 04:00 04:00 04:35 MCHC 30.9 L (31.0-37.0) g/dL Lymphocytes # 0.4 L (1.0-4.8) k/uL D-Dimer 2.42 H (<0.60) mg/L FEU ABG pH (7.35-7.45) ABG pCO2 (35-45) mmHg ABG HCO3 (21-25) mmol/L ABG Total CO2 (19-24) mmol/L Potassium 6.1 H* (3.5-5.1) mmol/L Chloride 109 H (98-107) mmol/L BUN 80 H (9-20) mg/dL Creatinine 1.47 H (0.66-1.25) mg/dL Glucose 360 H (74-99) mg/dL POC Glucose (mg/dL) (75-99) mg/dL Ferritin 1153.0 H (22.0-322.0) ng/mL ALT 56 H (4-49) U/L Lactate Dehydrogenase 1151 H (313-618) U/L Total Protein 5.2 L (6.3-8.2) g/dL Albumin 2.7 L (3.5-5.0) g/dL 01/13/21 01/13/21 01/13/21 Range/Units 05:18 06:08 06:40 MCHC (31.0-37.0) g/dL Lymphocytes # (1.0-4.8) k/uL D-Dimer (<0.60) mg/L FEU ABG pH 7.23 L (7.35-7.45) ABG pCO2 70 H (35-45) mmHg ABG HCO3 29 H (21-25) mmol/L ABG Total CO2 32 H (19-24) mmol/L Potassium (3.5-5.1) mmol/L Chloride (98-107) mmol/L BUN (9-20) mg/dL Creatinine (0.66-1.25) mg/dL Glucose (74-99) mg/dL POC Glucose (mg/dL) 283 H 310 H (75-99) mg/dL Ferritin (22.0-322.0) ng/mL ALT (4-49) U/L Lactate Dehydrogenase (313-618) U/L Total Protein (6.3-8.2) g/dL Albumin (3.5-5.0) g/dL 01/13/21 01/13/21 01/13/21 Range/Units 06:45 09:05 09:59 MCHC (31.0-37.0) g/dL Lymphocytes # (1.0-4.8) k/uL D-Dimer (<0.60) mg/L FEU ABG pH (7.35-7.45) ABG pCO2 (35-45) mmHg ABG HCO3 (21-25) mmol/L ABG Total CO2 (19-24) mmol/L Potassium (3.5-5.1) mmol/L Chloride (98-107) mmol/L BUN (9-20) mg/dL Creatinine (0.66-1.25) mg/dL Glucose (74-99) mg/dL POC Glucose (mg/dL) 297 H 289 H 184 H (75-99) mg/dL Ferritin (22.0-322.0) ng/mL ALT (4-49) U/L Lactate Dehydrogenase (313-618) U/L Total Protein (6.3-8.2) g/dL Albumin (3.5-5.0) g/dL 01/13/21 Range/Units 10:53 MCHC (31.0-37.0) g/dL Lymphocytes # (1.0-4.8) k/uL D-Dimer (<0.60) mg/L FEU ABG pH (7.35-7.45) ABG pCO2 (35-45) mmHg ABG HCO3 (21-25) mmol/L ABG Total CO2 (19-24) mmol/L Potassium (3.5-5.1) mmol/L Chloride (98-107) mmol/L BUN (9-20) mg/dL Creatinine (0.66-1.25) mg/dL Glucose (74-99) mg/dL POC Glucose (mg/dL) 205 H (75-99) mg/dL Ferritin (22.0-322.0) ng/mL ALT (4-49) U/L Lactate Dehydrogenase (313-618) U/L Total Protein (6.3-8.2) g/dL Albumin (3.5-5.0) g/dL Microbiology - Last 24 Hours (Table) 01/09/21 15:45 Gram Stain - Final Sputum Sputum Culture - Preliminary Assessment and Plan Assessment: Impression: Acute hypoxic respiratory failure with ARDS secondary to acute covid 19 pneu monitis. Remains intubated and mechanically ventilated. Acute right sided pneumothorax, most likely secondary to barotrauma secondary to mechanical ventilation. Required the right-sided chest tube placement, continues to have some pneumothorax and significant subcutaneous emphysema. Acute kidney injury with history of chronic kidney disease stage III, improving. Type 2 diabetes on insulin Benign essential hypertension. Dyslipidemia. Degenerative joint disease. Degenerative joint disease. Acute kidney injury. Nephrology was consulted. Recommendation: Continue ventilatory support. Decrease PEEP down to 8 and decreased FiO2 down to 60% since his pO2 was 88 on PEEP of 10 and FiO2 was 65% Continue sedation Continue enteral feeding. Continue chest tube to suction. Received actemra and convalescent plasma. Continue Lovenox 45 mg subcu every 12 hours. Monitor daily x-rays of the chest. Continue GI and DVT prophylaxis. Continue to monitor sugars and treat accordingly. Nephrology and thoracic surgery were consulted. No plans to address weaning at this point since the patient remains quite ill and requiring significant FiO2 based on the ventilator settings and ABG at present. Prognosis remains extremely poor and guarded, Critical care time is over 30 minutes. Time with Patient: Greater than 30
--- NOTE | 2021-01-13 13:21 | P.NPCON ---
History of Present Illness - Reason for Consult acute renal failure - History of Present Illness Reason for consultation: Acute kidney injury History of present illness: Patient is a 70-year-old male seen in renal consultation for acute kidney injury. Patient presented to the hospital on January 04 with respiratory distress and hypoxia. Patient did test positive for covid-19 infection. He is currently maintained on steroids and zinc. He is intubated requiring 60% FiO2. He is also on Levophed. Nonoliguric. He has a chest tube for right-sided pneumothorax. He is receiving tube feeding. Potassium level was 6.0 this morning which was medically treated. Repeat level was 5.0. He is receiving li sinopril. Not on any IV fluids at this time. Baseline creatinine is near 1 and is up to 1.47 today. Blood sugars have been running high and he is maintained on insulin drip. He does have history of diabetes and is insulin-dependent. Vital signs are stable. On vasopressor support. General: The patient appeared well nourished and normally developed. HEENT: Intubated. LUNGS: Breath sounds decreased. HEART: Rate and Rhythm are regular. ABDOMEN: Soft, nontender. EXTREMITITES: No edema. Past Medical History Past Medical History: Coronary Artery Disease (CAD), Diabetes Mellitus, Hyperlipidemia, Hypertension, Osteoarthritis (OA) Additional Past Medical History / Comment(s): Hemorrhoids, cataracts, acid reflux, history of kidney stones, questionable mass in left kidney, skin cancer 2002 on the face, gout History of Any Multi-Drug Resistant Organisms: None Reported Past Surgical History: Heart Catheterization, Orthopedic Surgery, Tonsillectomy Additional Past Surgical History / Comment(s): EGD/COLONOSCOPY, LT KNEE ARTHROSCOPY Past Anesthesia/Blood Transfusion Reactions: No Reported Reaction Past Psychological History: No Psychological Hx Reported Smoking Status: Never smoker Past Alcohol Use History: None Reported Past Drug Use History: None Reported - Past Family History Mother Family Medical History: Cancer, Myocardial Infarction (NE) Additional Family Medical History / Comment(s): LYMPHOMA Father Family Medical History: Coronary Artery Disease (CAD) Additional Family Medical History / Comment(s): QUAD BYPASS, PROSTATE CANCER Medications and Allergies Home Medications Medication Instructions Recorded Confirmed Type Quinapril HCl [Accupril] 20 mg PO DAILY 06/17/14 01/04/21 History Liraglutide [Victoza 2-Misael] 1.8 mg SQ DAILY 12/02/16 01/04/21 History Pioglitazone HCl [Actos] 30 mg PO DAILY 12/02/16 01/04/21 History Aspirin 81 mg PO DAILY chew 12/04/16 01/04/21 Rx Nitroglycerin Sl Tabs [Nitrostat] 0.4 mg SUBLINGUAL Q5M PRN #25 tab 12/04/16 01/04/21 Rx Ascorbic Acid [Vitamin C] 500 mg PO DAILY 01/04/21 01/04/21 History Atorvastatin [Lipitor] 20 mg PO HS 01/04/21 01/04/21 History Benzonatate [Tessalon Perles] 100 mg PO TID PRN 01/04/21 01/04/21 History Cholecalciferol [Vitamin D3 (25 25 mcg PO DAILY 01/04/21 01/04/21 History Mcg = 1000 Iu)] Empagliflozin [Jardiance] 25 mg PO DAILY 01/04/21 01/04/21 History Insulin Glargine,Hum.rec.anlog 28 units SQ DAILY 01/04/21 01/04/21 History [Toujeo Max Solostar] Metoprolol Tartrate [Lopressor] 25 mg PO BID 01/04/21 01/04/21 History Sildenafil Citrate 50 mg PO DAILY PRN 01/04/21 01/04/21 History Zinc 50 mg PO DAILY 01/04/21 01/04/21 History metFORMIN HCL [Glucophage] 850 tab PO BID 01/04/21 01/04/21 History Allergies Allergy/AdvReac Type Severity Reaction Status Date / Time prasugrel [From Effient] Allergy Rash/Hives Verified 01/04/21 16:48 venom-honey bee Allergy Unknown Verified 01/04/21 16:48 aspirin AdvReac "gout Verified 01/04/21 16:48 flare up" codeine AdvReac "passed Verified 01/04/21 16:48 out" Penicillins AdvReac "passed Verified 01/04/21 16:48 out" Physical Exam Vitals: Vital Signs Temp Pulse Resp BP Pulse Ox 01/13/21 12:00 97.6 F 94 26 H 118/60 92 L 01/13/21 11:00 94 26 H 101/63 92 L 01/13/21 10:00 99 26 H 120/64 91 L 01/13/21 09:00 122 H 26 H 92 L 01/13/21 08:00 98 F 118 H 26 H 130/76 93 L 01/13/21 07:00 118 H 26 H 153/80 93 L 01/13/21 06:00 113 H 26 H 139/78 93 L 01/13/21 05:00 112 H 26 H 145/77 93 L 01/13/21 04:00 97.8 F 110 H 26 H 133/76 93 L 01/13/21 03:00 108 H 26 H 136/76 93 L 01/13/21 02:00 121 H 26 H 115/60 93 L 01/13/21 01:00 112 H 26 H 135/83 93 L 01/13/21 00:00 98.1 F 111 H 26 H 133/81 92 L 01/12/21 23:04 107 H 26 H 92 L 01/12/21 23:00 108 H 26 H 145/78 92 L 01/12/21 22:00 105 H 26 H 135/75 92 L 01/12/21 21:00 98 26 H 130/78 92 L 01/12/21 20:00 97.2 F L 112 H 26 H 145/78 92 L 01/12/21 19:00 111 H 26 H 140/77 92 L 01/12/21 18:00 108 H 26 H 154/79 92 L 01/12/21 17:00 108 H 26 H 146/79 90 L 01/12/21 16:00 98.7 F 105 H 26 H 146/76 91 L 01/12/21 15:00 101 H 26 H 142/81 92 L 01/12/21 14:00 86 30 H 116/73 93 L Intake and Output 01/12/21 01/13/21 01/13/21 22:59 06:59 14:59 Intake Total 673.932 708.518 726.430 Output Total 777 811 475 Balance -103.068 -102.482 251.430 Intake: IV 80 80 60 Sodium Chloride 0.9% 1, 80 80 60 000 ml @ 10 mls/hr IV . Q24H [facility] Rx#:[id number] Intake, IV Titration 213.932 248.518 316.430 Amount Cisatracurium 200 mg In 30.561 Sodium Chloride 0.9% 180 ml @ 1 MCG/KG/MIN 5.346 mls/hr IV .Q24H [facility] Rx#: [id number] Insulin Regular 100 unit 28.987 In Sodium Chloride 0.9% 100 ml @ Per Protocol IV .Q0M [facility] Rx#:[id number] Norepinephrine 4 mg In 2.263 Sodium Chloride 0.9% 250 ml @ 0.05 MCG/KG/MIN 16. 974 mls/hr IV .[id number] [facility] Rx#:[id number] fentaNYL (PF) 1,000 mcg 85.18 In Sodium Chloride 0.9% 80 ml @ Per Protocol IV . Q0M [facility] Rx#:[id number] propofoL 1,000 mg In 183.371 248.518 200 Empty Bag 1 bag @ Titrate IV .Q0M [facility] Rx#: [id number] Tube Feeding 320 320 240 Other 60 60 110 Output: Chest Tube Drainage 62 196 70 Chest Tube Right 62 196 70 Urine 715 615 405 Other: Voiding Method Indwelling Catheter Indwelling Catheter Indwelling Catheter ABP, PAP, CO, CI - Last 8 Hours Arterial Blood Pressure 110/53 Arterial Blood Pressure 97/49 Arterial Blood Pressure 94/48 Arterial Blood Pressure 131/61 Arterial Blood Pressure 132/61 Arterial Blood Pressure 146/65 Arterial Blood Pressure 131/63 Results - Lab Results Most recent lab results ABG pH 7.23 (7.35-7.45) L 01/13/21 05:18 ABG pCO2 70 mmHg (35-45) H 01/13/21 05:18 ABG pO2 88 mmHg (83-108) 01/13/21 05:18 ABG HCO3 29 mmol/L (21-25) H 01/13/21 05:18 ABG O2 Saturation 96.0 % (94-97) 01/13/21 05:18 Calcium 8.9 mg/dL (8.4-10.2) 01/13/21 04:00 Magnesium 2.2 mg/dL (1.6-2.3) 01/07/21 03:43 01/13/21 04:00 01/13/21 11:05 Assessment and Plan Plan: Assessment: 1. Acute kidney injury secondary to ATN secondary to septic shock. Baseline creatinine near 1 and is 1.47 today. 2. Septic shock secondary to covid-19 infection maintained on steroids and zinc. 3. Right-sided pneumothorax status post chest tube placement. 4. Hyperkalemia secondary to acute kidney injury and lisinopril. Improved with medical management. 5. Diabetes mellitus. 6. Acute hypoxic respiratory failure. Currently on 60% FiO2. Plan: Maintain tube feeding be changed to Nepro. Repeat BMP this evening. Type blood sugar control. Wean FiO2 and vasopressors. Stop lisinopril. Avoid nephrotoxins. Continue to monitor renal function and urine output. Thank you for the consultation. I will continue to follow the patient with you during his hospital stay.
--- NOTE | 2021-01-13 13:25 | P.PN ---
Subjective Progress Note Date: 01/13/21 Patient is sedated and intubated. Patient has a chest tube in place. ICU team following closely. Vent management ICU team. Blood glucose not well controlled and insulin drip started this morning as ordered by manager hiv. Objective - Vital Signs Vital signs: Vital Signs Temp 97.6 F 01/13/21 12:00 Pulse 94 01/13/21 12:00 Resp 26 H 01/13/21 12:00 BP 118/60 01/13/21 12:00 Pulse Ox 92 L 01/13/21 12:00 Intake & Output 01/12/21 01/13/21 01/13/21 18:59 06:59 18:59 Intake Total 5663.723 4024.271 726.430 Output Total 938 1236 475 Balance 174.907 -177.729 251.430 Weight 93.2 kg Intake: IV 150 120 60 Sodium Chloride 0.9% 1, 150 120 60 000 ml @ 10 mls/hr IV . Q24H [facility] Rx#:[id number] Intake, IV Titration 392.907 368.271 316.430 Amount Cisatracurium 200 mg In 16.009 30.561 Sodium Chloride 0.9% 180 ml @ 1 MCG/KG/MIN 5.346 mls/hr IV .Q24H [facility] Rx#: [id number] Insulin Regular 100 unit 28.987 In Sodium Chloride 0.9% 100 ml @ Per Protocol IV .Q0M [facility] Rx#:[id number] Norepinephrine 4 mg In 82.719 2.263 Sodium Chloride 0.9% 250 ml @ 0.05 MCG/KG/MIN 16. 974 mls/hr IV .[id number] [facility] Rx#:[id number] fentaNYL (PF) 1,000 mcg 85.18 In Sodium Chloride 0.9% 80 ml @ Per Protocol IV . Q0M [facility] Rx#:[id number] propofoL 1,000 mg In 294.179 337.710 200 Empty Bag 1 bag @ Titrate IV .Q0M [facility] Rx#: [id number] Tube Feeding 480 480 240 Other 90 90 110 Output: Chest Tube Drainage 63 246 70 Chest Tube Right 63 246 70 Urine 875 990 405 Other: Voiding Method Indwelling Catheter Indwelling Catheter Indwelling Catheter ABP, PAP, CO, CI - Last Documented Arterial Blood Pressure 110/53 - Exam General: The patient is sedated and intubated. There is extensive subcutaneous emphysema extending from the right shoulder/chest up to the face and periorbital area Eye: there is normal conjunctiva bilaterally. Neck: The neck is supple, there is no JVD. Cardiovascular: Normal S1-S2, no S3-S4, no murmurs. Respiratory: Lungs with mechanical ventilator sounds Gastrointestinal: Abdomen is soft, nontender Musculoskeletal: There is no pedal edema. Skin: Skin is warm and dry - Labs CBC & Chem 7: 01/13/21 04:00 01/13/21 11:05 Labs: Abnormal Lab Results - Last 24 Hours (Table) 01/12/21 01/12/21 01/13/21 Range/Units 17:29 23:57 04:00 MCHC 30.9 L (31.0-37.0) g/dL Lymphocytes # 0.4 L (1.0-4.8) k/uL D-Dimer (<0.60) mg/L FEU ABG pH (7.35-7.45) ABG pCO2 (35-45) mmHg ABG HCO3 (21-25) mmol/L ABG Total CO2 (19-24) mmol/L Potassium (3.5-5.1) mmol/L Chloride (98-107) mmol/L BUN (9-20) mg/dL Creatinine (0.66-1.25) mg/dL Glucose (74-99) mg/dL POC Glucose (mg/dL) 295 H 308 H (75-99) mg/dL Ferritin (22.0-322.0) ng/mL ALT (4-49) U/L Lactate Dehydrogenase (313-618) U/L Total Protein (6.3-8.2) g/dL Albumin (3.5-5.0) g/dL 01/13/21 01/13/21 01/13/21 Range/Units 04:00 04:35 05:18 MCHC (31.0-37.0) g/dL Lymphocytes # (1.0-4.8) k/uL D-Dimer 2.42 H (<0.60) mg/L FEU ABG pH 7.23 L (7.35-7.45) ABG pCO2 70 H (35-45) mmHg ABG HCO3 29 H (21-25) mmol/L ABG Total CO2 32 H (19-24) mmol/L Potassium 6.1 H* (3.5-5.1) mmol/L Chloride 109 H (98-107) mmol/L BUN 80 H (9-20) mg/dL Creatinine 1.47 H (0.66-1.25) mg/dL Glucose 360 H (74-99) mg/dL POC Glucose (mg/dL) (75-99) mg/dL Ferritin 1153.0 H (22.0-322.0) ng/mL ALT 56 H (4-49) U/L Lactate Dehydrogenase 1151 H (313-618) U/L Total Protein 5.2 L (6.3-8.2) g/dL Albumin 2.7 L (3.5-5.0) g/dL 01/13/21 01/13/21 01/13/21 Range/Units 06:08 06:40 06:45 MCHC (31.0-37.0) g/dL Lymphocytes # (1.0-4.8) k/uL D-Dimer (<0.60) mg/L FEU ABG pH (7.35-7.45) ABG pCO2 (35-45) mmHg ABG HCO3 (21-25) mmol/L ABG Total CO2 (19-24) mmol/L Potassium (3.5-5.1) mmol/L Chloride (98-107) mmol/L BUN (9-20) mg/dL Creatinine (0.66-1.25) mg/dL Glucose (74-99) mg/dL POC Glucose (mg/dL) 283 H 310 H 297 H (75-99) mg/dL Ferritin (22.0-322.0) ng/mL ALT (4-49) U/L Lactate Dehydrogenase (313-618) U/L Total Protein (6.3-8.2) g/dL Albumin (3.5-5.0) g/dL 01/13/21 01/13/21 01/13/21 Range/Units 09:05 09:59 10:53 MCHC (31.0-37.0) g/dL Lymphocytes # (1.0-4.8) k/uL D-Dimer (<0.60) mg/L FEU ABG pH (7.35-7.45) ABG pCO2 (35-45) mmHg ABG HCO3 (21-25) mmol/L ABG Total CO2 (19-24) mmol/L Potassium (3.5-5.1) mmol/L Chloride (98-107) mmol/L BUN (9-20) mg/dL Creatinine (0.66-1.25) mg/dL Glucose (74-99) mg/dL POC Glucose (mg/dL) 289 H 184 H 205 H (75-99) mg/dL Ferritin (22.0-322.0) ng/mL ALT (4-49) U/L Lactate Dehydrogenase (313-618) U/L Total Protein (6.3-8.2) g/dL Albumin (3.5-5.0) g/dL 01/13/21 Range/Units 11:43 MCHC (31.0-37.0) g/dL Lymphocytes # (1.0-4.8) k/uL D-Dimer (<0.60) mg/L FEU ABG pH (7.35-7.45) ABG pCO2 (35-45) mmHg ABG HCO3 (21-25) mmol/L ABG Total CO2 (19-24) mmol/L Potassium (3.5-5.1) mmol/L Chloride (98-107) mmol/L BUN (9-20) mg/dL Creatinine (0.66-1.25) mg/dL Glucose (74-99) mg/dL POC Glucose (mg/dL) 243 H (75-99) mg/dL Ferritin (22.0-322.0) ng/mL ALT (4-49) U/L Lactate Dehydrogenase (313-618) U/L Total Protein (6.3-8.2) g/dL Albumin (3.5-5.0) g/dL Microbiology - Last 24 Hours (Table) 01/09/21 15:45 Gram Stain - Final Sputum Sputum Culture - Final Assessment and Plan Assessment: Patient is a 70 yo CM with a hx of DM2 well controlled on insulin and oral medications, HTN, HLD, and CAD with hx of PCI X 1 who presented to the ED due to extreme fatigue. He started having COVID symptoms of COVID 7 days ago and was tested and confirmed positive. Chest x-ray on presentation showed diffuse interstitial infiltrates. Patient was admitted to the hospital for the ongoing management of his medical problems noted below COVID 19 pneumonitis with acute hypoxic respiratory failure -Requiring intubation and mechanical ventilation day #5 -Pulmonary recs: Remdesivir, started on Decadron then switched to IV Solu-Medrol by pulmonology - Actemra administered during this admission - Vent management by ICU team. -Zinc, vitamin C, vitamin D -Follow inflammatory markers Right apical pneumothorax with extensive subcutaneous emphysema -Status post chest tube insertion. Managed by ICU team. Seen by her Lasix surgery, no intervention at this time. Recommended to wean off PEEP currently at 10 Acute kidney injury on Chronic kidney disease stage III, hyponatremia, metabolic acidosis, suspect secondary to dehydration -Resolved with IV fluid hydration. DM 2, with steroid-induced hyperglycemia - Currently on insulin drip - A1C 7.8 Hypertension, controlled -Blood pressure within acceptable range Hyperkalemia -Kayexalate ordered Dyslipidemia -Statin therapy GERD -H2 kaushik Lactic acidosis, resolved PK eyes, resolved Today, I reviewed his medication list and lab work results Vent and chest tube management and sedation management by ICU team Tube feeding rates managed by registered dietitian Patient remained in critical condition I would add MiraLAX 17 g daily DVT prophylaxis: Lovenox Discussed with: Patient, nursing, Dr. Kamara Anticipated discharge date: Pending clinical course Anticipated discharge place: To be determined A total of 35 minutes was spent on the care of this complex patient more than 50% of the time was spent in counseling and care coordination.
[2021-01-13 13:42] LABS: Glucose,Whole Blood 167 mg/dL (75-99)
[2021-01-13 14:49] LABS: Glucose,Whole Blood 206 mg/dL (75-99)
[2021-01-13] MEDS: CISATRACURIUM 200 MG in SODIUM CHLORIDE 0.9% 180 ML IV SCH (15:00)
[2021-01-13 16:16] LABS: Glucose,Whole Blood 222 mg/dL (75-99)
[2021-01-13 17:11] LABS: Glucose,Whole Blood 211 mg/dL (75-99)
[2021-01-13 17:33] LABS: Calcium 8.7 mg/dL (8.4-10.2); Potassium 5.5 mmol/L (3.5-5.1)
[2021-01-13 18:11] LABS: Glucose,Whole Blood 159 mg/dL (75-99)
[2021-01-13 18:49] LABS: Glucose,Whole Blood 179 mg/dL (75-99)
[2021-01-13] MEDS: ATORVASTATIN 20 MG TAB PO SCH (20:37)
[2021-01-13] MEDS: polyethylene glycoL 3350 17 GM POWD.PACK PO SCH (20:37)
[2021-01-13 21:07] LABS: Glucose,Whole Blood 211 mg/dL (75-99)
[2021-01-13 22:23] LABS: Glucose,Whole Blood 287 mg/dL (75-99)
[2021-01-13 23:31] LABS: Glucose,Whole Blood 207 mg/dL (75-99)
[2021-01-14 01:11] LABS: Glucose,Whole Blood 142 mg/dL (75-99)
[2021-01-14 02:02] LABS: Glucose,Whole Blood 144 mg/dL (75-99)
[2021-01-14 03:08] LABS: Glucose,Whole Blood 154 mg/dL (75-99)
[2021-01-14] MEDS: NOREPINEPHRINE 4 MG in SODIUM CHLORIDE 0.9% 250 ML IV SCH ×2 (03:09→20:43)
[2021-01-14] MEDS: ARTIFICIAL TEARS-HYPROMELLOSE DROPS 15 ML BTL BOTH EYES SCH ×6 (04:50→23:57)
[2021-01-14] MEDS: SODIUM CHLORIDE 0.9% 1,000 ML IV SCH (05:00)
[2021-01-14] MEDS: methylPREDNISolone SOD SUCCI 125 MG/2 ML VIAL IV SCH ×4 (05:00→23:49)
[2021-01-14 05:10] LABS: Glucose,Whole Blood 173 mg/dL (75-99)
[2021-01-14 05:27] LABS: Basophils % (A) 0 %; Eosinophils % (A) 0 %; HCT 43.7 % (39.0-53.0); HGB 13.9 gm/dL (13.0-17.5); Lymphocytes # (A) 0.3 k/uL (1.0-4.8); Lymphocytes % (A) 2 %; MCH 29.7 pg (25.0-35.0); MCHC 31.8 g/dL (31.0-37.0); MCV 93.2 fL (80.0-100.0); Mean Platelet Volume 8.5; Monocytes # (A) 0.3 k/uL (0-1.0); Monocytes % (A) 3 %; Neutrophils # (A) 10.8 k/uL (1.3-7.7); Neutrophils % (A) 95 %; Platelet Count 213 k/uL (150-450); RBC 4.68 m/uL (4.30-5.90); RDW 14.1 % (11.5-15.5); WBC 11.5 k/uL (3.8-10.6)
[2021-01-14 05:45] LABS: ALT 61 U/L (4-49); AST 51 U/L (17-59); African American GFR (CKD) 47 (>60 ml/min/1.73 sqM); Albumin 2.5 g/dL (3.5-5.0); Alkaline Phosphatase 77 U/L (38-126); Anion Gap 4 mmol/L; C Reactive Protein <5.0 mg/L (<10.0); Carbon Dioxide 30 mmol/L (22-30); Chloride 111 mmol/L (98-107); Glucose 197 mg/dL (74-99); LDH 921 U/L (313-618); Non-African American GFR(CKD) 41 (>60 ml/min/1.73 sqM); Potassium 4.9 mmol/L (3.5-5.1); Sodium 145 mmol/L (137-145); Total Bilirubin 0.7 mg/dL (0.2-1.3); Total Protein 4.8 g/dL (6.3-8.2)
[2021-01-14 05:45] LABS: ABG PCO2 63 mmHg (35-45); ABG PH 7.31 (7.35-7.45); Allen Test Performed? Yes
[2021-01-14 05:46] LABS: ABG PO2 59 mmHg (83-108)
[2021-01-14 05:47] LABS: ABG Base Excess 5.8 mmol/L; ABG HCO3 32 mmol/L (21-25); ABG TCO2 34 mmol/L (19-24)
[2021-01-14 05:54] LABS: Blood Urea Nitrogen 101 mg/dL (9-20)
[2021-01-14 06:49] LABS: Glucose,Whole Blood 169 mg/dL (75-99)
--- NOTE | 2021-01-14 07:56 | P.PN ---
Subjective Progress Note Date: 01/14/21 Principal diagnosis: Covid 19 infection, acute hypoxic respiratory failure, ARDS requiring mechanical ventilation, right-sided small pneumothorax, S/P pleural chest tube placement with subsequent extensive subcutaneous emphysema, acute kidney injury. Previous medical history of CAD with stent placement, hypertension, hyperlipidemia, diabetes, never smoker Patient is currently laying in bed in the intensive care unit on mechanical ventilation, sedated with propofol, paralytic on board. Yesterday we did remove Vaseline gauze from his chest tube dressing, covered the chest tube with nonocclusive dressing. PEEP was dropped to 8. His subcutaneous emphysema appears to be about the same. Right pleural chest tube remains with minimal output and no air leak present. Objective - Vital Signs Vital signs: Vital Signs Temp 99.9 F H 01/14/21 04:00 Pulse 104 H 01/14/21 07:00 Resp 26 H 01/14/21 07:00 BP 102/62 01/14/21 07:00 Pulse Ox 87 L 01/14/21 07:00 Intake & Output 01/13/21 01/14/21 01/14/21 18:59 06:59 18:59 Intake Total 1084.633 4770.667 38 Output Total 845 780 60 Balance 562.941 397.667 -22 Weight 89.4 kg 90.6 kg Intake: IV 120 150 10 Sodium Chloride 0.9% 1, 120 150 10 000 ml @ 10 mls/hr IV . Q24H [facility] Rx#:[id number] Intake, IV Titration 727.941 541.667 Amount Cisatracurium 200 mg In 101.841 Sodium Chloride 0.9% 180 ml @ 1 MCG/KG/MIN 5.346 mls/hr IV .Q24H [facility] Rx#: [id number] Insulin Regular 100 unit 85.093 80.648 In Sodium Chloride 0.9% 100 ml @ Per Protocol IV .Q0M [facility] Rx#:[id number] Norepinephrine 4 mg In 68.685 162.693 Sodium Chloride 0.9% 250 ml @ 0.05 MCG/KG/MIN 16. 974 mls/hr IV .[id number] [facility] Rx#:[id number] fentaNYL (PF) 1,000 mcg 85.18 In Sodium Chloride 0.9% 80 ml @ Per Protocol IV . Q0M [facility] Rx#:[id number] propofoL 1,000 mg In 387.142 298.326 Empty Bag 1 bag @ Titrate IV .Q0M [facility] Rx#: [id number] Tube Feeding 420 336 28 Other 140 150 Output: Chest Tube Drainage 70 20 Chest Tube Right 70 20 Urine 775 760 60 Other: Voiding Method Indwelling Catheter Indwelling Catheter ABP, PAP, CO, CI - Last Documented Arterial Blood Pressure 129/54 - Exam CONSTITUTIONAL: Obese, mechanically ventilated with sedation and paralytic EYES: Pupils equal, round, reactive to light, normal ocular movement ENT: Moist mucous membranes without oral lesions present NECK: No masses, no bruits, trachea midline RESPIRATORY: Lungs sounds diminished and course to auscultation bilaterally. Respirations even, nonlabored on mechanical ventilation. Currently ventilator settings assist control mode, FiO2 60%, tidal volume 400, respiratory rate 26, PEEP 8. 8.0 ET tube present, 24 the lip. Right-sided pleural chest tube present to continuous wall suction, 20 mL bloody drainage in the last 24 hours, no visible air leak at this time. Subcutaneous air present to face, neck, chest, upper extremities CARDIOVASCULAR: S1, S2 present. Tachycardic but regular rate and rhythm, sinus tach on telemetry. Palpable peripheral pulses bilaterally. Generalized edema present. SCDs present GASTROINTESTINAL: Abdomen soft, nontender, nondistended without masses or organomegaly noted. Active bowel sounds present 4 quadrants. Tube feeds infusing a 28 mL per hour GENITOURINARY: Armando present draining dark urine INTEGUMENTARY: Skin is warm and dry NEUROLOGIC: Unable to be assessed as patient is sedated and paralyzed on mechanical ventilation - Allied health notes Allied health notes reviewed: nursing - Labs CBC & Chem 7: 01/14/21 04:25 01/14/21 04:25 Labs: Abnormal Lab Results - Last 24 Hours (Table) 01/13/21 01/13/21 01/13/21 Range/Units 04:00 09:05 09:59 WBC (3.8-10.6) k/uL Neutrophils # (1.3-7.7) k/uL Lymphocytes # (1.0-4.8) k/uL D-Dimer (<0.60) mg/L FEU ABG pH (7.35-7.45) ABG pCO2 (35-45) mmHg ABG pO2 (83-108) mmHg ABG HCO3 (21-25) mmol/L ABG Total CO2 (19-24) mmol/L ABG O2 Saturation (94-97) % Sodium (137-145) mmol/L Potassium (3.5-5.1) mmol/L Chloride (98-107) mmol/L BUN (9-20) mg/dL Creatinine (0.66-1.25) mg/dL Glucose (74-99) mg/dL POC Glucose (mg/dL) 289 H 184 H (75-99) mg/dL Ferritin 1153.0 H (22.0-322.0) ng/mL ALT (4-49) U/L Lactate Dehydrogenase (313-618) U/L Total Protein (6.3-8.2) g/dL Albumin (3.5-5.0) g/dL 01/13/21 01/13/21 01/13/21 Range/Units 10:53 11:43 13:40 WBC (3.8-10.6) k/uL Neutrophils # (1.3-7.7) k/uL Lymphocytes # (1.0-4.8) k/uL D-Dimer (<0.60) mg/L FEU ABG pH (7.35-7.45) ABG pCO2 (35-45) mmHg ABG pO2 (83-108) mmHg ABG HCO3 (21-25) mmol/L ABG Total CO2 (19-24) mmol/L ABG O2 Saturation (94-97) % Sodium (137-145) mmol/L Potassium (3.5-5.1) mmol/L Chloride (98-107) mmol/L BUN (9-20) mg/dL Creatinine (0.66-1.25) mg/dL Glucose (74-99) mg/dL POC Glucose (mg/dL) 205 H 243 H 167 H (75-99) mg/dL Ferritin (22.0-322.0) ng/mL ALT (4-49) U/L Lactate Dehydrogenase (313-618) U/L Total Protein (6.3-8.2) g/dL Albumin (3.5-5.0) g/dL 01/13/21 01/13/21 01/13/21 Range/Units 14:47 16:14 17:05 WBC (3.8-10.6) k/uL Neutrophils # (1.3-7.7) k/uL Lymphocytes # (1.0-4.8) k/uL D-Dimer (<0.60) mg/L FEU ABG pH (7.35-7.45) ABG pCO2 (35-45) mmHg ABG pO2 (83-108) mmHg ABG HCO3 (21-25) mmol/L ABG Total CO2 (19-24) mmol/L ABG O2 Saturation (94-97) % Sodium 146 H (137-145) mmol/L Potassium 5.5 H (3.5-5.1) mmol/L Chloride 112 H (98-107) mmol/L BUN 95 H (9-20) mg/dL Creatinine 1.59 H (0.66-1.25) mg/dL Glucose 233 H (74-99) mg/dL POC Glucose (mg/dL) 206 H 222 H (75-99) mg/dL Ferritin (22.0-322.0) ng/mL ALT (4-49) U/L Lactate Dehydrogenase (313-618) U/L Total Protein (6.3-8.2) g/dL Albumin (3.5-5.0) g/dL 01/13/21 01/13/21 01/13/21 Range/Units 17:09 18:10 18:48 WBC (3.8-10.6) k/uL Neutrophils # (1.3-7.7) k/uL Lymphocytes # (1.0-4.8) k/uL D-Dimer (<0.60) mg/L FEU ABG pH (7.35-7.45) ABG pCO2 (35-45) mmHg ABG pO2 (83-108) mmHg ABG HCO3 (21-25) mmol/L ABG Total CO2 (19-24) mmol/L ABG O2 Saturation (94-97) % Sodium (137-145) mmol/L Potassium (3.5-5.1) mmol/L Chloride (98-107) mmol/L BUN (9-20) mg/dL Creatinine (0.66-1.25) mg/dL Glucose (74-99) mg/dL POC Glucose (mg/dL) 211 H 159 H 179 H (75-99) mg/dL Ferritin (22.0-322.0) ng/mL ALT (4-49) U/L Lactate Dehydrogenase (313-618) U/L Total Protein (6.3-8.2) g/dL Albumin (3.5-5.0) g/dL 01/13/21 01/13/21 01/13/21 Range/Units 21:06 22:21 23:30 WBC (3.8-10.6) k/uL Neutrophils # (1.3-7.7) k/uL Lymphocytes # (1.0-4.8) k/uL D-Dimer (<0.60) mg/L FEU ABG pH (7.35-7.45) ABG pCO2 (35-45) mmHg ABG pO2 (83-108) mmHg ABG HCO3 (21-25) mmol/L ABG Total CO2 (19-24) mmol/L ABG O2 Saturation (94-97) % Sodium (137-145) mmol/L Potassium (3.5-5.1) mmol/L Chloride (98-107) mmol/L BUN (9-20) mg/dL Creatinine (0.66-1.25) mg/dL Glucose (74-99) mg/dL POC Glucose (mg/dL) 211 H 287 H 207 H (75-99) mg/dL Ferritin (22.0-322.0) ng/mL ALT (4-49) U/L Lactate Dehydrogenase (313-618) U/L Total Protein (6.3-8.2) g/dL Albumin (3.5-5.0) g/dL 01/14/21 01/14/21 01/14/21 Range/Units 01:10 02:01 03:07 WBC (3.8-10.6) k/uL Neutrophils # (1.3-7.7) k/uL Lymphocytes # (1.0-4.8) k/uL D-Dimer (<0.60) mg/L FEU ABG pH (7.35-7.45) ABG pCO2 (35-45) mmHg ABG pO2 (83-108) mmHg ABG HCO3 (21-25) mmol/L ABG Total CO2 (19-24) mmol/L ABG O2 Saturation (94-97) % Sodium (137-145) mmol/L Potassium (3.5-5.1) mmol/L Chloride (98-107) mmol/L BUN (9-20) mg/dL Creatinine (0.66-1.25) mg/dL Glucose (74-99) mg/dL POC Glucose (mg/dL) 142 H 144 H 154 H (75-99) mg/dL Ferritin (22.0-322.0) ng/mL ALT (4-49) U/L Lactate Dehydrogenase (313-618) U/L Total Protein (6.3-8.2) g/dL Albumin (3.5-5.0) g/dL 01/14/21 01/14/21 01/14/21 Range/Units 04:25 04:25 04:25 WBC 11.5 H (3.8-10.6) k/uL Neutrophils # 10.8 H (1.3-7.7) k/uL Lymphocytes # 0.3 L (1.0-4.8) k/uL D-Dimer 1.69 H (<0.60) mg/L FEU ABG pH (7.35-7.45) ABG pCO2 (35-45) mmHg ABG pO2 (83-108) mmHg ABG HCO3 (21-25) mmol/L ABG Total CO2 (19-24) mmol/L ABG O2 Saturation (94-97) % Sodium (137-145) mmol/L Potassium (3.5-5.1) mmol/L Chloride 111 H (98-107) mmol/L BUN 101 H* (9-20) mg/dL Creatinine 1.68 H (0.66-1.25) mg/dL Glucose 197 H (74-99) mg/dL POC Glucose (mg/dL) (75-99) mg/dL Ferritin (22.0-322.0) ng/mL ALT 61 H (4-49) U/L Lactate Dehydrogenase 921 H (313-618) U/L Total Protein 4.8 L (6.3-8.2) g/dL Albumin 2.5 L (3.5-5.0) g/dL 01/14/21 01/14/21 01/14/21 Range/Units 05:09 05:20 06:47 WBC (3.8-10.6) k/uL Neutrophils # (1.3-7.7) k/uL Lymphocytes # (1.0-4.8) k/uL D-Dimer (<0.60) mg/L FEU ABG pH 7.31 L (7.35-7.45) ABG pCO2 63 H (35-45) mmHg ABG pO2 59 L* (83-108) mmHg ABG HCO3 32 H (21-25) mmol/L ABG Total CO2 34 H (19-24) mmol/L ABG O2 Saturation 90.0 L (94-97) % Sodium (137-145) mmol/L Potassium (3.5-5.1) mmol/L Chloride (98-107) mmol/L BUN (9-20) mg/dL Creatinine (0.66-1.25) mg/dL Glucose (74-99) mg/dL POC Glucose (mg/dL) 173 H 169 H (75-99) mg/dL Ferritin (22.0-322.0) ng/mL ALT (4-49) U/L Lactate Dehydrogenase (313-618) U/L Total Protein (6.3-8.2) g/dL Albumin (3.5-5.0) g/dL Microbiology - Last 24 Hours (Table) 01/09/21 15:45 Gram Stain - Final Sputum Sputum Culture - Final - Imaging and Cardiology Chest x-ray: image reviewed Assessment and Plan Assessment: 1. Covid 19 infection 2. Acute hypoxic respiratory failure, ARDS requiring mechanical ventilation, secondary to above 3. Right-sided small pneumothorax, status post placement of a pleural chest tube with subsequent extensive subcutaneous emphysema 4. Acute kidney injury 5. History of CAD with stent placement 6. History of hypertension, currently hypotensive on levo 7. History of hyperlipidemia 8. History of diabetes 9. Never smoker Plan: 1. Continue right-sided pleural chest tube to continuous wall suction with nonocclusive dressing. Monitor subcutaneous emphysema 2. No surgical management at this time 3. 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 Will monitor daily x-rays 5. Will continue to follow and make further recommendations as appropriate Time with Patient: Greater than 30
[2021-01-14] MEDS: ALBUTEROL HFA INHALER INHALATION SCH ×4 (08:00→20:59)
[2021-01-14 08:07] LABS: Glucose,Whole Blood 197 mg/dL (75-99)
--- NOTE | 2021-01-14 08:15 | XR ---
EXAMINATION TYPE: XR chest 1V portable DATE OF EXAM: 01/14/2021 COMPARISON: 01/13/2021 HISTORY: SOB, Follow Up FINDINGS: Indwelling tubes and catheters are unchanged. No change in extensive pneumoperitoneum. Right basilar chest tube unchanged. Examination limited for evaluation of pneumothorax. Scattered infiltrates persist. Stable appearance of the cardio-mediastinal structures at this time. Pleural effusion unchanged. IMPRESSION: 1. Stable portable chest. Clinical correlation and follow up until resolution is recommended.
[2021-01-14] MEDS: ASPIRIN 81 MG PO SCH (08:35)
[2021-01-14] MEDS: CHOLECALCIFEROL 25 MCG (1000 IU) TABLET PO SCH (08:35)
[2021-01-14] MEDS: INSULIN REGULAR 100 UNIT in SODIUM CHLORIDE 0.9% 100 ML IV SCH ×2 (08:35→20:12)
[2021-01-14] MEDS: ZINC SULFATE 220 MG CAP PO SCH (08:36)
[2021-01-14] MEDS: CHLORHEXIDINE GLUCONATE 15 ML CUP MUCOUS MEM SCH ×2 (08:36→20:58)
[2021-01-14] MEDS: METOPROLOL TARTRATE 25 MG TAB PO SCH ×2 (08:36→20:59)
[2021-01-14] MEDS: FAMOTIDINE 20 MG/2 ML VIAL IV SCH ×2 (08:36→20:58)
[2021-01-14] MEDS: ENOXAPARIN 60 MG/0.6 ML SYRINGE SQ SCH ×2 (08:36→20:59)
[2021-01-14] MEDS: ASCORBIC ACID 500 MG TAB PO SCH (08:37)
--- NOTE | 2021-01-14 08:54 | P.PN ---
Subjective Patient is seen in follow for acute kidney injury. Renal function slightly worse compared to yesterday. Potassium level normal. Maintained on low-dose Levophed. Receiving tube feeding. Nonoliguric. Currently on 60% FiO2. Vital signs are stable. On vasopressor support. General: The patient appeared well nourished and normally developed. HEENT: Intubated. LUNGS: Breath sounds decreased. HEART: Tachycardic. ABDOMEN: Soft, no distention noted. EXTREMITITES: 1+ edema. Objective - Vital Signs Vital signs: Vital Signs Temp 99.9 F H 01/14/21 04:00 Pulse 104 H 01/14/21 07:00 Resp 26 H 01/14/21 07:00 BP 102/62 01/14/21 07:00 Pulse Ox 87 L 01/14/21 07:00 Intake & Output 01/13/21 01/14/21 01/14/21 18:59 06:59 18:59 Intake Total 6396.869 8152.667 53.369 Output Total 845 780 60 Balance 562.941 397.667 -6.631 Weight 89.4 kg 90.6 kg Intake: IV 120 150 10 Sodium Chloride 0.9% 1, 120 150 10 000 ml @ 10 mls/hr IV . Q24H [facility] Rx#:[id number] Intake, IV Titration 727.941 541.667 15.369 Amount Cisatracurium 200 mg In 101.841 Sodium Chloride 0.9% 180 ml @ 1 MCG/KG/MIN 5.346 mls/hr IV .Q24H [facility] Rx#: [id number] Insulin Regular 100 unit 85.093 80.648 15.369 In Sodium Chloride 0.9% 100 ml @ Per Protocol IV .Q0M [facility] Rx#:[id number] Norepinephrine 4 mg In 68.685 162.693 Sodium Chloride 0.9% 250 ml @ 0.05 MCG/KG/MIN 16. 974 mls/hr IV .[id number] [facility] Rx#:[id number] fentaNYL (PF) 1,000 mcg 85.18 In Sodium Chloride 0.9% 80 ml @ Per Protocol IV . Q0M [facility] Rx#:[id number] propofoL 1,000 mg In 387.142 298.326 Empty Bag 1 bag @ Titrate IV .Q0M [facility] Rx#: [id number] Tube Feeding 420 336 28 Other 140 150 Output: Chest Tube Drainage 70 20 Chest Tube Right 70 20 Urine 775 760 60 Other: Voiding Method Indwelling Catheter Indwelling Catheter ABP, PAP, CO, CI - Last Documented Arterial Blood Pressure 129/54 - Labs CBC & Chem 7: 01/14/21 04:25 01/14/21 04:25 Labs: Abnormal Lab Results - Last 24 Hours (Table) 01/13/21 01/13/21 01/13/21 Range/Units 04:00 09:05 09:59 WBC (3.8-10.6) k/uL Neutrophils # (1.3-7.7) k/uL Lymphocytes # (1.0-4.8) k/uL D-Dimer (<0.60) mg/L FEU ABG pH (7.35-7.45) ABG pCO2 (35-45) mmHg ABG pO2 (83-108) mmHg ABG HCO3 (21-25) mmol/L ABG Total CO2 (19-24) mmol/L ABG O2 Saturation (94-97) % Sodium (137-145) mmol/L Potassium (3.5-5.1) mmol/L Chloride (98-107) mmol/L BUN (9-20) mg/dL Creatinine (0.66-1.25) mg/dL Glucose (74-99) mg/dL POC Glucose (mg/dL) 289 H 184 H (75-99) mg/dL Ferritin 1153.0 H (22.0-322.0) ng/mL ALT (4-49) U/L Lactate Dehydrogenase (313-618) U/L Total Protein (6.3-8.2) g/dL Albumin (3.5-5.0) g/dL 01/13/21 01/13/21 01/13/21 Range/Units 10:53 11:43 13:40 WBC (3.8-10.6) k/uL Neutrophils # (1.3-7.7) k/uL Lymphocytes # (1.0-4.8) k/uL D-Dimer (<0.60) mg/L FEU ABG pH (7.35-7.45) ABG pCO2 (35-45) mmHg ABG pO2 (83-108) mmHg ABG HCO3 (21-25) mmol/L ABG Total CO2 (19-24) mmol/L ABG O2 Saturation (94-97) % Sodium (137-145) mmol/L Potassium (3.5-5.1) mmol/L Chloride (98-107) mmol/L BUN (9-20) mg/dL Creatinine (0.66-1.25) mg/dL Glucose (74-99) mg/dL POC Glucose (mg/dL) 205 H 243 H 167 H (75-99) mg/dL Ferritin (22.0-322.0) ng/mL ALT (4-49) U/L Lactate Dehydrogenase (313-618) U/L Total Protein (6.3-8.2) g/dL Albumin (3.5-5.0) g/dL 01/13/21 01/13/21 01/13/21 Range/Units 14:47 16:14 17:05 WBC (3.8-10.6) k/uL Neutrophils # (1.3-7.7) k/uL Lymphocytes # (1.0-4.8) k/uL D-Dimer (<0.60) mg/L FEU ABG pH (7.35-7.45) ABG pCO2 (35-45) mmHg ABG pO2 (83-108) mmHg ABG HCO3 (21-25) mmol/L ABG Total CO2 (19-24) mmol/L ABG O2 Saturation (94-97) % Sodium 146 H (137-145) mmol/L Potassium 5.5 H (3.5-5.1) mmol/L Chloride 112 H (98-107) mmol/L BUN 95 H (9-20) mg/dL Creatinine 1.59 H (0.66-1.25) mg/dL Glucose 233 H (74-99) mg/dL POC Glucose (mg/dL) 206 H 222 H (75-99) mg/dL Ferritin (22.0-322.0) ng/mL ALT (4-49) U/L Lactate Dehydrogenase (313-618) U/L Total Protein (6.3-8.2) g/dL Albumin (3.5-5.0) g/dL 01/13/21 01/13/21 01/13/21 Range/Units 17:09 18:10 18:48 WBC (3.8-10.6) k/uL Neutrophils # (1.3-7.7) k/uL Lymphocytes # (1.0-4.8) k/uL D-Dimer (<0.60) mg/L FEU ABG pH (7.35-7.45) ABG pCO2 (35-45) mmHg ABG pO2 (83-108) mmHg ABG HCO3 (21-25) mmol/L ABG Total CO2 (19-24) mmol/L ABG O2 Saturation (94-97) % Sodium (137-145) mmol/L Potassium (3.5-5.1) mmol/L Chloride (98-107) mmol/L BUN (9-20) mg/dL Creatinine (0.66-1.25) mg/dL Glucose (74-99) mg/dL POC Glucose (mg/dL) 211 H 159 H 179 H (75-99) mg/dL Ferritin (22.0-322.0) ng/mL ALT (4-49) U/L Lactate Dehydrogenase (313-618) U/L Total Protein (6.3-8.2) g/dL Albumin (3.5-5.0) g/dL 01/13/21 01/13/21 01/13/21 Range/Units 21:06 22:21 23:30 WBC (3.8-10.6) k/uL Neutrophils # (1.3-7.7) k/uL Lymphocytes # (1.0-4.8) k/uL D-Dimer (<0.60) mg/L FEU ABG pH (7.35-7.45) ABG pCO2 (35-45) mmHg ABG pO2 (83-108) mmHg ABG HCO3 (21-25) mmol/L ABG Total CO2 (19-24) mmol/L ABG O2 Saturation (94-97) % Sodium (137-145) mmol/L Potassium (3.5-5.1) mmol/L Chloride (98-107) mmol/L BUN (9-20) mg/dL Creatinine (0.66-1.25) mg/dL Glucose (74-99) mg/dL POC Glucose (mg/dL) 211 H 287 H 207 H (75-99) mg/dL Ferritin (22.0-322.0) ng/mL ALT (4-49) U/L Lactate Dehydrogenase (313-618) U/L Total Protein (6.3-8.2) g/dL Albumin (3.5-5.0) g/dL 01/14/21 01/14/21 01/14/21 Range/Units 01:10 02:01 03:07 WBC (3.8-10.6) k/uL Neutrophils # (1.3-7.7) k/uL Lymphocytes # (1.0-4.8) k/uL D-Dimer (<0.60) mg/L FEU ABG pH (7.35-7.45) ABG pCO2 (35-45) mmHg ABG pO2 (83-108) mmHg ABG HCO3 (21-25) mmol/L ABG Total CO2 (19-24) mmol/L ABG O2 Saturation (94-97) % Sodium (137-145) mmol/L Potassium (3.5-5.1) mmol/L Chloride (98-107) mmol/L BUN (9-20) mg/dL Creatinine (0.66-1.25) mg/dL Glucose (74-99) mg/dL POC Glucose (mg/dL) 142 H 144 H 154 H (75-99) mg/dL Ferritin (22.0-322.0) ng/mL ALT (4-49) U/L Lactate Dehydrogenase (313-618) U/L Total Protein (6.3-8.2) g/dL Albumin (3.5-5.0) g/dL 01/14/21 01/14/21 01/14/21 Range/Units 04:25 04:25 04:25 WBC 11.5 H (3.8-10.6) k/uL Neutrophils # 10.8 H (1.3-7.7) k/uL Lymphocytes # 0.3 L (1.0-4.8) k/uL D-Dimer 1.69 H (<0.60) mg/L FEU ABG pH (7.35-7.45) ABG pCO2 (35-45) mmHg ABG pO2 (83-108) mmHg ABG HCO3 (21-25) mmol/L ABG Total CO2 (19-24) mmol/L ABG O2 Saturation (94-97) % Sodium (137-145) mmol/L Potassium (3.5-5.1) mmol/L Chloride 111 H (98-107) mmol/L BUN 101 H* (9-20) mg/dL Creatinine 1.68 H (0.66-1.25) mg/dL Glucose 197 H (74-99) mg/dL POC Glucose (mg/dL) (75-99) mg/dL Ferritin (22.0-322.0) ng/mL ALT 61 H (4-49) U/L Lactate Dehydrogenase 921 H (313-618) U/L Total Protein 4.8 L (6.3-8.2) g/dL Albumin 2.5 L (3.5-5.0) g/dL 01/14/21 01/14/21 01/14/21 Range/Units 05:09 05:20 06:47 WBC (3.8-10.6) k/uL Neutrophils # (1.3-7.7) k/uL Lymphocytes # (1.0-4.8) k/uL D-Dimer (<0.60) mg/L FEU ABG pH 7.31 L (7.35-7.45) ABG pCO2 63 H (35-45) mmHg ABG pO2 59 L* (83-108) mmHg ABG HCO3 32 H (21-25) mmol/L ABG Total CO2 34 H (19-24) mmol/L ABG O2 Saturation 90.0 L (94-97) % Sodium (137-145) mmol/L Potassium (3.5-5.1) mmol/L Chloride (98-107) mmol/L BUN (9-20) mg/dL Creatinine (0.66-1.25) mg/dL Glucose (74-99) mg/dL POC Glucose (mg/dL) 173 H 169 H (75-99) mg/dL Ferritin (22.0-322.0) ng/mL ALT (4-49) U/L Lactate Dehydrogenase (313-618) U/L Total Protein (6.3-8.2) g/dL Albumin (3.5-5.0) g/dL 01/14/21 Range/Units 08:05 WBC (3.8-10.6) k/uL Neutrophils # (1.3-7.7) k/uL Lymphocytes # (1.0-4.8) k/uL D-Dimer (<0.60) mg/L FEU ABG pH (7.35-7.45) ABG pCO2 (35-45) mmHg ABG pO2 (83-108) mmHg ABG HCO3 (21-25) mmol/L ABG Total CO2 (19-24) mmol/L ABG O2 Saturation (94-97) % Sodium (137-145) mmol/L Potassium (3.5-5.1) mmol/L Chloride (98-107) mmol/L BUN (9-20) mg/dL Creatinine (0.66-1.25) mg/dL Glucose (74-99) mg/dL POC Glucose (mg/dL) 197 H (75-99) mg/dL Ferritin (22.0-322.0) ng/mL ALT (4-49) U/L Lactate Dehydrogenase (313-618) U/L Total Protein (6.3-8.2) g/dL Albumin (3.5-5.0) g/dL Microbiology - Last 24 Hours (Table) 01/09/21 15:45 Gram Stain - Final Sputum Sputum Culture - Final Assessment and Plan Plan: Assessment: 1. Acute kidney injury secondary to ATN secondary to septic shock. Baseline creatinine near 1 and is 1.68 today. 2. Septic shock secondary to covid-19 infection maintained on steroids and zinc. 3. Right-sided pneumothorax status post chest tube placement. 4. Hyperkalemia secondary to acute kidney injury and lisinopril. Improved with medical management. 5. Diabetes mellitus. 6. Acute hypoxic respiratory failure. Currently on 60% FiO2. Plan: Maintain tube feeding. Tight blood sugar control. Wean FiO2 and vasopressors. Lisinopril stopped 01/13/2021. Avoid nephrotoxins. Continue to monitor renal function and urine output.
[2021-01-14 08:55] LABS: Glucose,Whole Blood 185 mg/dL (75-99)
[2021-01-14 10:24] LABS: Glucose,Whole Blood 178 mg/dL (75-99)
[2021-01-14 11:08] LABS: Ferritin 1070.9 ng/mL (22.0-322.0)
--- NOTE | 2021-01-14 11:28 | CT ---
EXAMINATION TYPE: CT chest wo con DATE OF EXAM: 01/14/2021 COMPARISON: None HISTORY: Pneumothorax, Covid Pneumonia CT DLP: 596.[address] of the chest was performed with lung and mediastinal window settings submitted. The la ck of contrast limits evaluation of the vascular, mediastinal and parenchymal structures including th e upper abdomen. LUNGS: There is extensive subcutaneous emphysema throughout the chest extending into the back neck. T here is pneumomediastinum. Small less than 10% right-sided pneumothorax is noted. Right basilar chest tube is within atelectatic lung right lower lobe posterior sulcus. Diffuse infiltrates are seen bila terally as well as areas of atelectasis in consolidation small effusions. Endotracheal tube and NG tu be are in place. Left subclavian central venous line appropriately placed. MEDIASTINUM/LADAN: There is evidence of pneumomediastinum. Thoracic aorta is of normal caliber with l imited evaluation given lack of contrast. The heart is not enlarged. No evidence for mediastinal ma ss. No lymph nodes greater than 1cm. UPPER ABDOMEN: Small gallstones noted. OTHER: No significant other abnormality. IMPRESSION: 1. Extensive subcutaneous emphysema with pneumomediastinum and less than 10% right-sided pneumothora x. 2. Diffuse infiltrates throughout both lung sprague. His of consolidation atelectasis. 3. Right-sided chest tube as discussed.
--- NOTE | 2021-01-14 11:30 | P.PN ---
Subjective Progress Note Date: 01/14/21 Principal diagnosis: Acute hypoxic respiratory failure secondary to acute covid 19 pneumonitis. 70-year-old male patient, known history of diabetes mellitus maintained on insulin in addition to history of hypertension, hyperlipidemia, coronary artery disease and previous history of PCI, presented to the emergency department because of increased fatigue and tiredness. The patient was infected with Covid 19 and the testing by PCR came back positive. The patient started having symptoms of infection approximately 7 days ago and his tests confirmed positive. The test was positive on 12/27/2020. The patient's complaints were essentially those of body aches, feeling weak and tired and he was warm and he was probably having fevers. He was significantly fatigued and he was unable to do even simple stuff at home. He reported poor appetite. No loss in the taste or smell . He had no significant cough. He denies having any significant shortness of breath. No headaches. No nasal congestion. No nausea or vomiting. Upon arrival to the emergency department, the patient was profoundly hypoxic and the pulse ox was around 82% and the patient was also tachypneic and tachycardic. He was initially started on oxygen at 10 L per minute nasal cannula and subsequently the oxygen flow was brought up to 15 L and he continued to be hypoxic. At that point, the patient was switched to BiPAP at a pressure of 10/5 and FiO2 of 100%. The patient had further blood work that showed an LDH level of 2287, CRP of 170, lactic acid level of 2.4, serum bicarb of 18, the BUN was 37 with a creatinine of 1.7. The blood gas on 100% FiO2 showed a pH of 7.4 with a pCO2 of 27 and pO2 of 62. The chest x-ray showed diffuse but the pulmonary infiltrates. At that point, the patient was admitted to the intensive care unit and the patient was supported with BiPAP. The patient is currently on IV Decadron. The patient was also started on Remdesivir per protocol. The patient is on Lovenox 40 mg subcu every 24 hours for a d-dimer of 1.17 and the time of admission. The patient this morning was transitioned to oxygen at 15 L high flow and he is able to maintain a saturation above 90%. He remains in normal sinus rhythm. He is awake and alert. His chest x-ray showing bilateral pulmonary infiltrates was in the lung bases bilaterally. He is off the BiPAP for now. D-dimer is at 1.88 from today. His LDH is down to 1952 and the pro- calcitonin level was 0.3, LFTs were minimally elevated secondary to Covid 19. CRP is down to 158. He is currently on the same treatment including Decadron and Remdesivir day #2 01/11/2021 the patient is being seen in follow-up. The patient is currently intubated on a mechanical ventilator. The patient is a case of Covid associated pneumonia with secondary respiratory failure. Note that because of stiff lungs and elevated airway pressures, the patient developed barotrauma and subsequently he developed a small right-sided pneumothorax and he was developing extensive subcutaneous emphysema as the patient was developing increased swelling in his face neck and chest throughout the day yesterday. As such, I inserted a chest tube on him yesterday and a 28-Kazakh chest tube was inserted into the right lung without any complications. The patient's currently is sedated with propofol which is running at 35 mcg/kg per minute. The patient is also on Nimbex running at 0.8 mcg/kg per minute and the patient is also on fentanyl are running at 0.8 Arnie respiratory kilogram per hour. As such, the patient has been adequately sedated and adequately paralyzed and the patient is quite synchronous with the mechanical ventilator. The patient is currently on a assist-control mode of ventilation, volume cycle with a rate of 26 and a tidal volume of 400 and FiO2 of 80% with a PEEP of 8. The blood periods from today shows a pH of 7.21 with a pCO2 of 63 and pO2 of 82. The patient's peak airway pressure is 28 with a static pressure of 28. Overnight, his subcutaneous emphysema has gotten significantly worse. Nevertheless, he doesn't have any pneumothorax. The right-sided chest tube is still in place. The patient has developed extensive subcutaneous emphysema bilaterally extending to his neck and the face and upper extremities in the chest. Orotracheal tube is in a good location. NG tube is also in a good location. The patient is on IV Solu-Medrol at 60 mg every 6 hours. In terms of his Covid 19 related pneumonia, his air d- dimer is at 6.91, his LDH currently is down to 1434 and his CRP level is down to 20.2. Rest of the blood work and electrodes are all within normal limits. His white cell count currently is at 9.2 with hemoglobin of 11.5. The patient is receiving enteral feeding for nutritional support and is currently on vital high protein at 20 mL an hour and is able to tolerate the diet and he has had regular bowel movements. No abdominal distention. No emesis. No other significant events overnight. Active issues for now is unwilling respiratory failure and extensive subcutaneous emphysema that is involved as a complication of Covid 19 related pneumonia and respiratory failure. Reevaluated today on 01/12/2021, patient remains in the ICU, patient is on mechanical ventilation, assist control rate of 26, tidal volume is 400, FiO2 is 70%, and PEEP is 10. Patient is on propofol at 20 mcg/kg/m, norepinephrine at 0.02 mcg/kg/m. On Nimbex at 0.2 mcg/kg/m. And he is also on fentanyl. FiO2 w as decreased down to 65%, chest x-ray showed bilateral infiltrates cannot significant subcutaneous emphysema. Right-sided chest tube is noted to have some air leak, remains on suction. Very minimal right apical pneumothorax suspected, however chest tube remains in place. The cecum and is 6.2 hemoglobin 14.9. ABG today showed a pO2 of 59 pCO2 of 51 pH of 7.34 d-dimer is 3.51 BUN is 57 creatinine 1.14. LDH is 1158 and C-reactive protein is 11.3. Patient is on enteral feeding. Remains on Solu-Medrol 60 mg IV push every 6 hours. Reevaluated today on 01/13/2021, patient remains in the ICU, remains on mechanical ventilation, his chest x-ray is showing significant subcutaneous emphysema, and small right-sided pneumothorax in spite of the chest tube in place. Hence thoracic surgery was consulted, and at this point not planning any chest tube placement or any surgical intervention. Patient remains on assist control rate of 26 tidal volume is 400 FiO2 of 65% on a cardiac down to 60 PEEP is at 10 I cut it down to 8. ABG showed a pO2 of 88 pCO2 of 70 pH of 7.23. Patient remains on Nimbex, insulin drip, propofol, and fentanyl. He remains off norepinephrine. Nephrology was consulted to the patient regarding his worsening renal status, BUN is 80 creatinine is 1.47. Patient remains on enteral feeding. He remains on Solu-Medrol. I will go ahead and cut down the dose of Solu-Medr ol. Patient did receive actemra and remdesivir Patient was reevaluated today on 01/14/2021, remains in the ICU, remains intubated and mechanically ventilated, he is on assist control rate of 26 tidal volume is 400 FiO2 is 65% and PEEP of 8. ABG showed a pO2 of 59 pCO2 of 63 pH of 7.31. Continues to have right-sided chest tube in place, no leak noted from the chest tube, however there are some blood surrounding the area of the chest tube insertion. I recommended a CT of the chest to be done today without contrast to evaluate the extensiveness of his pneumothorax and subcutaneous emphysema and 2 determine the exact location of the chest tube and decide whether another chest tube is necessary. His ventilator settings were basically the same except I increased his FiO2 from 60-65%. Patient remains on norepinephrine at 0.02 mcg/kg/m, propofol at 50 mcg/kg/m, Nimbex at 1 mcg/kg/m insulin 9 units per hour and fentanyl 0.2 g every per hour. Patient is on enteral feeding is vital HPI to 40 mL per hour. Patient is sedated, and paralyzed. WBC count is 11.5 hemoglobin is 13.9 ABG as noted above. Electrolytes are normal, renal profile is slightly worse with BUN of 101 creatinine of 1.68, nephrology has been consulted. Patient did receive remdesivir and actemra since admission. Objective - Vital Signs Vital signs: Vital Signs Temp 99.9 F H 01/14/21 04:00 Pulse 104 H 01/14/21 07:00 Resp 26 H 01/14/21 07:00 BP 102/62 01/14/21 07:00 Pulse Ox 87 L 01/14/21 07:00 Intake & Output 01/13/21 01/14/21 01/14/21 18:59 06:59 18:59 Intake Total 5062.025 7459.667 53.369 Output Total 845 780 60 Balance 562.941 397.667 -6.631 Weight 89.4 kg 90.6 kg Intake: IV 120 150 10 Sodium Chloride 0.9% 1, 120 150 10 000 ml @ 10 mls/hr IV . Q24H [facility] Rx#:[id number] Intake, IV Titration 727.941 541.667 15.369 Amount Cisatracurium 200 mg In 101.841 Sodium Chloride 0.9% 180 ml @ 1 MCG/KG/MIN 5.346 mls/hr IV .Q24H [facility] Rx#: [id number] Insulin Regular 100 unit 85.093 80.648 15.369 In Sodium Chloride 0.9% 100 ml @ Per Protocol IV .Q0M [facility] Rx#:[id number] Norepinephrine 4 mg In 68.685 162.693 Sodium Chloride 0.9% 250 ml @ 0.05 MCG/KG/MIN 16. 974 mls/hr IV .[id number] [facility] Rx#:[id number] fentaNYL (PF) 1,000 mcg 85.18 In Sodium Chloride 0.9% 80 ml @ Per Protocol IV . Q0M [facility] Rx#:[id number] propofoL 1,000 mg In 387.142 298.326 Empty Bag 1 bag @ Titrate IV .Q0M [facility] Rx#: [id number] Tube Feeding 420 336 28 Other 140 150 Output: Chest Tube Drainage 70 20 Chest Tube Right 70 20 Urine 775 760 60 Other: Voiding Method Indwelling Catheter Indwelling Catheter ABP, PAP, CO, CI - Last Documented Arterial Blood Pressure 129/54 - Exam General: Revealed a 70-year-old white male on mechanical ventilation, massive subcutaneous emphysema noted. Extending from the chest up to the neck and face. Head: atraumatic, normocephalic, symmetric Eyes: EOMI, anicteric sclera, pupils equal round reactive to light and orogastric tube and endotracheal tube are intact. ENT: Nose and ears atraumatic, no thrush, no pharyngeal erythema Neck: No neck masses no JVD no stridor but there is evidence of subcutaneous emphysema Mouth: Moist mucous membranes. Cardiovascular: Normal S1 and S2, no S3 gallop. Lungs: Fine crackles at the bases bilaterally, subcutaneous emphysema is palpable. And crepitation noted. Sided chest tube is noted. Blood is noted to be oozing around the right-sided chest tube. Abdominal: Soft nontender no megaly no rebound. extremities no clubbing edema or cyanosis. Neuro: Cannot fully assess patient is sedated and paralyzed Psychiatric: Could not assess - Labs CBC & Chem 7: 01/14/21 04:25 01/14/21 04:25 Labs: Abnormal Lab Results - Last 24 Hours (Table) 01/13/21 01/13/21 01/13/21 Range/Units 11:43 13:40 14:47 WBC (3.8-10.6) k/uL Neutrophils # (1.3-7.7) k/uL Lymphocytes # (1.0-4.8) k/uL D-Dimer (<0.60) mg/L FEU ABG pH (7.35-7.45) ABG pCO2 (35-45) mmHg ABG pO2 (83-108) mmHg ABG HCO3 (21-25) mmol/L ABG Total CO2 (19-24) mmol/L ABG O2 Saturation (94-97) % Sodium (137-145) mmol/L Potassium (3.5-5.1) mmol/L Chloride (98-107) mmol/L BUN (9-20) mg/dL Creatinine (0.66-1.25) mg/dL Glucose (74-99) mg/dL POC Glucose (mg/dL) 243 H 167 H 206 H (75-99) mg/dL Ferritin (22.0-322.0) ng/mL ALT (4-49) U/L Lactate Dehydrogenase (313-618) U/L Total Protein (6.3-8.2) g/dL Albumin (3.5-5.0) g/dL 01/13/21 01/13/21 01/13/21 Range/Units 16:14 17:05 17:09 WBC (3.8-10.6) k/uL Neutrophils # (1.3-7.7) k/uL Lymphocytes # (1.0-4.8) k/uL D-Dimer (<0.60) mg/L FEU ABG pH (7.35-7.45) ABG pCO2 (35-45) mmHg ABG pO2 (83-108) mmHg ABG HCO3 (21-25) mmol/L ABG Total CO2 (19-24) mmol/L ABG O2 Saturation (94-97) % Sodium 146 H (137-145) mmol/L Potassium 5.5 H (3.5-5.1) mmol/L Chloride 112 H (98-107) mmol/L BUN 95 H (9-20) mg/dL Creatinine 1.59 H (0.66-1.25) mg/dL Glucose 233 H (74-99) mg/dL POC Glucose (mg/dL) 222 H 211 H (75-99) mg/dL Ferritin (22.0-322.0) ng/mL ALT (4-49) U/L Lactate Dehydrogenase (313-618) U/L Total Protein (6.3-8.2) g/dL Albumin (3.5-5.0) g/dL 01/13/21 01/13/21 01/13/21 Range/Units 18:10 18:48 21:06 WBC (3.8-10.6) k/uL Neutrophils # (1.3-7.7) k/uL Lymphocytes # (1.0-4.8) k/uL D-Dimer (<0.60) mg/L FEU ABG pH (7.35-7.45) ABG pCO2 (35-45) mmHg ABG pO2 (83-108) mmHg ABG HCO3 (21-25) mmol/L ABG Total CO2 (19-24) mmol/L ABG O2 Saturation (94-97) % Sodium (137-145) mmol/L Potassium (3.5-5.1) mmol/L Chloride (98-107) mmol/L BUN (9-20) mg/dL Creatinine (0.66-1.25) mg/dL Glucose (74-99) mg/dL POC Glucose (mg/dL) 159 H 179 H 211 H (75-99) mg/dL Ferritin (22.0-322.0) ng/mL ALT (4-49) U/L Lactate Dehydrogenase (313-618) U/L Total Protein (6.3-8.2) g/dL Albumin (3.5-5.0) g/dL 01/13/21 01/13/21 01/14/21 Range/Units 22:21 23:30 01:10 WBC (3.8-10.6) k/uL Neutrophils # (1.3-7.7) k/uL Lymphocytes # (1.0-4.8) k/uL D-Dimer (<0.60) mg/L FEU ABG pH (7.35-7.45) ABG pCO2 (35-45) mmHg ABG pO2 (83-108) mmHg ABG HCO3 (21-25) mmol/L ABG Total CO2 (19-24) mmol/L ABG O2 Saturation (94-97) % Sodium (137-145) mmol/L Potassium (3.5-5.1) mmol/L Chloride (98-107) mmol/L BUN (9-20) mg/dL Creatinine (0.66-1.25) mg/dL Glucose (74-99) mg/dL POC Glucose (mg/dL) 287 H 207 H 142 H (75-99) mg/dL Ferritin (22.0-322.0) ng/mL ALT (4-49) U/L Lactate Dehydrogenase (313-618) U/L Total Protein (6.3-8.2) g/dL Albumin (3.5-5.0) g/dL 01/14/21 01/14/21 01/14/21 Range/Units 02:01 03:07 04:25 WBC 11.5 H (3.8-10.6) k/uL Neutrophils # 10.8 H (1.3-7.7) k/uL Lymphocytes # 0.3 L (1.0-4.8) k/uL D-Dimer (<0.60) mg/L FEU ABG pH (7.35-7.45) ABG pCO2 (35-45) mmHg ABG pO2 (83-108) mmHg ABG HCO3 (21-25) mmol/L ABG Total CO2 (19-24) mmol/L ABG O2 Saturation (94-97) % Sodium (137-145) mmol/L Potassium (3.5-5.1) mmol/L Chloride (98-107) mmol/L BUN (9-20) mg/dL Creatinine (0.66-1.25) mg/dL Glucose (74-99) mg/dL POC Glucose (mg/dL) 144 H 154 H (75-99) mg/dL Ferritin (22.0-322.0) ng/mL ALT (4-49) U/L Lactate Dehydrogenase (313-618) U/L Total Protein (6.3-8.2) g/dL Albumin (3.5-5.0) g/dL 01/14/21 01/14/21 01/14/21 Range/Units 04:25 04:25 05:09 WBC (3.8-10.6) k/uL Neutrophils # (1.3-7.7) k/uL Lymphocytes # (1.0-4.8) k/uL D-Dimer 1.69 H (<0.60) mg/L FEU ABG pH (7.35-7.45) ABG pCO2 (35-45) mmHg ABG pO2 (83-108) mmHg ABG HCO3 (21-25) mmol/L ABG Total CO2 (19-24) mmol/L ABG O2 Saturation (94-97) % Sodium (137-145) mmol/L Potassium (3.5-5.1) mmol/L Chloride 111 H (98-107) mmol/L BUN 101 H* (9-20) mg/dL Creatinine 1.68 H (0.66-1.25) mg/dL Glucose 197 H (74-99) mg/dL POC Glucose (mg/dL) 173 H (75-99) mg/dL Ferritin 1070.9 H (22.0-322.0) ng/mL ALT 61 H (4-49) U/L Lactate Dehydrogenase 921 H (313-618) U/L Total Protein 4.8 L (6.3-8.2) g/dL Albumin 2.5 L (3.5-5.0) g/dL 01/14/21 01/14/21 01/14/21 Range/Units 05:20 06:47 08:05 WBC (3.8-10.6) k/uL Neutrophils # (1.3-7.7) k/uL Lymphocytes # (1.0-4.8) k/uL D-Dimer (<0.60) mg/L FEU ABG pH 7.31 L (7.35-7.45) ABG pCO2 63 H (35-45) mmHg ABG pO2 59 L* (83-108) mmHg ABG HCO3 32 H (21-25) mmol/L ABG Total CO2 34 H (19-24) mmol/L ABG O2 Saturation 90.0 L (94-97) % Sodium (137-145) mmol/L Potassium (3.5-5.1) mmol/L Chloride (98-107) mmol/L BUN (9-20) mg/dL Creatinine (0.66-1.25) mg/dL Glucose (74-99) mg/dL POC Glucose (mg/dL) 169 H 197 H (75-99) mg/dL Ferritin (22.0-322.0) ng/mL ALT (4-49) U/L Lactate Dehydrogenase (313-618) U/L Total Protein (6.3-8.2) g/dL Albumin (3.5-5.0) g/dL 01/14/21 01/14/21 Range/Units 08:54 10:22 WBC (3.8-10.6) k/uL Neutrophils # (1.3-7.7) k/uL Lymphocytes # (1.0-4.8) k/uL D-Dimer (<0.60) mg/L FEU ABG pH (7.35-7.45) ABG pCO2 (35-45) mmHg ABG pO2 (83-108) mmHg ABG HCO3 (21-25) mmol/L ABG Total CO2 (19-24) mmol/L ABG O2 Saturation (94-97) % Sodium (137-145) mmol/L Potassium (3.5-5.1) mmol/L Chloride (98-107) mmol/L BUN (9-20) mg/dL Creatinine (0.66-1.25) mg/dL Glucose (74-99) mg/dL POC Glucose (mg/dL) 185 H 178 H (75-99) mg/dL Ferritin (22.0-322.0) ng/mL ALT (4-49) U/L Lactate Dehydrogenase (313-618) U/L Total Protein (6.3-8.2) g/dL Albumin (3.5-5.0) g/dL Microbiology - Last 24 Hours (Table) 01/09/21 15:45 Gram Stain - Final Sputum Sputum Culture - Final Assessment and Plan Assessment: Impression: Acute hypoxic respiratory failure with ARDS secondary to acute covid 19 pneumonitis. Remains intubated and mechanically ventilated. Acute right sided spontaneous pneumothorax, most likely secondary to barotrauma secondary to mechanical ventilation. Required the right-sided chest tube placement, continues to have some pneumothorax and significant subcutaneous emphysema. Acute kidney injury with history of chronic kidney disease stage III, improving. Type 2 diabetes on insulin Benign essential hypertension. Dyslipidemia. Degenerative joint disease. Degenerative joint disease. Acute kidney injury. Nephrology was consulted. Recommendation: We'll arrange for it chest CT to be done today, and the purpose is to see the extensiveness of the pneumothorax and location of the right-sided chest tube Continue ventilatory support. Continue sedation Continue enteral feeding. Continue chest tube to suction. Received actemra and remdesivir Continue Lovenox 45 mg subcu every 12 hours. Monitor daily x-rays of the chest. Continue GI and DVT prophylaxis. Continue to monitor sugars and treat accordingly. Nephrology to continue to follow regarding his acute kidney injury. Thoracic surgery is following regarding his right sided thorax and subcutaneous emphysema. No plans to address weaning at this point since the patient remains quite ill and requiring significant FiO2 based on the ventilator settings and ABG at present. Prognosis remains extremely poor and guarded, Critical care time is over 30 minutes. Time with Patient: Greater than 30
[2021-01-14 12:15] LABS: Glucose,Whole Blood 183 mg/dL (75-99)
[2021-01-14 13:19] LABS: Glucose,Whole Blood 140 mg/dL (75-99)
[2021-01-14 14:07] LABS: Glucose,Whole Blood 148 mg/dL (75-99)
--- NOTE | 2021-01-14 14:14 | P.PN ---
Subjective Progress Note Date: 01/14/21 (delayed charting seen at 1030) Principal diagnosis: fatigue Patient is a 70 yo CM with a hx of DM2 well controlled on insulin and oral medications, HTN, HLD, and CAD with hx of PCI X 1 who presented to the ED due to extreme fatigue. He started having COVID symptoms 7 days prior was tested and confirmed positive. On arrival to the ER he was profoundly hypoxic with room air pulse ox of 82%, pulse 123, respirations 26 with shallow breathing. He was initially started on high flow nasal cannula at 10 L and remained hypoxic. This was uptitrated to 15 L and he continued drain hypoxic at 88%. He was subsequently started on BiPAP with settings of 10/5 at 100%. Initial laboratory analysis showed a platelet count of 141, d-dimer 1.17, sodium 130, carbon dioxide 18, anion gap 18, BUN 37, creatinine 1.75 (baseline 1.4), glucose 208, lactic acid 2.4, total bilirubin 2.2, AST 99, LDH 2287, and CRP of 170. ABG demonstrated a pH of 7.4, pCO2 of 27, and PaO2 of 62 on 100%. Chest x-ray showed diffuse interstitial infiltrates. He was given a dose of 10 mg of Decadron IV and arrangements were made for admission. Dr. Pinto was contacted who agreed to admit the patient to the ICU and start remdesivir. He was able to been weaned down to 15L NC by the morning of 01/05. On the morning of 01/06 he was noted to have increasing encephalopathy. He required BiPap by 01/07 and Precedex for agitation. He did receive 5 days of Remdesivir and Actemra. Due to his worsening respiratory status was subsequently intubated on the . He did develop some increasing peak pressures and ultimately required Nimbex. A bronchoscopy was completed on 01/10. He developed a small right sided p neumothorax and a chest tube was placed on 01/10. Thoracic surgery was consulted and did not recommend any surgical intervention but to continue chest tube. He was noted to have worsening subcutaneous emphysema. He underwent a CT of the chest on 01/14 which demonstrated subcutaneous emphysema as well as pneumomediastinum, less than 10% residual pneumothorax with placement of chest tube. Nephrology had been consulted on 01/13 due to worsening renal failure. They recommended stopping lisinopril and continuing to monitor renal function. Patient seen and examined at bedside. Sedated and paralyzed on vent. Nursing notes no acute events overnight. Patient has not had a bowel movement since the but was started on MiraLAX yesterday. General: Ill-appearing, no distress, appears at stated age Derm: warm, dry Head: atraumatic, normocephalic, symmetric Eyes: Edematous eyelids, scleral edema, anicteric sclera Mouth: no lip lesion, mucus membranes dry Cardiovascular: S1S2 reg, no murmur, positive posterior tibial pulse bilateral, Lungs: Coarse breath sounds bilaterally, sedated on vent Abdominal: soft, nontender to palpation, no guarding, no appreciable organomegaly Ext: no gross muscle atrophy, diffuse anasarca, no contractures Neuro and psychiatric: Sedated and paralyzed, [id number] 2 out of 4, pupils pinpoint and fax COVID 19 pneumonitis with acute hypoxic respiratory failure -Pulmonary recs: Solu-Medrol -Completed 5 days of Remdesivir, Toci X 2 - wean O2 as able on 65 % vent - Come off Nimbex as able, maximize sedation -Zinc, vitamin C, vitamin D -Follow inflammatory markers - Lovenox BID Constipation - MiraLax - Continue to monitor ISIDRO on Chronic kidney disease stage III, hyponatremia, metabolic acidosis, suspect secondary to dehydration -Hold DANN inhibitor -IV fluids -Avoid additional nephrotoxic agents -Strict I's and O's - Nephrology recs DM 2, well controlled - Suspect mild euglycemic DKA secondary to SGLT 2 inhibitor on admission carbon dioxide was 18 with an anion gap of 18 - hold oral medications - Insulin gtt - Follow BS - A1C 7.8 Hypertension, controlled -Continue with metoprolol -Follow blood pressures -DANN inhibitor on hold secondary to ISIDRO Dyslipidemia -Statin therapy GERD -H2 kaushik Lactic acidosis, resolved updated over the phone DVT prophylaxis: Lovenox Discussed with: Patient, nursing, Anticipated discharge date: 3-[address]: home A total of 35 minutes was spent on the care of this complex patient more than 50% of the time was spent in counseling and care coordination. Objective - Vital Signs Vital signs: Vital Signs Temp 97.5 F L 01/14/21 12:00 Pulse 112 H 01/14/21 12:30 Resp 26 H 01/14/21 12:30 BP 102/62 01/14/21 07:00 Pulse Ox 90 L 01/14/21 12:30 Intake & Output 01/13/21 01/14/21 01/14/21 18:59 06:59 18:59 Intake Total 1056.931 8719.667 338.063 Output Total 845 780 425 Balance 562.941 397.667 -86.937 Weight 89.4 kg 90.6 kg Intake: IV 120 150 60 Sodium Chloride 0.9% 1, 120 150 60 000 ml @ 10 mls/hr IV . Q24H [facility] Rx#:[id number] Intake, IV Titration 727.941 541.667 50.063 Amount Cisatracurium 200 mg In 101.841 Sodium Chloride 0.9% 180 ml @ 1 MCG/KG/MIN 5.346 mls/hr IV .Q24H [facility] Rx#: [id number] Insulin Regular 100 unit 85.093 80.648 50.063 In Sodium Chloride 0.9% 100 ml @ Per Protocol IV .Q0M [facility] Rx#:[id number] Norepinephrine 4 mg In 68.685 162.693 Sodium Chloride 0.9% 250 ml @ 0.05 MCG/KG/MIN 16. 974 mls/hr IV .[id number] [facility] Rx#:[id number] fentaNYL (PF) 1,000 mcg 85.18 In Sodium Chloride 0.9% 80 ml @ Per Protocol IV . Q0M [facility] Rx#:[id number] propofoL 1,000 mg In 387.142 298.326 Empty Bag 1 bag @ Titrate IV .Q0M [facility] Rx#: [id number] Tube Feeding 420 336 168 Other 140 150 60 Output: Chest Tube Drainage 70 20 Chest Tube Right 70 20 Urine 775 760 425 Other: Voiding Method Indwelling Catheter Indwelling Catheter Indwelling Catheter ABP, PAP, CO, CI - Last Documented Arterial Blood Pressure 100/47 - Labs CBC & Chem 7: 01/14/21 04:25 01/14/21 04:25 Labs: Abnormal Lab Results - Last 24 Hours (Table) 01/13/21 01/13/21 01/13/21 Range/Units 13:40 14:47 16:14 WBC (3.8-10.6) k/uL Neutrophils # (1.3-7.7) k/uL Lymphocytes # (1.0-4.8) k/uL D-Dimer (<0.60) mg/L FEU ABG pH (7.35-7.45) ABG pCO2 (35-45) mmHg ABG pO2 (83-108) mmHg ABG HCO3 (21-25) mmol/L ABG Total CO2 (19-24) mmol/L ABG O2 Saturation (94-97) % Sodium (137-145) mmol/L Potassium (3.5-5.1) mmol/L Chloride (98-107) mmol/L BUN (9-20) mg/dL Creatinine (0.66-1.25) mg/dL Glucose (74-99) mg/dL POC Glucose (mg/dL) 167 H 206 H 222 H (75-99) mg/dL Ferritin (22.0-322.0) ng/mL ALT (4-49) U/L Lactate Dehydrogenase (313-618) U/L Total Protein (6.3-8.2) g/dL Albumin (3.5-5.0) g/dL 01/13/21 01/13/21 01/13/21 Range/Units 17:05 17:09 18:10 WBC (3.8-10.6) k/uL Neutrophils # (1.3-7.7) k/uL Lymphocytes # (1.0-4.8) k/uL D-Dimer (<0.60) mg/L FEU ABG pH (7.35-7.45) ABG pCO2 (35-45) mmHg ABG pO2 (83-108) mmHg ABG HCO3 (21-25) mmol/L ABG Total CO2 (19-24) mmol/L ABG O2 Saturation (94-97) % Sodium 146 H (137-145) mmol/L Potassium 5.5 H (3.5-5.1) mmol/L Chloride 112 H (98-107) mmol/L BUN 95 H (9-20) mg/dL Creatinine 1.59 H (0.66-1.25) mg/dL Glucose 233 H (74-99) mg/dL POC Glucose (mg/dL) 211 H 159 H (75-99) mg/dL Ferritin (22.0-322.0) ng/mL ALT (4-49) U/L Lactate Dehydrogenase (313-618) U/L Total Protein (6.3-8.2) g/dL Albumin (3.5-5.0) g/dL 01/13/21 01/13/21 01/13/21 Range/Units 18:48 21:06 22:21 WBC (3.8-10.6) k/uL Neutrophils # (1.3-7.7) k/uL Lymphocytes # (1.0-4.8) k/uL D-Dimer (<0.60) mg/L FEU ABG pH (7.35-7.45) ABG pCO2 (35-45) mmHg ABG pO2 (83-108) mmHg ABG HCO3 (21-25) mmol/L ABG Total CO2 (19-24) mmol/L ABG O2 Saturation (94-97) % Sodium (137-145) mmol/L Potassium (3.5-5.1) mmol/L Chloride (98-107) mmol/L BUN (9-20) mg/dL Creatinine (0.66-1.25) mg/dL Glucose (74-99) mg/dL POC Glucose (mg/dL) 179 H 211 H 287 H (75-99) mg/dL Ferritin (22.0-322.0) ng/mL ALT (4-49) U/L Lactate Dehydrogenase (313-618) U/L Total Protein (6.3-8.2) g/dL Albumin (3.5-5.0) g/dL 01/13/21 01/14/21 01/14/21 Range/Units 23:30 01:10 02:01 WBC (3.8-10.6) k/uL Neutrophils # (1.3-7.7) k/uL Lymphocytes # (1.0-4.8) k/uL D-Dimer (<0.60) mg/L FEU ABG pH (7.35-7.45) ABG pCO2 (35-45) mmHg ABG pO2 (83-108) mmHg ABG HCO3 (21-25) mmol/L ABG Total CO2 (19-24) mmol/L ABG O2 Saturation (94-97) % Sodium (137-145) mmol/L Potassium (3.5-5.1) mmol/L Chloride (98-107) mmol/L BUN (9-20) mg/dL Creatinine (0.66-1.25) mg/dL Glucose (74-99) mg/dL POC Glucose (mg/dL) 207 H 142 H 144 H (75-99) mg/dL Ferritin (22.0-322.0) ng/mL ALT (4-49) U/L Lactate Dehydrogenase (313-618) U/L Total Protein (6.3-8.2) g/dL Albumin (3.5-5.0) g/dL 01/14/21 01/14/21 01/14/21 Range/Units 03:07 04:25 04:25 WBC 11.5 H (3.8-10.6) k/uL Neutrophils # 10.8 H (1.3-7.7) k/uL Lymphocytes # 0.3 L (1.0-4.8) k/uL D-Dimer (<0.60) mg/L FEU ABG pH (7.35-7.45) ABG pCO2 (35-45) mmHg ABG pO2 (83-108) mmHg ABG HCO3 (21-25) mmol/L ABG Total CO2 (19-24) mmol/L ABG O2 Saturation (94-97) % Sodium (137-145) mmol/L Potassium (3.5-5.1) mmol/L Chloride 111 H (98-107) mmol/L BUN 101 H* (9-20) mg/dL Creatinine 1.68 H (0.66-1.25) mg/dL Glucose 197 H (74-99) mg/dL POC Glucose (mg/dL) 154 H (75-99) mg/dL Ferritin 1070.9 H (22.0-322.0) ng/mL ALT 61 H (4-49) U/L Lactate Dehydrogenase 921 H (313-618) U/L Total Protein 4.8 L (6.3-8.2) g/dL Albumin 2.5 L (3.5-5.0) g/dL 01/14/21 01/14/21 01/14/21 Range/Units 04:25 05:09 05:20 WBC (3.8-10.6) k/uL Neutrophils # (1.3-7.7) k/uL Lymphocytes # (1.0-4.8) k/uL D-Dimer 1.69 H (<0.60) mg/L FEU ABG pH 7.31 L (7.35-7.45) ABG pCO2 63 H (35-45) mmHg ABG pO2 59 L* (83-108) mmHg ABG HCO3 32 H (21-25) mmol/L ABG Total CO2 34 H (19-24) mmol/L ABG O2 Saturation 90.0 L (94-97) % Sodium (137-145) mmol/L Potassium (3.5-5.1) mmol/L Chloride (98-107) mmol/L BUN (9-20) mg/dL Creatinine (0.66-1.25) mg/dL Glucose (74-99) mg/dL POC Glucose (mg/dL) 173 H (75-99) mg/dL Ferritin (22.0-322.0) ng/mL ALT (4-49) U/L Lactate Dehydrogenase (313-618) U/L Total Protein (6.3-8.2) g/dL Albumin (3.5-5.0) g/dL 01/14/21 01/14/21 01/14/21 Range/Units 06:47 08:05 08:54 WBC (3.8-10.6) k/uL Neutrophils # (1.3-7.7) k/uL Lymphocytes # (1.0-4.8) k/uL D-Dimer (<0.60) mg/L FEU ABG pH (7.35-7.45) ABG pCO2 (35-45) mmHg ABG pO2 (83-108) mmHg ABG HCO3 (21-25) mmol/L ABG Total CO2 (19-24) mmol/L ABG O2 Saturation (94-97) % Sodium (137-145) mmol/L Potassium (3.5-5.1) mmol/L Chloride (98-107) mmol/L BUN (9-20) mg/dL Creatinine (0.66-1.25) mg/dL Glucose (74-99) mg/dL POC Glucose (mg/dL) 169 H 197 H 185 H (75-99) mg/dL Ferritin (22.0-322.0) ng/mL ALT (4-49) U/L Lactate Dehydrogenase (313-618) U/L Total Protein (6.3-8.2) g/dL Albumin (3.5-5.0) g/dL 01/14/21 01/14/21 Range/Units 10:22 12:14 WBC (3.8-10.6) k/uL Neutrophils # (1.3-7.7) k/uL Lymphocytes # (1.0-4.8) k/uL D-Dimer (<0.60) mg/L FEU ABG pH (7.35-7.45) ABG pCO2 (35-45) mmHg ABG pO2 (83-108) mmHg ABG HCO3 (21-25) mmol/L ABG Total CO2 (19-24) mmol/L ABG O2 Saturation (94-97) % Sodium (137-145) mmol/L Potassium (3.5-5.1) mmol/L Chloride (98-107) mmol/L BUN (9-20) mg/dL Creatinine (0.66-1.25) mg/dL Glucose (74-99) mg/dL POC Glucose (mg/dL) 178 H 183 H (75-99) mg/dL Ferritin (22.0-322.0) ng/mL ALT (4-49) U/L Lactate Dehydrogenase (313-618) U/L Total Protein (6.3-8.2) g/dL Albumin (3.5-5.0) g/dL Microbiology - Last 24 Hours (Table) 01/09/21 15:45 Gram Stain - Final Sputum Sputum Culture - Final
[2021-01-14 15:01] LABS: Glucose,Whole Blood 212 mg/dL (75-99)
[2021-01-14 16:14] LABS: Glucose,Whole Blood 156 mg/dL (75-99)
[2021-01-14 18:02] LABS: Glucose,Whole Blood 177 mg/dL (75-99)
[2021-01-14 18:56] LABS: Glucose,Whole Blood 143 mg/dL (75-99)
[2021-01-14 20:19] LABS: Glucose,Whole Blood 117 mg/dL (75-99)
[2021-01-14] MEDS: CISATRACURIUM 200 MG in SODIUM CHLORIDE 0.9% 180 ML IV SCH (20:43)
[2021-01-14] MEDS: ATORVASTATIN 20 MG TAB PO SCH (20:59)
[2021-01-14] MEDS: polyethylene glycoL 3350 17 GM POWD.PACK PO SCH (21:00)
[2021-01-14 21:18] LABS: Glucose,Whole Blood 133 mg/dL (75-99)
[2021-01-14 22:04] LABS: Glucose,Whole Blood 190 mg/dL (75-99)
[2021-01-14 23:00] LABS: Glucose,Whole Blood 179 mg/dL (75-99)
[2021-01-14 23:55] LABS: Glucose,Whole Blood 161 mg/dL (75-99)
[2021-01-15] MEDS ORDERED: SODIUM CHLORIDE 0.9% 1,000 ML IV ONE (00:14)
[2021-01-15 00:59] LABS: Glucose,Whole Blood 142 mg/dL (75-99)
[2021-01-15 02:08] LABS: Glucose,Whole Blood 123 mg/dL (75-99)
[2021-01-15] MEDS: NOREPINEPHRINE 4 MG in SODIUM CHLORIDE 0.9% 250 ML IV SCH ×3 (02:09→12:51)
[2021-01-15 02:14] LABS: Glucose,Whole Blood 127 mg/dL (75-99)
[2021-01-15 03:01] LABS: Glucose,Whole Blood 141 mg/dL (75-99)
[2021-01-15 04:10] LABS: Glucose,Whole Blood 136 mg/dL (75-99)
[2021-01-15] MEDS: fentaNYL (PF) 1,000 MCG in SODIUM CHLORIDE 0.9% 80 ML IV SCH (04:31)
[2021-01-15 05:04] LABS: Glucose,Whole Blood 175 mg/dL (75-99)
[2021-01-15 05:10] LABS: ABG PCO2 67 mmHg (35-45); ABG PH 7.24 (7.35-7.45); ABG PO2 64 mmHg (83-108); Allen Test Performed? no
[2021-01-15 05:11] LABS: ABG Base Excess 1.2 mmol/L; ABG HCO3 29 mmol/L (21-25); ABG TCO2 31 mmol/L (19-24)
[2021-01-15 05:35] LABS: HCT 41.1 % (39.0-53.0); HGB 12.9 gm/dL (13.0-17.5); Hypochromasia Slight; MCH 29.5 pg (25.0-35.0); MCHC 31.4 g/dL (31.0-37.0); MCV 94.2 fL (80.0-100.0); Platelet Count 187 k/uL (150-450); RBC 4.36 m/uL (4.30-5.90); RDW 14.5 % (11.5-15.5); WBC 20.7 k/uL (3.8-10.6)
[2021-01-15 05:43] LABS: D-Dimer 1.44 mg/L FEU (<0.60); Prothrombin Time 10.7 sec (9.0-12.0)
[2021-01-15 06:16] LABS: Glucose,Whole Blood 150 mg/dL (75-99)
[2021-01-15] MEDS: ARTIFICIAL TEARS-HYPROMELLOSE DROPS 15 ML BTL BOTH EYES SCH ×5 (06:16→19:56)
[2021-01-15] MEDS: SODIUM CHLORIDE 0.9% 1,000 ML IV SCH (06:17)
[2021-01-15] MEDS: methylPREDNISolone SOD SUCCI 125 MG/2 ML VIAL IV SCH ×3 (06:20→17:52)
[2021-01-15 06:32] LABS: ALT 62 U/L (4-49); AST 52 U/L (17-59); African American GFR (CKD) 31 (>60 ml/min/1.73 sqM); Albumin 2.4 g/dL (3.5-5.0); Alkaline Phosphatase 80 U/L (38-126); Anion Gap 3 mmol/L; Calcium 8.7 mg/dL (8.4-10.2); Carbon Dioxide 28 mmol/L (22-30); Chloride 112 mmol/L (98-107); Creatine Kinase 74 U/L (55-170); Glucose 190 mg/dL (74-99); LDH 1042 U/L (313-618); Lipase 443 U/L (23-300); Magnesium 2.8 mg/dL (1.6-2.3); Non-African American GFR(CKD) 27 (>60 ml/min/1.73 sqM); Potassium 5.6 mmol/L (3.5-5.1); Sodium 143 mmol/L (137-145); Total Bilirubin 0.8 mg/dL (0.2-1.3); Total Protein 4.5 g/dL (6.3-8.2)
[2021-01-15 06:58] LABS: Glucose,Whole Blood 148 mg/dL (75-99)
--- NOTE | 2021-01-15 07:12 | XR ---
EXAMINATION TYPE: XR chest 1V portable DATE OF EXAM: 01/15/2021 COMPARISON: 01/14/2021 HISTORY: SOB, Follow Up FINDINGS: Indwelling tubes and catheters are unchanged. Extensive subcutaneous emphysema persists. Small right-sided pneumothorax is also noted. Scattered in filtrates persist. Stable appearance of the cardio-mediastinal structures at this time. Pleural effusion unchanged. IMPRESSION: 1. Stable portable chest. Clinical correlation and follow up until resolution is recommended.
[2021-01-15 07:14] LABS: Blood Urea Nitrogen 124 mg/dL (9-20); C Reactive Protein <5.0 mg/L (<10.0)
[2021-01-15 07:31] LABS: Triglycerides 316 mg/dL (<150)
[2021-01-15] MEDS: ALBUTEROL HFA INHALER INHALATION SCH ×4 (08:08→19:12)
[2021-01-15 08:14] LABS: Glucose,Whole Blood 134 mg/dL (75-99)
[2021-01-15] MEDS: CHLORHEXIDINE GLUCONATE 15 ML CUP MUCOUS MEM SCH ×2 (08:29→21:43)
[2021-01-15] MEDS: ENOXAPARIN 60 MG/0.6 ML SYRINGE SQ SCH ×2 (08:29→21:43)
[2021-01-15] MEDS: FAMOTIDINE 20 MG/2 ML VIAL IV SCH ×2 (08:30→21:44)
[2021-01-15] MEDS: ASCORBIC ACID 500 MG TAB PO SCH (08:30)
[2021-01-15] MEDS: CHOLECALCIFEROL 25 MCG (1000 IU) TABLET PO SCH (08:30)
[2021-01-15] MEDS: ASPIRIN 81 MG PO SCH (08:30)
[2021-01-15] MEDS: ZINC SULFATE 220 MG CAP PO SCH (08:32)
--- NOTE | 2021-01-15 08:51 | P.PN ---
Subjective Progress Note Date: 01/15/21 Principal diagnosis: Covid 19 infection, acute hypoxic respiratory failure, ARDS requiring mechanical ventilation, right-sided small pneumothorax, S/P pleural chest tube placement with subsequent extensive subcutaneous emphysema, acute kidney injury. Previous medical history of CAD with stent placement, hypertension, hyperlipidemia, diabetes, never smoker Patient is currently laying in bed in the intensive care unit on mechanical ventilation, sedated with propofol, paralytic on board. His subcutaneous emphysema appears to be about the same without significant improvement. Right pleural chest tube remains with minimal output and no air leak present. Objective - Vital Signs Vital signs: Vital Signs Temp 98.2 F 01/15/21 04:00 Pulse 95 01/15/21 08:00 Resp 28 H 01/15/21 08:00 BP 112/66 01/15/21 08:00 Pulse Ox 87 L 01/15/21 08:00 Intake & Output 01/14/21 01/15/21 01/15/21 18:59 06:59 18:59 Intake Total 944.127 9789.365 143.468 Output Total 770 295 15 Balance 12.369 2433.365 128.468 Weight 92.1 kg Intake: IV 130 200 20 Sodium Chloride 0.9% 1, 130 200 20 000 ml @ 10 mls/hr IV . Q24H [facility] Rx#:[id number] Intake, IV Titration 036.179 2068.365 95.468 Amount Cisatracurium 200 mg In 158.865 Sodium Chloride 0.9% 180 ml @ 1 MCG/KG/MIN 5.346 mls/hr IV .Q24H [facility] Rx#: [id number] Insulin Regular 100 unit 116.369 48.026 11.278 In Sodium Chloride 0.9% 100 ml @ Per Protocol IV .Q0M [facility] Rx#:[id number] Norepinephrine 4 mg In 552.724 84.19 Sodium Chloride 0.9% 250 ml @ 0.05 MCG/KG/MIN 16. 974 mls/hr IV .[id number] [facility] Rx#:[id number] Sodium Chloride 0.9% 1, 1000 000 ml @ 999 mls/hr IV . Q1H1M [facility] Rx#:[id number] fentaNYL (PF) 1,000 mcg 100 In Sodium Chloride 0.9% 80 ml @ Per Protocol IV . Q0M [facility] Rx#:[id number] propofoL 1,000 mg In 100 270.750 Empty Bag 1 bag @ Titrate IV .Q0M [facility] Rx#: [id number] Tube Feeding 346 308 28 Other 90 90 Output: Chest Tube Drainage 30 Chest Tube Right 30 Urine 770 265 15 Other: Voiding Method Indwelling Catheter Indwelling Catheter ABP, PAP, CO, CI - Last Documented Arterial Blood Pressure 110/50 - Exam CONSTITUTIONAL: Obese, mechanically ventilated with sedation and paralytic EYES: Pupils equal, round, reactive to light ENT: Moist mucous membranes without oral lesions present NECK: No masses, no bruits, trachea midline RESPIRATORY: Lungs sounds diminished and course to auscultation bilaterally. Respirations even, nonlabored on mechanical ventilation. Currently ventilator settings assist control mode, FiO2 75%, tidal volume 400, respiratory rate 26, PEEP 8. 8.0 ET tube present, 24 the lip. Right-sided pleural chest tube present to continuous wall suction, 30 mL bloody drainage in the last 24 hours, no visible air leak. Subcutaneous air present to face, neck, chest, upper extremities CARDIOVASCULAR: S1, S2 present. Regular rate and rhythm, sinus rhythm on telemetry with heart rate in the 90s. Palpable peripheral pulses bilaterally. Generalized edema present. SCDs present GASTROINTESTINAL: Abdomen soft, nondistended without masses or organomegaly noted. Active bowel sounds present 4 quadrants. Tube feeds infusing a 28 mL per hour GENITOURINARY: Armando present draining dark urine INTEGUMENTARY: Skin is warm and dry NEUROLOGIC: Unable to be assessed as patient is sedated and paralyzed on mechanical ventilation - Allied health notes Allied health notes reviewed: nursing - Labs CBC & Chem 7: 01/15/21 05:00 01/15/21 05:00 Labs: Abnormal Lab Results - Last 24 Hours (Table) 01/14/21 01/14/21 01/14/21 Range/Units 04:25 04:25 08:54 WBC (3.8-10.6) k/uL Hgb (13.0-17.5) gm/dL D-Dimer (<0.60) mg/L FEU ABG pH (7.35-7.45) ABG pCO2 (35-45) mmHg ABG pO2 (83-108) mmHg ABG HCO3 (21-25) mmol/L ABG Total CO2 (19-24) mmol/L ABG O2 Saturation (94-97) % Potassium (3.5-5.1) mmol/L Chloride (98-107) mmol/L BUN (9-20) mg/dL Creatinine (0.66-1.25) mg/dL Glucose (74-99) mg/dL POC Glucose (mg/dL) 185 H (75-99) mg/dL Magnesium (1.6-2.3) mg/dL Ferritin 1070.9 H (22.0-322.0) ng/mL ALT (4-49) U/L Lactate Dehydrogenase (313-618) U/L Creatine Kinase 27 L (55-170) U/L Total Protein (6.3-8.2) g/dL Albumin (3.5-5.0) g/dL Triglycerides (<150) mg/dL Lipase (23-300) U/L 01/14/21 01/14/21 01/14/21 Range/Units 10:22 12:14 13:18 WBC (3.8-10.6) k/uL Hgb (13.0-17.5) gm/dL D-Dimer (<0.60) mg/L FEU ABG pH (7.35-7.45) ABG pCO2 (35-45) mmHg ABG pO2 (83-108) mmHg ABG HCO3 (21-25) mmol/L ABG Total CO2 (19-24) mmol/L ABG O2 Saturation (94-97) % Potassium (3.5-5.1) mmol/L Chloride (98-107) mmol/L BUN (9-20) mg/dL Creatinine (0.66-1.25) mg/dL Glucose (74-99) mg/dL POC Glucose (mg/dL) 178 H 183 H 140 H (75-99) mg/dL Magnesium (1.6-2.3) mg/dL Ferritin (22.0-322.0) ng/mL ALT (4-49) U/L Lactate Dehydrogenase (313-618) U/L Creatine Kinase (55-170) U/L Total Protein (6.3-8.2) g/dL Albumin (3.5-5.0) g/dL Triglycerides (<150) mg/dL Lipase (23-300) U/L 01/14/21 01/14/21 01/14/21 Range/Units 14:05 15:00 16:13 WBC (3.8-10.6) k/uL Hgb (13.0-17.5) gm/dL D-Dimer (<0.60) mg/L FEU ABG pH (7.35-7.45) ABG pCO2 (35-45) mmHg ABG pO2 (83-108) mmHg ABG HCO3 (21-25) mmol/L ABG Total CO2 (19-24) mmol/L ABG O2 Saturation (94-97) % Potassium (3.5-5.1) mmol/L Chloride (98-107) mmol/L BUN (9-20) mg/dL Creatinine (0.66-1.25) mg/dL Glucose (74-99) mg/dL POC Glucose (mg/dL) 148 H 212 H 156 H (75-99) mg/dL Magnesium (1.6-2.3) mg/dL Ferritin (22.0-322.0) ng/mL ALT (4-49) U/L Lactate Dehydrogenase (313-618) U/L Creatine Kinase (55-170) U/L Total Protein (6.3-8.2) g/dL Albumin (3.5-5.0) g/dL Triglycerides (<150) mg/dL Lipase (23-300) U/L 01/14/21 01/14/21 01/14/21 Range/Units 18:01 18:54 20:17 WBC (3.8-10.6) k/uL Hgb (13.0-17.5) gm/dL D-Dimer (<0.60) mg/L FEU ABG pH (7.35-7.45) ABG pCO2 (35-45) mmHg ABG pO2 (83-108) mmHg ABG HCO3 (21-25) mmol/L ABG Total CO2 (19-24) mmol/L ABG O2 Saturation (94-97) % Potassium (3.5-5.1) mmol/L Chloride (98-107) mmol/L BUN (9-20) mg/dL Creatinine (0.66-1.25) mg/dL Glucose (74-99) mg/dL POC Glucose (mg/dL) 177 H 143 H 117 H (75-99) mg/dL Magnesium (1.6-2.3) mg/dL Ferritin (22.0-322.0) ng/mL ALT (4-49) U/L Lactate Dehydrogenase (313-618) U/L Creatine Kinase (55-170) U/L Total Protein (6.3-8.2) g/dL Albumin (3.5-5.0) g/dL Triglycerides (<150) mg/dL Lipase (23-300) U/L 01/14/21 01/14/21 01/14/21 Range/Units 21:17 22:03 22:58 WBC (3.8-10.6) k/uL Hgb (13.0-17.5) gm/dL D-Dimer (<0.60) mg/L FEU ABG pH (7.35-7.45) ABG pCO2 (35-45) mmHg ABG pO2 (83-108) mmHg ABG HCO3 (21-25) mmol/L ABG Total CO2 (19-24) mmol/L ABG O2 Saturation (94-97) % Potassium (3.5-5.1) mmol/L Chloride (98-107) mmol/L BUN (9-20) mg/dL Creatinine (0.66-1.25) mg/dL Glucose (74-99) mg/dL POC Glucose (mg/dL) 133 H 190 H 179 H (75-99) mg/dL Magnesium (1.6-2.3) mg/dL Ferritin (22.0-322.0) ng/mL ALT (4-49) U/L Lactate Dehydrogenase (313-618) U/L Creatine Kinase (55-170) U/L Total Protein (6.3-8.2) g/dL Albumin (3.5-5.0) g/dL Triglycerides (<150) mg/dL Lipase (23-300) U/L 01/14/21 01/15/21 01/15/21 Range/Units 23:54 00:57 02:07 WBC (3.8-10.6) k/uL Hgb (13.0-17.5) gm/dL D-Dimer (<0.60) mg/L FEU ABG pH (7.35-7.45) ABG pCO2 (35-45) mmHg ABG pO2 (83-108) mmHg ABG HCO3 (21-25) mmol/L ABG Total CO2 (19-24) mmol/L ABG O2 Saturation (94-97) % Potassium (3.5-5.1) mmol/L Chloride (98-107) mmol/L BUN (9-20) mg/dL Creatinine (0.66-1.25) mg/dL Glucose (74-99) mg/dL POC Glucose (mg/dL) 161 H 142 H 123 H (75-99) mg/dL Magnesium (1.6-2.3) mg/dL Ferritin (22.0-322.0) ng/mL ALT (4-49) U/L Lactate Dehydrogenase (313-618) U/L Creatine Kinase (55-170) U/L Total Protein (6.3-8.2) g/dL Albumin (3.5-5.0) g/dL Triglycerides (<150) mg/dL Lipase (23-300) U/L 01/15/21 01/15/21 01/15/21 Range/Units 02:12 03:00 04:08 WBC (3.8-10.6) k/uL Hgb (13.0-17.5) gm/dL D-Dimer (<0.60) mg/L FEU ABG pH (7.35-7.45) ABG pCO2 (35-45) mmHg ABG pO2 (83-108) mmHg ABG HCO3 (21-25) mmol/L ABG Total CO2 (19-24) mmol/L ABG O2 Saturation (94-97) % Potassium (3.5-5.1) mmol/L Chloride (98-107) mmol/L BUN (9-20) mg/dL Creatinine (0.66-1.25) mg/dL Glucose (74-99) mg/dL POC Glucose (mg/dL) 127 H 141 H 136 H (75-99) mg/dL Magnesium (1.6-2.3) mg/dL Ferritin (22.0-322.0) ng/mL ALT (4-49) U/L Lactate Dehydrogenase (313-618) U/L Creatine Kinase (55-170) U/L Total Protein (6.3-8.2) g/dL Albumin (3.5-5.0) g/dL Triglycerides (<150) mg/dL Lipase (23-300) U/L 01/15/21 01/15/21 01/15/21 Range/Units 04:53 05:00 05:00 WBC 20.7 H (3.8-10.6) k/uL Hgb 12.9 L (13.0-17.5) gm/dL D-Dimer 1.44 H (<0.60) mg/L FEU ABG pH 7.24 L (7.35-7.45) ABG pCO2 67 H (35-45) mmHg ABG pO2 64 L (83-108) mmHg ABG HCO3 29 H (21-25) mmol/L ABG Total CO2 31 H (19-24) mmol/L ABG O2 Saturation 90.0 L (94-97) % Potassium (3.5-5.1) mmol/L Chloride (98-107) mmol/L BUN (9-20) mg/dL Creatinine (0.66-1.25) mg/dL Glucose (74-99) mg/dL POC Glucose (mg/dL) (75-99) mg/dL Magnesium (1.6-2.3) mg/dL Ferritin (22.0-322.0) ng/mL ALT (4-49) U/L Lactate Dehydrogenase (313-618) U/L Creatine Kinase (55-170) U/L Total Protein (6.3-8.2) g/dL Albumin (3.5-5.0) g/dL Triglycerides (<150) mg/dL Lipase (23-300) U/L 01/15/21 01/15/21 01/15/21 Range/Units 05:00 05:03 06:14 WBC (3.8-10.6) k/uL Hgb (13.0-17.5) gm/dL D-Dimer (<0.60) mg/L FEU ABG pH (7.35-7.45) ABG pCO2 (35-45) mmHg ABG pO2 (83-108) mmHg ABG HCO3 (21-25) mmol/L ABG Total CO2 (19-24) mmol/L ABG O2 Saturation (94-97) % Potassium 5.6 H (3.5-5.1) mmol/L Chloride 112 H (98-107) mmol/L BUN 124 H* (9-20) mg/dL Creatinine 2.37 H (0.66-1.25) mg/dL Glucose 190 H (74-99) mg/dL POC Glucose (mg/dL) 175 H 150 H (75-99) mg/dL Magnesium 2.8 H (1.6-2.3) mg/dL Ferritin (22.0-322.0) ng/mL ALT 62 H (4-49) U/L Lactate Dehydrogenase 1042 H (313-618) U/L Creatine Kinase (55-170) U/L Total Protein 4.5 L (6.3-8.2) g/dL Albumin 2.4 L (3.5-5.0) g/dL Triglycerides 316 H (<150) mg/dL Lipase 443 H (23-300) U/L 01/15/21 01/15/21 Range/Units 06:57 08:13 WBC (3.8-10.6) k/uL Hgb (13.0-17.5) gm/dL D-Dimer (<0.60) mg/L FEU ABG pH (7.35-7.45) ABG pCO2 (35-45) mmHg ABG pO2 (83-108) mmHg ABG HCO3 (21-25) mmol/L ABG Total CO2 (19-24) mmol/L ABG O2 Saturation (94-97) % Potassium (3.5-5.1) mmol/L Chloride (98-107) mmol/L BUN (9-20) mg/dL Creatinine (0.66-1.25) mg/dL Glucose (74-99) mg/dL POC Glucose (mg/dL) 148 H 134 H (75-99) mg/dL Magnesium (1.6-2.3) mg/dL Ferritin (22.0-322.0) ng/mL ALT (4-49) U/L Lactate Dehydrogenase (313-618) U/L Creatine Kinase (55-170) U/L Total Protein (6.3-8.2) g/dL Albumin (3.5-5.0) g/dL Triglycerides (<150) mg/dL Lipase (23-300) U/L - Imaging and Cardiology Chest x-ray: report reviewed, image reviewed Assessment and Plan Assessment: 1. Covid 19 infection 2. Acute hypoxic respiratory failure, ARDS requiring mechanical ventilation, secondary to above 3. Right-sided small pneumothorax, status post placement of a pleural chest tube with subsequent extensive subcutaneous emphysema 4. Acute kidney injury on chronic kidney disease stage III 5. History of CAD with stent placement 6. History of hypertension, currently hypotensive on levo 7. History of hyperlipidemia 8. History of diabetes 9. Never smoker Plan: 1. Continue right-sided pleural chest tube to continuous wall suction with nonocclusive dressing. Monitor subcutaneous emphysema 2. No surgical management at this time 3. Continue current treatment per primary care, anesthesiology physician 4. Will monitor daily x-rays 5. Will continue to follow and make further recommendations as appropriate Time with Patient: Greater than 30
[2021-01-15] MEDS ORDERED: FUROSEMIDE 10 MG/ML 10 ML VIAL IV STA (09:04)
[2021-01-15] MEDS ORDERED: DEXTROSE 50% SYRINGE 50 ML IVP STA ×3 (09:05→21:16)
[2021-01-15] MEDS ORDERED: INSULIN REGULAR 100 UNIT/ML VIAL IV ONE ×3 (09:05→21:05)
--- NOTE | 2021-01-15 09:05 | P.PN ---
Subjective Patient is seen in follow for acute kidney injury. Renal function worsening. Urine output 15-30 mL an hour. Requiring higher dose of Levophed. Receiving tube feeding. Currently on 90% FiO2. Vital signs are stable. On vasopressor support. General: The patient appeared well nourished and normally developed. HEENT: Intubated. Exam discussed with the nurse. Objective - Vital Signs Vital signs: Vital Signs Temp 98.2 F 01/15/21 04:00 Pulse 95 01/15/21 08:00 Resp 28 H 01/15/21 08:00 BP 112/66 01/15/21 08:00 Pulse Ox 87 L 01/15/21 08:00 Intake & Output 01/14/21 01/15/21 01/15/21 18:59 06:59 18:59 Intake Total 495.506 8596.365 143.468 Output Total 770 295 15 Balance 12.369 2433.365 128.468 Weight 92.1 kg Intake: IV 130 200 20 Sodium Chloride 0.9% 1, 130 200 20 000 ml @ 10 mls/hr IV . Q24H [facility] Rx#:[id number] Intake, IV Titration 412.616 1430.365 95.468 Amount Cisatracurium 200 mg In 158.865 Sodium Chloride 0.9% 180 ml @ 1 MCG/KG/MIN 5.346 mls/hr IV .Q24H [facility] Rx#: [id number] Insulin Regular 100 unit 116.369 48.026 11.278 In Sodium Chloride 0.9% 100 ml @ Per Protocol IV .Q0M [facility] Rx#:[id number] Norepinephrine 4 mg In 552.724 84.19 Sodium Chloride 0.9% 250 ml @ 0.05 MCG/KG/MIN 16. 974 mls/hr IV .[id number] [facility] Rx#:[id number] Sodium Chloride 0.9% 1, 1000 000 ml @ 999 mls/hr IV . Q1H1M [facility] Rx#:[id number] fentaNYL (PF) 1,000 mcg 100 In Sodium Chloride 0.9% 80 ml @ Per Protocol IV . Q0M [facility] Rx#:[id number] propofoL 1,000 mg In 100 270.750 Empty Bag 1 bag @ Titrate IV .Q0M [facility] Rx#: [id number] Tube Feeding 346 308 28 Other 90 90 Output: Chest Tube Drainage 30 Chest Tube Right 30 Urine 770 265 15 Other: Voiding Method Indwelling Catheter Indwelling Catheter ABP, PAP, CO, CI - Last Documented Arterial Blood Pressure 110/50 - Labs CBC & Chem 7: 01/15/21 05:00 01/15/21 05:00 Labs: Abnormal Lab Results - Last 24 Hours (Table) 01/14/21 01/14/21 01/14/21 Range/Units 04:25 04:25 10:22 WBC (3.8-10.6) k/uL Hgb (13.0-17.5) gm/dL D-Dimer (<0.60) mg/L FEU ABG pH (7.35-7.45) ABG pCO2 (35-45) mmHg ABG pO2 (83-108) mmHg ABG HCO3 (21-25) mmol/L ABG Total CO2 (19-24) mmol/L ABG O2 Saturation (94-97) % Potassium (3.5-5.1) mmol/L Chloride (98-107) mmol/L BUN (9-20) mg/dL Creatinine (0.66-1.25) mg/dL Glucose (74-99) mg/dL POC Glucose (mg/dL) 178 H (75-99) mg/dL Magnesium (1.6-2.3) mg/dL Ferritin 1070.9 H (22.0-322.0) ng/mL ALT (4-49) U/L Lactate Dehydrogenase (313-618) U/L Creatine Kinase 27 L (55-170) U/L Total Protein (6.3-8.2) g/dL Albumin (3.5-5.0) g/dL Triglycerides (<150) mg/dL Lipase (23-300) U/L 01/14/21 01/14/21 01/14/21 Range/Units 12:14 13:18 14:05 WBC (3.8-10.6) k/uL Hgb (13.0-17.5) gm/dL D-Dimer (<0.60) mg/L FEU ABG pH (7.35-7.45) ABG pCO2 (35-45) mmHg ABG pO2 (83-108) mmHg ABG HCO3 (21-25) mmol/L ABG Total CO2 (19-24) mmol/L ABG O2 Saturation (94-97) % Potassium (3.5-5.1) mmol/L Chloride (98-107) mmol/L BUN (9-20) mg/dL Creatinine (0.66-1.25) mg/dL Glucose (74-99) mg/dL POC Glucose (mg/dL) 183 H 140 H 148 H (75-99) mg/dL Magnesium (1.6-2.3) mg/dL Ferritin (22.0-322.0) ng/mL ALT (4-49) U/L Lactate Dehydrogenase (313-618) U/L Creatine Kinase (55-170) U/L Total Protein (6.3-8.2) g/dL Albumin (3.5-5.0) g/dL Triglycerides (<150) mg/dL Lipase (23-300) U/L 01/14/21 01/14/21 01/14/21 Range/Units 15:00 16:13 18:01 WBC (3.8-10.6) k/uL Hgb (13.0-17.5) gm/dL D-Dimer (<0.60) mg/L FEU ABG pH (7.35-7.45) ABG pCO2 (35-45) mmHg ABG pO2 (83-108) mmHg ABG HCO3 (21-25) mmol/L ABG Total CO2 (19-24) mmol/L ABG O2 Saturation (94-97) % Potassium (3.5-5.1) mmol/L Chloride (98-107) mmol/L BUN (9-20) mg/dL Creatinine (0.66-1.25) mg/dL Glucose (74-99) mg/dL POC Glucose (mg/dL) 212 H 156 H 177 H (75-99) mg/dL Magnesium (1.6-2.3) mg/dL Ferritin (22.0-322.0) ng/mL ALT (4-49) U/L Lactate Dehydrogenase (313-618) U/L Creatine Kinase (55-170) U/L Total Protein (6.3-8.2) g/dL Albumin (3.5-5.0) g/dL Triglycerides (<150) mg/dL Lipase (23-300) U/L 01/14/21 01/14/21 01/14/21 Range/Units 18:54 20:17 21:17 WBC (3.8-10.6) k/uL Hgb (13.0-17.5) gm/dL D-Dimer (<0.60) mg/L FEU ABG pH (7.35-7.45) ABG pCO2 (35-45) mmHg ABG pO2 (83-108) mmHg ABG HCO3 (21-25) mmol/L ABG Total CO2 (19-24) mmol/L ABG O2 Saturation (94-97) % Potassium (3.5-5.1) mmol/L Chloride (98-107) mmol/L BUN (9-20) mg/dL Creatinine (0.66-1.25) mg/dL Glucose (74-99) mg/dL POC Glucose (mg/dL) 143 H 117 H 133 H (75-99) mg/dL Magnesium (1.6-2.3) mg/dL Ferritin (22.0-322.0) ng/mL ALT (4-49) U/L Lactate Dehydrogenase (313-618) U/L Creatine Kinase (55-170) U/L Total Protein (6.3-8.2) g/dL Albumin (3.5-5.0) g/dL Triglycerides (<150) mg/dL Lipase (23-300) U/L 01/14/21 01/14/21 01/14/21 Range/Units 22:03 22:58 23:54 WBC (3.8-10.6) k/uL Hgb (13.0-17.5) gm/dL D-Dimer (<0.60) mg/L FEU ABG pH (7.35-7.45) ABG pCO2 (35-45) mmHg ABG pO2 (83-108) mmHg ABG HCO3 (21-25) mmol/L ABG Total CO2 (19-24) mmol/L ABG O2 Saturation (94-97) % Potassium (3.5-5.1) mmol/L Chloride (98-107) mmol/L BUN (9-20) mg/dL Creatinine (0.66-1.25) mg/dL Glucose (74-99) mg/dL POC Glucose (mg/dL) 190 H 179 H 161 H (75-99) mg/dL Magnesium (1.6-2.3) mg/dL Ferritin (22.0-322.0) ng/mL ALT (4-49) U/L Lactate Dehydrogenase (313-618) U/L Creatine Kinase (55-170) U/L Total Protein (6.3-8.2) g/dL Albumin (3.5-5.0) g/dL Triglycerides (<150) mg/dL Lipase (23-300) U/L 01/15/21 01/15/21 01/15/21 Range/Units 00:57 02:07 02:12 WBC (3.8-10.6) k/uL Hgb (13.0-17.5) gm/dL D-Dimer (<0.60) mg/L FEU ABG pH (7.35-7.45) ABG pCO2 (35-45) mmHg ABG pO2 (83-108) mmHg ABG HCO3 (21-25) mmol/L ABG Total CO2 (19-24) mmol/L ABG O2 Saturation (94-97) % Potassium (3.5-5.1) mmol/L Chloride (98-107) mmol/L BUN (9-20) mg/dL Creatinine (0.66-1.25) mg/dL Glucose (74-99) mg/dL POC Glucose (mg/dL) 142 H 123 H 127 H (75-99) mg/dL Magnesium (1.6-2.3) mg/dL Ferritin (22.0-322.0) ng/mL ALT (4-49) U/L Lactate Dehydrogenase (313-618) U/L Creatine Kinase (55-170) U/L Total Protein (6.3-8.2) g/dL Albumin (3.5-5.0) g/dL Triglycerides (<150) mg/dL Lipase (23-300) U/L 01/15/21 01/15/21 01/15/21 Range/Units 03:00 04:08 04:53 WBC (3.8-10.6) k/uL Hgb (13.0-17.5) gm/dL D-Dimer (<0.60) mg/L FEU ABG pH 7.24 L (7.35-7.45) ABG pCO2 67 H (35-45) mmHg ABG pO2 64 L (83-108) mmHg ABG HCO3 29 H (21-25) mmol/L ABG Total CO2 31 H (19-24) mmol/L ABG O2 Saturation 90.0 L (94-97) % Potassium (3.5-5.1) mmol/L Chloride (98-107) mmol/L BUN (9-20) mg/dL Creatinine (0.66-1.25) mg/dL Glucose (74-99) mg/dL POC Glucose (mg/dL) 141 H 136 H (75-99) mg/dL Magnesium (1.6-2.3) mg/dL Ferritin (22.0-322.0) ng/mL ALT (4-49) U/L Lactate Dehydrogenase (313-618) U/L Creatine Kinase (55-170) U/L Total Protein (6.3-8.2) g/dL Albumin (3.5-5.0) g/dL Triglycerides (<150) mg/dL Lipase (23-300) U/L 01/15/21 01/15/21 01/15/21 Range/Units 05:00 05:00 05:00 WBC 20.7 H (3.8-10.6) k/uL Hgb 12.9 L (13.0-17.5) gm/dL D-Dimer 1.44 H (<0.60) mg/L FEU ABG pH (7.35-7.45) ABG pCO2 (35-45) mmHg ABG pO2 (83-108) mmHg ABG HCO3 (21-25) mmol/L ABG Total CO2 (19-24) mmol/L ABG O2 Saturation (94-97) % Potassium 5.6 H (3.5-5.1) mmol/L Chloride 112 H (98-107) mmol/L BUN 124 H* (9-20) mg/dL Creatinine 2.37 H (0.66-1.25) mg/dL Glucose 190 H (74-99) mg/dL POC Glucose (mg/dL) (75-99) mg/dL Magnesium 2.8 H (1.6-2.3) mg/dL Ferritin (22.0-322.0) ng/mL ALT 62 H (4-49) U/L Lactate Dehydrogenase 1042 H (313-618) U/L Creatine Kinase (55-170) U/L Total Protein 4.5 L (6.3-8.2) g/dL Albumin 2.4 L (3.5-5.0) g/dL Triglycerides 316 H (<150) mg/dL Lipase 443 H (23-300) U/L 01/15/21 01/15/21 01/15/21 Range/Units 05:03 06:14 06:57 WBC (3.8-10.6) k/uL Hgb (13.0-17.5) gm/dL D-Dimer (<0.60) mg/L FEU ABG pH (7.35-7.45) ABG pCO2 (35-45) mmHg ABG pO2 (83-108) mmHg ABG HCO3 (21-25) mmol/L ABG Total CO2 (19-24) mmol/L ABG O2 Saturation (94-97) % Potassium (3.5-5.1) mmol/L Chloride (98-107) mmol/L BUN (9-20) mg/dL Creatinine (0.66-1.25) mg/dL Glucose (74-99) mg/dL POC Glucose (mg/dL) 175 H 150 H 148 H (75-99) mg/dL Magnesium (1.6-2.3) mg/dL Ferritin (22.0-322.0) ng/mL ALT (4-49) U/L Lactate Dehydrogenase (313-618) U/L Creatine Kinase (55-170) U/L Total Protein (6.3-8.2) g/dL Albumin (3.5-5.0) g/dL Triglycerides (<150) mg/dL Lipase (23-300) U/L 01/15/21 Range/Units 08:13 WBC (3.8-10.6) k/uL Hgb (13.0-17.5) gm/dL D-Dimer (<0.60) mg/L FEU ABG pH (7.35-7.45) ABG pCO2 (35-45) mmHg ABG pO2 (83-108) mmHg ABG HCO3 (21-25) mmol/L ABG Total CO2 (19-24) mmol/L ABG O2 Saturation (94-97) % Potassium (3.5-5.1) mmol/L Chloride (98-107) mmol/L BUN (9-20) mg/dL Creatinine (0.66-1.25) mg/dL Glucose (74-99) mg/dL POC Glucose (mg/dL) 134 H (75-99) mg/dL Magnesium (1.6-2.3) mg/dL Ferritin (22.0-322.0) ng/mL ALT (4-49) U/L Lactate Dehydrogenase (313-618) U/L Creatine Kinase (55-170) U/L Total Protein (6.3-8.2) g/dL Albumin (3.5-5.0) g/dL Triglycerides (<150) mg/dL Lipase (23-300) U/L Assessment and Plan Plan: Assessment: 1. Acute kidney injury secondary to ATN secondary to septic shock. Baseline creatinine near 1 and is 2.37 today. 2. Septic shock secondary to covid-19 infection maintained on steroids and zinc. 3. Right-sided pneumothorax status post chest tube placement. 4. Hyperkalemia secondary to acute kidney injury. 5. Diabetes mellitus. 6. Acute hypoxic respiratory failure. Currently on 90% FiO2. 7. Elevated BUN secondary to acute kidney injury and steroids. Plan: Maintain tube feeding. Tight blood sugar control. 10 units of IV insulin with an amp of D50. Lasix 80 mg IV once today. Wean FiO2 and vasopressors. Lisinopril stopped 01/13/2021. Avoid nephrotoxins. Continue to monitor renal function and urine output. Repeat BMP this afternoon. Continue to assess daily for need for renal replacement therapy. Check phosphorus level.
[2021-01-15] MEDS ORDERED: CALCIUM GLUCONATE 1 GM in SODIUM CHLORIDE 0.9% 100 ML IVPB ONE (10:02)
[2021-01-15 11:09] LABS: Glucose,Whole Blood 259 mg/dL (75-99)
[2021-01-15 11:47] LABS: Glucose,Whole Blood 227 mg/dL (75-99)
--- NOTE | 2021-01-15 11:53 | P.PN ---
Subjective Progress Note Date: 01/15/21 Principal diagnosis: Acute hypoxic respiratory failure secondary to acute covid 19 pneumonitis. 70-year-old male patient, known history of diabetes mellitus maintained on insulin in addition to history of hypertension, hyperlipidemia, coronary artery disease and previous history of PCI, presented to the emergency department because of increased fatigue and tiredness. The patient was infected with Covid 19 and the testing by PCR came back positive. The patient started having symptoms of infection approximately 7 days ago and his tests confirmed positive. The test was positive on 12/27/2020. The patient's complaints were essentially those of body aches, feeling weak and tired and he was warm and he was probably having fevers. He was significantly fatigued and he was unable to do even simple stuff at home. He reported poor appetite. No loss in the taste or smell . He had no significant cough. He denies having any significant shortness of breath. No headaches. No nasal congestion. No nausea or vomiting. Upon arrival to the emergency department, the patient was profoundly hypoxic and the pulse ox was around 82% and the patient was also tachypneic and tachycardic. He was initially started on oxygen at 10 L per minute nasal cannula and subsequently the oxygen flow was brought up to 15 L and he continued to be hypoxic. At that point, the patient was switched to BiPAP at a pressure of 10/5 and FiO2 of 100%. The patient had further blood work that showed an LDH level of 2287, CRP of 170, lactic acid level of 2.4, serum bicarb of 18, the BUN was 37 with a creatinine of 1.7. The blood gas on 100% FiO2 showed a pH of 7.4 with a pCO2 of 27 and pO2 of 62. The chest x-ray showed diffuse but the pulmonary infiltrates. At that point, the patient was admitted to the intensive care unit and the patient was supported with BiPAP. The patient is currently on IV Decadron. The patient was also started on Remdesivir per protocol. The patient is on Lovenox 40 mg subcu every 24 hours for a d-dimer of 1.17 and the time of admission. The patient this morning was transitioned to oxygen at 15 L high flow and he is able to maintain a saturation above 90%. He remains in normal sinus rhythm. He is awake and alert. His chest x-ray showing bilateral pulmonary infiltrates was in the lung bases bilaterally. He is off the BiPAP for now. D-dimer is at 1.88 from today. His LDH is down to 1952 and the pro- calcitonin level was 0.3, LFTs were minimally elevated secondary to Covid 19. CRP is down to 158. He is currently on the same treatment including Decadron and Remdesivir day #2 01/11/2021 the patient is being seen in follow-up. The patient is currently intubated on a mechanical ventilator. The patient is a case of Covid associated pneumonia with secondary respiratory failure. Note that because of stiff lungs and elevated airway pressures, the patient developed barotrauma and subsequently he developed a small right-sided pneumothorax and he was developing extensive subcutaneous emphysema as the patient was developing increased swelling in his face neck and chest throughout the day yesterday. As such, I inserted a chest tube on him yesterday and a 28-Portuguese chest tube was inserted into the right lung without any complications. The patient's currently is sedated with propofol which is running at 35 mcg/kg per minute. The patient is also on Nimbex running at 0.8 mcg/kg per minute and the patient is also on fentanyl are running at 0.8 Arnie respiratory kilogram per hour. As such, the patient has been adequately sedated and adequately paralyzed and the patient is quite synchronous with the mechanical ventilator. The patient is currently on a assist-control mode of ventilation, volume cycle with a rate of 26 and a tidal volume of 400 and FiO2 of 80% with a PEEP of 8. The blood periods from today shows a pH of 7.21 with a pCO2 of 63 and pO2 of 82. The patient's peak airway pressure is 28 with a static pressure of 28. Overnight, his subcutaneous emphysema has gotten significantly worse. Nevertheless, he doesn't have any pneumothorax. The right-sided chest tube is still in place. The patient has developed extensive subcutaneous emphysema bilaterally extending to his neck and the face and upper extremities in the chest. Orotracheal tube is in a good location. NG tube is also in a good location. The patient is on IV Solu-Medrol at 60 mg every 6 hours. In terms of his Covid 19 related pneumonia, his air d- dimer is at 6.91, his LDH currently is down to 1434 and his CRP level is down to 20.2. Rest of the blood work and electrodes are all within normal limits. His white cell count currently is at 9.2 with hemoglobin of 11.5. The patient is receiving enteral feeding for nutritional support and is currently on vital high protein at 20 mL an hour and is able to tolerate the diet and he has had regular bowel movements. No abdominal distention. No emesis. No other significant events overnight. Active issues for now is unwilling respiratory failure and extensive subcutaneous emphysema that is involved as a complication of Covid 19 related pneumonia and respiratory failure. Reevaluated today on 01/12/2021, patient remains in the ICU, patient is on mechanical ventilation, assist control rate of 26, tidal volume is 400, FiO2 is 70%, and PEEP is 10. Patient is on propofol at 20 mcg/kg/m, norepinephrine at 0.02 mcg/kg/m. On Nimbex at 0.2 mcg/kg/m. And he is also on fentanyl. FiO2 w as decreased down to 65%, chest x-ray showed bilateral infiltrates cannot significant subcutaneous emphysema. Right-sided chest tube is noted to have some air leak, remains on suction. Very minimal right apical pneumothorax suspected, however chest tube remains in place. The cecum and is 6.2 hemoglobin 14.9. ABG today showed a pO2 of 59 pCO2 of 51 pH of 7.34 d-dimer is 3.51 BUN is 57 creatinine 1.14. LDH is 1158 and C-reactive protein is 11.3. Patient is on enteral feeding. Remains on Solu-Medrol 60 mg IV push every 6 hours. Reevaluated today on 01/13/2021, patient remains in the ICU, remains on mechanical ventilation, his chest x-ray is showing significant subcutaneous emphysema, and small right-sided pneumothorax in spite of the chest tube in place. Hence thoracic surgery was consulted, and at this point not planning any chest tube placement or any surgical intervention. Patient remains on assist control rate of 26 tidal volume is 400 FiO2 of 65% on a cardiac down to 60 PEEP is at 10 I cut it down to 8. ABG showed a pO2 of 88 pCO2 of 70 pH of 7.23. Patient remains on Nimbex, insulin drip, propofol, and fentanyl. He remains off norepinephrine. Nephrology was consulted to the patient regarding his worsening renal status, BUN is 80 creatinine is 1.47. Patient remains on enteral feeding. He remains on Solu-Medrol. I will go ahead and cut down the dose of Solu-Medr ol. Patient did receive actemra and remdesivir Patient was reevaluated today on 01/14/2021, remains in the ICU, remains intubated and mechanically ventilated, he is on assist control rate of 26 tidal volume is 400 FiO2 is 65% and PEEP of 8. ABG showed a pO2 of 59 pCO2 of 63 pH of 7.31. Continues to have right-sided chest tube in place, no leak noted from the chest tube, however there are some blood surrounding the area of the chest tube insertion. I recommended a CT of the chest to be done today without contrast to evaluate the extensiveness of his pneumothorax and subcutaneous emphysema and 2 determine the exact location of the chest tube and decide whether another chest tube is necessary. His ventilator settings were basically the same except I increased his FiO2 from 60-65%. Patient remains on norepinephrine at 0.02 mcg/kg/m, propofol at 50 mcg/kg/m, Nimbex at 1 mcg/kg/m insulin 9 units per hour and fentanyl 0.2 g every per hour. Patient is on enteral feeding is vital HPI to 40 mL per hour. Patient is sedated, and paralyzed. WBC count is 11.5 hemoglobin is 13.9 ABG as noted above. Electrolytes are normal, renal profile is slightly worse with BUN of 101 creatinine of 1.68, nephrology has been consulted. Patient did receive remdesivir and actemra since admission. Patient was reevaluated today on 01/15/2021, remains in the ICU, continues to do very poorly. Patient remains on assist control rate of 26 tidal volume is 400 FiO2 was increased last night up to 90%, and PEEP is at 8. Continues to have significant subcutaneous emphysema. His CT of the chest did not reveal significant pneumothorax to justify placement of another chest tube. Patient remains on norepinephrine at 0.12 mcg/kg/m, Nimbex at 2 mcg/kg/m, insulin drip, propofol at 50 mcg/kg/m, and he is also on fentanyl at 0.3 mcg/kg per hour. Patient received fluid boluses last night for low blood pressure, and today he was seen by nephrology, given a dose of Lasix 80 mg IV push 1. Patient remains on Solu-Medrol, remains on Lovenox, he has received remdesivir, and actemra since admission. Chest x-ray is not showing any improvement. His overall clinical condition continues to be quite critical, and not showing any signs of improvement. As a matter of fact I believe the patient is getting worse daily. Objective - Vital Signs Vital signs: Vital Signs Temp 97.5 F L 01/15/21 08:00 Pulse 108 H 01/15/21 11:00 Resp 26 H 01/15/21 11:00 BP 119/63 01/15/21 11:00 Pulse Ox 87 L 01/15/21 11:00 Intake & Output 01/14/21 01/15/21 01/15/21 18:59 06:59 18:59 Intake Total 308.849 1322.365 770.955 Output Total 770 295 80 Balance 12.369 2433.365 690.955 Weight 92.1 kg Intake: IV 130 200 89 Pressure bag 9 Sodium Chloride 0.9% 1, 130 200 80 000 ml @ 10 mls/hr IV . Q24H [facility] Rx#:[id number] Intake, IV Titration 039.505 9089.365 507.955 Amount Calcium Gluconate 1 gm In 100 Sodium Chloride 0.9% 100 ml @ 100 mls/hr IVPB ONCE ONE Rx#:[id number] Cisatracurium 200 mg In 158.865 83.487 Sodium Chloride 0.9% 180 ml @ 1 MCG/KG/MIN 5.346 mls/hr IV .Q24H [facility] Rx#: [id number] Insulin Regular 100 unit 116.369 48.026 11.278 In Sodium Chloride 0.9% 100 ml @ Per Protocol IV .Q0M [facility] Rx#:[id number] Norepinephrine 4 mg In 552.724 213.19 Sodium Chloride 0.9% 250 ml @ 0.05 MCG/KG/MIN 16. 974 mls/hr IV .[id number] [facility] Rx#:[id number] Sodium Chloride 0.9% 1, 1000 000 ml @ 999 mls/hr IV . Q1H1M ONE Rx#:[id number] fentaNYL (PF) 1,000 mcg 100 In Sodium Chloride 0.9% 80 ml @ Per Protocol IV . Q0M [facility] Rx#:[id number] propofoL 1,000 mg In 100 270.750 100 Empty Bag 1 bag @ Titrate IV .Q0M [facility] Rx#: [id number] Tube Feeding 346 308 84 Other 90 90 90 Output: Chest Tube Drainage 30 Chest Tube Right 30 Urine 770 265 80 Other: Voiding Method Indwelling Catheter Indwelling Catheter Indwelling Catheter ABP, PAP, CO, CI - Last Documented Arterial Blood Pressure 118/54 - Exam General: Revealed a 70-year-old white male on mechanical ventilation, massive subcutaneous emphysema noted. Extending from the chest up to the neck and face. Head: atraumatic, normocephalic, symmetric Eyes: EOMI, anicteric sclera, pupils equal round reactive to light and orogastric tube and endotracheal tube are intact. ENT: Nose and ears atraumatic, no thrush, no pharyngeal erythema Neck: No neck masses no JVD no stridor but there is evidence of subcutaneous emphysema Mouth: Moist mucous membranes. Cardiovascular: Normal S1 and S2, no S3 gallop. Lungs: Fine crackles at the bases bilaterally, subcutaneous emphysema is palpable. And crepitation noted. Sided chest tube is noted. No bleeding around the chest tube. Minimal output and the chest tube, and no air leak noted. Abdominal: Soft nontender no megaly no rebound. extremities no clubbing edema or cyanosis. Neuro: Cannot fully assess patient is sedated and paralyzed Psychiatric: Could not assess - Labs CBC & Chem 7: 01/15/21 05:00 01/15/21 05:00 Labs: Abnormal Lab Results - Last 24 Hours (Table) 01/14/21 01/14/21 01/14/21 Range/Units 04:25 12:14 13:18 WBC (3.8-10.6) k/uL Hgb (13.0-17.5) gm/dL D-Dimer (<0.60) mg/L FEU ABG pH (7.35-7.45) ABG pCO2 (35-45) mmHg ABG pO2 (83-108) mmHg ABG HCO3 (21-25) mmol/L ABG Total CO2 (19-24) mmol/L ABG O2 Saturation (94-97) % Potassium (3.5-5.1) mmol/L Chloride (98-107) mmol/L BUN (9-20) mg/dL Creatinine (0.66-1.25) mg/dL Glucose (74-99) mg/dL POC Glucose (mg/dL) 183 H 140 H (75-99) mg/dL Magnesium (1.6-2.3) mg/dL ALT (4-49) U/L Lactate Dehydrogenase (313-618) U/L Creatine Kinase 27 L (55-170) U/L Total Protein (6.3-8.2) g/dL Albumin (3.5-5.0) g/dL Triglycerides (<150) mg/dL Lipase (23-300) U/L 01/14/21 01/14/21 01/14/21 Range/Units 14:05 15:00 16:13 WBC (3.8-10.6) k/uL Hgb (13.0-17.5) gm/dL D-Dimer (<0.60) mg/L FEU ABG pH (7.35-7.45) ABG pCO2 (35-45) mmHg ABG pO2 (83-108) mmHg ABG HCO3 (21-25) mmol/L ABG Total CO2 (19-24) mmol/L ABG O2 Saturation (94-97) % Potassium (3.5-5.1) mmol/L Chloride (98-107) mmol/L BUN (9-20) mg/dL Creatinine (0.66-1.25) mg/dL Glucose (74-99) mg/dL POC Glucose (mg/dL) 148 H 212 H 156 H (75-99) mg/dL Magnesium (1.6-2.3) mg/dL ALT (4-49) U/L Lactate Dehydrogenase (313-618) U/L Creatine Kinase (55-170) U/L Total Protein (6.3-8.2) g/dL Albumin (3.5-5.0) g/dL Triglycerides (<150) mg/dL Lipase (23-300) U/L 01/14/21 01/14/21 01/14/21 Range/Units 18:01 18:54 20:17 WBC (3.8-10.6) k/uL Hgb (13.0-17.5) gm/dL D-Dimer (<0.60) mg/L FEU ABG pH (7.35-7.45) ABG pCO2 (35-45) mmHg ABG pO2 (83-108) mmHg ABG HCO3 (21-25) mmol/L ABG Total CO2 (19-24) mmol/L ABG O2 Saturation (94-97) % Potassium (3.5-5.1) mmol/L Chloride (98-107) mmol/L BUN (9-20) mg/dL Creatinine (0.66-1.25) mg/dL Glucose (74-99) mg/dL POC Glucose (mg/dL) 177 H 143 H 117 H (75-99) mg/dL Magnesium (1.6-2.3) mg/dL ALT (4-49) U/L Lactate Dehydrogenase (313-618) U/L Creatine Kinase (55-170) U/L Total Protein (6.3-8.2) g/dL Albumin (3.5-5.0) g/dL Triglycerides (<150) mg/dL Lipase (23-300) U/L 01/14/21 01/14/21 01/14/21 Range/Units 21:17 22:03 22:58 WBC (3.8-10.6) k/uL Hgb (13.0-17.5) gm/dL D-Dimer (<0.60) mg/L FEU ABG pH (7.35-7.45) ABG pCO2 (35-45) mmHg ABG pO2 (83-108) mmHg ABG HCO3 (21-25) mmol/L ABG Total CO2 (19-24) mmol/L ABG O2 Saturation (94-97) % Potassium (3.5-5.1) mmol/L Chloride (98-107) mmol/L BUN (9-20) mg/dL Creatinine (0.66-1.25) mg/dL Glucose (74-99) mg/dL POC Glucose (mg/dL) 133 H 190 H 179 H (75-99) mg/dL Magnesium (1.6-2.3) mg/dL ALT (4-49) U/L Lactate Dehydrogenase (313-618) U/L Creatine Kinase (55-170) U/L Total Protein (6.3-8.2) g/dL Albumin (3.5-5.0) g/dL Triglycerides (<150) mg/dL Lipase (23-300) U/L 01/14/21 01/15/21 01/15/21 Range/Units 23:54 00:57 02:07 WBC (3.8-10.6) k/uL Hgb (13.0-17.5) gm/dL D-Dimer (<0.60) mg/L FEU ABG pH (7.35-7.45) ABG pCO2 (35-45) mmHg ABG pO2 (83-108) mmHg ABG HCO3 (21-25) mmol/L ABG Total CO2 (19-24) mmol/L ABG O2 Saturation (94-97) % Potassium (3.5-5.1) mmol/L Chloride (98-107) mmol/L BUN (9-20) mg/dL Creatinine (0.66-1.25) mg/dL Glucose (74-99) mg/dL POC Glucose (mg/dL) 161 H 142 H 123 H (75-99) mg/dL Magnesium (1.6-2.3) mg/dL ALT (4-49) U/L Lactate Dehydrogenase (313-618) U/L Creatine Kinase (55-170) U/L Total Protein (6.3-8.2) g/dL Albumin (3.5-5.0) g/dL Triglycerides (<150) mg/dL Lipase (23-300) U/L 01/15/21 01/15/21 01/15/21 Range/Units 02:12 03:00 04:08 WBC (3.8-10.6) k/uL Hgb (13.0-17.5) gm/dL D-Dimer (<0.60) mg/L FEU ABG pH (7.35-7.45) ABG pCO2 (35-45) mmHg ABG pO2 (83-108) mmHg ABG HCO3 (21-25) mmol/L ABG Total CO2 (19-24) mmol/L ABG O2 Saturation (94-97) % Potassium (3.5-5.1) mmol/L Chloride (98-107) mmol/L BUN (9-20) mg/dL Creatinine (0.66-1.25) mg/dL Glucose (74-99) mg/dL POC Glucose (mg/dL) 127 H 141 H 136 H (75-99) mg/dL Magnesium (1.6-2.3) mg/dL ALT (4-49) U/L Lactate Dehydrogenase (313-618) U/L Creatine Kinase (55-170) U/L Total Protein (6.3-8.2) g/dL Albumin (3.5-5.0) g/dL Triglycerides (<150) mg/dL Lipase (23-300) U/L 01/15/21 01/15/21 01/15/21 Range/Units 04:53 05:00 05:00 WBC 20.7 H (3.8-10.6) k/uL Hgb 12.9 L (13.0-17.5) gm/dL D-Dimer 1.44 H (<0.60) mg/L FEU ABG pH 7.24 L (7.35-7.45) ABG pCO2 67 H (35-45) mmHg ABG pO2 64 L (83-108) mmHg ABG HCO3 29 H (21-25) mmol/L ABG Total CO2 31 H (19-24) mmol/L ABG O2 Saturation 90.0 L (94-97) % Potassium (3.5-5.1) mmol/L Chloride (98-107) mmol/L BUN (9-20) mg/dL Creatinine (0.66-1.25) mg/dL Glucose (74-99) mg/dL POC Glucose (mg/dL) (75-99) mg/dL Magnesium (1.6-2.3) mg/dL ALT (4-49) U/L Lactate Dehydrogenase (313-618) U/L Creatine Kinase (55-170) U/L Total Protein (6.3-8.2) g/dL Albumin (3.5-5.0) g/dL Triglycerides (<150) mg/dL Lipase (23-300) U/L 01/15/21 01/15/21 01/15/21 Range/Units 05:00 05:03 06:14 WBC (3.8-10.6) k/uL Hgb (13.0-17.5) gm/dL D-Dimer (<0.60) mg/L FEU ABG pH (7.35-7.45) ABG pCO2 (35-45) mmHg ABG pO2 (83-108) mmHg ABG HCO3 (21-25) mmol/L ABG Total CO2 (19-24) mmol/L ABG O2 Saturation (94-97) % Potassium 5.6 H (3.5-5.1) mmol/L Chloride 112 H (98-107) mmol/L BUN 124 H* (9-20) mg/dL Creatinine 2.37 H (0.66-1.25) mg/dL Glucose 190 H (74-99) mg/dL POC Glucose (mg/dL) 175 H 150 H (75-99) mg/dL Magnesium 2.8 H (1.6-2.3) mg/dL ALT 62 H (4-49) U/L Lactate Dehydrogenase 1042 H (313-618) U/L Creatine Kinase (55-170) U/L Total Protein 4.5 L (6.3-8.2) g/dL Albumin 2.4 L (3.5-5.0) g/dL Triglycerides 316 H (<150) mg/dL Lipase 443 H (23-300) U/L 01/15/21 01/15/21 01/15/21 Range/Units 06:57 08:13 11:06 WBC (3.8-10.6) k/uL Hgb (13.0-17.5) gm/dL D-Dimer (<0.60) mg/L FEU ABG pH (7.35-7.45) ABG pCO2 (35-45) mmHg ABG pO2 (83-108) mmHg ABG HCO3 (21-25) mmol/L ABG Total CO2 (19-24) mmol/L ABG O2 Saturation (94-97) % Potassium (3.5-5.1) mmol/L Chloride (98-107) mmol/L BUN (9-20) mg/dL Creatinine (0.66-1.25) mg/dL Glucose (74-99) mg/dL POC Glucose (mg/dL) 148 H 134 H 259 H (75-99) mg/dL Magnesium (1.6-2.3) mg/dL ALT (4-49) U/L Lactate Dehydrogenase (313-618) U/L Creatine Kinase (55-170) U/L Total Protein (6.3-8.2) g/dL Albumin (3.5-5.0) g/dL Triglycerides (<150) mg/dL Lipase (23-300) U/L Assessment and Plan Assessment: Impression: Acute hypoxic respiratory failure with ARDS secondary to acute covid 19 pneumonitis. Remains intubated and mechanically ventilated. Acute right sided spontaneous pneumothorax, most likely secondary to barotrauma secondary to mechanical ventilation. Required the right-sided chest tube placement, continues to have 10% pneumothorax and significant subcutaneous emphysema. Acute kidney injury with history of chronic kidney disease stage III, Type 2 diabetes on insulin Benign essential hypertension. Dyslipidemia. Degenerative joint disease. Acute kidney injury. Followed closely by nephrology. Recommendation: CT of the chest was reviewed, and no surgical intervention is necessary at this point for his subcutaneous emphysema and pneumothorax. Except continue to monitor the chest tube was already in place. Continue ventilatory support. Continue sedation Continue enteral feeding. Continue chest tube to suction. Received actemra and remdesivir Continue Lovenox 45 mg subcu every 12 hours. Monitor daily x-rays of the chest. Continue GI and DVT prophylaxis. Nephrology to continue to follow regarding his acute kidney injury. May eventually require hemodialysis. Thoracic surgery is following regarding his right sided thorax and subcutaneous emphysema. No plans to address weaning at this point since the patient remains quite ill and requiring significant FiO2 based on the ventilator settings and ABG at present. Prognosis remains extremely poor and guarded, We will try to approach the family regarding his poor prognosis and possibly consider comfort care measures on this patient. I think that would be very appropriate. Critical care time is over 30 minutes. Time with Patient: Greater than 30
[2021-01-15] MEDS ORDERED: METOPROLOL TARTRATE 25 MG TAB PO SCH (12:00)
[2021-01-15 12:58] LABS: Glucose,Whole Blood 208 mg/dL (75-99)
[2021-01-15 13:57] LABS: Glucose,Whole Blood 196 mg/dL (75-99)
[2021-01-15 14:59] LABS: Glucose,Whole Blood 185 mg/dL (75-99)
[2021-01-15 15:06] LABS: Calcium 8.8 mg/dL (8.4-10.2); Potassium 5.7 mmol/L (3.5-5.1)
--- NOTE | 2021-01-15 15:31 | P.PN ---
Subjective Progress Note Date: 01/15/21 (delayed charting seen at 0930) Principal diagnosis: fatigue Patient is a 70 yo CM with a hx of DM2 well controlled on insulin and oral medications, HTN, HLD, and CAD with hx of PCI X 1 who presented to the ED due to extreme fatigue. He started having COVID symptoms 7 days prior was tested and confirmed positive. On arrival to the ER he was profoundly hypoxic with room air pulse ox of 82%, pulse 123, respirations 26 with shallow breathing. He was initially started on high flow nasal cannula at 10 L and remained hypoxic. This was uptitrated to 15 L and he continued drain hypoxic at 88%. He was subsequently started on BiPAP with settings of 10/5 at 100%. Initial laboratory analysis showed a platelet count of 141, d-dimer 1.17, sodium 130, carbon dioxide 18, anion gap 18, BUN 37, creatinine 1.75 (baseline 1.4), glucose 208, lactic acid 2.4, total bilirubin 2.2, AST 99, LDH 2287, and CRP of 170. ABG demonstrated a pH of 7.4, pCO2 of 27, and PaO2 of 62 on 100%. Chest x-ray showed diffuse interstitial infiltrates. He was given a dose of 10 mg of Decadron IV and arrangements were made for admission. Dr. Pinto was contacted who agreed to admit the patient to the ICU and start remdesivir. He was able to been weaned down to 15L NC by the morning of 01/05. On the morning of 01/06 he was noted to have increasing encephalopathy. He required BiPap by 01/07 and Precedex for agitation. He did receive 5 days of Remdesivir and Actemra. Due to his worsening respiratory status was subsequently intubated on the . He did develop some increasing peak pressures and ultimately required Nimbex. A bronchoscopy was completed on 01/10. He developed a small right sided p neumothorax and a chest tube was placed on 01/10. Thoracic surgery was consulted and did not recommend any surgical intervention but to continue chest tube. He was noted to have worsening subcutaneous emphysema. He underwent a CT of the chest on 01/14 which demonstrated subcutaneous emphysema as well as pneumomediastinum, less than 10% residual pneumothorax with placement of chest tube. Nephrology had been consulted on 01/13 due to worsening renal failure. They recommended stopping lisinopril and continuing to monitor renal function. Overnight on 01/15 he continued to worsen. He had increasing O2 requirements, vasopressor requirements, and his urine output dropped. His renal function sign ificantly worsened and his potassium was elevated on the morning of 01/15. Patient seen and examined at bedside. Sedated and paralyzed on vent. Significant events overnight as noted above. General: Ill-appearing, no distress, appears at stated age Derm: warm, dry Head: atraumatic, normocephalic, symmetric Eyes: Edematous eyelids, scleral edema, anicteric sclera Mouth: no lip lesion, mucus membranes dry Cardiovascular: S1S2 reg, no murmur, positive posterior tibial pulse bilateral, Lungs: Coarse breath sounds bilaterally, sedated on vent Abdominal: soft, nontender to palpation, no guarding, no appreciable organomegaly Ext: no gross muscle atrophy, diffuse anasarca, no contractures Neuro and psychiatric: Sedated and paralyzed, [id number] 2 out of 4, pupils pinpoint and fax COVID 19 pneumonitis with acute hypoxic respiratory failure -Pulmonary recs: Solu-Medrol -Completed 5 days of Remdesivir, Toci X 2 - wean O2 as able on 90% vent -Nimbex -Zinc, vitamin C, vitamin D -Follow inflammatory markers - Lovenox BID Constipation - MiraLax - Continue to monitor ISIDRO on Chronic kidney disease stage III, metabolic acidosis -Hold DANN inhibitor -Avoid additional nephrotoxic agents -Strict I's and O's -D/W nephrology - glucose, calcium gluconate, lasix DM 2, well controlled - Suspect mild euglycemic DKA secondary to SGLT 2 inhibitor on admission carbon dioxide was 18 with an anion gap of 18 - hold oral medications - Insulin gtt - Follow BS - A1C 7.8 Hypertension, controlled -Continue with metoprolol -Follow blood pressures -DANN inhibitor on hold secondary to ISIDRO Dyslipidemia -Statin therapy GERD -H2 kaushik Lactic acidosis, resolved hyponatremia, resolved updated over the phone. Suggested DNR status and will discuss with family. She will visit today, also discussed that Yazan made it clear at the beginning of his hospital stay that he DVT prophylaxis: Lovenox Discussed with: Patient, nursing, Anticipated discharge date: undetermined Anticipated discharge place: undetermined A total of 45 minutes was spent on the care of this complex patient more than 50% of the time was spent in counseling and care coordination. Objective - Vital Signs Vital signs: Vital Signs Temp 97.6 F 01/15/21 12:00 Pulse 105 H 01/15/21 14:00 Resp 26 H 01/15/21 14:00 BP 122/68 01/15/21 14:00 Pulse Ox 91 L 01/15/21 14:00 Intake & Output 01/14/21 01/15/21 01/15/21 18:59 06:59 18:59 Intake Total 750.648 9710.365 1147.465 Output Total 770 295 285 Balance 12.369 2433.365 862.465 Weight 92.1 kg Intake: IV 130 200 128 Pressure bag 18 Sodium Chloride 0.9% 1, 130 200 110 000 ml @ 10 mls/hr IV . Q24H [facility] Rx#:[id number] Intake, IV Titration 502.769 9649.365 701.465 Amount Calcium Gluconate 1 gm In 100 Sodium Chloride 0.9% 100 ml @ 100 mls/hr IVPB ONCE ONE Rx#:[id number] Cisatracurium 200 mg In 158.865 83.487 Sodium Chloride 0.9% 180 ml @ 1 MCG/KG/MIN 5.346 mls/hr IV .Q24H [facility] Rx#: [id number] Insulin Regular 100 unit 116.369 48.026 32.572 In Sodium Chloride 0.9% 100 ml @ Per Protocol IV .Q0M [facility] Rx#:[id number] Norepinephrine 4 mg In 552.724 327.875 Sodium Chloride 0.9% 250 ml @ 0.05 MCG/KG/MIN 16. 974 mls/hr IV .[id number] [facility] Rx#:[id number] Sodium Chloride 0.9% 1, 1000 000 ml @ 999 mls/hr IV . Q1H1M ONE Rx#:[id number] fentaNYL (PF) 1,000 mcg 100 In Sodium Chloride 0.9% 80 ml @ Per Protocol IV . Q0M [facility] Rx#:[id number] propofoL 1,000 mg In 100 270.750 157.531 Empty Bag 1 bag @ Titrate IV .Q0M [facility] Rx#: [id number] Tube Feeding 346 308 168 Other 90 90 150 Output: Chest Tube Drainage 30 Chest Tube Right 30 Urine 770 265 285 Other: Voiding Method Indwelling Catheter Indwelling Catheter Indwelling Catheter ABP, PAP, CO, CI - Last Documented Arterial Blood Pressure 99/50 - Labs CBC & Chem 7: 01/15/21 05:00 01/15/21 05:00 Labs: Abnormal Lab Results - Last 24 Hours (Table) 01/14/21 01/14/21 01/14/21 Range/Units 16:13 18:01 18:54 WBC (3.8-10.6) k/uL Hgb (13.0-17.5) gm/dL D-Dimer (<0.60) mg/L FEU ABG pH (7.35-7.45) ABG pCO2 (35-45) mmHg ABG pO2 (83-108) mmHg ABG HCO3 (21-25) mmol/L ABG Total CO2 (19-24) mmol/L ABG O2 Saturation (94-97) % Potassium (3.5-5.1) mmol/L Chloride (98-107) mmol/L BUN (9-20) mg/dL Creatinine (0.66-1.25) mg/dL Glucose (74-99) mg/dL POC Glucose (mg/dL) 156 H 177 H 143 H (75-99) mg/dL Magnesium (1.6-2.3) mg/dL ALT (4-49) U/L Lactate Dehydrogenase (313-618) U/L Total Protein (6.3-8.2) g/dL Albumin (3.5-5.0) g/dL Triglycerides (<150) mg/dL Lipase (23-300) U/L 01/14/21 01/14/21 01/14/21 Range/Units 20:17 21:17 22:03 WBC (3.8-10.6) k/uL Hgb (13.0-17.5) gm/dL D-Dimer (<0.60) mg/L FEU ABG pH (7.35-7.45) ABG pCO2 (35-45) mmHg ABG pO2 (83-108) mmHg ABG HCO3 (21-25) mmol/L ABG Total CO2 (19-24) mmol/L ABG O2 Saturation (94-97) % Potassium (3.5-5.1) mmol/L Chloride (98-107) mmol/L BUN (9-20) mg/dL Creatinine (0.66-1.25) mg/dL Glucose (74-99) mg/dL POC Glucose (mg/dL) 117 H 133 H 190 H (75-99) mg/dL Magnesium (1.6-2.3) mg/dL ALT (4-49) U/L Lactate Dehydrogenase (313-618) U/L Total Protein (6.3-8.2) g/dL Albumin (3.5-5.0) g/dL Triglycerides (<150) mg/dL Lipase (23-300) U/L 01/14/21 01/14/21 01/15/21 Range/Units 22:58 23:54 00:57 WBC (3.8-10.6) k/uL Hgb (13.0-17.5) gm/dL D-Dimer (<0.60) mg/L FEU ABG pH (7.35-7.45) ABG pCO2 (35-45) mmHg ABG pO2 (83-108) mmHg ABG HCO3 (21-25) mmol/L ABG Total CO2 (19-24) mmol/L ABG O2 Saturation (94-97) % Potassium (3.5-5.1) mmol/L Chloride (98-107) mmol/L BUN (9-20) mg/dL Creatinine (0.66-1.25) mg/dL Glucose (74-99) mg/dL POC Glucose (mg/dL) 179 H 161 H 142 H (75-99) mg/dL Magnesium (1.6-2.3) mg/dL ALT (4-49) U/L Lactate Dehydrogenase (313-618) U/L Total Protein (6.3-8.2) g/dL Albumin (3.5-5.0) g/dL Triglycerides (<150) mg/dL Lipase (23-300) U/L 01/15/21 01/15/21 01/15/21 Range/Units 02:07 02:12 03:00 WBC (3.8-10.6) k/uL Hgb (13.0-17.5) gm/dL D-Dimer (<0.60) mg/L FEU ABG pH (7.35-7.45) ABG pCO2 (35-45) mmHg ABG pO2 (83-108) mmHg ABG HCO3 (21-25) mmol/L ABG Total CO2 (19-24) mmol/L ABG O2 Saturation (94-97) % Potassium (3.5-5.1) mmol/L Chloride (98-107) mmol/L BUN (9-20) mg/dL Creatinine (0.66-1.25) mg/dL Glucose (74-99) mg/dL POC Glucose (mg/dL) 123 H 127 H 141 H (75-99) mg/dL Magnesium (1.6-2.3) mg/dL ALT (4-49) U/L Lactate Dehydrogenase (313-618) U/L Total Protein (6.3-8.2) g/dL Albumin (3.5-5.0) g/dL Triglycerides (<150) mg/dL Lipase (23-300) U/L 01/15/21 01/15/21 01/15/21 Range/Units 04:08 04:53 05:00 WBC 20.7 H (3.8-10.6) k/uL Hgb 12.9 L (13.0-17.5) gm/dL D-Dimer (<0.60) mg/L FEU ABG pH 7.24 L (7.35-7.45) ABG pCO2 67 H (35-45) mmHg ABG pO2 64 L (83-108) mmHg ABG HCO3 29 H (21-25) mmol/L ABG Total CO2 31 H (19-24) mmol/L ABG O2 Saturation 90.0 L (94-97) % Potassium (3.5-5.1) mmol/L Chloride (98-107) mmol/L BUN (9-20) mg/dL Creatinine (0.66-1.25) mg/dL Glucose (74-99) mg/dL POC Glucose (mg/dL) 136 H (75-99) mg/dL Magnesium (1.6-2.3) mg/dL ALT (4-49) U/L Lactate Dehydrogenase (313-618) U/L Total Protein (6.3-8.2) g/dL Albumin (3.5-5.0) g/dL Triglycerides (<150) mg/dL Lipase (23-300) U/L 01/15/21 01/15/21 01/15/21 Range/Units 05:00 05:00 05:03 WBC (3.8-10.6) k/uL Hgb (13.0-17.5) gm/dL D-Dimer 1.44 H (<0.60) mg/L FEU ABG pH (7.35-7.45) ABG pCO2 (35-45) mmHg ABG pO2 (83-108) mmHg ABG HCO3 (21-25) mmol/L ABG Total CO2 (19-24) mmol/L ABG O2 Saturation (94-97) % Potassium 5.6 H (3.5-5.1) mmol/L Chloride 112 H (98-107) mmol/L BUN 124 H* (9-20) mg/dL Creatinine 2.37 H (0.66-1.25) mg/dL Glucose 190 H (74-99) mg/dL POC Glucose (mg/dL) 175 H (75-99) mg/dL Magnesium 2.8 H (1.6-2.3) mg/dL ALT 62 H (4-49) U/L Lactate Dehydrogenase 1042 H (313-618) U/L Total Protein 4.5 L (6.3-8.2) g/dL Albumin 2.4 L (3.5-5.0) g/dL Triglycerides 316 H (<150) mg/dL Lipase 443 H (23-300) U/L 01/15/21 01/15/21 01/15/21 Range/Units 06:14 06:57 08:13 WBC (3.8-10.6) k/uL Hgb (13.0-17.5) gm/dL D-Dimer (<0.60) mg/L FEU ABG pH (7.35-7.45) ABG pCO2 (35-45) mmHg ABG pO2 (83-108) mmHg ABG HCO3 (21-25) mmol/L ABG Total CO2 (19-24) mmol/L ABG O2 Saturation (94-97) % Potassium (3.5-5.1) mmol/L Chloride (98-107) mmol/L BUN (9-20) mg/dL Creatinine (0.66-1.25) mg/dL Glucose (74-99) mg/dL POC Glucose (mg/dL) 150 H 148 H 134 H (75-99) mg/dL Magnesium (1.6-2.3) mg/dL ALT (4-49) U/L Lactate Dehydrogenase (313-618) U/L Total Protein (6.3-8.2) g/dL Albumin (3.5-5.0) g/dL Triglycerides (<150) mg/dL Lipase (23-300) U/L 01/15/21 01/15/21 01/15/21 Range/Units 11:06 11:46 12:57 WBC (3.8-10.6) k/uL Hgb (13.0-17.5) gm/dL D-Dimer (<0.60) mg/L FEU ABG pH (7.35-7.45) ABG pCO2 (35-45) mmHg ABG pO2 (83-108) mmHg ABG HCO3 (21-25) mmol/L ABG Total CO2 (19-24) mmol/L ABG O2 Saturation (94-97) % Potassium (3.5-5.1) mmol/L Chloride (98-107) mmol/L BUN (9-20) mg/dL Creatinine (0.66-1.25) mg/dL Glucose (74-99) mg/dL POC Glucose (mg/dL) 259 H 227 H 208 H (75-99) mg/dL Magnesium (1.6-2.3) mg/dL ALT (4-49) U/L Lactate Dehydrogenase (313-618) U/L Total Protein (6.3-8.2) g/dL Albumin (3.5-5.0) g/dL Triglycerides (<150) mg/dL Lipase (23-300) U/L 01/15/21 01/15/21 Range/Units 13:45 14:47 WBC (3.8-10.6) k/uL Hgb (13.0-17.5) gm/dL D-Dimer (<0.60) mg/L FEU ABG pH (7.35-7.45) ABG pCO2 (35-45) mmHg ABG pO2 (83-108) mmHg ABG HCO3 (21-25) mmol/L ABG Total CO2 (19-24) mmol/L ABG O2 Saturation (94-97) % Potassium (3.5-5.1) mmol/L Chloride (98-107) mmol/L BUN (9-20) mg/dL Creatinine (0.66-1.25) mg/dL Glucose (74-99) mg/dL POC Glucose (mg/dL) 196 H 185 H (75-99) mg/dL Magnesium (1.6-2.3) mg/dL ALT (4-49) U/L Lactate Dehydrogenase (313-618) U/L Total Protein (6.3-8.2) g/dL Albumin (3.5-5.0) g/dL Triglycerides (<150) mg/dL Lipase (23-300) U/L
[2021-01-15 15:59] LABS: Glucose,Whole Blood 337 mg/dL (75-99)
[2021-01-15] MEDS: NOREPINEPHRINE 32 MG in SODIUM CHLORIDE 0.9% 218 ML IV SCH (16:31)
[2021-01-15 16:48] LABS: Glucose,Whole Blood 229 mg/dL (75-99)
[2021-01-15] MEDS: CISATRACURIUM 200 MG in SODIUM CHLORIDE 0.9% 180 ML IV SCH (17:37)
[2021-01-15] MEDS: INSULIN REGULAR 100 UNIT in SODIUM CHLORIDE 0.9% 100 ML IV SCH (17:53)
[2021-01-15 18:02] LABS: Glucose,Whole Blood 182 mg/dL (75-99)
[2021-01-15 18:54] LABS: Glucose,Whole Blood 163 mg/dL (75-99)
[2021-01-15 20:00] LABS: Glucose,Whole Blood 158 mg/dL (75-99)
[2021-01-15 20:57] LABS: Glucose,Whole Blood 145 mg/dL (75-99)
[2021-01-15] MEDS: METOPROLOL TARTRATE 25 MG TAB PO SCH (21:44)
[2021-01-15] MEDS: polyethylene glycoL 3350 17 GM POWD.PACK PO SCH (21:44)
[2021-01-15] MEDS: ATORVASTATIN 20 MG TAB PO SCH (21:48)
[2021-01-15 22:05] LABS: Glucose,Whole Blood 248 mg/dL (75-99)
[2021-01-15 23:02] LABS: Glucose,Whole Blood 196 mg/dL (75-99)
[2021-01-16] MEDS: methylPREDNISolone SOD SUCCI 125 MG/2 ML VIAL IV SCH ×4 (00:05→17:01)
[2021-01-16] MEDS: ARTIFICIAL TEARS-HYPROMELLOSE DROPS 15 ML BTL BOTH EYES SCH ×6 (00:06→20:00)
[2021-01-16 00:10] LABS: Glucose,Whole Blood 168 mg/dL (75-99)
[2021-01-16] MEDS: INSULIN REGULAR 100 UNIT in SODIUM CHLORIDE 0.9% 100 ML IV SCH ×2 (00:20→11:10)
[2021-01-16 01:04] LABS: Glucose,Whole Blood 192 mg/dL (75-99)
[2021-01-16 02:09] LABS: Glucose,Whole Blood 136 mg/dL (75-99)
[2021-01-16] MEDS ORDERED: INSULIN REGULAR 100 UNIT/ML VIAL IV ONE ×4 (02:12→22:50)
[2021-01-16] MEDS ORDERED: DEXTROSE 50% SYRINGE 50 ML IVP STA ×4 (02:13→22:50)
[2021-01-16 03:02] LABS: Glucose,Whole Blood 275 mg/dL (75-99)
[2021-01-16 04:09] LABS: Glucose,Whole Blood 217 mg/dL (75-99)
[2021-01-16] MEDS: SODIUM CHLORIDE 0.9% 1,000 ML IV SCH (04:14)
[2021-01-16 05:04] LABS: Allen Test Performed? no
[2021-01-16 05:05] LABS: ABG Base Excess -2.2 mmol/L; ABG HCO3 26 mmol/L (21-25); ABG PCO2 69 mmHg (35-45); ABG PH 7.19 (7.35-7.45); ABG PO2 78 mmHg (83-108); ABG TCO2 28 mmol/L (19-24)
[2021-01-16 05:11] LABS: Glucose,Whole Blood 218 mg/dL (75-99)
[2021-01-16] MEDS: fentaNYL (PF) 1,000 MCG in SODIUM CHLORIDE 0.9% 80 ML IV SCH (05:43)
[2021-01-16 06:07] LABS: Glucose,Whole Blood 237 mg/dL (75-99)
[2021-01-16 06:12] LABS: HCT 36.5 % (39.0-53.0); HGB 12.2 gm/dL (13.0-17.5); MCH 31.5 pg (25.0-35.0); MCHC 33.4 g/dL (31.0-37.0); MCV 94.2 fL (80.0-100.0); Platelet Count 168 k/uL (150-450); RBC 3.88 m/uL (4.30-5.90); RDW 14.2 % (11.5-15.5); WBC 27.9 k/uL (3.8-10.6)
[2021-01-16 06:31] LABS: ALT 60 U/L (4-49); AST 47 U/L (17-59); African American GFR (CKD) 20 (>60 ml/min/1.73 sqM); Albumin 2.4 g/dL (3.5-5.0); Alkaline Phosphatase 79 U/L (38-126); Anion Gap 3 mmol/L; Calcium 8.8 mg/dL (8.4-10.2); Carbon Dioxide 28 mmol/L (22-30); Chloride 113 mmol/L (98-107); Glucose 197 mg/dL (74-99); LDH 1428 U/L (313-618); Non-African American GFR(CKD) 17 (>60 ml/min/1.73 sqM); Phosphorus 8.1 mg/dL (2.5-4.5); Potassium 5.9 mmol/L (3.5-5.1); Sodium 144 mmol/L (137-145); Total Bilirubin 0.8 mg/dL (0.2-1.3); Total Protein 4.6 g/dL (6.3-8.2)
[2021-01-16 06:52] LABS: Blood Urea Nitrogen 142 mg/dL (9-20)
[2021-01-16 06:57] LABS: Glucose,Whole Blood 188 mg/dL (75-99)
[2021-01-16] MEDS: CHLORHEXIDINE GLUCONATE 15 ML CUP MUCOUS MEM SCH ×2 (07:41→21:05)
[2021-01-16] MEDS: ENOXAPARIN 60 MG/0.6 ML SYRINGE SQ SCH (07:42)
[2021-01-16] MEDS: METOPROLOL TARTRATE 25 MG TAB PO SCH ×2 (07:43→21:10)
[2021-01-16] MEDS: ASCORBIC ACID 500 MG TAB PO SCH (07:43)
[2021-01-16] MEDS: ASPIRIN 81 MG PO SCH (07:43)
[2021-01-16] MEDS: ZINC SULFATE 220 MG CAP PO SCH (07:43)
[2021-01-16] MEDS: CHOLECALCIFEROL 25 MCG (1000 IU) TABLET PO SCH (07:44)
[2021-01-16] MEDS: FAMOTIDINE 20 MG/2 ML VIAL IV SCH (07:44)
[2021-01-16] MEDS: ALBUTEROL HFA INHALER INHALATION SCH ×4 (07:58→19:43)
[2021-01-16 08:24] LABS: C Reactive Protein <5.0 mg/L (<10.0)
[2021-01-16] MEDS ORDERED: SODIUM BICARB 8.4% 50 ML SYR (1 MEQ/ML) IV STA ×3 (08:29→22:50)
[2021-01-16] MEDS ORDERED: DEXTROSE 5% IN WATER 1,000 ML with SODIUM BICARB (1 MEQ/ML) 50 ML IV SCH (08:30)
--- NOTE | 2021-01-16 08:33 | XR ---
EXAMINATION TYPE: XR chest 1V portable DATE OF EXAM: 01/16/2021 COMPARISON: 01/15/2021 INDICATION: Subcutaneous emphysema TECHNIQUE: Single frontal view of the chest is obtained. FINDINGS: The heart size is normal. The pulmonary vasculature is indistinct. Scattered bilateral infiltrates are present. No definite pneumothorax is identified. There is extensi ve overlying subcutaneous emphysema limiting the evaluation. Chest tube is present at the right base. Nasogastric tube transverses the thorax. Endotracheal tube t ip is above the carly. Left central venous catheter tip is in the mid superior vena cava region. IMPRESSION: 1. Extensive subcutaneous emphysema is limiting the exam interpretation. 2. There appears to be some mild diffuse increased lung markings. 3. Lines and catheters discussed above.
[2021-01-16 08:58] LABS: Glucose,Whole Blood 136 mg/dL (75-99)
--- NOTE | 2021-01-16 09:26 | P.PN ---
Subjective Patient is seen in follow for acute kidney injury. Renal function continues to worsen. Oliguric. Maintained on Levophed. Receiving tube feeding. Currently on 90% FiO2. Potassium remains on the higher side. Treated with IV insulin and D50 overnight. Vital signs are stable. On vasopressor support. General: The patient appeared well nourished and normally developed. HEENT: Intubated. Exam discussed with the nurse. Objective - Vital Signs Vital signs: Vital Signs Temp 98 F 01/16/21 04:00 Pulse 112 H 01/16/21 07:00 Resp 26 H 01/16/21 07:00 BP 108/66 01/16/21 07:00 Pulse Ox 93 L 01/16/21 07:00 Intake & Output 01/15/21 01/16/21 01/16/21 18:59 06:59 18:59 Intake Total 1118.796 7728.599 115.673 Output Total 475 406 15 Balance 1315.104 773.599 100.673 Weight 97 kg Intake: IV 180 170 13 Pressure bag 30 50 3 Sodium Chloride 0.9% 1, 150 120 10 000 ml @ 10 mls/hr IV . Q24H [facility] Rx#:[id number] Intake, IV Titration 1150.104 555.599 102.673 Amount Calcium Gluconate 1 gm In 100 Sodium Chloride 0.9% 100 ml @ 100 mls/hr IVPB ONCE ONE Rx#:[id number] Cisatracurium 200 mg In 140.556 26.864 Sodium Chloride 0.9% 180 ml @ 1 MCG/KG/MIN 5.346 mls/hr IV .Q24H [facility] Rx#: [id number] Insulin Regular 100 unit 62.014 73.697 44.389 In Sodium Chloride 0.9% 100 ml @ Per Protocol IV .Q0M [facility] Rx#:[id number] Norepinephrine 32 mg In 16.729 89.039 58.284 Sodium Chloride 0.9% 218 ml @ 0.05 MCG/KG/MIN 2. 159 mls/hr IV .Q24H [facility] Rx#:[id number] Norepinephrine 4 mg In 574.520 Sodium Chloride 0.9% 250 ml @ 0.05 MCG/KG/MIN 16. 974 mls/hr IV .[id number] [facility] Rx#:[id number] fentaNYL (PF) 1,000 mcg 67.36 In Sodium Chloride 0.9% 80 ml @ Per Protocol IV . Q0M [facility] Rx#:[id number] propofoL 1,000 mg In 256.285 298.639 Empty Bag 1 bag @ Titrate IV .Q0M [facility] Rx#: [id number] Tube Feeding 280 364 Other 180 90 Output: Chest Tube Drainage 20 5 Chest Tube Right 20 5 Urine 455 401 15 Other: Voiding Method Indwelling Catheter Indwelling Catheter ABP, PAP, CO, CI - Last Documented Arterial Blood Pressure 88/58 - Labs CBC & Chem 7: 01/16/21 04:50 01/16/21 04:50 Labs: Abnormal Lab Results - Last 24 Hours (Table) 01/15/21 01/15/21 01/15/21 Range/Units 11:06 11:46 12:57 WBC (3.8-10.6) k/uL RBC (4.30-5.90) m/uL Hgb (13.0-17.5) gm/dL Hct (39.0-53.0) % ABG pH (7.35-7.45) ABG pCO2 (35-45) mmHg ABG pO2 (83-108) mmHg ABG HCO3 (21-25) mmol/L ABG Total CO2 (19-24) mmol/L Potassium (3.5-5.1) mmol/L Chloride (98-107) mmol/L BUN (9-20) mg/dL Creatinine (0.66-1.25) mg/dL Glucose (74-99) mg/dL POC Glucose (mg/dL) 259 H 227 H 208 H (75-99) mg/dL Phosphorus (2.5-4.5) mg/dL ALT (4-49) U/L Lactate Dehydrogenase (313-618) U/L Total Protein (6.3-8.2) g/dL Albumin (3.5-5.0) g/dL 01/15/21 01/15/21 01/15/21 Range/Units 13:45 14:47 14:53 WBC (3.8-10.6) k/uL RBC (4.30-5.90) m/uL Hgb (13.0-17.5) gm/dL Hct (39.0-53.0) % ABG pH (7.35-7.45) ABG pCO2 (35-45) mmHg ABG pO2 (83-108) mmHg ABG HCO3 (21-25) mmol/L ABG Total CO2 (19-24) mmol/L Potassium 5.7 H (3.5-5.1) mmol/L Chloride 113 H (98-107) mmol/L BUN 132 H* (9-20) mg/dL Creatinine 2.58 H (0.66-1.25) mg/dL Glucose 199 H (74-99) mg/dL POC Glucose (mg/dL) 196 H 185 H (75-99) mg/dL Phosphorus (2.5-4.5) mg/dL ALT (4-49) U/L Lactate Dehydrogenase (313-618) U/L Total Protein (6.3-8.2) g/dL Albumin (3.5-5.0) g/dL 01/15/21 01/15/21 01/15/21 Range/Units 15:57 16:47 18:00 WBC (3.8-10.6) k/uL RBC (4.30-5.90) m/uL Hgb (13.0-17.5) gm/dL Hct (39.0-53.0) % ABG pH (7.35-7.45) ABG pCO2 (35-45) mmHg ABG pO2 (83-108) mmHg ABG HCO3 (21-25) mmol/L ABG Total CO2 (19-24) mmol/L Potassium (3.5-5.1) mmol/L Chloride (98-107) mmol/L BUN (9-20) mg/dL Creatinine (0.66-1.25) mg/dL Glucose (74-99) mg/dL POC Glucose (mg/dL) 337 H 229 H 182 H (75-99) mg/dL Phosphorus (2.5-4.5) mg/dL ALT (4-49) U/L Lactate Dehydrogenase (313-618) U/L Total Protein (6.3-8.2) g/dL Albumin (3.5-5.0) g/dL 01/15/21 01/15/21 01/15/21 Range/Units 18:52 18:57 19:59 WBC (3.8-10.6) k/uL RBC (4.30-5.90) m/uL Hgb (13.0-17.5) gm/dL Hct (39.0-53.0) % ABG pH (7.35-7.45) ABG pCO2 (35-45) mmHg ABG pO2 (83-108) mmHg ABG HCO3 (21-25) mmol/L ABG Total CO2 (19-24) mmol/L Potassium 5.7 H (3.5-5.1) mmol/L Chloride (98-107) mmol/L BUN (9-20) mg/dL Creatinine (0.66-1.25) mg/dL Glucose (74-99) mg/dL POC Glucose (mg/dL) 163 H 158 H (75-99) mg/dL Phosphorus (2.5-4.5) mg/dL ALT (4-49) U/L Lactate Dehydrogenase (313-618) U/L Total Protein (6.3-8.2) g/dL Albumin (3.5-5.0) g/dL 01/15/21 01/15/21 01/15/21 Range/Units 20:56 22:03 23:00 WBC (3.8-10.6) k/uL RBC (4.30-5.90) m/uL Hgb (13.0-17.5) gm/dL Hct (39.0-53.0) % ABG pH (7.35-7.45) ABG pCO2 (35-45) mmHg ABG pO2 (83-108) mmHg ABG HCO3 (21-25) mmol/L ABG Total CO2 (19-24) mmol/L Potassium (3.5-5.1) mmol/L Chloride (98-107) mmol/L BUN (9-20) mg/dL Creatinine (0.66-1.25) mg/dL Glucose (74-99) mg/dL POC Glucose (mg/dL) 145 H 248 H 196 H (75-99) mg/dL Phosphorus (2.5-4.5) mg/dL ALT (4-49) U/L Lactate Dehydrogenase (313-618) U/L Total Protein (6.3-8.2) g/dL Albumin (3.5-5.0) g/dL 01/16/21 01/16/21 01/16/21 Range/Units 00:08 01:02 01:12 WBC (3.8-10.6) k/uL RBC (4.30-5.90) m/uL Hgb (13.0-17.5) gm/dL Hct (39.0-53.0) % ABG pH (7.35-7.45) ABG pCO2 (35-45) mmHg ABG pO2 (83-108) mmHg ABG HCO3 (21-25) mmol/L ABG Total CO2 (19-24) mmol/L Potassium 6.0 H (3.5-5.1) mmol/L Chloride (98-107) mmol/L BUN (9-20) mg/dL Creatinine (0.66-1.25) mg/dL Glucose (74-99) mg/dL POC Glucose (mg/dL) 168 H 192 H (75-99) mg/dL Phosphorus (2.5-4.5) mg/dL ALT (4-49) U/L Lactate Dehydrogenase (313-618) U/L Total Protein (6.3-8.2) g/dL Albumin (3.5-5.0) g/dL 01/16/21 01/16/21 01/16/21 Range/Units 02:07 03:00 04:07 WBC (3.8-10.6) k/uL RBC (4.30-5.90) m/uL Hgb (13.0-17.5) gm/dL Hct (39.0-53.0) % ABG pH (7.35-7.45) ABG pCO2 (35-45) mmHg ABG pO2 (83-108) mmHg ABG HCO3 (21-25) mmol/L ABG Total CO2 (19-24) mmol/L Potassium (3.5-5.1) mmol/L Chloride (98-107) mmol/L BUN (9-20) mg/dL Creatinine (0.66-1.25) mg/dL Glucose (74-99) mg/dL POC Glucose (mg/dL) 136 H 275 H 217 H (75-99) mg/dL Phosphorus (2.5-4.5) mg/dL ALT (4-49) U/L Lactate Dehydrogenase (313-618) U/L Total Protein (6.3-8.2) g/dL Albumin (3.5-5.0) g/dL 01/16/21 01/16/21 01/16/21 Range/Units 04:20 04:50 04:50 WBC 27.9 H (3.8-10.6) k/uL RBC 3.88 L (4.30-5.90) m/uL Hgb 12.2 L (13.0-17.5) gm/dL Hct 36.5 L (39.0-53.0) % ABG pH 7.19 L* (7.35-7.45) ABG pCO2 69 H (35-45) mmHg ABG pO2 78 L (83-108) mmHg ABG HCO3 26 H (21-25) mmol/L ABG Total CO2 28 H (19-24) mmol/L Potassium 5.9 H (3.5-5.1) mmol/L Chloride 113 H (98-107) mmol/L BUN 142 H* (9-20) mg/dL Creatinine 3.44 H (0.66-1.25) mg/dL Glucose 197 H (74-99) mg/dL POC Glucose (mg/dL) (75-99) mg/dL Phosphorus 8.1 H (2.5-4.5) mg/dL ALT 60 H (4-49) U/L Lactate Dehydrogenase 1428 H (313-618) U/L Total Protein 4.6 L (6.3-8.2) g/dL Albumin 2.4 L (3.5-5.0) g/dL 01/16/21 01/16/21 01/16/21 Range/Units 05:10 06:05 06:56 WBC (3.8-10.6) k/uL RBC (4.30-5.90) m/uL Hgb (13.0-17.5) gm/dL Hct (39.0-53.0) % ABG pH (7.35-7.45) ABG pCO2 (35-45) mmHg ABG pO2 (83-108) mmHg ABG HCO3 (21-25) mmol/L ABG Total CO2 (19-24) mmol/L Potassium (3.5-5.1) mmol/L Chloride (98-107) mmol/L BUN (9-20) mg/dL Creatinine (0.66-1.25) mg/dL Glucose (74-99) mg/dL POC Glucose (mg/dL) 218 H 237 H 188 H (75-99) mg/dL Phosphorus (2.5-4.5) mg/dL ALT (4-49) U/L Lactate Dehydrogenase (313-618) U/L Total Protein (6.3-8.2) g/dL Albumin (3.5-5.0) g/dL 01/16/21 Range/Units 08:56 WBC (3.8-10.6) k/uL RBC (4.30-5.90) m/uL Hgb (13.0-17.5) gm/dL Hct (39.0-53.0) % ABG pH (7.35-7.45) ABG pCO2 (35-45) mmHg ABG pO2 (83-108) mmHg ABG HCO3 (21-25) mmol/L ABG Total CO2 (19-24) mmol/L Potassium (3.5-5.1) mmol/L Chloride (98-107) mmol/L BUN (9-20) mg/dL Creatinine (0.66-1.25) mg/dL Glucose (74-99) mg/dL POC Glucose (mg/dL) 136 H (75-99) mg/dL Phosphorus (2.5-4.5) mg/dL ALT (4-49) U/L Lactate Dehydrogenase (313-618) U/L Total Protein (6.3-8.2) g/dL Albumin (3.5-5.0) g/dL Assessment and Plan Plan: Assessment: 1. Acute kidney injury secondary to ATN secondary to septic shock. Baseline cr eatinine near 1 and is 3.44 today. Oliguric. 2. Septic shock secondary to covid-19 infection maintained on steroids and zinc. 3. Right-sided pneumothorax status post chest tube placement. 4. Hyperkalemia secondary to acute kidney injury. 5. Diabetes mellitus. 6. Acute hypoxic respiratory failure. Currently on 90% FiO2. 7. Elevated BUN secondary to acute kidney injury and steroids. 8. Hyperphosphatemia secondary to acute kidney injury. Plan: Maintain tube feeding. Tight blood sugar control. 10 units of IV insulin with an amp of D50 for hyperkalemia. Wean FiO2 and vasopressors. Lisinopril stopped 01/13/2021. Avoid nephrotoxins. Add Renvela. Family considering comfort measures. If not, will initiate renal replacement therapy.
[2021-01-16 10:11] LABS: Glucose,Whole Blood 130 mg/dL (75-99)
[2021-01-16] MEDS ORDERED: FUROSEMIDE 10 MG/ML 10 ML VIAL IV STA ×2 (10:40→22:50)
[2021-01-16 10:59] LABS: Glucose,Whole Blood 192 mg/dL (75-99)
[2021-01-16] MEDS: NOREPINEPHRINE 32 MG in SODIUM CHLORIDE 0.9% 218 ML IV SCH ×2 (11:09→23:53)
[2021-01-16 11:58] LABS: Glucose,Whole Blood 240 mg/dL (75-99)
[2021-01-16] MEDS: SEVELAMER 800 MG TAB PO SCH ×2 (12:01→17:01)
--- NOTE | 2021-01-16 13:07 | P.PN ---
Subjective Progress Note Date: 01/16/21 Principal diagnosis: Acute hypoxic respiratory failure secondary to acute covid 19 pneumonitis. 70-year-old male patient, known history of diabetes mellitus maintained on insulin in addition to history of hypertension, hyperlipidemia, coronary artery disease and previous history of PCI, presented to the emergency department because of increased fatigue and tiredness. The patient was infected with Covid 19 and the testing by PCR came back positive. The patient started having symptoms of infection approximately 7 days ago and his tests confirmed positive. The test was positive on 12/27/2020. The patient's complaints were essentially those of body aches, feeling weak and tired and he was warm and he was probably having fevers. He was significantly fatigued and he was unable to do even simple stuff at home. He reported poor appetite. No loss in the taste or smell . He had no significant cough. He denies having any significant shortness of breath. No headaches. No nasal congestion. No nausea or vomiting. Upon arrival to the emergency department, the patient was profoundly hypoxic and the pulse ox was around 82% and the patient was also tachypneic and tachycardic. He was initially started on oxygen at 10 L per minute nasal cannula and subsequently the oxygen flow was brought up to 15 L and he continued to be hypoxic. At that point, the patient was switched to BiPAP at a pressure of 10/5 and FiO2 of 100%. The patient had further blood work that showed an LDH level of 2287, CRP of 170, lactic acid level of 2.4, serum bicarb of 18, the BUN was 37 with a creatinine of 1.7. The blood gas on 100% FiO2 showed a pH of 7.4 with a pCO2 of 27 and pO2 of 62. The chest x-ray showed diffuse but the pulmonary infiltrates. At that point, the patient was admitted to the intensive care unit and the patient was supported with BiPAP. The patient is currently on IV Decadron. The patient was also started on Remdesivir per protocol. The patient is on Lovenox 40 mg subcu every 24 hours for a d-dimer of 1.17 and the time of admission. The patient this morning was transitioned to oxygen at 15 L high flow and he is able to maintain a saturation above 90%. He remains in normal sinus rhythm. He is awake and alert. His chest x-ray showing bilateral pulmonary infiltrates was in the lung bases bilaterally. He is off the BiPAP for now. D-dimer is at 1.88 from today. His LDH is down to 1952 and the pro- calcitonin level was 0.3, LFTs were minimally elevated secondary to Covid 19. CRP is down to 158. He is currently on the same treatment including Decadron and Remdesivir day #2 01/11/2021 the patient is being seen in follow-up. The patient is currently intubated on a mechanical ventilator. The patient is a case of Covid associated pneumonia with secondary respiratory failure. Note that because of stiff lungs and elevated airway pressures, the patient developed barotrauma and subsequently he developed a small right-sided pneumothorax and he was developing extensive subcutaneous emphysema as the patient was developing increased swelling in his face neck and chest throughout the day yesterday. As such, I inserted a chest tube on him yesterday and a 28-German chest tube was inserted into the right lung without any complications. The patient's currently is sedated with propofol which is running at 35 mcg/kg per minute. The patient is also on Nimbex running at 0.8 mcg/kg per minute and the patient is also on fentanyl are running at 0.8 Arnie respiratory kilogram per hour. As such, the patient has been adequately sedated and adequately paralyzed and the patient is quite synchronous with the mechanical ventilator. The patient is currently on a assist-control mode of ventilation, volume cycle with a rate of 26 and a tidal volume of 400 and FiO2 of 80% with a PEEP of 8. The blood periods from today shows a pH of 7.21 with a pCO2 of 63 and pO2 of 82. The patient's peak airway pressure is 28 with a static pressure of 28. Overnight, his subcutaneous emphysema has gotten significantly worse. Nevertheless, he doesn't have any pneumothorax. The right-sided chest tube is still in place. The patient has developed extensive subcutaneous emphysema bilaterally extending to his neck and the face and upper extremities in the chest. Orotracheal tube is in a good location. NG tube is also in a good location. The patient is on IV Solu-Medrol at 60 mg every 6 hours. In terms of his Covid 19 related pneumonia, his air d- dimer is at 6.91, his LDH currently is down to 1434 and his CRP level is down to 20.2. Rest of the blood work and electrodes are all within normal limits. His white cell count currently is at 9.2 with hemoglobin of 11.5. The patient is receiving enteral feeding for nutritional support and is currently on vital high protein at 20 mL an hour and is able to tolerate the diet and he has had regular bowel movements. No abdominal distention. No emesis. No other significant events overnight. Active issues for now is unwilling respiratory failure and extensive subcutaneous emphysema that is involved as a complication of Covid 19 related pneumonia and respiratory failure. Reevaluated today on 01/12/2021, patient remains in the ICU, patient is on mechanical ventilation, assist control rate of 26, tidal volume is 400, FiO2 is 70%, and PEEP is 10. Patient is on propofol at 20 mcg/kg/m, norepinephrine at 0.02 mcg/kg/m. On Nimbex at 0.2 mcg/kg/m. And he is also on fentanyl. FiO2 w as decreased down to 65%, chest x-ray showed bilateral infiltrates cannot significant subcutaneous emphysema. Right-sided chest tube is noted to have some air leak, remains on suction. Very minimal right apical pneumothorax suspected, however chest tube remains in place. The cecum and is 6.2 hemoglobin 14.9. ABG today showed a pO2 of 59 pCO2 of 51 pH of 7.34 d-dimer is 3.51 BUN is 57 creatinine 1.14. LDH is 1158 and C-reactive protein is 11.3. Patient is on enteral feeding. Remains on Solu-Medrol 60 mg IV push every 6 hours. Reevaluated today on 01/13/2021, patient remains in the ICU, remains on mechanical ventilation, his chest x-ray is showing significant subcutaneous emphysema, and small right-sided pneumothorax in spite of the chest tube in place. Hence thoracic surgery was consulted, and at this point not planning any chest tube placement or any surgical intervention. Patient remains on assist control rate of 26 tidal volume is 400 FiO2 of 65% on a cardiac down to 60 PEEP is at 10 I cut it down to 8. ABG showed a pO2 of 88 pCO2 of 70 pH of 7.23. Patient remains on Nimbex, insulin drip, propofol, and fentanyl. He remains off norepinephrine. Nephrology was consulted to the patient regarding his worsening renal status, BUN is 80 creatinine is 1.47. Patient remains on enteral feeding. He remains on Solu-Medrol. I will go ahead and cut down the dose of Solu-Medr ol. Patient did receive actemra and remdesivir Patient was reevaluated today on 01/14/2021, remains in the ICU, remains intubated and mechanically ventilated, he is on assist control rate of 26 tidal volume is 400 FiO2 is 65% and PEEP of 8. ABG showed a pO2 of 59 pCO2 of 63 pH of 7.31. Continues to have right-sided chest tube in place, no leak noted from the chest tube, however there are some blood surrounding the area of the chest tube insertion. I recommended a CT of the chest to be done today without contrast to evaluate the extensiveness of his pneumothorax and subcutaneous emphysema and 2 determine the exact location of the chest tube and decide whether another chest tube is necessary. His ventilator settings were basically the same except I increased his FiO2 from 60-65%. Patient remains on norepinephrine at 0.02 mcg/kg/m, propofol at 50 mcg/kg/m, Nimbex at 1 mcg/kg/m insulin 9 units per hour and fentanyl 0.2 g every per hour. Patient is on enteral feeding is vital HPI to 40 mL per hour. Patient is sedated, and paralyzed. WBC count is 11.5 hemoglobin is 13.9 ABG as noted above. Electrolytes are normal, renal profile is slightly worse with BUN of 101 creatinine of 1.68, nephrology has been consulted. Patient did receive remdesivir and actemra since admission. Patient was reevaluated today on 01/15/2021, remains in the ICU, continues to do very poorly. Patient remains on assist control rate of 26 tidal volume is 400 FiO2 was increased last night up to 90%, and PEEP is at 8. Continues to have significant subcutaneous emphysema. His CT of the chest did not reveal significant pneumothorax to justify placement of another chest tube. Patient remains on norepinephrine at 0.12 mcg/kg/m, Nimbex at 2 mcg/kg/m, insulin drip, propofol at 50 mcg/kg/m, and he is also on fentanyl at 0.3 mcg/kg per hour. Patient received fluid boluses last night for low blood pressure, and today he was seen by nephrology, given a dose of Lasix 80 mg IV push 1. Patient remains on Solu-Medrol, remains on Lovenox, he has received remdesivir, and actemra since admission. Chest x-ray is not showing any improvement. His overall clinical condition continues to be quite critical, and not showing any signs of improvement. As a matter of fact I believe the patient is getting worse daily. Patient was reevaluated today on 01/16/2021, remains in the ICU, basically about the same, not making much of progress. His ventilator settings are assist control rate of 26 which I increased earlier today to 30. Tidal volume is 400 FiO2 is 90% PEEP is at 8. ABG this morning showed a pO2 of 78 pCO2 of 69 pH of 7.19, hence his respiratory rate was increased from 20 6230. Patient continues to have significant bilateral infiltrates, continues to have significant subcutaneous emphysema. Remains on norepinephrine at 0.4 mcg/kg/m insulin at 2 units per hour, fentanyl at 0.2 mcg/kg/h, propofol 45 mcg/kg/m and Nimbex at 1.2 mcg/kg/h. Patient is now DO NOT RESUSCITATE CODE STATUS, and my understanding from family that they would like to proceed with comfort care measures in the next 24 hours. WBC count is up today to 27.9. Hemoglobin is 12.2. BUN 142 creatinine 3.44. Objective - Vital Signs Vital signs: Vital Signs Temp 98.7 F 01/16/21 12:00 Pulse 113 H 01/16/21 12:00 Resp 30 H 01/16/21 12:00 BP 102/69 01/16/21 11:00 Pulse Ox 93 L 01/16/21 12:00 Intake & Output 01/15/21 01/16/21 01/16/21 18:59 06:59 18:59 Intake Total 2159.115 2869.599 296.109 Output Total 475 406 45 Balance 1315.104 773.599 251.109 Weight 97 kg Intake: IV 180 170 128 Pressure bag 30 50 18 Sodium Chloride 0.9% 1, 150 120 110 000 ml @ 10 mls/hr IV . Q24H [facility] Rx#:[id number] Intake, IV Titration 1150.104 555.599 168.109 Amount Calcium Gluconate 1 gm In 100 Sodium Chloride 0.9% 100 ml @ 100 mls/hr IVPB ONCE ONE Rx#:[id number] Cisatracurium 200 mg In 140.556 26.864 Sodium Chloride 0.9% 180 ml @ 1 MCG/KG/MIN 5.346 mls/hr IV .Q24H [facility] Rx#: [id number] Insulin Regular 100 unit 62.014 73.697 47.369 In Sodium Chloride 0.9% 100 ml @ Per Protocol IV .Q0M [facility] Rx#:[id number] Norepinephrine 32 mg In 16.729 89.039 120.740 Sodium Chloride 0.9% 218 ml @ 0.05 MCG/KG/MIN 2. 159 mls/hr IV .Q24H [facility] Rx#:[id number] Norepinephrine 4 mg In 574.520 Sodium Chloride 0.9% 250 ml @ 0.05 MCG/KG/MIN 16. 974 mls/hr IV .[id number] [facility] Rx#:[id number] fentaNYL (PF) 1,000 mcg 67.36 In Sodium Chloride 0.9% 80 ml @ Per Protocol IV . Q0M [facility] Rx#:[id number] propofoL 1,000 mg In 256.285 298.639 Empty Bag 1 bag @ Titrate IV .Q0M [facility] Rx#: [id number] Tube Feeding 280 364 Other 180 90 Output: Chest Tube Drainage 20 5 Chest Tube Right 20 5 Urine 455 401 45 Other: Voiding Method Indwelling Catheter Indwelling Catheter Indwelling Catheter ABP, PAP, CO, CI - Last Documented Arterial Blood Pressure 95/61 - Exam General: Revealed a 70-year-old white male on mechanical ventilation, massive subcutaneous emphysema noted. Extending from the chest up to the neck and face. Head: atraumatic, normocephalic, Eyes: EOMI, anicteric sclera, pupils equal round reactive to light and orogastric tube and endotracheal tube are intact. ENT: Nose and ears atraumatic, no thrush, no pharyngeal erythema Neck: No neck masses no JVD no stridor but there is evidence of subcutaneous emphysema Mouth: Moist mucous membranes. Cardiovascular: Normal S1 and S2, no S3 gallop. Lungs: Fine crackles at the bases bilaterally, subcutaneous emphysema is palpable. And crepitation noted. Sided chest tube is noted. No bleeding around the chest tube. Minimal output and the chest tube, and no air leak noted . Abdominal: Soft nontender no megaly no rebound. extremities no clubbing edema or cyanosis. Neuro: Cannot fully assess patient is sedated and paralyzed Psychiatric: Could not assess - Labs CBC & Chem 7: 01/16/21 04:50 01/16/21 04:50 Labs: Abnormal Lab Results - Last 24 Hours (Table) 01/15/21 01/15/21 01/15/21 Range/Units 13:45 14:47 14:53 WBC (3.8-10.6) k/uL RBC (4.30-5.90) m/uL Hgb (13.0-17.5) gm/dL Hct (39.0-53.0) % ABG pH (7.35-7.45) ABG pCO2 (35-45) mmHg ABG pO2 (83-108) mmHg ABG HCO3 (21-25) mmol/L ABG Total CO2 (19-24) mmol/L Potassium 5.7 H (3.5-5.1) mmol/L Chloride 113 H (98-107) mmol/L BUN 132 H* (9-20) mg/dL Creatinine 2.58 H (0.66-1.25) mg/dL Glucose 199 H (74-99) mg/dL POC Glucose (mg/dL) 196 H 185 H (75-99) mg/dL Phosphorus (2.5-4.5) mg/dL ALT (4-49) U/L Lactate Dehydrogenase (313-618) U/L Total Protein (6.3-8.2) g/dL Albumin (3.5-5.0) g/dL 01/15/21 01/15/21 01/15/21 Range/Units 15:57 16:47 18:00 WBC (3.8-10.6) k/uL RBC (4.30-5.90) m/uL Hgb (13.0-17.5) gm/dL Hct (39.0-53.0) % ABG pH (7.35-7.45) ABG pCO2 (35-45) mmHg ABG pO2 (83-108) mmHg ABG HCO3 (21-25) mmol/L ABG Total CO2 (19-24) mmol/L Potassium (3.5-5.1) mmol/L Chloride (98-107) mmol/L BUN (9-20) mg/dL Creatinine (0.66-1.25) mg/dL Glucose (74-99) mg/dL POC Glucose (mg/dL) 337 H 229 H 182 H (75-99) mg/dL Phosphorus (2.5-4.5) mg/dL ALT (4-49) U/L Lactate Dehydrogenase (313-618) U/L Total Protein (6.3-8.2) g/dL Albumin (3.5-5.0) g/dL 01/15/21 01/15/21 01/15/21 Range/Units 18:52 18:57 19:59 WBC (3.8-10.6) k/uL RBC (4.30-5.90) m/uL Hgb (13.0-17.5) gm/dL Hct (39.0-53.0) % ABG pH (7.35-7.45) ABG pCO2 (35-45) mmHg ABG pO2 (83-108) mmHg ABG HCO3 (21-25) mmol/L ABG Total CO2 (19-24) mmol/L Potassium 5.7 H (3.5-5.1) mmol/L Chloride (98-107) mmol/L BUN (9-20) mg/dL Creatinine (0.66-1.25) mg/dL Glucose (74-99) mg/dL POC Glucose (mg/dL) 163 H 158 H (75-99) mg/dL Phosphorus (2.5-4.5) mg/dL ALT (4-49) U/L Lactate Dehydrogenase (313-618) U/L Total Protein (6.3-8.2) g/dL Albumin (3.5-5.0) g/dL 01/15/21 01/15/21 01/15/21 Range/Units 20:56 22:03 23:00 WBC (3.8-10.6) k/uL RBC (4.30-5.90) m/uL Hgb (13.0-17.5) gm/dL Hct (39.0-53.0) % ABG pH (7.35-7.45) ABG pCO2 (35-45) mmHg ABG pO2 (83-108) mmHg ABG HCO3 (21-25) mmol/L ABG Total CO2 (19-24) mmol/L Potassium (3.5-5.1) mmol/L Chloride (98-107) mmol/L BUN (9-20) mg/dL Creatinine (0.66-1.25) mg/dL Glucose (74-99) mg/dL POC Glucose (mg/dL) 145 H 248 H 196 H (75-99) mg/dL Phosphorus (2.5-4.5) mg/dL ALT (4-49) U/L Lactate Dehydrogenase (313-618) U/L Total Protein (6.3-8.2) g/dL Albumin (3.5-5.0) g/dL 01/16/21 01/16/21 01/16/21 Range/Units 00:08 01:02 01:12 WBC (3.8-10.6) k/uL RBC (4.30-5.90) m/uL Hgb (13.0-17.5) gm/dL Hct (39.0-53.0) % ABG pH (7.35-7.45) ABG pCO2 (35-45) mmHg ABG pO2 (83-108) mmHg ABG HCO3 (21-25) mmol/L ABG Total CO2 (19-24) mmol/L Potassium 6.0 H (3.5-5.1) mmol/L Chloride (98-107) mmol/L BUN (9-20) mg/dL Creatinine (0.66-1.25) mg/dL Glucose (74-99) mg/dL POC Glucose (mg/dL) 168 H 192 H (75-99) mg/dL Phosphorus (2.5-4.5) mg/dL ALT (4-49) U/L Lactate Dehydrogenase (313-618) U/L Total Protein (6.3-8.2) g/dL Albumin (3.5-5.0) g/dL 01/16/21 01/16/21 01/16/21 Range/Units 02:07 03:00 04:07 WBC (3.8-10.6) k/uL RBC (4.30-5.90) m/uL Hgb (13.0-17.5) gm/dL Hct (39.0-53.0) % ABG pH (7.35-7.45) ABG pCO2 (35-45) mmHg ABG pO2 (83-108) mmHg ABG HCO3 (21-25) mmol/L ABG Total CO2 (19-24) mmol/L Potassium (3.5-5.1) mmol/L Chloride (98-107) mmol/L BUN (9-20) mg/dL Creatinine (0.66-1.25) mg/dL Glucose (74-99) mg/dL POC Glucose (mg/dL) 136 H 275 H 217 H (75-99) mg/dL Phosphorus (2.5-4.5) mg/dL ALT (4-49) U/L Lactate Dehydrogenase (313-618) U/L Total Protein (6.3-8.2) g/dL Albumin (3.5-5.0) g/dL 01/16/21 01/16/21 01/16/21 Range/Units 04:20 04:50 04:50 WBC 27.9 H (3.8-10.6) k/uL RBC 3.88 L (4.30-5.90) m/uL Hgb 12.2 L (13.0-17.5) gm/dL Hct 36.5 L (39.0-53.0) % ABG pH 7.19 L* (7.35-7.45) ABG pCO2 69 H (35-45) mmHg ABG pO2 78 L (83-108) mmHg ABG HCO3 26 H (21-25) mmol/L ABG Total CO2 28 H (19-24) mmol/L Potassium 5.9 H (3.5-5.1) mmol/L Chloride 113 H (98-107) mmol/L BUN 142 H* (9-20) mg/dL Creatinine 3.44 H (0.66-1.25) mg/dL Glucose 197 H (74-99) mg/dL POC Glucose (mg/dL) (75-99) mg/dL Phosphorus 8.1 H (2.5-4.5) mg/dL ALT 60 H (4-49) U/L Lactate Dehydrogenase 1428 H (313-618) U/L Total Protein 4.6 L (6.3-8.2) g/dL Albumin 2.4 L (3.5-5.0) g/dL 01/16/21 01/16/21 01/16/21 Range/Units 05:10 06:05 06:56 WBC (3.8-10.6) k/uL RBC (4.30-5.90) m/uL Hgb (13.0-17.5) gm/dL Hct (39.0-53.0) % ABG pH (7.35-7.45) ABG pCO2 (35-45) mmHg ABG pO2 (83-108) mmHg ABG HCO3 (21-25) mmol/L ABG Total CO2 (19-24) mmol/L Potassium (3.5-5.1) mmol/L Chloride (98-107) mmol/L BUN (9-20) mg/dL Creatinine (0.66-1.25) mg/dL Glucose (74-99) mg/dL POC Glucose (mg/dL) 218 H 237 H 188 H (75-99) mg/dL Phosphorus (2.5-4.5) mg/dL ALT (4-49) U/L Lactate Dehydrogenase (313-618) U/L Total Protein (6.3-8.2) g/dL Albumin (3.5-5.0) g/dL 01/16/21 01/16/21 01/16/21 Range/Units 08:56 10:10 10:57 WBC (3.8-10.6) k/uL RBC (4.30-5.90) m/uL Hgb (13.0-17.5) gm/dL Hct (39.0-53.0) % ABG pH (7.35-7.45) ABG pCO2 (35-45) mmHg ABG pO2 (83-108) mmHg ABG HCO3 (21-25) mmol/L ABG Total CO2 (19-24) mmol/L Potassium (3.5-5.1) mmol/L Chloride (98-107) mmol/L BUN (9-20) mg/dL Creatinine (0.66-1.25) mg/dL Glucose (74-99) mg/dL POC Glucose (mg/dL) 136 H 130 H 192 H (75-99) mg/dL Phosphorus (2.5-4.5) mg/dL ALT (4-49) U/L Lactate Dehydrogenase (313-618) U/L Total Protein (6.3-8.2) g/dL Albumin (3.5-5.0) g/dL 01/16/21 Range/Units 11:57 WBC (3.8-10.6) k/uL RBC (4.30-5.90) m/uL Hgb (13.0-17.5) gm/dL Hct (39.0-53.0) % ABG pH (7.35-7.45) ABG pCO2 (35-45) mmHg ABG pO2 (83-108) mmHg ABG HCO3 (21-25) mmol/L ABG Total CO2 (19-24) mmol/L Potassium (3.5-5.1) mmol/L Chloride (98-107) mmol/L BUN (9-20) mg/dL Creatinine (0.66-1.25) mg/dL Glucose (74-99) mg/dL POC Glucose (mg/dL) 240 H (75-99) mg/dL Phosphorus (2.5-4.5) mg/dL ALT (4-49) U/L Lactate Dehydrogenase (313-618) U/L Total Protein (6.3-8.2) g/dL Albumin (3.5-5.0) g/dL Assessment and Plan Assessment: Impression: Acute hypoxic respiratory failure with ARDS secondary to acute covid 19 pneumonitis. Remains intubated and mechanically ventilated. Acute right sided spontaneous pneumothorax, most likely secondary to barotrauma secondary to mechanical ventilation. Required the right-sided chest tube placement, not seen on chest x-ray today. Acute kidney injury with history of chronic kidney disease stage III, Type 2 diabetes on insulin Benign essential hypertension. Dyslipidemia. Degenerative joint disease. Acute kidney injury. Followed closely by nephrology. Recommendation: Continue ventilatory support. Continue sedation Continue enteral feeding. Continue chest tube to suction. Received actemra and remdesivir Continue Lovenox 45 mg subcu every 12 hours. Monitor daily x-rays of the chest. Continue GI and DVT prophylaxis. Nephrology to continue to follow regarding his acute kidney injury. May eventually require hemodialysis. However since patient is going go to comfort care, no hemodialysis is necessary at this point. Family is planning comfort care in the next 24 hours. I think that is very appropriate Patient remains critically ill. Critical care time is over 30 minutes. Time with Patient: Greater than 30
[2021-01-16 13:40] VITALS: BMI 30.7
[2021-01-16 14:19] LABS: Glucose,Whole Blood 186 mg/dL (75-99)
--- NOTE | 2021-01-16 14:24 | P.PN ---
Subjective Progress Note Date: 01/16/21 (tolu charting seen at approx [id number]) Principal diagnosis: fatigue Patient is a 70 yo CM with a hx of DM2 well controlled on insulin and oral medications, HTN, HLD, and CAD with hx of PCI X 1 who presented to the ED due to extreme fatigue. He started having COVID symptoms 7 days prior was tested and confirmed positive. On arrival to the ER he was profoundly hypoxic with room air pulse ox of 82%, pulse 123, respirations 26 with shallow breathing. He was initially started on high flow nasal cannula at 10 L and remained hypoxic. This was uptitrated to 15 L and he continued drain hypoxic at 88%. He was subsequently started on BiPAP with settings of 10/5 at 100%. Initial laboratory analysis showed a platelet count of 141, d-dimer 1.17, sodium 130, carbon dioxide 18, anion gap 18, BUN 37, creatinine 1.75 (baseline 1.4), glucose 208, lactic acid 2.4, total bilirubin 2.2, AST 99, LDH 2287, and CRP of 170. ABG demonstrated a pH of 7.4, pCO2 of 27, and PaO2 of 62 on 100%. Chest x-ray showed diffuse interstitial infiltrates. He was given a dose of 10 mg of Decadron IV and arrangements were made for admission. Dr. Pinto was contacted who agreed to admit the patient to the ICU and start remdesivir. He was able to been weaned down to 15L NC by the morning of 01/05. On the morning of 01/06 he was noted to have increasing encephalopathy. He required BiPap by 01/07 and Precedex for agitation. He did receive 5 days of Remdesivir and Actemra. Due to his worsening respiratory status was subsequently intubated on the . He did develop some increasing peak pressures and ultimately required Nimbex. A bronchoscopy was completed on 01/10. He developed a small right sided pneumothorax and a chest tube was placed on 01/10. Thoracic surgery was consulted and did not recommend any surgical intervention but to continue chest tube. He was noted to have worsening subcutaneous emphysema. He underwent a CT of the chest on 01/14 which demonstrated subcutaneous emphysema as well as pneumomediastinum, less than 10% residual pneumothorax with placement of chest tube. Nephrology had been consulted on 01/13 due to worsening renal failure. They recommended stopping lisinopril and continuing to monitor renal function. Overnight on 01/15 he continued to worsen. He had increasing O2 requirements, vasopressor requirements, and his urine output dropped. His renal function significantly worsened and his potassium was elevated on the morning of 01/15. Over the course of 01/15 he continued to worsen, reuqiring increasing vasopressor support, worsening urine output, and worsening potassium. Patient seen and examined at bedside. Sedated and paralyzed on vent. Signific ant events overnight as noted above. General: Ill-appearing, no distress, appears at stated age Derm: warm, dry, crepitous over bilateral clavicles and chest Head: atraumatic, normocephalic, symmetric Eyes: Edematous eyelids, scleral edema, anicteric sclera Mouth: no lip lesion, mucus membranes dry Cardiovascular: S1S2 reg, no murmur, positive posterior tibial pulse bilateral, Lungs: Coarse breath sounds bilaterally, sedated on vent Abdominal: soft, nontender to palpation, no guarding, no appreciable organomegaly Ext: no gross muscle atrophy, diffuse anasarca, no contractures Neuro and psychiatric: Sedated and paralyzed, [id number] 2 out of 4, pupils pinpoint and fax COVID 19 pneumonitis with acute hypoxic respiratory failure with septic shock -Pulmonary recs: Solu-Medrol -Completed 5 days of Remdesivir, Toci X 2 - wean O2 as able on 90% vent -Nimbex -Zinc, vitamin C, vitamin D -Follow inflammatory markers - Lovenox BID - levophed ISIDRO, anuric Chronic kidney disease stage III, Hyperkalemia -Hold DANN inhibitor -Avoid additional nephrotoxic agents -Strict I's and O's -D/W nephrology - glucose/ Inulin, lasix DM 2, well controlled - Suspect mild euglycemic DKA secondary to SGLT 2 inhibitor on admission carbon dioxide was 18 with an anion gap of 18 - hold oral medications - Insulin gtt as needed - Follow BS - A1C 7.8 Hypertension, controlled -metoprolol as able given BP -Follow blood pressures -DANN inhibitor on hold secondary to ISIDRO Dyslipidemia -Statin therapy GERD -H2 kaushik Constipation - MiraLax - Continue to monitor Lactic acidosis, resolved hyponatremia, resolved metabolic acidosis, resolved DVT prophylaxis: Lovenox Discussed with: Patient, nursing, family Anticipated discharge date: undetermined Anticipated discharge place: undetermined A total of 45 minutes was spent on the care of this complex patient more than 50% of the time was spent in counseling and care coordination. Objective - Vital Signs Vital signs: Vital Signs Temp 98.7 F 01/16/21 12:00 Pulse 112 H 01/16/21 14:00 Resp 30 H 01/16/21 14:00 BP 102/69 01/16/21 11:00 Pulse Ox 93 L 01/16/21 14:00 Intake & Output 01/15/21 01/16/21 01/16/21 18:59 06:59 18:59 Intake Total 0431.623 3490.599 442.109 Output Total 475 406 45 Balance 1315.104 773.599 397.109 Weight 97 kg 97 kg Intake: IV 180 170 174 Pressure bag 30 50 24 Sodium Chloride 0.9% 1, 150 120 150 000 ml @ 10 mls/hr IV . Q24H [facility] Rx#:[id number] Intake, IV Titration 1150.104 555.599 268.109 Amount Calcium Gluconate 1 gm In 100 Sodium Chloride 0.9% 100 ml @ 100 mls/hr IVPB ONCE ONE Rx#:[id number] Cisatracurium 200 mg In 140.556 26.864 Sodium Chloride 0.9% 180 ml @ 1 MCG/KG/MIN 5.346 mls/hr IV .Q24H [facility] Rx#: [id number] Insulin Regular 100 unit 62.014 73.697 47.369 In Sodium Chloride 0.9% 100 ml @ Per Protocol IV .Q0M [facility] Rx#:[id number] Norepinephrine 32 mg In 16.729 89.039 120.740 Sodium Chloride 0.9% 218 ml @ 0.05 MCG/KG/MIN 2. 159 mls/hr IV .Q24H [facility] Rx#:[id number] Norepinephrine 4 mg In 574.520 Sodium Chloride 0.9% 250 ml @ 0.05 MCG/KG/MIN 16. 974 mls/hr IV .[id number] [facility] Rx#:[id number] fentaNYL (PF) 1,000 mcg 67.36 In Sodium Chloride 0.9% 80 ml @ Per Protocol IV . Q0M [facility] Rx#:[id number] propofoL 1,000 mg In 256.285 298.639 100 Empty Bag 1 bag @ Titrate IV .Q0M [facility] Rx#: [id number] Tube Feeding 280 364 Other 180 90 Output: Chest Tube Drainage 20 5 Chest Tube Right 20 5 Urine 455 401 45 Other: Voiding Method Indwelling Catheter Indwelling Catheter Indwelling Catheter ABP, PAP, CO, CI - Last Documented Arterial Blood Pressure 136/77 - Labs CBC & Chem 7: 01/16/21 04:50 01/16/21 04:50 Labs: Abnormal Lab Results - Last 24 Hours (Table) 01/15/21 01/15/21 01/15/21 Range/Units 14:47 14:53 15:57 WBC (3.8-10.6) k/uL RBC (4.30-5.90) m/uL Hgb (13.0-17.5) gm/dL Hct (39.0-53.0) % ABG pH (7.35-7.45) ABG pCO2 (35-45) mmHg ABG pO2 (83-108) mmHg ABG HCO3 (21-25) mmol/L ABG Total CO2 (19-24) mmol/L Potassium 5.7 H (3.5-5.1) mmol/L Chloride 113 H (98-107) mmol/L BUN 132 H* (9-20) mg/dL Creatinine 2.58 H (0.66-1.25) mg/dL Glucose 199 H (74-99) mg/dL POC Glucose (mg/dL) 185 H 337 H (75-99) mg/dL Phosphorus (2.5-4.5) mg/dL ALT (4-49) U/L Lactate Dehydrogenase (313-618) U/L Total Protein (6.3-8.2) g/dL Albumin (3.5-5.0) g/dL 01/15/21 01/15/21 01/15/21 Range/Units 16:47 18:00 18:52 WBC (3.8-10.6) k/uL RBC (4.30-5.90) m/uL Hgb (13.0-17.5) gm/dL Hct (39.0-53.0) % ABG pH (7.35-7.45) ABG pCO2 (35-45) mmHg ABG pO2 (83-108) mmHg ABG HCO3 (21-25) mmol/L ABG Total CO2 (19-24) mmol/L Potassium (3.5-5.1) mmol/L Chloride (98-107) mmol/L BUN (9-20) mg/dL Creatinine (0.66-1.25) mg/dL Glucose (74-99) mg/dL POC Glucose (mg/dL) 229 H 182 H 163 H (75-99) mg/dL Phosphorus (2.5-4.5) mg/dL ALT (4-49) U/L Lactate Dehydrogenase (313-618) U/L Total Protein (6.3-8.2) g/dL Albumin (3.5-5.0) g/dL 01/15/21 01/15/21 01/15/21 Range/Units 18:57 19:59 20:56 WBC (3.8-10.6) k/uL RBC (4.30-5.90) m/uL Hgb (13.0-17.5) gm/dL Hct (39.0-53.0) % ABG pH (7.35-7.45) ABG pCO2 (35-45) mmHg ABG pO2 (83-108) mmHg ABG HCO3 (21-25) mmol/L ABG Total CO2 (19-24) mmol/L Potassium 5.7 H (3.5-5.1) mmol/L Chloride (98-107) mmol/L BUN (9-20) mg/dL Creatinine (0.66-1.25) mg/dL Glucose (74-99) mg/dL POC Glucose (mg/dL) 158 H 145 H (75-99) mg/dL Phosphorus (2.5-4.5) mg/dL ALT (4-49) U/L Lactate Dehydrogenase (313-618) U/L Total Protein (6.3-8.2) g/dL Albumin (3.5-5.0) g/dL 01/15/21 01/15/21 01/16/21 Range/Units 22:03 23:00 00:08 WBC (3.8-10.6) k/uL RBC (4.30-5.90) m/uL Hgb (13.0-17.5) gm/dL Hct (39.0-53.0) % ABG pH (7.35-7.45) ABG pCO2 (35-45) mmHg ABG pO2 (83-108) mmHg ABG HCO3 (21-25) mmol/L ABG Total CO2 (19-24) mmol/L Potassium (3.5-5.1) mmol/L Chloride (98-107) mmol/L BUN (9-20) mg/dL Creatinine (0.66-1.25) mg/dL Glucose (74-99) mg/dL POC Glucose (mg/dL) 248 H 196 H 168 H (75-99) mg/dL Phosphorus (2.5-4.5) mg/dL ALT (4-49) U/L Lactate Dehydrogenase (313-618) U/L Total Protein (6.3-8.2) g/dL Albumin (3.5-5.0) g/dL 01/16/21 01/16/21 01/16/21 Range/Units 01:02 01:12 02:07 WBC (3.8-10.6) k/uL RBC (4.30-5.90) m/uL Hgb (13.0-17.5) gm/dL Hct (39.0-53.0) % ABG pH (7.35-7.45) ABG pCO2 (35-45) mmHg ABG pO2 (83-108) mmHg ABG HCO3 (21-25) mmol/L ABG Total CO2 (19-24) mmol/L Potassium 6.0 H (3.5-5.1) mmol/L Chloride (98-107) mmol/L BUN (9-20) mg/dL Creatinine (0.66-1.25) mg/dL Glucose (74-99) mg/dL POC Glucose (mg/dL) 192 H 136 H (75-99) mg/dL Phosphorus (2.5-4.5) mg/dL ALT (4-49) U/L Lactate Dehydrogenase (313-618) U/L Total Protein (6.3-8.2) g/dL Albumin (3.5-5.0) g/dL 01/16/21 01/16/21 01/16/21 Range/Units 03:00 04:07 04:20 WBC (3.8-10.6) k/uL RBC (4.30-5.90) m/uL Hgb (13.0-17.5) gm/dL Hct (39.0-53.0) % ABG pH 7.19 L* (7.35-7.45) ABG pCO2 69 H (35-45) mmHg ABG pO2 78 L (83-108) mmHg ABG HCO3 26 H (21-25) mmol/L ABG Total CO2 28 H (19-24) mmol/L Potassium (3.5-5.1) mmol/L Chloride (98-107) mmol/L BUN (9-20) mg/dL Creatinine (0.66-1.25) mg/dL Glucose (74-99) mg/dL POC Glucose (mg/dL) 275 H 217 H (75-99) mg/dL Phosphorus (2.5-4.5) mg/dL ALT (4-49) U/L Lactate Dehydrogenase (313-618) U/L Total Protein (6.3-8.2) g/dL Albumin (3.5-5.0) g/dL 01/16/21 01/16/21 01/16/21 Range/Units 04:50 04:50 05:10 WBC 27.9 H (3.8-10.6) k/uL RBC 3.88 L (4.30-5.90) m/uL Hgb 12.2 L (13.0-17.5) gm/dL Hct 36.5 L (39.0-53.0) % ABG pH (7.35-7.45) ABG pCO2 (35-45) mmHg ABG pO2 (83-108) mmHg ABG HCO3 (21-25) mmol/L ABG Total CO2 (19-24) mmol/L Potassium 5.9 H (3.5-5.1) mmol/L Chloride 113 H (98-107) mmol/L BUN 142 H* (9-20) mg/dL Creatinine 3.44 H (0.66-1.25) mg/dL Glucose 197 H (74-99) mg/dL POC Glucose (mg/dL) 218 H (75-99) mg/dL Phosphorus 8.1 H (2.5-4.5) mg/dL ALT 60 H (4-49) U/L Lactate Dehydrogenase 1428 H (313-618) U/L Total Protein 4.6 L (6.3-8.2) g/dL Albumin 2.4 L (3.5-5.0) g/dL 01/16/21 01/16/21 01/16/21 Range/Units 06:05 06:56 08:56 WBC (3.8-10.6) k/uL RBC (4.30-5.90) m/uL Hgb (13.0-17.5) gm/dL Hct (39.0-53.0) % ABG pH (7.35-7.45) ABG pCO2 (35-45) mmHg ABG pO2 (83-108) mmHg ABG HCO3 (21-25) mmol/L ABG Total CO2 (19-24) mmol/L Potassium (3.5-5.1) mmol/L Chloride (98-107) mmol/L BUN (9-20) mg/dL Creatinine (0.66-1.25) mg/dL Glucose (74-99) mg/dL POC Glucose (mg/dL) 237 H 188 H 136 H (75-99) mg/dL Phosphorus (2.5-4.5) mg/dL ALT (4-49) U/L Lactate Dehydrogenase (313-618) U/L Total Protein (6.3-8.2) g/dL Albumin (3.5-5.0) g/dL 01/16/21 01/16/21 01/16/21 Range/Units 10:10 10:57 11:57 WBC (3.8-10.6) k/uL RBC (4.30-5.90) m/uL Hgb (13.0-17.5) gm/dL Hct (39.0-53.0) % ABG pH (7.35-7.45) ABG pCO2 (35-45) mmHg ABG pO2 (83-108) mmHg ABG HCO3 (21-25) mmol/L ABG Total CO2 (19-24) mmol/L Potassium (3.5-5.1) mmol/L Chloride (98-107) mmol/L BUN (9-20) mg/dL Creatinine (0.66-1.25) mg/dL Glucose (74-99) mg/dL POC Glucose (mg/dL) 130 H 192 H 240 H (75-99) mg/dL Phosphorus (2.5-4.5) mg/dL ALT (4-49) U/L Lactate Dehydrogenase (313-618) U/L Total Protein (6.3-8.2) g/dL Albumin (3.5-5.0) g/dL
--- NOTE | 2021-01-16 14:55 | P.PN ---
Subjective Progress Note Date: 01/16/21 Principal diagnosis: Covid 19 infection, acute hypoxic respiratory failure, ARDS requiring mechanical ventilation, right-sided small pneumothorax, S/P pleural chest tube placement with subsequent extensive subcutaneous emphysema, acute kidney injury. Previous medical history of CAD with stent placement, hypertension, hyperlipidemia, diabetes, never smoker. The patient is currently lying in bed in the intensive care unit, he remains intubated with mechanical ventilator support and sedated on propofol drip and a paralytic. His right pleural chest tube remains in place with no air leak present. Scant serosanguineous drainage. Significant subcutaneous emphysema remains. According to the patient's bedside nurse the patient is a DO NOT RESUSCITATE and are leaning towards comfort care measures within the next 24 hours. Objective - Vital Signs Vital signs: Vital Signs Temp 98.7 F 01/16/21 12:00 Pulse 112 H 01/16/21 14:00 Resp 30 H 01/16/21 14:00 BP 102/69 01/16/21 11:00 Pulse Ox 93 L 01/16/21 14:00 Intake & Output 01/15/21 01/16/21 01/16/21 18:59 06:59 18:59 Intake Total 8547.640 3786.599 456.249 Output Total 475 406 45 Balance 1315.104 773.599 411.249 Weight 97 kg 97 kg Intake: IV 180 170 174 Pressure bag 30 50 24 Sodium Chloride 0.9% 1, 150 120 150 000 ml @ 10 mls/hr IV . Q24H [facility] Rx#:[id number] Intake, IV Titration 1150.104 555.599 282.249 Amount Calcium Gluconate 1 gm In 100 Sodium Chloride 0.9% 100 ml @ 100 mls/hr IVPB ONCE ONE Rx#:[id number] Cisatracurium 200 mg In 140.556 26.864 Sodium Chloride 0.9% 180 ml @ 1 MCG/KG/MIN 5.346 mls/hr IV .Q24H [facility] Rx#: [id number] Insulin Regular 100 unit 62.014 73.697 61.509 In Sodium Chloride 0.9% 100 ml @ Per Protocol IV .Q0M [facility] Rx#:[id number] Norepinephrine 32 mg In 16.729 89.039 120.740 Sodium Chloride 0.9% 218 ml @ 0.05 MCG/KG/MIN 2. 159 mls/hr IV .Q24H [facility] Rx#:[id number] Norepinephrine 4 mg In 574.520 Sodium Chloride 0.9% 250 ml @ 0.05 MCG/KG/MIN 16. 974 mls/hr IV .[id number] [facility] Rx#:[id number] fentaNYL (PF) 1,000 mcg 67.36 In Sodium Chloride 0.9% 80 ml @ Per Protocol IV . Q0M [facility] Rx#:[id number] propofoL 1,000 mg In 256.285 298.639 100 Empty Bag 1 bag @ Titrate IV .Q0M [facility] Rx#: [id number] Tube Feeding 280 364 Other 180 90 Output: Chest Tube Drainage 20 5 Chest Tube Right 20 5 Urine 455 401 45 Other: Voiding Method Indwelling Catheter Indwelling Catheter Indwelling Catheter ABP, PAP, CO, CI - Last Documented Arterial Blood Pressure 136/77 - Exam CONSTITUTIONAL: Obese, mechanically ventilated with sedation and on paralytic. EYES: Pupils equal, round, reactive to light. ENT: Moist mucous membranes without oral lesions present. NECK: No masses, no bruits, trachea midline. RESPIRATORY: Lungs sounds diminished and course to auscultation bilaterally. Respirations even, nonlabored on mechanical ventilation. Currently ventilator settings assist control mode, tidal volume 400, Assist control 30, FIO2 90%, PEEP 8. 8.0 ET tube present, 24 the lip. Right-sided pleural chest tube present to continuous wall suction, 30 mL bloody drainage in the last 24 hours, no visible air leak. Subcutaneous air present to face, neck, chest, upper e xtremities. CARDIOVASCULAR: S1, S2 present. Regular rate and rhythm, sinus tachycardia on telemetry with heart rate 112. Palpable peripheral pulses bilaterally. Generalized edema present. SCDs present GASTROINTESTINAL: Abdomen soft, nondistended without masses or organomegaly noted. Active bowel sounds present 4 quadrants. Tube feeds infusing. GENITOURINARY: Armando present draining dark bartolo urine. INTEGUMENTARY: Skin is warm and dry. NEUROLOGIC: Unable to be assessed as patient is sedated and paralyzed on mechanical ventilation. - Labs CBC & Chem 7: 01/16/21 04:50 01/16/21 04:50 Labs: Abnormal Lab Results - Last 24 Hours (Table) 01/15/21 01/15/21 01/15/21 Range/Units 14:47 14:53 15:57 WBC (3.8-10.6) k/uL RBC (4.30-5.90) m/uL Hgb (13.0-17.5) gm/dL Hct (39.0-53.0) % ABG pH (7.35-7.45) ABG pCO2 (35-45) mmHg ABG pO2 (83-108) mmHg ABG HCO3 (21-25) mmol/L ABG Total CO2 (19-24) mmol/L Potassium 5.7 H (3.5-5.1) mmol/L Chloride 113 H (98-107) mmol/L BUN 132 H* (9-20) mg/dL Creatinine 2.58 H (0.66-1.25) mg/dL Glucose 199 H (74-99) mg/dL POC Glucose (mg/dL) 185 H 337 H (75-99) mg/dL Phosphorus (2.5-4.5) mg/dL ALT (4-49) U/L Lactate Dehydrogenase (313-618) U/L Total Protein (6.3-8.2) g/dL Albumin (3.5-5.0) g/dL 01/15/21 01/15/21 01/15/21 Range/Units 16:47 18:00 18:52 WBC (3.8-10.6) k/uL RBC (4.30-5.90) m/uL Hgb (13.0-17.5) gm/dL Hct (39.0-53.0) % ABG pH (7.35-7.45) ABG pCO2 (35-45) mmHg ABG pO2 (83-108) mmHg ABG HCO3 (21-25) mmol/L ABG Total CO2 (19-24) mmol/L Potassium (3.5-5.1) mmol/L Chloride (98-107) mmol/L BUN (9-20) mg/dL Creatinine (0.66-1.25) mg/dL Glucose (74-99) mg/dL POC Glucose (mg/dL) 229 H 182 H 163 H (75-99) mg/dL Phosphorus (2.5-4.5) mg/dL ALT (4-49) U/L Lactate Dehydrogenase (313-618) U/L Total Protein (6.3-8.2) g/dL Albumin (3.5-5.0) g/dL 01/15/21 01/15/21 01/15/21 Range/Units 18:57 19:59 20:56 WBC (3.8-10.6) k/uL RBC (4.30-5.90) m/uL Hgb (13.0-17.5) gm/dL Hct (39.0-53.0) % ABG pH (7.35-7.45) ABG pCO2 (35-45) mmHg ABG pO2 (83-108) mmHg ABG HCO3 (21-25) mmol/L ABG Total CO2 (19-24) mmol/L Potassium 5.7 H (3.5-5.1) mmol/L Chloride (98-107) mmol/L BUN (9-20) mg/dL Creatinine (0.66-1.25) mg/dL Glucose (74-99) mg/dL POC Glucose (mg/dL) 158 H 145 H (75-99) mg/dL Phosphorus (2.5-4.5) mg/dL ALT (4-49) U/L Lactate Dehydrogenase (313-618) U/L Total Protein (6.3-8.2) g/dL Albumin (3.5-5.0) g/dL 01/15/21 01/15/21 01/16/21 Range/Units 22:03 23:00 00:08 WBC (3.8-10.6) k/uL RBC (4.30-5.90) m/uL Hgb (13.0-17.5) gm/dL Hct (39.0-53.0) % ABG pH (7.35-7.45) ABG pCO2 (35-45) mmHg ABG pO2 (83-108) mmHg ABG HCO3 (21-25) mmol/L ABG Total CO2 (19-24) mmol/L Potassium (3.5-5.1) mmol/L Chloride (98-107) mmol/L BUN (9-20) mg/dL Creatinine (0.66-1.25) mg/dL Glucose (74-99) mg/dL POC Glucose (mg/dL) 248 H 196 H 168 H (75-99) mg/dL Phosphorus (2.5-4.5) mg/dL ALT (4-49) U/L Lactate Dehydrogenase (313-618) U/L Total Protein (6.3-8.2) g/dL Albumin (3.5-5.0) g/dL 01/16/21 01/16/21 01/16/21 Range/Units 01:02 01:12 02:07 WBC (3.8-10.6) k/uL RBC (4.30-5.90) m/uL Hgb (13.0-17.5) gm/dL Hct (39.0-53.0) % ABG pH (7.35-7.45) ABG pCO2 (35-45) mmHg ABG pO2 (83-108) mmHg ABG HCO3 (21-25) mmol/L ABG Total CO2 (19-24) mmol/L Potassium 6.0 H (3.5-5.1) mmol/L Chloride (98-107) mmol/L BUN (9-20) mg/dL Creatinine (0.66-1.25) mg/dL Glucose (74-99) mg/dL POC Glucose (mg/dL) 192 H 136 H (75-99) mg/dL Phosphorus (2.5-4.5) mg/dL ALT (4-49) U/L Lactate Dehydrogenase (313-618) U/L Total Protein (6.3-8.2) g/dL Albumin (3.5-5.0) g/dL 01/16/21 01/16/21 01/16/21 Range/Units 03:00 04:07 04:20 WBC (3.8-10.6) k/uL RBC (4.30-5.90) m/uL Hgb (13.0-17.5) gm/dL Hct (39.0-53.0) % ABG pH 7.19 L* (7.35-7.45) ABG pCO2 69 H (35-45) mmHg ABG pO2 78 L (83-108) mmHg ABG HCO3 26 H (21-25) mmol/L ABG Total CO2 28 H (19-24) mmol/L Potassium (3.5-5.1) mmol/L Chloride (98-107) mmol/L BUN (9-20) mg/dL Creatinine (0.66-1.25) mg/dL Glucose (74-99) mg/dL POC Glucose (mg/dL) 275 H 217 H (75-99) mg/dL Phosphorus (2.5-4.5) mg/dL ALT (4-49) U/L Lactate Dehydrogenase (313-618) U/L Total Protein (6.3-8.2) g/dL Albumin (3.5-5.0) g/dL 01/16/21 01/16/21 01/16/21 Range/Units 04:50 04:50 05:10 WBC 27.9 H (3.8-10.6) k/uL RBC 3.88 L (4.30-5.90) m/uL Hgb 12.2 L (13.0-17.5) gm/dL Hct 36.5 L (39.0-53.0) % ABG pH (7.35-7.45) ABG pCO2 (35-45) mmHg ABG pO2 (83-108) mmHg ABG HCO3 (21-25) mmol/L ABG Total CO2 (19-24) mmol/L Potassium 5.9 H (3.5-5.1) mmol/L Chloride 113 H (98-107) mmol/L BUN 142 H* (9-20) mg/dL Creatinine 3.44 H (0.66-1.25) mg/dL Glucose 197 H (74-99) mg/dL POC Glucose (mg/dL) 218 H (75-99) mg/dL Phosphorus 8.1 H (2.5-4.5) mg/dL ALT 60 H (4-49) U/L Lactate Dehydrogenase 1428 H (313-618) U/L Total Protein 4.6 L (6.3-8.2) g/dL Albumin 2.4 L (3.5-5.0) g/dL 01/16/21 01/16/21 01/16/21 Range/Units 06:05 06:56 08:56 WBC (3.8-10.6) k/uL RBC (4.30-5.90) m/uL Hgb (13.0-17.5) gm/dL Hct (39.0-53.0) % ABG pH (7.35-7.45) ABG pCO2 (35-45) mmHg ABG pO2 (83-108) mmHg ABG HCO3 (21-25) mmol/L ABG Total CO2 (19-24) mmol/L Potassium (3.5-5.1) mmol/L Chloride (98-107) mmol/L BUN (9-20) mg/dL Creatinine (0.66-1.25) mg/dL Glucose (74-99) mg/dL POC Glucose (mg/dL) 237 H 188 H 136 H (75-99) mg/dL Phosphorus (2.5-4.5) mg/dL ALT (4-49) U/L Lactate Dehydrogenase (313-618) U/L Total Protein (6.3-8.2) g/dL Albumin (3.5-5.0) g/dL 01/16/21 01/16/21 01/16/21 Range/Units 10:10 10:57 11:57 WBC (3.8-10.6) k/uL RBC (4.30-5.90) m/uL Hgb (13.0-17.5) gm/dL Hct (39.0-53.0) % ABG pH (7.35-7.45) ABG pCO2 (35-45) mmHg ABG pO2 (83-108) mmHg ABG HCO3 (21-25) mmol/L ABG Total CO2 (19-24) mmol/L Potassium (3.5-5.1) mmol/L Chloride (98-107) mmol/L BUN (9-20) mg/dL Creatinine (0.66-1.25) mg/dL Glucose (74-99) mg/dL POC Glucose (mg/dL) 130 H 192 H 240 H (75-99) mg/dL Phosphorus (2.5-4.5) mg/dL ALT (4-49) U/L Lactate Dehydrogenase (313-618) U/L Total Protein (6.3-8.2) g/dL Albumin (3.5-5.0) g/dL 01/16/21 Range/Units 14:18 WBC (3.8-10.6) k/uL RBC (4.30-5.90) m/uL Hgb (13.0-17.5) gm/dL Hct (39.0-53.0) % ABG pH (7.35-7.45) ABG pCO2 (35-45) mmHg ABG pO2 (83-108) mmHg ABG HCO3 (21-25) mmol/L ABG Total CO2 (19-24) mmol/L Potassium (3.5-5.1) mmol/L Chloride (98-107) mmol/L BUN (9-20) mg/dL Creatinine (0.66-1.25) mg/dL Glucose (74-99) mg/dL POC Glucose (mg/dL) 186 H (75-99) mg/dL Phosphorus (2.5-4.5) mg/dL ALT (4-49) U/L Lactate Dehydrogenase (313-618) U/L Total Protein (6.3-8.2) g/dL Albumin (3.5-5.0) g/dL Assessment and Plan Assessment: 1. Covid 19 infection 2. Acute hypoxic respiratory failure, ARDS requiring mechanical ventilation, secondary to above 3. Right-sided small pneumothorax, status post placement of a pleural chest tube with subsequent extensive subcutaneous emphysema 4. Acute kidney injury on chronic kidney disease stage III 5. History of CAD with stent placement 6. History of hypertension, currently hypotensive on levo 7. History of hyperlipidemia 8. History of diabetes 9. Never smoker Plan: 1. Continue right-sided pleural chest tube to continuous wall suction with nonocclusive dressing. Monitor subcutaneous emphysema. 2. No surgical management at this time 3. Continue current treatment per primary care, and pulmonary/critical care medicine 4. We will continue to follow the patient on an as-needed basis as according to the patient's nurse family is leaning towards comfort care measures within the next 24 hours. Time with Patient: Less than 30
[2021-01-16 15:11] LABS: Glucose,Whole Blood 184 mg/dL (75-99)
[2021-01-16 16:10] LABS: Glucose,Whole Blood 141 mg/dL (75-99)
[2021-01-16 16:53] LABS: Calcium 8.8 mg/dL (8.4-10.2)
[2021-01-16 17:04] LABS: Potassium 6.3 mmol/L (3.5-5.1)
[2021-01-16] MEDS ORDERED: CALCIUM GLUCONATE 1 GM in SODIUM CHLORIDE 0.9% 100 ML IVPB ONE ×2 (17:07→23:00)
[2021-01-16] MEDS ORDERED: ALBUTEROL NEBULIZED 2.5 MG/3 ML INHALATION STA (17:15)
[2021-01-16 17:24] LABS: Glucose,Whole Blood 135 mg/dL (75-99)
[2021-01-16 18:43] LABS: Glucose,Whole Blood 159 mg/dL (75-99)
[2021-01-16] MEDS: CISATRACURIUM 200 MG in SODIUM CHLORIDE 0.9% 180 ML IV SCH (21:04)
[2021-01-16] MEDS: polyethylene glycoL 3350 17 GM POWD.PACK PO SCH (21:10)
[2021-01-16] MEDS: ATORVASTATIN 20 MG TAB PO SCH (21:10)
[2021-01-16 21:28] LABS: Glucose,Whole Blood 142 mg/dL (75-99)
[2021-01-16 22:20] LABS: Glucose,Whole Blood 167 mg/dL (75-99)
[2021-01-16 22:23] LABS: Calcium 9.1 mg/dL (8.4-10.2)
[2021-01-16 22:33] LABS: Potassium 6.4 mmol/L (3.5-5.1)
[2021-01-16] MEDS ORDERED: ALBUTEROL NEBULIZED (CONC) 20 MG, SODIUM CHLORIDE 0.9% NEBULIZ 3 ML INHALATION ONE ×2 (23:01)
[2021-01-16 23:21] LABS: Glucose,Whole Blood 183 mg/dL (75-99)
[2021-01-16] MEDS ORDERED: ALBUTEROL NEB (CONC) 2.5 MG/0.5 ML INHALATION ONE (23:37)
[2021-01-17] MEDS: methylPREDNISolone SOD SUCCI 125 MG/2 ML VIAL IV SCH ×2 (00:15→05:29)
[2021-01-17 01:33] LABS: Glucose,Whole Blood 199 mg/dL (75-99)
[2021-01-17] MEDS: ARTIFICIAL TEARS-HYPROMELLOSE DROPS 15 ML BTL BOTH EYES SCH ×2 (01:52→04:08)
[2021-01-17 02:50] LABS: Glucose,Whole Blood 196 mg/dL (75-99)
[2021-01-17 03:07] LABS: Calcium 8.9 mg/dL (8.4-10.2)
[2021-01-17 03:22] LABS: Potassium 6.5 mmol/L (3.5-5.1)
[2021-01-17] MEDS ORDERED: ALBUTEROL NEBULIZED (CONC) 20 MG, SODIUM CHLORIDE 0.9% NEBULIZ 3 ML INHALATION ONE ×2 (03:48)
[2021-01-17] MEDS ORDERED: INSULIN REGULAR 100 UNIT/ML VIAL IV ONE ×2 (03:49→07:50)
[2021-01-17] MEDS ORDERED: DEXTROSE 50% SYRINGE 50 ML IVP STA ×2 (03:49→07:50)
[2021-01-17 04:12] LABS: Glucose,Whole Blood 320 mg/dL (75-99)
[2021-01-17] MEDS: SODIUM CHLORIDE 0.9% 1,000 ML IV SCH (04:14)
[2021-01-17 04:34] VITALS: TEMP 99.4
[2021-01-17 05:14] LABS: Glucose,Whole Blood 167 mg/dL (75-99)
[2021-01-17 05:34] LABS: ABG PH 7.17 (7.35-7.45); Allen Test Performed? Yes
[2021-01-17 05:35] LABS: ABG HCO3 24 mmol/L (21-25); ABG PCO2 65 mmHg (35-45); ABG PO2 75 mmHg (83-108); ABG TCO2 26 mmol/L (19-24)
[2021-01-17] MEDS: SEVELAMER 800 MG TAB PO SCH (06:38)
[2021-01-17] MEDS: NOREPINEPHRINE 32 MG in SODIUM CHLORIDE 0.9% 218 ML IV SCH (07:03)
[2021-01-17] MEDS: INSULIN REGULAR 100 UNIT in SODIUM CHLORIDE 0.9% 100 ML IV SCH (07:04)
[2021-01-17 07:13] LABS: Glucose,Whole Blood 206 mg/dL (75-99)
[2021-01-17 07:13] LABS: Glucose,Whole Blood 157 mg/dL (75-99)
[2021-01-17] MEDS: ALBUTEROL HFA INHALER INHALATION SCH ×2 (07:24→11:11)
[2021-01-17] MEDS ORDERED: SODIUM BICARB 8.4% 50 ML SYR (1 MEQ/ML) IV STA (07:50)
[2021-01-17] MEDS ORDERED: CALCIUM GLUCONATE 1 GM in SODIUM CHLORIDE 0.9% 100 ML IVPB ONE (07:50)
[2021-01-17 08:09] LABS: Glucose,Whole Blood 174 mg/dL (75-99)
[2021-01-17] MEDS ORDERED: FAMOTIDINE 20 MG/2 ML VIAL IV SCH (09:00)
[2021-01-17] MEDS ORDERED: ENOXAPARIN 60 MG/0.6 ML SYRINGE SQ SCH (09:00)
[2021-01-17] MEDS: HYDROmorphone 1 MG/ML 1 ML SYRINGE IVP PRN (09:35)
[2021-01-17 09:57] VITALS: BP 101/22
[2021-01-17 10:51] VITALS: PULSE 0; RESP 0
--- NOTE | 2021-01-17 14:03 | P.PN ---
Subjective Progress Note Date: 01/17/21 Principal diagnosis: Acute hypoxic respiratory failure secondary to acute covid 19 pneumonitis. 70-year-old male patient, known history of diabetes mellitus maintained on insulin in addition to history of hypertension, hyperlipidemia, coronary artery disease and previous history of PCI, presented to the emergency department because of increased fatigue and tiredness. The patient was infected with Covid 19 and the testing by PCR came back positive. The patient started having symptoms of infection approximately 7 days ago and his tests confirmed positive. The test was positive on 12/27/2020. The patient's complaints were essentially those of body aches, feeling weak and tired and he was warm and he was probably having fevers. He was significantly fatigued and he was unable to do even simple stuff at home. He reported poor appetite. No loss in the taste or smell . He had no significant cough. He denies having any significant shortness of breath. No headaches. No nasal congestion. No nausea or vomiting. Upon arrival to the emergency department, the patient was profoundly hypoxic and the pulse ox was around 82% and the patient was also tachypneic and tachycardic. He was initially started on oxygen at 10 L per minute nasal cannula and subsequently the oxygen flow was brought up to 15 L and he continued to be hypoxic. At that point, the patient was switched to BiPAP at a pressure of 10/5 and FiO2 of 100%. The patient had further blood work that showed an LDH level of 2287, CRP of 170, lactic acid level of 2.4, serum bicarb of 18, the BUN was 37 with a creatinine of 1.7. The blood gas on 100% FiO2 showed a pH of 7.4 with a pCO2 of 27 and pO2 of 62. The chest x-ray showed diffuse but the pulmonary infiltrates. At that point, the patient was admitted to the intensive care unit and the patient was supported with BiPAP. The patient is currently on IV Decadron. The patient was also started on Remdesivir per protocol. The patient is on Lovenox 40 mg subcu every 24 hours for a d-dimer of 1.17 and the time of admission. The patient this morning was transitioned to oxygen at 15 L high flow and he is able to maintain a saturation above 90%. He remains in normal sinus rhythm. He is awake and alert. His chest x-ray showing bilateral pulmonary infiltrates was in the lung bases bilaterally. He is off the BiPAP for now. D-dimer is at 1.88 from today. His LDH is down to 1952 and the pro- calcitonin level was 0.3, LFTs were minimally elevated secondary to Covid 19. CRP is down to 158. He is currently on the same treatment including Decadron and Remdesivir day #2 01/11/2021 the patient is being seen in follow-up. The patient is currently intubated on a mechanical ventilator. The patient is a case of Covid associated pneumonia with secondary respiratory failure. Note that because of stiff lungs and elevated airway pressures, the patient developed barotrauma and subsequently he developed a small right-sided pneumothorax and he was developing extensive subcutaneous emphysema as the patient was developing increased swelling in his face neck and chest throughout the day yesterday. As such, I inserted a chest tube on him yesterday and a 28-Nepali chest tube was inserted into the right lung without any complications. The patient's currently is sedated with propofol which is running at 35 mcg/kg per minute. The patient is also on Nimbex running at 0.8 mcg/kg per minute and the patient is also on fentanyl are running at 0.8 Arnie respiratory kilogram per hour. As such, the patient has been adequately sedated and adequately paralyzed and the patient is quite synchronous with the mechanical ventilator. The patient is currently on a assist-control mode of ventilation, volume cycle with a rate of 26 and a tidal volume of 400 and FiO2 of 80% with a PEEP of 8. The blood periods from today shows a pH of 7.21 with a pCO2 of 63 and pO2 of 82. The patient's peak airway pressure is 28 with a static pressure of 28. Overnight, his subcutaneous emphysema has gotten significantly worse. Nevertheless, he doesn't have any pneumothorax. The right-sided chest tube is still in place. The patient has developed extensive subcutaneous emphysema bilaterally extending to his neck and the face and upper extremities in the chest. Orotracheal tube is in a good location. NG tube is also in a good location. The patient is on IV Solu-Medrol at 60 mg every 6 hours. In terms of his Covid 19 related pneumonia, his air d- dimer is at 6.91, his LDH currently is down to 1434 and his CRP level is down to 20.2. Rest of the blood work and electrodes are all within normal limits. His white cell count currently is at 9.2 with hemoglobin of 11.5. The patient is receiving enteral feeding for nutritional support and is currently on vital high protein at 20 mL an hour and is able to tolerate the diet and he has had regular bowel movements. No abdominal distention. No emesis. No other significant events overnight. Active issues for now is unwilling respiratory failure and extensive subcutaneous emphysema that is involved as a complication of Covid 19 related pneumonia and respiratory failure. Reevaluated today on 01/12/2021, patient remains in the ICU, patient is on mechanical ventilation, assist control rate of 26, tidal volume is 400, FiO2 is 70%, and PEEP is 10. Patient is on propofol at 20 mcg/kg/m, norepinephrine at 0.02 mcg/kg/m. On Nimbex at 0.2 mcg/kg/m. And he is also on fentanyl. FiO2 w as decreased down to 65%, chest x-ray showed bilateral infiltrates cannot significant subcutaneous emphysema. Right-sided chest tube is noted to have some air leak, remains on suction. Very minimal right apical pneumothorax suspected, however chest tube remains in place. The cecum and is 6.2 hemoglobin 14.9. ABG today showed a pO2 of 59 pCO2 of 51 pH of 7.34 d-dimer is 3.51 BUN is 57 creatinine 1.14. LDH is 1158 and C-reactive protein is 11.3. Patient is on enteral feeding. Remains on Solu-Medrol 60 mg IV push every 6 hours. Reevaluated today on 01/13/2021, patient remains in the ICU, remains on mechanical ventilation, his chest x-ray is showing significant subcutaneous emphysema, and small right-sided pneumothorax in spite of the chest tube in place. Hence thoracic surgery was consulted, and at this point not planning any chest tube placement or any surgical intervention. Patient remains on assist control rate of 26 tidal volume is 400 FiO2 of 65% on a cardiac down to 60 PEEP is at 10 I cut it down to 8. ABG showed a pO2 of 88 pCO2 of 70 pH of 7.23. Patient remains on Nimbex, insulin drip, propofol, and fentanyl. He remains off norepinephrine. Nephrology was consulted to the patient regarding his worsening renal status, BUN is 80 creatinine is 1.47. Patient remains on enteral feeding. He remains on Solu-Medrol. I will go ahead and cut down the dose of Solu-Medr ol. Patient did receive actemra and remdesivir Patient was reevaluated today on 01/14/2021, remains in the ICU, remains intubated and mechanically ventilated, he is on assist control rate of 26 tidal volume is 400 FiO2 is 65% and PEEP of 8. ABG showed a pO2 of 59 pCO2 of 63 pH of 7.31. Continues to have right-sided chest tube in place, no leak noted from the chest tube, however there are some blood surrounding the area of the chest tube insertion. I recommended a CT of the chest to be done today without contrast to evaluate the extensiveness of his pneumothorax and subcutaneous emphysema and 2 determine the exact location of the chest tube and decide whether another chest tube is necessary. His ventilator settings were basically the same except I increased his FiO2 from 60-65%. Patient remains on norepinephrine at 0.02 mcg/kg/m, propofol at 50 mcg/kg/m, Nimbex at 1 mcg/kg/m insulin 9 units per hour and fentanyl 0.2 g every per hour. Patient is on enteral feeding is vital HPI to 40 mL per hour. Patient is sedated, and paralyzed. WBC count is 11.5 hemoglobin is 13.9 ABG as noted above. Electrolytes are normal, renal profile is slightly worse with BUN of 101 creatinine of 1.68, nephrology has been consulted. Patient did receive remdesivir and actemra since admission. Patient was reevaluated today on 01/15/2021, remains in the ICU, continues to do very poorly. Patient remains on assist control rate of 26 tidal volume is 400 FiO2 was increased last night up to 90%, and PEEP is at 8. Continues to have significant subcutaneous emphysema. His CT of the chest did not reveal significant pneumothorax to justify placement of another chest tube. Patient remains on norepinephrine at 0.12 mcg/kg/m, Nimbex at 2 mcg/kg/m, insulin drip, propofol at 50 mcg/kg/m, and he is also on fentanyl at 0.3 mcg/kg per hour. Patient received fluid boluses last night for low blood pressure, and today he was seen by nephrology, given a dose of Lasix 80 mg IV push 1. Patient remains on Solu-Medrol, remains on Lovenox, he has received remdesivir, and actemra since admission. Chest x-ray is not showing any improvement. His overall clinical condition continues to be quite critical, and not showing any signs of improvement. As a matter of fact I believe the patient is getting worse daily. Patient was reevaluated today on 01/16/2021, remains in the ICU, basically about the same, not making much of progress. His ventilator settings are assist control rate of 26 which I increased earlier today to 30. Tidal volume is 400 FiO2 is 90% PEEP is at 8. ABG this morning showed a pO2 of 78 pCO2 of 69 pH of 7.19, hence his respiratory rate was increased from 20 6230. Patient continues to have significant bilateral infiltrates, continues to have significant subcutaneous emphysema. Remains on norepinephrine at 0.4 mcg/kg/m insulin at 2 units per hour, fentanyl at 0.2 mcg/kg/h, propofol 45 mcg/kg/m and Nimbex at 1.2 mcg/kg/h. Patient is now DO NOT RESUSCITATE CODE STATUS, and my understanding from family that they would like to proceed with comfort care measures in the next 24 hours. WBC count is up today to 27.9. Hemoglobin is 12.2. BUN 142 creatinine 3.44. Patient was reevaluated today on 01/17/2021, remains in the ICU, intubated and mechanically ventilated. Remains on assist control rate of 30 tidal volume is 500 FiO2 is 90% PEEP at 8 ABG showed a pO2 of 75 pCO2 of 65 pH of 7.17. Renal function continues to worsen, and potassium today is 6.5. Remains on nor epinephrine at 0.75 mcg/kg/m.. 75, fentanyl at 0.2, and Nimbex at 1 mg/kg/h, and propofol at 25 mcg/kg/m chest x-ray continues to show worsening of his interstitial infiltrates and subcutaneous emphysema. Considering the patient is now comfort care measures, will go ahead and stop his Nimbex, and we plan to go to comfort care measures as soon as the family arrives this morning Objective - Vital Signs Vital signs: Vital Signs Temp 99.4 F 01/17/21 04:00 Pulse 0 L 01/17/21 10:20 Resp 0 L 01/17/21 10:20 BP 101/22 01/17/21 09:40 Pulse Ox 85 L 01/17/21 09:40 Intake & Output 01/16/21 01/17/21 01/17/21 18:59 06:59 18:59 Intake Total 4678.455 2177.286 525.703 Output Total 90 90 0 Balance 968.503 996.286 525.703 Weight 97 kg 98.6 kg Intake: IV 289 330 113 Calcium Gluconate 1 gm In 100 100 Sodium Chloride 0.9% 100 ml @ 100 mls/hr IVPB ONCE ONE Rx#:[id number] Pressure bag 39 30 3 Sodium Chloride 0.9% 1, 250 200 10 000 ml @ 10 mls/hr IV . Q24H [facility] Rx#:[id number] Intake, IV Titration 383.503 756.286 384.703 Amount Cisatracurium 200 mg In 154.602 73.078 Sodium Chloride 0.9% 180 ml @ 1 MCG/KG/MIN 5.346 mls/hr IV .Q24H [facility] Rx#: [id number] Insulin Regular 100 unit 69.926 56.897 8.013 In Sodium Chloride 0.9% 100 ml @ Per Protocol IV .Q0M [facility] Rx#:[id number] Norepinephrine 32 mg In 120.740 244.787 216.577 Sodium Chloride 0.9% 218 ml @ 0.05 MCG/KG/MIN 2. 159 mls/hr IV .Q24H [facility] Rx#:[id number] propofoL 1,000 mg In 192.837 300 87.035 Empty Bag 1 bag @ Titrate IV .Q0M [facility] Rx#: [id number] Tube Feeding 326 28 Other 60 Output: Urine 90 90 0 Other: Voiding Method Indwelling Catheter Indwelling Catheter Indwelling Catheter ABP, PAP, CO, CI - Last Documented Arterial Blood Pressure 06/25 - Exam General: Revealed a 70-year-old white male on mechanical ventilation, massive subcutaneous emphysema noted. Extending from the chest up to the neck and face. Head: atraumatic, normocephalic, Eyes: EOMI, anicteric sclera, pupils equal round reactive to light and orogastric tube and endotracheal tube are intact. ENT: Nose and ears atraumatic, no thrush, no pharyngeal erythema Neck: No neck masses no JVD no stridor but there is evidence of subcutaneous emphysema Mouth: Moist mucous membranes. Cardiovascular: Normal S1 and S2, no S3 gallop. Lungs: Fine crackles at the bases bilaterally, subcutaneous emphysema is palpable.rt Sided chest tube is noted. No bleeding around the chest tube. Minimal output and the chest tube, and no air leak noted. Abdominal: Soft nontender no megaly no rebound. extremities no clubbing edema or cyanosis. Neuro: Cannot fully assess patient is sedated and paralyzed Psychiatric: Could not assess - Labs CBC & Chem 7: 01/16/21 04:50 01/17/21 02:45 Labs: Abnormal Lab Results - Last 24 Hours (Table) 01/16/21 01/16/21 01/16/21 Range/Units 14:18 15:10 16:08 ABG pH (7.35-7.45) ABG pCO2 (35-45) mmHg ABG pO2 (83-108) mmHg ABG Total CO2 (19-24) mmol/L ABG O2 Saturation (94-97) % Potassium (3.5-5.1) mmol/L Chloride (98-107) mmol/L BUN (9-20) mg/dL Creatinine (0.66-1.25) mg/dL Glucose (74-99) mg/dL POC Glucose (mg/dL) 186 H 184 H 141 H (75-99) mg/dL 01/16/21 01/16/21 01/16/21 Range/Units 16:15 17:19 18:42 ABG pH (7.35-7.45) ABG pCO2 (35-45) mmHg ABG pO2 (83-108) mmHg ABG Total CO2 (19-24) mmol/L ABG O2 Saturation (94-97) % Potassium 6.3 H* (3.5-5.1) mmol/L Chloride 114 H (98-107) mmol/L BUN 155 H* (9-20) mg/dL Creatinine 4.05 H (0.66-1.25) mg/dL Glucose 155 H (74-99) mg/dL POC Glucose (mg/dL) 135 H 159 H (75-99) mg/dL 01/16/21 01/16/21 01/16/21 Range/Units 21:22 21:26 22:18 ABG pH (7.35-7.45) ABG pCO2 (35-45) mmHg ABG pO2 (83-108) mmHg ABG Total CO2 (19-24) mmol/L ABG O2 Saturation (94-97) % Potassium 6.4 H* (3.5-5.1) mmol/L Chloride 111 H (98-107) mmol/L BUN 156 H* (9-20) mg/dL Creatinine 4.43 H (0.66-1.25) mg/dL Glucose 137 H (74-99) mg/dL POC Glucose (mg/dL) 142 H 167 H (75-99) mg/dL 01/16/21 01/17/21 01/17/21 Range/Units 23:19 01:32 02:45 ABG pH (7.35-7.45) ABG pCO2 (35-45) mmHg ABG pO2 (83-108) mmHg ABG Total CO2 (19-24) mmol/L ABG O2 Saturation (94-97) % Potassium 6.5 H* (3.5-5.1) mmol/L Chloride 110 H (98-107) mmol/L BUN 165 H* (9-20) mg/dL Creatinine 4.57 H (0.66-1.25) mg/dL Glucose 194 H (74-99) mg/dL POC Glucose (mg/dL) 183 H 199 H (75-99) mg/dL 01/17/21 01/17/21 01/17/21 Range/Units 02:48 04:10 05:11 ABG pH (7.35-7.45) ABG pCO2 (35-45) mmHg ABG pO2 (83-108) mmHg ABG Total CO2 (19-24) mmol/L ABG O2 Saturation (94-97) % Potassium (3.5-5.1) mmol/L Chloride (98-107) mmol/L BUN (9-20) mg/dL Creatinine (0.66-1.25) mg/dL Glucose (74-99) mg/dL POC Glucose (mg/dL) 196 H 320 H 167 H (75-99) mg/dL 01/17/21 01/17/21 01/17/21 Range/Units 05:26 07:10 07:11 ABG pH 7.17 L* (7.35-7.45) ABG pCO2 65 H (35-45) mmHg ABG pO2 75 L (83-108) mmHg ABG Total CO2 26 H (19-24) mmol/L ABG O2 Saturation 90.0 L (94-97) % Potassium (3.5-5.1) mmol/L Chloride (98-107) mmol/L BUN (9-20) mg/dL Creatinine (0.66-1.25) mg/dL Glucose (74-99) mg/dL POC Glucose (mg/dL) 206 H 157 H (75-99) mg/dL 01/17/21 Range/Units 08:07 ABG pH (7.35-7.45) ABG pCO2 (35-45) mmHg ABG pO2 (83-108) mmHg ABG Total CO2 (19-24) mmol/L ABG O2 Saturation (94-97) % Potassium (3.5-5.1) mmol/L Chloride (98-107) mmol/L BUN (9-20) mg/dL Creatinine (0.66-1.25) mg/dL Glucose (74-99) mg/dL POC Glucose (mg/dL) 174 H (75-99) mg/dL Assessment and Plan Assessment: Impression: Acute hypoxic respiratory failure with ARDS secondary to acute covid 19 pneumonitis. Remains intubated and mechanically ventilated. Acute right sided spontaneous pneumothorax, most likely secondary to barotrauma secondary to mechanical ventilation. Required the right-sided chest tube placement, not seen on chest x-ray today. Acute kidney injury with history of chronic kidney disease stage III, Type 2 diabetes on insulin Benign essential hypertension. Dyslipidemia. Degenerative joint disease. Acute kidney injury. Followed closely by nephrology. Recommendation: Continue present measures Fully agree with comfort care measures which will be done as well as the family arrives to the ICU. Patient will pass comfortably peacefully as per family's wishes Time with Patient: Less than 30
--- NOTE | 2021-01-17 16:37 | P.DS ---
Providers Date of admission: 01/04/21 17:06 Expected date of discharge: 01/17/21 Attending physician: Nika Garcia DO Consults: 01/04/21 17:01 Consult Physician Stat Consulting Provider: Arnie Pinto Consult Reason/Comments: covid pneumonia with hypoxia Do you want consulting provider notified?: Already Contacted 01/13/21 07:51 Consult Physician Routine Consulting Provider: Jennifer Jaime Consult Reason/Comments: ptx sq emphysema Do you want consulting provider notified?: Yes 01/13/21 09:30 Consult Physician Routine Consulting Provider: Garrett Kruger Consult Reason/Comments: Increasing creatinine Do you want consulting provider notified?: Yes Primary care physician: Khushboo Hook Hospital Course: Discharge Diagnosis: COVID 19 pneumonitis with acute hypoxic respiratory failure with septic shock ISIDRO, anuric Chronic kidney disease stage III, Hyperkalemia DM 2, well controlled Hypertension, controlled Dyslipidemia GERD Constipation Lactic acidosis, resolved hyponatremia, resolved metabolic acidosis, resolved Hospital Course: Patient is a 70 yo CM with a hx of DM2 well controlled on insulin and oral medications, HTN, HLD, and CAD with hx of PCI X 1 who presented to the ED due to extreme fatigue. He started having COVID symptoms 7 days prior was tested and confirmed positive. On arrival to the ER he was profoundly hypoxic with room air pulse ox of 82%, pulse 123, respirations 26 with shallow breathing. He was initially started on high flow nasal cannula at 10 L and remained hypoxic. This was uptitrated to 15 L and he continued drain hypoxic at 88%. He was subsequently started on BiPAP with settings of 10/5 at 100%. Initial laboratory analysis showed a platelet count of 141, d-dimer 1.17, sodium 130, carbon dioxide 18, anion gap 18, BUN 37, creatinine 1.75 (baseline 1.4), glucose 208, lactic acid 2.4, total bilirubin 2.2, AST 99, LDH 2287, and CRP of 170. ABG demonstrated a pH of 7.4, pCO2 of 27, and PaO2 of 62 on 100%. Chest x-ray showed diffuse interstitial infiltrates. He was given a dose of 10 mg of Decadron IV and arrangements were made for admission. Dr. Pinto was contacted who agreed to admit the patient to the ICU and start remdesivir. He was able to been weaned down to 15L NC by the morning of 01/05. On the morning of 01/06 he was noted to have increasing encephalopathy. He required BiPap by 01/07 and Precedex for agitation. He did receive 5 days of Remdesivir and Actemra. Due to his worsening respiratory status was subsequently intubated on the . He did develop some increasing peak pressures and ultimately required Nimbex. A bronchoscopy was completed on 01/10. He developed a small right sided pneumothorax and a chest tube was placed on 01/10. Thoracic surgery was consulted and did not recommend any surgical intervention but to continue chest tube. He was noted to have worsening subcutaneous emphysema. He underwent a CT of the chest on 01/14 which demonstrated subcutaneous emphysema as well as pneumomediastinum, less than 10% residual pneumothorax with placement of chest tube. Nephrology had been consulted on 01/13 due to worsening renal failure. They recommended stopping lisinopril and continuing to monitor renal function. Overnight on 01/15 he continued to worsen. He had increasing O2 requirements, vasopressor requirements, and his urine output dropped. His renal function significantly worsened and his potassium was elevated on the morning of 01/15. He continued to require increasing vasopressors for 01/16. He also went into overt and uric renal failure and significant hyperkalemia. After much discussion with his family and other providers there was no hope for meaningful recovery. Family elected to make him comfort measures on the morning of 01/17 and he peacefully in the presence of his and daughter. Dr. Hook notified by myself. Patient seen and examined at bedside.sedated and paralyzed on the vent. Patient seen prior to being made comfort measures. Vital signs reviewed and stable. General: Ill-appearing, no distress, appears at stated age Derm: warm, dry, crepitous over bilateral clavicles and chest Head: atraumatic, normocephalic, symmetric Eyes: Edematous eyelids, scleral edema, anicteric sclera Mouth: no lip lesion, mucus membranes dry Cardiovascular: S1S2 tachy, no murmur, Lungs: Coarse breath sounds bilaterally, sedated on vent Ext: no gross muscle atrophy, diffuse anasarca, no contractures Neuro and psychiatric: Sedated and paralyzed, pupils pinpoint A total of 37 minutes of time were spent preparing this complex discharge summary . Plan - Discharge Summary New Discharge Prescriptions: No Action Quinapril HCl [Accupril] 20 mg PO DAILY Pioglitazone HCl [Actos] 30 mg PO DAILY Liraglutide [Victoza 2-Misael] 1.8 mg SQ DAILY Aspirin 81 mg PO DAILY chew Nitroglycerin Sl Tabs [Nitrostat] 0.4 mg SUBLINGUAL Q5M PRN #25 tab PRN Reason: Chest Pain Cholecalciferol [Vitamin D3 (25 Mcg = 1000 Iu)] 25 mcg PO DAILY Empagliflozin [Jardiance] 25 mg PO DAILY Atorvastatin [Lipitor] 20 mg PO HS Zinc 50 mg PO DAILY Insulin Glargine,Hum.rec.anlog [Toujeo Max Solostar] 28 units SQ DAILY Ascorbic Acid [Vitamin C] 500 mg PO DAILY Sildenafil Citrate 50 mg PO DAILY PRN PRN Reason: ED Metoprolol Tartrate [Lopressor] 25 mg PO BID Benzonatate [Tessalon Perles] 100 mg PO TID PRN PRN Reason: Cough metFORMIN HCL [Glucophage] 850 tab PO BID Discharge Medication List Quinapril HCl [Accupril] 20 mg PO DAILY 06/17/14 [History] Liraglutide [Victoza 2-Misael] 1.8 mg SQ DAILY 12/02/16 [History] Pioglitazone HCl [Actos] 30 mg PO DAILY 12/02/16 [History] Aspirin 81 mg PO DAILY chew 12/04/16 [Rx] Nitroglycerin Sl Tabs [Nitrostat] 0.4 mg SUBLINGUAL Q5M PRN #25 tab 12/04/16 [Rx] Ascorbic Acid [Vitamin C] 500 mg PO DAILY 01/04/21 [History] Atorvastatin [Lipitor] 20 mg PO HS 01/04/21 [History] Benzonatate [Tessalon Perles] 100 mg PO TID PRN 01/04/21 [History] Cholecalciferol [Vitamin D3 (25 Mcg = 1000 Iu)] 25 mcg PO DAILY 01/04/21 [His tory] Empagliflozin [Jardiance] 25 mg PO DAILY 01/04/21 [History] Insulin Glargine,Hum.rec.anlog [Toujeo Max Solostar] 28 units SQ DAILY 01/04/21 [History] Metoprolol Tartrate [Lopressor] 25 mg PO BID 01/04/21 [History] Sildenafil Citrate 50 mg PO DAILY PRN 01/04/21 [History] Zinc 50 mg PO DAILY 01/04/21 [History] metFORMIN HCL [Glucophage] 850 tab PO BID 01/04/21 [History] Follow up Appointment(s)/Referral(s): [facility], [NON-STAFF] - 1-2 Days Khushboo Hook MD [Primary Care Provider] - 1-2 days Discharge Disposition: - Preliminary Cause of Preliminary Cause of : COVID 19 pneumonitis
== END 2021-01-17 11:55 | disposition expired | DRG 207 ==
LOC: EC 14:05 → 3SCARD 17:06 → 2SICU 19:39
PROVIDERS: ADMIT Internal Medicine; ATTEND Internal Medicine
PROC: XW033E5 Introduction of Remdesivir Anti-infective into Peripheral Vein, Percutaneous Approach, New Technology Group 5 (ICD-10-PCS; 2021-01-04)
PROC: XW033H5 Introduction of Tocilizumab into Peripheral Vein, Percutaneous Approach, New Technology Group 5 (ICD-10-PCS; 2021-01-04)
PROC: 5A09457 Assistance with Respiratory Ventilation, 24-96 Consecutive Hours, Continuous Positive Airway Pressure (ICD-10-PCS; 2021-01-06)
PROC: 03HY32Z Insertion of Monitoring Device into Upper Artery, Percutaneous Approach (ICD-10-PCS; 2021-01-07)
PROC: 4A133B1 Monitoring of Arterial Pressure, Peripheral, Percutaneous Approach (ICD-10-PCS; 2021-01-07)
PROC: 4A133J1 Monitoring of Arterial Pulse, Peripheral, Percutaneous Approach (ICD-10-PCS; 2021-01-07)
PROC: 3E033XZ Introduction of Vasopressor into Peripheral Vein, Percutaneous Approach (ICD-10-PCS; 2021-01-09)
PROC: 0W9930Z Drainage of Right Pleural Cavity with Drainage Device, Percutaneous Approach (ICD-10-PCS; 2021-01-10)
PROC: 5A1955Z Respiratory Ventilation, Greater than 96 Consecutive Hours (ICD-10-PCS; principal; 2021-01-13)
PROC: 0BJ08ZZ Inspection of Tracheobronchial Tree, Via Natural or Artificial Opening Endoscopic (ICD-10-PCS; 2021-01-13)
PROC: 0BH18EZ Insertion of Endotracheal Airway into Trachea, Via Natural or Artificial Opening Endoscopic (ICD-10-PCS; 2021-01-13)
DX: U07.1 COVID-19 (principal); E11.10 Type 2 diabetes mellitus with ketoacidosis without coma; A41.89 Other specified sepsis; J12.82 Pneumonia due to coronavirus disease 2019; N17.0 Acute kidney failure with tubular necrosis; R65.21 Severe sepsis with septic shock; J80 Acute respiratory distress syndrome; G93.41 Metabolic encephalopathy; E87.1 Hypo-osmolality and hyponatremia; E87.2 Acidosis; T79.7XXA Traumatic subcutaneous emphysema, initial encounter; E46 Unspecified protein-calorie malnutrition; J93.82 Other air leak; J93.83 Other pneumothorax; Z66 Do not resuscitate; Z51.5 Encounter for palliative care; Z86.16 Personal history of COVID-19; N18.30 Chronic kidney disease, stage 3 unspecified; E83.39 Other disorders of phosphorus metabolism; Z79.4 Long term (current) use of insulin; Z79.82 Long term (current) use of aspirin; E78.5 Hyperlipidemia, unspecified; E11.22 Type 2 diabetes mellitus with diabetic chronic kidney disease; M19.90 Unspecified osteoarthritis, unspecified site; Z87.01 Personal history of pneumonia (recurrent); Z82.49 Family history of ischemic heart disease and other diseases of the circulatory system; Z80.7 Family history of other malignant neoplasms of lymphoid, hematopoietic and related tissues; Z80.42 Family history of malignant neoplasm of prostate; I25.10 Atherosclerotic heart disease of native coronary artery without angina pectoris; I12.9 Hypertensive chronic kidney disease with stage 1 through stage 4 chronic kidney disease, or unspecified chronic kidney disease; E86.0 Dehydration; K21.9 Gastro-esophageal reflux disease without esophagitis; Z95.5 Presence of coronary angioplasty implant and graft; M10.9 Gout, unspecified; E87.5 Hyperkalemia; Z87.442 Personal history of urinary calculi; T38.0X5A Adverse effect of glucocorticoids and synthetic analogues, initial encounter; Z68.31 Body mass index [BMI] 31.0-31.9, adult; K59.00 Constipation, unspecified; R00.1 Bradycardia, unspecified
CPT/HCPCS: 31623; 36415; 36600; 71045; 71250; 80048; 80053; 82009; 82330; 82550; 82553; 82728; 82805; 83036; 83605; 83615; 83690; 83735; 84100; 84132; 84145; 84478; 85025; 85027; 85379; 85610; 85730; 86140; 87040; 87070; 87205; 93005; 94002; 94003; 94640; 94660; 96374; 99291